=== PATIENT | female | born 1945 | race Caucasian/White ===

== ENCOUNTER 2018-07-14 14:58 | Inpatient (IN) | payer OTHER, BC ==
--- OUTSIDE RECORDS SUMMARY | 2018-07-14 15:00 | XMS REPORT | Clinical Summary ---
:1945 Author Organization [facility] Address [address] [place] [id number] Care Team Providers Name Role Phone Asked, No Pcp Primary Care Provider Unavailable Allergies Not on File Current Medications Not on file Active Problems Not on file Encounters Date Type Specialty Care Team Description 05/05/2018 Hospital Encounter Radiology Elio Hernandez Inflammatory polyarthropathy; MD Charli Myositis, unspecified myositis type, unspecified site; Myalgia; Sicca syndrome 05/05/2018 Transcribe Orders Access Elio Hernandez Inflammatory polyarthropathy (Primary Dx); MD Charli Myositis, unspecified myositis type, unspecified site; Myalgia; Sicca syndrome after 07/13/2017 Social History Tobacco Use Types Packs/Day Years Used Date Never Assessed Sex Assigned at Date Recorded Not on file Last Filed Vital Signs Not on file Plan of Treatment Health Maintenance Due Date Last Done Comments BREAST CANCER SCREENING 1996 COLON CANCER SCREENING 1996 SHINGRIX VACCINE (#1) 1996 ZOSTER VACCINE 2006 PNEUMOCOCCAL POLYSACCHARIDE VACCINE AGE 65 AND OVER 2011 PNEUMOCOCCAL-13 2011 INFLUENZA VACCINE 07/02/2018 Procedures Procedure Name Priority Date/Time Associated Diagnosis Comments XR HANDS 3 VW Routine 05/05/2018 1:23 Inflammatory Results for this BILATERAL PM CDT polyarthropathy procedure are in Myositis, unspecified the results myositis type, section. unspecified site Myalgia Sicca syndrome after 07/13/2017 Results XR Hands 3 Vw Bilateral (05/05/2018 1:23 PM) Narrative Performed At EXAMINATION:XR HANDS 3 VW BILATERAL HM [facility] CLINICAL HISTORY:M06.4 Inflammatory polyarthropathy, M60.9 Myositisunspecified, M06.4 M60.9 M79.1 M35.00 COMPARISON:None available at this time. IMPRESSION: 1. No fracture, malalignment, or osseous destructive lesion bilaterally. 2. Joint spaces are maintained in both hands. The bones are mildly demineralized. Probable old healed fracture of the right fifth metacarpal 3. Soft tissues are unremarkable. [id number] Procedure Note Hm Interface, Radiology Results Incoming - 05/05/2018 3:35 PM CDT EXAMINATION: XR HANDS 3 VW BILATERAL CLINICAL HISTORY: M06.4 Inflammatory polyarthropathy, M60.9 Myositis unspecified, M06.4 M60.9 M79.1 M35.00 COMPARISON: None available at this time. IMPRESSION: 1. No fracture, malalignment, or osseous destructive lesion bilaterally. 2. Joint spaces are maintained in both hands. The bones are mildly demineralized. Probable old healed fracture of the right fifth metacarpal 3. Soft tissues are unremarkable. [facility]-[id number] Performing Organization Address City/State/Zipcode Phone Number [facility] [address] [place] [address] after 07/13/2017 Insurance Payer Benefit Plan / Group Subscriber ID Type Phone Address MEDICARE MEDICARE PART A AND B xxxxxxxxxx Medicare [place], [place] BCBS BCBS CHOICE PPO/FEDERAL EMPL PPO xxxxxxxxxxxx PPO [phone] [id number]
[2018-07-14 16:18] LABS: Absolute Monocytes 0.4 K/uL (0.1-1.3); Absolute Neutrophil 6.2 K/uL (1.8-8.0); Basophils % 0.6 % (0-1.3); Eosinophils % 0.9 % (0-4.4); Hematocrit 25.5 % (36.0-45.0); Lymphocytes % 13.4 % (15.3-44.8); MCH 30.9 pg (27.0-35.0); MCV 90.7 fL (80-100); MPV 9.6 fL (7.6-11.3); Monocytes % 5.3 % (3.3-12.3); RBC Red Blood Cell Count 2.81 M/uL (3.86-4.86)
[2018-07-14 16:39] LABS: Albumin 2.8 g/dL (3.4-5.0); Bilirubin Total 0.4 mg/dL (0.2-1.0); Potassium 3.1 mmol/L (3.5-5.1); Protein, Total 6.9 g/dL (6.4-8.2)
--- NOTE | 2018-07-14 16:41 | RAD REPORT ---
EXAM DESCRIPTION: Doni Single View07/14/2018 4:23 pm CLINICAL HISTORY: Chest pain COMPARISON: 2014 FINDINGS: The lungs appear clear of acute infiltrate. The heart is normal size IMPRESSION: No acute abnormalities displayed
[2018-07-14] MEDS ORDERED: HYDRALAZINE HCL 20 MG/ML VIAL ONE (16:48)
--- NOTE | 2018-07-14 16:54 | ER ---
Nurse's Notes [facility] Name: Elizabeth Wyman Age: 73 yrs Sex: Female : 1945 Arrival Date: 07/14/2018 Time: 15:04 Bed 20 Private MD: Viraj Orozco H Diagnosis: acute renal failure;Uncontrolled hypertension;Uremia;anemia Presentation: 07/14 15:35 Presenting complaint: Patient states: nausous for the past 8 weeks, dx with RA 8 weeks ch ago. took one dose of AReva and stopped because it made the nausea worse. Saw Dr. Orozco and he did labs, told her she is in kidney failure and to come to the ER immediately. Transition of care: patient was not received from another setting of care. Onset of symptoms was May 2018. Risk Assessment: Do you want to hurt yourself or someone else? Patient reports no desire to harm self or others. Initial Sepsis Screen: Does the patient meet any 2 criteria? No. Patient's initial sepsis screen is negative. Does the patient have a suspected source of infection? No. Patient's initial sepsis screen is negative. Care prior to arrival: None. 15:35 Method Of Arrival: Ambulatory 15:35 Acuity: GUNJAN 2 Triage Assessment: 15:44 General: Appears in no apparent distress. comfortable, Behavior is calm, cooperative, ch appropriate for age. Pain: Denies pain. Neuro: No deficits noted. Cardiovascular: Heart tones S1 S2 present. Respiratory: Airway is patent Respiratory effort is even, unlabored. Historical: - Allergies: 15:44 Penicillins; ch - Home Meds: 15:44 Metoprolol Tartrate Oral [Active]; hydrochlorothiazide Oral [Active]; Zofran Oral ch [Active]; Phenergan Oral [Active]; - PMHx: 15:44 Hypertension; Rheumatoid Arthritis; ch - PSHx: 15:44 Hysterectomy; Appendectomy; Carpal Tunnel Repair; Cholecystectomy; - Immunization history:: Adult Immunizations up to date. - Social history:: Smoking status: Patient/guardian denies using tobacco. - Ebola Screening: : Patient negative for fever greater than or equal to 101.5 degrees Fahrenheit, and additional compatible Ebola Virus Disease symptoms Patient denies exposure to infectious person Patient denies travel to an Ebola-affected area in the 21 days before illness onset No symptoms or risks identified at this time. Screenin:45 Abuse screen: Denies threats or abuse. Denies injuries from another. Nutritional ch screening: No deficits noted. Tuberculosis screening: No symptoms or risk factors identified. Fall Risk None identified. Assessment: 15:45 Reassessment: Patient appears in no apparent distress at this time. No changes from ch previously documented assessment. Patient and/or family updated on plan of care and expected duration. Pain level reassessed. 16:50 Reassessment: Patient appears in no apparent distress at this time. pt reports feeling ch very dizzy. pt is tearful in room, states she feels overwhelmed. pt given verbal reassurance, informed that as her bp is lowered, she will be slightly dizzy, that is normal. erp notified pt medicated per orders. 17:59 Reassessment: Patient appears in no apparent distress at this time. Patient and/or ch family updated on plan of care and expected duration. Pain level reassessed. Patient is alert, oriented x 3, equal unlabored respirations, skin warm/dry/pink. Patient states feeling better. Patient states symptoms have improved. 18:02 Reassessment: Patient appears in no apparent distress at this time. Patient and/or ch family updated on plan of care and expected duration. Pain level reassessed. Patient is alert, oriented x 3, equal unlabored respirations, skin warm/dry/pink. Patient states feeling better. Patient states symptoms have improved. 18:35 Reassessment: pt gets up and ambulates to restroom. pt c/o increase in dizzyness. pt ch becomes pail and diaphoretic. pt returned to bed, pt begins to vomit into bag. white spittle. pt medicated per orders. Pain: Denies pain. 18:50 Reassessment: pt medicated per erp orders for dizzyness and bp. ch 19:32 Reassessment: Patient appears in no apparent distress at this time. No changes from jd3 previously documented assessment. Patient and/or family updated on plan of care and expected duration. Pain level reassessed. Patient is alert, oriented x 3, equal unlabored respirations, skin warm/dry/pink. 19:36 Reassessment: Christina MITCHELL on phone with Dr. Newman discussing blood pressure. order jd3 received for 5 mg Lopressor IV push now per Dr. Newman, then admit. 19:45 Reassessment: attempting to call report to the 4th floor now. ch 19:52 Reassessment: report given to Donna. Vital Signs: 15:44 BP 212 / 106; Pulse 99; Resp 18; Temp 99.0; Pulse Ox 95% on R/A; Weight 69.85 kg; ch Height 5 ft. 3 in. (160.02 cm); Pain 0/10; 16:45 BP 187 / 81; Pulse 82; Resp 15; Pulse Ox 99% on R/A; ch 17:15 BP 159 / 56; Pulse 92; Resp 22; Temp 98.3; Pulse Ox 99% on R/A; ch 18:01 BP 160 / 69; Pulse 89; Resp 18; Temp 98.3; Pulse Ox 99% on R/A; Pain 0/10; ch 18:20 BP 122 / 64; Pulse 112; Resp 32; Pulse Ox 99% on R/A; ch 19:02 BP 191 / 73; Pulse 91; Resp 24; Pulse Ox 98% on R/A; Pain 0/10; ch 19:50 BP 177 / 75; Pulse 72; Resp 14 S; Pulse Ox 96% on R/A; jd3 15:44 Body Mass Index 27.28 (69.85 kg, 160.02 cm) ED Course: 15:04 Patient arrived in ED. sb2 15:05 Viraj Orozco MD is Private Physician. sb2 15:33 Bill Chew MD is Attending Physician. ps1 15:35 Christina Dougherty, PAULA is Primary Nurse. ch 15:38 Triage completed. ch 15:44 Arm band placed on left wrist. Patient placed in an exam room, on a stretcher, on pulse oximetry. 15:45 No apparent distress. Resting quietly. ch 15:45 Patient has correct armband on for positive identification. Placed in gown. Bed in low ch position. Call light in reach. Side rails up X 1. Adult w/ patient. Pulse ox on. NIBP on. 15:45 No provider procedures requiring assistance completed. ch 16:23 X-ray completed. Portable x-ray completed in exam room. Patient tolerated procedure ml well. 16:24 CXR XRAY In Process Unspecified. EDMS 16:25 Initial lab(s) drawn, by me, sent to lab. Urine collected: clean catch specimen. ch Inserted saline lock: 20 gauge in right wrist, using aseptic technique. Blood collected. 16:48 Notified ED physician of a critical lab result(s). Cre=10.0. iw 16:53 Pollo Medina MD is Hospitalizing Provider. ps1 17:03 EKG done, by mri special procedures technologist. reviewed by Bill Chew MD. dt2 20:16 Patient admitted, IV remains in place. jd3 Administered Medications: 17:00 Drug: hydrALAZINE 20 mg Route: IV; Rate: bolus; Site: right wrist; ch 18:03 Follow up: IV Status: Completed infusion; IV Intake: 10ml ch 17:25 Drug: Meclizine 25 mg Route: PO; ch 18:04 Follow up: Response: No adverse reaction ch 19:46 Follow up: Response: No adverse reaction ch 18:30 Drug: Zofran 4 mg Route: IVP; Site: right wrist; ch 19:46 Follow up: Response: No adverse reaction; Marked relief of symptoms ch 18:50 Drug: NS 0.9% 500 ml Route: IV; Rate: bolus; Site: right wrist; ch 19:45 Follow up: IV Status: Completed infusion; IV Intake: 500ml ch 19:47 Drug: Lopressor 5 mg Route: IVP; Site: right wrist; jd3 19:49 Follow up: Response: No adverse reaction; Blood pressure is lowered jd3 Intake: 18:03 IV: 10ml; Total: 10ml. ch 19:45 IV: 500ml; Total: 510ml. Outcome: 16:54 Decision to Hospitalize by Provider. ps1 20:15 Admitted to Med/surg accompanied by nurse, via stretcher, room 401, with chart, Report jd3 called to RN called report to Donna MITCHELL 20:15 Condition: stable 20:15 Instructed on the need for admit, Demonstrated understanding of instructions. 20:16 Patient left the ED. jd3 Signatures: Dispatcher [employer] EDMS Christina Dougherty, RN PAULA Koki Black RN PAULA iw Nighat Jara Jahala, RN RN [id number] Solomon Root RN RN jd3 Singer, Phillip, MD MD ps1 Sammi Menjivar bb2 Rebecca Eng sb2 Leticia Bradley dt2 Corrections: (The following items were deleted from the chart) 15:28 15:27 Presenting complaint: jl7 jl7 15:37 15:37 X-ray completed. Portable x-ray completed in exam room. Patient tolerated bb2 procedure well. bb2
--- NOTE | 2018-07-14 16:54 | EDPHYS ---
Physician Documentation [facility] Name: Elizabeth Wyman Age: 73 yrs Sex: Female : 1945 Arrival Date: 07/14/2018 Time: 15:04 Bed 20 Private MD: Viraj Mccollum H ED Physician Bill Chew HPI: 07/14 15:41 This 73 yrs old Female presents to ER via Ambulatory with complaints of SENT ps1 BY DR MCCOLLUM,KIDNEY PROBLEM. 15:41 patient reportedly has renal failure per Dr. Mccollum's office with BUN > 100 and Utility Bag Assembler > ps1 7. She was referred to him for nausea and has been treated for this for 2 weeks prior to seeing him. He ran labs and found the diagnosis. Sent to ED for evaluation. Pt has new diagnosis of RA and has been treated with Ariva. Worsening hypertension. . Historical: - Allergies: 15:44 Penicillins; ch - Home Meds: 15:44 Metoprolol Tartrate Oral [Active]; hydrochlorothiazide Oral [Active]; Zofran Oral ch [Active]; Phenergan Oral [Active]; - PMHx: 15:44 Hypertension; Rheumatoid Arthritis; ch - PSHx: 15:44 Hysterectomy; Appendectomy; Carpal Tunnel Repair; Cholecystectomy; ch - Immunization history:: Adult Immunizations up to date. - Social history:: Smoking status: Patient/guardian denies using tobacco. - Ebola Screening: : Patient negative for fever greater than or equal to 101.5 degrees Fahrenheit, and additional compatible Ebola Virus Disease symptoms Patient denies exposure to infectious person Patient denies travel to an Ebola-affected area in the 21 days before illness onset No symptoms or risks identified at this time. ROS: 15:41 Constitutional: Negative for fever, chills, and weight loss, Eyes: Negative for injury, ps1 pain, redness, and discharge, Cardiovascular: Negative for chest pain, palpitations, and edema, Respiratory: Negative for shortness of breath, cough, wheezing, and pleuritic chest pain. 15:41 MS/Extremity: Negative for injury and deformity, Skin: Negative for injury, rash, and discoloration, Neuro: Negative for headache, weakness, numbness, tingling, and seizure. 15:41 Abdomen/GI: Positive for nausea. Exam: 15:41 Constitutional: This is a well developed, well nourished patient who is awake, alert, ps1 and in no acute distress. Head/Face: Normocephalic, atraumatic. Eyes: Pupils equal round and reactive to light, extra-ocular motions intact. Lids and lashes normal. Conjunctiva and sclera are non-icteric and not injected. Chest/axilla: Normal chest wall appearance and motion. Nontender with no deformity. No lesions are appreciated. Cardiovascular: Regular rate and rhythm. No gallops, murmurs, or rubs. Normal PMI, no JVD. No pulse deficits. Respiratory: Lungs have equal breath sounds bilaterally, clear to auscultation and percussion. No rales, rhonchi or wheezes noted. No increased work of breathing, no retractions or nasal flaring. Abdomen/GI: Soft, non-tender, with normal bowel sounds. No distension or tympany. No guarding or rebound. No evidence of tenderness throughout. Skin: Warm, dry with normal turgor. Normal color with no rashes, no lesions, and no evidence of cellulitis. MS/ Extremity: Pulses equal, no cyanosis. Neurovascular intact. Full, normal range of motion. Neuro: Awake and alert, GCS 15, oriented to person, place, time, and situation. Cranial nerves II-XII grossly intact. Sensory grossly intact. Vital Signs: 15:44 BP 212 / 106; Pulse 99; Resp 18; Temp 99.0; Pulse Ox 95% on R/A; Weight 69.85 kg; ch Height 5 ft. 3 in. (160.02 cm); Pain 0/10; 16:45 BP 187 / 81; Pulse 82; Resp 15; Pulse Ox 99% on R/A; ch 17:15 BP 159 / 56; Pulse 92; Resp 22; Temp 98.3; Pulse Ox 99% on R/A; ch 18:01 BP 160 / 69; Pulse 89; Resp 18; Temp 98.3; Pulse Ox 99% on R/A; Pain 0/10; ch 18:20 BP 122 / 64; Pulse 112; Resp 32; Pulse Ox 99% on R/A; ch 19:02 BP 191 / 73; Pulse 91; Resp 24; Pulse Ox 98% on R/A; Pain 0/10; ch 19:50 BP 177 / 75; Pulse 72; Resp 14 S; Pulse Ox 96% on R/A; jd3 15:44 Body Mass Index 27.28 (69.85 kg, 160.02 cm) ch MDM: 16:02 Patient medically screened. ps1 07/14 15:46 Order name: CBC with Diff; Complete Time: 16:25 ps1 07/14 15:46 Order name: CMP; Complete Time: 16:43 ps1 07/14 15:46 Order name: BNP; Complete Time: 16:43 ps1 07/14 15:46 Order name: Urinalysis; Complete Time: 17:31 ps1 07/14 15:46 Order name: Troponin I; Complete Time: 16:43 ps1 07/14 17:10 Order name: Urine Microscopic Only; Complete Time: 17:31 EDMS 07/14 17:31 Order name: CBC with Automated Diff EDMS 07/14 17:31 Order name: CBC with Automated Diff EDMS 07/14 17:31 Order name: Comprehensive Metabolic Panel EDMS 07/14 17:31 Order name: Comprehensive Metabolic Panel EDMS 07/14 17:31 Order name: Magnesium EDMS 07/14 17:31 Order name: Magnesium EDMS 07/14 17:31 Order name: Phosphorus EDMS 07/14 17:31 Order name: Phosphorus EDMS 07/14 15:46 Order name: CXR XRAY; Complete Time: 16:43 ps1 07/14 15:46 Order name: EKG - Nurse/Tech; Complete Time: 19:53 ps1 07/14 17:31 Order name: CONS Physician Consult EDMS 07/14 17:31 Order name: Renal EDMS 07/14 17:31 Order name: Urine Culture EDMS Administered Medications: 17:00 Drug: hydrALAZINE 20 mg Route: IV; Rate: bolus; Site: right wrist; ch 18:03 Follow up: IV Status: Completed infusion; IV Intake: 10ml ch 17:25 Drug: Meclizine 25 mg Route: PO; ch 18:04 Follow up: Response: No adverse reaction ch 19:46 Follow up: Response: No adverse reaction ch 18:30 Drug: Zofran 4 mg Route: IVP; Site: right wrist; ch 19:46 Follow up: Response: No adverse reaction; Marked relief of symptoms ch 18:50 Drug: NS 0.9% 500 ml Route: IV; Rate: bolus; Site: right wrist; ch 19:45 Follow up: IV Status: Completed infusion; IV Intake: 500ml 19:47 Drug: Lopressor 5 mg Route: IVP; Site: right wrist; jd3 19:49 Follow up: Response: No adverse reaction; Blood pressure is lowered jd3 Disposition: 07/14/18 16:54 Hospitalization ordered by Pollo Medina for Inpatient Admission. Preliminary diagnosis are acute renal failure, Uncontrolled hypertension, Uremia, anemia. - Bed requested for Telemetry/MedSurg (Inpatient). - Status is Inpatient Admission. jd3 - Condition is Fair. - Problem is new. - Symptoms are unchanged. UTI on Admission? No Signatures: Dispatcher [employer] EDMS Delmi Rockwell Christina, RN RN ch Davies, Jonathon, RN RN jd3 Singer, Phillip, MD MD ps1 Corrections: (The following items were deleted from the chart) 18:20 16:54 Hospitalization Ordered by Pollo Medina MD for Inpatient Admission. Preliminary bd diagnosis is acute renal failure; Uncontrolled hypertension; Uremia; anemia. Bed requested for Telemetry/MedSurg (Inpatient). Status is Inpatient Admission. Condition is Fair. Problem is new. Symptoms are unchanged. UTI on Admission? No. ps1 20:16 18:20 07/14/2018 16:54 Hospitalization Ordered by Pollo Medina MD for Inpatient jd3 Admission. Preliminary diagnosis is acute renal failure; Uncontrolled hypertension; Uremia; anemia. Bed requested for Telemetry/MedSurg (Inpatient). Status is Inpatient Admission. Condition is Fair. Problem is new. Symptoms are unchanged. UTI on Admission? No. bd
[2018-07-14 17:06] LABS: Urine Appearance CLOUDY; Urine Bilirubin NEGATIVE (NEG); Urine Blood 3+ (NEG); Urine Color YELLOW; Urine Glucose TRACE (NEG); Urine Microscopic Reflex ORDER UMIC; Urine Protein 3+ (NEG); Urine Specific Gravity 1.015 (1.005-1.030); Urine Urobilinogen 0.2 mg/dL (0.2-1.0)
[2018-07-14] MEDS ORDERED: ONDANSETRON 4 MG/2 ML VIAL IV PRN (17:28)
[2018-07-14 17:29] LABS: Urine Amorphous Sediment 1+ /HPF (NONE SEEN); Urine Bacteria <20 /HPF (<20); Urine Culture Reflex Order REFLEXED; Urine Mucus 1+ /HPF (NONE SEEN); Urine RBC >50 /HPF (NONE SEEN)
[2018-07-14] MEDS ORDERED: MECLIZINE HCL 12.5 MG TAB ONE (17:36)
[2018-07-14] MEDS ORDERED: NA CHLORIDE 0.9% 1,000 ML IV SCH (18:00)
[2018-07-14] MEDS ORDERED: ONDANSETRON 4 MG/2 ML VIAL ONE (18:31)
[2018-07-14] MEDS ORDERED: NA CHLORIDE 0.9% 500 ML ONE (18:48)
[2018-07-14] MEDS ORDERED: METOPROLOL TARTRATE 5 MG/5 ML INJ IV ONE (19:45)
[2018-07-14] MEDS ORDERED: POTASSIUM CL SA 10 MEQ TAB PO ONE (20:48)
[2018-07-14 21:11] VITALS: BMI 26.9
[2018-07-14] MEDS: NACHLORIDE 0.45% 1,000 ML IV SCH (22:12)
[2018-07-14] MEDS: ACETAMINOPHEN 500 MG TAB PO PRN (22:41)
[2018-07-14] MEDS: HYDRALAZINE HCL 20 MG/ML VIAL IV PRN (23:42)
--- NOTE | 2018-07-15 03:07 | HP ---
Date of Admission: 07/14/2018 Additional Consulting Physician: Angelito Thorne D.O. with Nephrology. Primary Care Physician: Babak Daly M.D. Code Status: Full. No medical power of assistant prosecuting attorney or living will. Chief Complaint: Abnormal labs, nausea with generalized weakness. History Of Present Illness: The patient is a 73-year-old female with past medical history of hyperte nsion as well as recently diagnosed rheumatoid arthritis, who was in her usual state of health and wa s in the ER bringing in her to be evaluated when she got a call from her GI doctor's office s tating that she had abnormal labs and that she needed to be admitted to the hospital. The patient do es report some nausea ongoing for the past week or so with decreased appetite and some generalized we akness. She denies any fevers, chills, shortness of breath, or any chest pain. The patient has been recently diagnosed with rheumatoid arthritis, was on high-dose steroids and was started on what soun ds like a disease-modifying antirheumatic drug; however, the patient did not tolerate that well. The patient's workup revealed creatinine of 10 and BUN 114. Her baseline creatinine from earlier in 8 in April was normal and has been normal over the past several years. Potassium was low at 3.1. BNP is elevated. The patient's chest x-ray was clear. She was then referred for admission for acute kid ayanna injury. Her blood pressure was elevated and she was given some hydralazine. Past Medical History: Hypertension, recently diagnosed rheumatoid arthritis. Past Surgical History: Cholecystectomy, hysterectomy, appendectomy, right-sided carpal tunnel releas e. Allergies: TO PENICILLIN AND TO MORPHINE. Social History: The patient denies any alcohol use, tobacco use, or illicit drug use. Has good [employer] empl[employer]us support. Independent in her activities of daily living. Family History: Her cousin has rheumatoid arthritis and cancer also runs in the family. Review of Systems: An 11-point system reviewed, negative except as per HPI. Physical Examination: Vital Signs: Blood pressure 212/106, pulse 99, respirations 18, temperature 99, O2 95% on room air. General: Awake, alert, oriented x3, in some mild distress. Elderly female, ill-appearing. HEENT: Normocephalic, atraumatic. PERRLA, EOMI. Dry mucous membranes. Oropharynx is clear. Fouzia l dentition. Conjunctiva is anicteric. Neck: Supple. No JVD. Trachea midline. CV: S1, S2. Regular rate and rhythm. Peripheral pulses present. No murmurs. Respiratory: Clear to auscultation bilaterally. No wheezing. No stridor. No use of accessory musc les. Gastrointestinal: Abdomen is soft, nontender, nondistended. Positive bowel sounds. No guarding or rigidity. No organomegaly. Extremities: No clubbing, cyanosis, or edema. No calf tenderness. Neuro: Cranial nerves 2 through 12 intact grossly. No focal neurological deficit. Speech is normal . Strength is 5/5 bilateral upper and lower extremities. Sensation intact to light touch. Skin: No rashes. Normal skin turgor. Psych: Mood is okay. Affect is full. Insight and judgment are good. Laboratory Data: WBC 7.8, H and H 8.7 and 25.5, platelets 280, neutrophils 79.8%. Sodium 140, potas sium 3.1, chloride 102, CO2 23, BUN 114, creatinine 10, glucose 152, calcium 8.5, AST 12, ALT 8, trop onin less than 0.02, BNP 2121, albumin 2.8. UA; trace leukocyte esterase, greater than 50 rbc's, 5-1 0 wbc's, 5-10 squamous epithelial cells, less than 20 bacteria, 3+ protein, negative nitrites. Chest x-ray shows no acute abnormality displayed, personally reviewed. Assessment And Plan: A 73-year-old female with: 1.Acute kidney injury, unclear etiology, may be related to medication side effect. We will continue with IV fluid challenge. Nephrology is being consulted. The patient may need dialysis if kidney fu nction does not improve. We will continue to monitor creatinine closely. 2.Hypokalemia. We will monitor closely. 3.Normocytic normochromic anemia, likely anemia of chronic disease. 4.Essential hypertension, hypertensive urgency. Blood pressure in the 200 systolic with kidney fail ure. We will treat with IV medications and monitor closely. 5.Recently diagnosed rheumatoid arthritis. 6.Gastrointestinal and deep venous thrombosis prophylaxis with PPI and SCDs. No chemical anticoagula tion as the patient may need temporary dialysis catheter. Plan: Admit the patient to [facility], place as inpatient. Nephrology has been consulted. /JORGE Voice ID: [id number]
[2018-07-15 05:59] LABS: Absolute Lymphocytes (CBC) 1.3 K/uL (0.7-4.9); Absolute Monocytes 0.7 K/uL (0.1-1.3); Absolute Neutrophil 7.2 K/uL (1.8-8.0); Basophils % 0.6 % (0-1.3); Eosinophils % 1.6 % (0-4.4); Hematocrit 25.5 % (36.0-45.0); MCH 31.5 pg (27.0-35.0); MCV 89.9 fL (80-100); MPV 9.2 fL (7.6-11.3); RBC Red Blood Cell Count 2.84 M/uL (3.86-4.86)
[2018-07-15 06:12] LABS: Albumin 2.7 g/dL (3.4-5.0); Bilirubin Total 0.4 mg/dL (0.2-1.0); Magnesium 2.3 mg/dL (1.8-2.4); Phosphorus 6.8 mg/dL (2.5-4.9); Potassium 3.2 mmol/L (3.5-5.1); Protein, Total 6.8 g/dL (6.4-8.2); Uric Acid 8.4 mg/dL (2.6-6.0)
[2018-07-15] MEDS: NACHLORIDE 0.45% 1,000 ML IV SCH ×3 (06:18→20:39)
[2018-07-15 07:22] LABS: Urine Appearance CLOUDY; Urine Bilirubin NEGATIVE (NEG); Urine Blood 3+ (NEG); Urine Color YELLOW; Urine Glucose NEGATIVE (NEG); Urine Protein 3+ (NEG); Urine Urobilinogen 0.2 mg/dL (0.2-1.0); Urine pH 5.5 (5.0-7.0)
[2018-07-15 07:33] LABS: Urine Protein/Creatinine Ratio 4.2 ratio (<0.15)
--- NOTE | 2018-07-15 07:50 | EKG ---
Test Date: 2018-07-14 Test Time: 16:58:22 Tooth Grinder: JORGE MEASUREMENT RESULTS: Intervals: Rate: 77 IN: 158 QRSD: 88 QT: 402 QTc: 454 Sheldon: P: 71 IN: 158 QRS: 16 T: 45 INTERPRETIVE STATEMENTS: Normal sinus rhythm Possible Anterior infarct, age undetermined Abnormal ECG Compared to ECG 09/09/2014 05:45:20 Atrial abnormality no longer present Myocardial infarct finding still present Electronically Signed On 07-15-18 07:49:50 CDT by Peter Cruz
[2018-07-15] MEDS: METOPROLOL XL 50 MG TAB PO SCH (07:54)
[2018-07-15] MEDS: HYDRALAZINE HCL 20 MG/ML VIAL IV PRN ×2 (07:54→18:04)
[2018-07-15] MEDS: ACETAMINOPHEN 500 MG TAB PO PRN (07:58)
[2018-07-15] MEDS: SEVELAMER CARBONATE 800 MG TABLET PO SCH ×3 (08:00→16:53)
[2018-07-15] MEDS ORDERED: PNEUMOCOCCAL VACCINE 0.5 ML IMVAC ONE (08:00)
[2018-07-15 08:01] LABS: Urine Bacteria 20-50 /HPF (<20); Urine Culture Reflex Order REFLEXED
[2018-07-15] MEDS ORDERED: DOXAZOSIN 2 MG TAB PO ONE (09:00)
[2018-07-15] MEDS: VITAMIN D 5,000 UNIT CAP PO SCH (11:42)
[2018-07-15] MEDS: PANTOPRAZOLE 40MG TABLET PO SCH ×2 (11:43→20:40)
--- NOTE | 2018-07-15 14:14 | P.PN ---
Subjective Date of Service: 07/15/18 doing fair no new complaints. Renal function same Physical Examination - Vital Signs Temperature: 97.8 F Blood Pressure: 148/57 Pulse: 75 Respirations: 18 Pulse Ox (%): 95 - Physical Exam General: Alert, In no apparent distress HEENT: Atraumatic, PERRLA, EOMI Neck: Supple, JVD not distended Respiratory: Clear to auscultation bilaterally, Normal air movement Cardiovascular: Regular rate/rhythm, Normal S1 S2 Gastrointestinal: Normal bowel sounds, No tenderness Musculoskeletal: No tenderness Integumentary: No rashes Neurological: Normal speech, Normal tone, Normal affect Lymphatics: No axilla or inguinal lymphadenopathy - Studies Laboratory Data (last 24 hrs) 07/14/18 16:00: Troponin I < 0.02 07/14/18 16:00: WBC 7.8, Hgb 8.7 L, Hct 25.5 L, Plt Count 280 07/14/18 16:00: Sodium 140, Potassium 3.1 L, BUN 114 H, Creatinine 10.00 H*, Glucose 152 H, Total Bilirubin 0.4, AST 12 L, ALT 8 L, Alkaline Phosphatase 70 Medications List Reviewed: Yes Assessment And Plan - Current Problems (Diagnosis) (1) Acute renal failure Onset Date: 07/15/18 Current Visit: Yes Status: Acute (2) Hypertension Onset Date: 07/15/18 Current Visit: Yes Status: Acute (3) Uremia Onset Date: 07/15/18 Current Visit: Yes Status: Acute - Plan cont IVF F/U renal funxtion Renal biopsy Hydralazine PRN for HTN Renal Consulted
[2018-07-15] MEDS ORDERED: predniSONE 20 MG TAB PO ONE (16:47)
[2018-07-15] MEDS: DOXAZOSIN 2 MG TAB PO SCH (20:40)
--- NOTE | 2018-07-15 21:13 | EKG ---
Test Date: 2018-07-15 Test Time: 07:50:48 Sack Repairer: SIS MEASUREMENT RESULTS: Intervals: Rate: 81 NV: 144 QRSD: 84 QT: 408 QTc: 473 [place]: P: 69 NV: 144 QRS: 58 T: 63 INTERPRETIVE STATEMENTS: Normal sinus rhythm Normal ECG Compared to ECG 07/14/2018 16:58:22 Myocardial infarct finding no longer present Electronically Signed On 07-15-18 21:12:41 CDT by Peter Cruz
[2018-07-15] MEDS: TEMAZEPAM 15 MG CAP PO PRN (21:24)
--- NOTE | 2018-07-15 21:30 | P.CNS ---
Date of Consult: 07/15/18 Reason for Consult: GIANCARLO Requesting Physician: Lalo Osborne Primary Care Provider: Dr. Daly Chief Complaint: GIANCARLO History of Present Illness: 73 yo WF HTN presented to the ER severe, progressive GIANCARLO with associated nausea , anorexia and malaise in the setting of recently diagnosed RA. She has been feeling poorly for several months. She reports two ear infections and a respiratory infection. She has been evaluated by rheumatology, Dr. Masters and Dr. Orozco. Good urine output. Rare Aleve, which she quit last month. No difficulties emptying her bladder. She was called by Dr. Orozco's office and advised to go to the ER. She took one dose of Arava for RA but discontinued it due to N/V. She recently finished a course of Doxycycline. Allergies meperidine [From Demerol] Adverse Reaction (Mild, Verified 07/14/18 22:02) Itching morphine Adverse Reaction (Verified 07/14/18 22:01) severe itching Home medications list reviewed: Yes Home Medications: Metoprolol Succinate 50 mg PO DAILY 07/14/18 Ondansetron HCl [Zofran] 4 mg PO Q6H PRN 07/14/18 Pantoprazole [Protonix Tab*] 40 mg PO BID 07/14/18 Promethazine HCl 25 mg PO Q6H 07/14/18 hydroCHLOROthiazide [Hydrochlorothiazide] 25 mg PO DAILY 07/14/18 - Past Medical/Surgical History Diabetic: No -: HTN -: Rheumatiod Arthritis -: Hysterectomy -: Cholesestecomy -: Carpal Tunel -: Appendectomy - Family History Father Medical History: Heart disease, Cancer, Other (see notes) Notes: Lung Cancer - Social History Alcohol use: Yes CD- Drugs: No Caffeine use: Yes Place of Residence: Home Review of Systems 10-point ROS is otherwise unremarkable General: Weakness, Malaise Cardiovascular: Edema Gastrointestinal: Nausea, Vomiting, Abdominal Pain Neurological: Weakness Physical Examination Temp Pulse Resp BP Pulse Ox 97.9 F 78 18 156/67 H 97 07/15/18 20:00 07/15/18 20:40 07/15/18 20:00 07/15/18 20:40 07/15/18 20:00 General: In no apparent distress, Oriented x3, Cooperative HEENT: Atraumatic, Mucous membr. moist/pink Neck: Supple, No LAD Respiratory: Clear to auscultation bilaterally, Normal air movement Cardiovascular: Regular rate/rhythm, No gallops, No rubs, Edema Gastrointestinal: Soft and benign, Non-distended, No guarding Musculoskeletal: No clubbing, No contractures Integumentary: No rashes Neurological: Normal speech Blood work reviewed in the chart. Serum creatinine 10; Potassium 3.1 Imagings Data: EXAM DESCRIPTION: Doni Single View07/14/2018 4:23 pm CLINICAL HISTORY: Chest pain COMPARISON: 2014 FINDINGS: The lungs appear clear of acute infiltrate. The heart is normal size IMPRESSION: No acute abnormalities displayed Conclusions/Impression: A/ GIANCARLO with hematuria and proteinuria suspicious for nephritis. HTN, uncontrolled. Hypokalemia. HypoPO4. Anemia in chronic illness. Moderate malnutrition. RA with diffuse joint pain. P/ Continue current POC and Medications. Counseled regarding CKD and the possibility of dialysis. Arrange for an urgent renal biopsy. NPO until biopsy. Replete potassium. Give Prednisone. Maintain nutrition. No NSAIDs. AM labs. Daily weight. Thank you kindly for the consultation.
[2018-07-16 04:12] LABS: Absolute Lymphocytes (CBC) 0.7 K/uL (0.7-4.9); Absolute Monocytes 0.1 K/uL (0.1-1.3); Absolute Neutrophil 4.3 K/uL (1.8-8.0); Basophils % 0.2 % (0-1.3); Eosinophils % 0.1 % (0-4.4); Hematocrit 22.5 % (36.0-45.0); MCH 31.5 pg (27.0-35.0); MCV 90.2 fL (80-100); MPV 9.4 fL (7.6-11.3); Monocytes % 1.5 % (3.3-12.3)
[2018-07-16 04:35] LABS: Albumin 2.3 g/dL (3.4-5.0); Bilirubin Total 0.3 mg/dL (0.2-1.0); Potassium 3.7 mmol/L (3.5-5.1); Uric Acid 8.1 mg/dL (2.6-6.0)
[2018-07-16 05:18] LABS: Urine Appearance CLOUDY; Urine Bilirubin NEGATIVE (NEG); Urine Blood 3+ (NEG); Urine Color YELLOW; Urine Glucose TRACE (NEG); Urine Protein 2+ (NEG); Urine Urobilinogen 0.2 mg/dL (0.2-1.0)
[2018-07-16 05:49] LABS: Urine Amorphous Sediment 1+ /HPF (NONE SEEN); Urine Bacteria 20-50 /HPF (<20); Urine Culture Reflex Order NOT NEEDED
[2018-07-16] MEDS: METOPROLOL XL 50 MG TAB PO SCH (06:04)
[2018-07-16] MEDS: SEVELAMER CARBONATE 800 MG TABLET PO SCH ×4 (08:00→17:48)
[2018-07-16] MEDS: VITAMIN D 5,000 UNIT CAP PO SCH (08:19)
[2018-07-16] MEDS: PANTOPRAZOLE 40MG TABLET PO SCH ×2 (08:21→20:29)
[2018-07-16] MEDS ORDERED: FENTANYL CITR 100 MCG/2 ML ONE (11:11)
[2018-07-16] MEDS ORDERED: MIDAZOLAM HCL 2 MG/2 ML INJ ONE (11:11)
[2018-07-16] MEDS ORDERED: FLUMAZENIL 0.1 MG/ML (5 mL VIAL) IV ONE (11:12)
[2018-07-16] MEDS ORDERED: NALOXONE 0.4 MG/ML VIAL ONE (11:12)
[2018-07-16] MEDS ORDERED: NA CHLORIDE 0.9% 1,000 ML ONE (11:17)
--- NOTE | 2018-07-16 12:21 | RAD REPORT ---
EXAM DESCRIPTION: US - Biopsy Renal - 07/16/2018 11:26 am CLINICAL HISTORY: GIANCARLO CONCERNING FOR NEPHRITIS COMPARISON: No comparisons FINDINGS: Preoperative diagnosis: Acute kidney injury.. Post operative diagnosis: Same. Conscious Sedation: 45 minutes of IV conscious sedation was utilized with fentanyl and midazolam. Fluoroscopy time: None Contrast used: None Estimated blood loss: Minimal Specimens:3 x 18 gauge core biopsies. The posterior left flank was prepped and draped in the usual sterile fashion. 1% lidocaine was infilt rated into the subcutaneous tissues for local anesthesia. Real time ultrasound scanning of the left k idney demonstrated a suitable sonographic window to the inferior pole. Under ultrasound guidance, usi ng a 18-gauge, 10 cm long, 2 cm throw core biopsy gun, 3 specimens were obtained of this lesion and s ent to pathology for evaluation. There were no complications. IMPRESSION: Successful ultrasound-guided nonfocal left kidney biopsy. 45 minutes of IV conscious sedation was utilized.
[2018-07-16 13:59] LABS: Hematocrit 21.5 % (36.0-45.0)
[2018-07-16] MEDS: NACHLORIDE 0.45% 1,000 ML IV SCH ×2 (14:17→18:52)
--- NOTE | 2018-07-16 16:16 | P.PN ---
Subjective Date of Service: 07/16/18 Primary Care Provider: Dr. Daly Chief Complaint: GIANCARLO doing fair no new complaints. Renal function same Physical Examination - Vital Signs Temperature: 97.4 F Blood Pressure: 142/68 Pulse: 70 Respirations: 18 Pulse Ox (%): 98 - Physical Exam General: Alert, In no apparent distress HEENT: Atraumatic, PERRLA, EOMI Neck: Supple, JVD not distended Respiratory: Clear to auscultation bilaterally, Normal air movement Cardiovascular: Regular rate/rhythm, Normal S1 S2 Gastrointestinal: Normal bowel sounds, No tenderness Musculoskeletal: No tenderness Integumentary: No rashes Neurological: Normal speech, Normal tone, Normal affect Lymphatics: No axilla or inguinal lymphadenopathy - Studies Medications List Reviewed: Yes Assessment And Plan - Current Problems (Diagnosis) (1) Acute renal failure Onset Date: 07/15/18 Current Visit: Yes Status: Acute Qualifiers: Acute renal failure type: unspecified Qualified Code(s): N17.9 - Acute kidney failure, unspecified (2) Hypertension Onset Date: 07/15/18 Current Visit: Yes Status: Chronic Qualifiers: Hypertension type: essential hypertension Qualified Code(s): I10 - Essential (primary) hypertension (3) Uremia Onset Date: 07/15/18 Current Visit: Yes Status: Acute (4) Anemia Current Visit: Yes Status: Acute Qualifiers: Anemia type: due to chronic kidney disease Chronic kidney disease stage: stage 4 (severe) Qualified Code(s): N18.4 - Chronic kidney disease, stage 4 ( severe); D63.1 - Anemia in chronic kidney disease - Plan cont IVF F/U renal funxtion Renal biopsy today Hydralazine PRN for HTN Renal Consulted
[2018-07-16] MEDS ORDERED: predniSONE 20 MG TAB PO ONE (16:42)
--- NOTE | 2018-07-16 18:48 | P.PN ---
Date of Service: 07/16/18 Vital Signs Temp Pulse Resp BP Pulse Ox 97.4 F 70 18 142/68 H 98 07/16/18 16:16 07/16/18 16:16 07/16/18 16:16 07/16/18 16:16 07/16/18 16:16 Medications Acetaminophen (Tylenol -Extra Strength) 500 mg PO Q4HP PRN PRN Reason: [id number] Stop: 08/13/18 17:29 Last Admin: 07/15/18 07:58 Dose: 500 mg Cholecalciferol (Vitamin D 5,000 Iu Cap) 5,000 unit PO DAILY GI Stop: 08/14/18 09:01 Last Admin: 07/16/18 08:19 Dose: Not Given Doxazosin Mesylate (Cardura) 2 mg PO BEDTIME GI Stop: 08/14/18 21:01 Last Admin: 07/15/18 20:40 Dose: 2 mg Hydralazine HCl (Apresoline) 10 mg IV Q4HP PRN PRN Reason: HIGH BP Stop: 08/13/18 17:32 Last Admin: 07/15/18 18:04 Dose: 10 mg Sodium Chloride (Sodium Chloride 0.45%) 1,000 mls @ 100 mls/hr IV .Q10H GI Stop: 08/13/18 21:01 Last Admin: 07/16/18 14:17 Dose: 1,000 mls Metoprolol Succinate (Toprol Xl) 50 mg PO DAILY GI Stop: 08/14/18 09:01 Last Admin: 07/16/18 06:04 Dose: 50 mg Ondansetron HCl (Zofran) 4 mg IV Q4H PRN PRN Reason: NAUSEA / VOMITING Stop: 08/13/18 17:29 Last Admin: 07/15/18 12:44 Dose: 4 mg Pantoprazole Sodium (Protonix Tab) 40 mg PO BID GI Stop: 08/14/18 09:01 Last Admin: 07/16/18 08:21 Dose: Not Given Sevelamer Carbonate (Renvela) 800 mg PO TIDWM GI Stop: 08/14/18 08:01 Last Admin: 07/16/18 17:48 Dose: 800 mg Sodium Chloride (Normal Saline Flush) 10 ml IV BID GI Stop: 08/13/18 21:01 Last Admin: 07/16/18 08:19 Dose: Not Given Temazepam (Restoril) 15 mg PO BEDTIME PRN PRN PRN Reason: INSOMNIA Stop: 08/14/18 20:51 Last Admin: 07/15/18 21:24 Dose: 15 mg Microbiology Results 07/14/18 16:45 Clean Catch Urine [place] Count - Preliminary <10,000 CFU/ML. 07/14/18 16:45 Clean Catch Urine - Preliminary Assessment/ Plan: Nephrology. Feeling better with improved diet. CPS stable without CP or SOB. No acute events overnight. Vitals, medications, blood work and imaging reviewed in the chart. General: In no apparent distress, Oriented x3, Cooperative HEENT: Atraumatic, Mucous membr. moist/pink Neck: Supple, No LAD Respiratory: Clear to auscultation bilaterally, Normal air movement Cardiovascular: Regular rate/rhythm, No gallops, No rubs, Edema Gastrointestinal: Soft and benign, Non-distended, No guarding Musculoskeletal: No clubbing, No contractures Integumentary: No rashes Neurological: Normal speech Blood work reviewed in the chart. Serum creatinine 10; Potassium 3.1 Imagings Data: EXAM DESCRIPTION: Doni Single View07/14/2018 4:23 pm CLINICAL HISTORY: Chest pain COMPARISON: 2014 FINDINGS: The lungs appear clear of acute infiltrate. The heart is normal size IMPRESSION: No acute abnormalities displayed Conclusions/Impression: A/ GIANCARLO with hematuria and proteinuria suspicious for nephritis. HTN, improved. Hypokalemia. HypoPO4. Anemia in chronic illness. Moderate malnutrition. RA with diffuse joint pain. P/ Continue current POC and Medications. Counseled regarding CKD and the possibility of dialysis. Renal Biopsy today. Give Prednisone. Reduce IVF. Maintain nutrition. No NSAIDs. AM labs. Daily weight.
[2018-07-16] MEDS: DOXAZOSIN 2 MG TAB PO SCH (20:29)
[2018-07-16] MEDS: TEMAZEPAM 15 MG CAP PO PRN (20:37)
[2018-07-17] MEDS: NACHLORIDE 0.45% 1,000 ML IV SCH ×3 (02:02→21:40)
[2018-07-17 05:04] LABS: Absolute Lymphocytes (CBC) 0.6 K/uL (0.7-4.9); Absolute Monocytes 0.1 K/uL (0.1-1.3); Absolute Neutrophil 4.7 K/uL (1.8-8.0); Basophils % 0.1 % (0-1.3); Eosinophils % 0.1 % (0-4.4); Hematocrit 21.2 % (36.0-45.0); Lymphocytes % 10.2 % (15.3-44.8); MCH 30.6 pg (27.0-35.0); MCV 90.3 fL (80-100); MPV 9.4 fL (7.6-11.3); Monocytes % 1.8 % (3.3-12.3); RBC Red Blood Cell Count 2.34 M/uL (3.86-4.86)
[2018-07-17 05:29] LABS: Albumin 2.2 g/dL (3.4-5.0); Bilirubin Total 0.2 mg/dL (0.2-1.0); Potassium 4.1 mmol/L (3.5-5.1); Protein, Total 5.6 g/dL (6.4-8.2)
[2018-07-17 06:14] LABS: Blood Morphology Comment NOT SEEN (NOT SEEN); Platelet Estimate ADEQ
[2018-07-17] MEDS: METOPROLOL XL 50 MG TAB PO SCH (08:51)
[2018-07-17] MEDS: SEVELAMER CARBONATE 800 MG TABLET PO SCH ×3 (08:51→17:37)
[2018-07-17] MEDS: PANTOPRAZOLE 40MG TABLET PO SCH ×2 (08:51→21:04)
[2018-07-17] MEDS: VITAMIN D 5,000 UNIT CAP PO SCH (08:52)
[2018-07-17] MEDS ORDERED: METHYLPREDNISOLONE 125 MG INJ IV ONE ×2 (11:41→16:50)
[2018-07-17] MEDS ORDERED: METHYLPRED NA SUC 500 MG in NA CHLORIDE 0.9% 100 ML IV ONE ×2 (12:00→17:00)
[2018-07-17 12:53] LABS: HBsAG Nonreactive (Nonreactive)
[2018-07-17] MEDS ORDERED: EPOETIN ALFA 20,000 UNIT/ML SQ ONE (16:52)
--- NOTE | 2018-07-17 17:42 | P.PN ---
Subjective Date of Service: 07/17/18 Primary Care Provider: Dr. Daly Chief Complaint: GIANCARLO doing fair no new complaints. Renal function improving slightly Physical Examination - Vital Signs Temperature: 97.9 F Blood Pressure: 170/70 Pulse: 82 Respirations: 18 Pulse Ox (%): 97 - Physical Exam General: Alert, In no apparent distress HEENT: Atraumatic, PERRLA, EOMI Neck: Supple, JVD not distended Respiratory: Clear to auscultation bilaterally, Normal air movement Cardiovascular: Regular rate/rhythm, Normal S1 S2 Gastrointestinal: Normal bowel sounds, No tenderness Musculoskeletal: No tenderness Integumentary: No rashes Neurological: Normal speech, Normal tone, Normal affect Lymphatics: No axilla or inguinal lymphadenopathy - Studies Microbiology Data (last 24 hrs): 07/14/18 16:45 Clean Catch Urine [place] Count - Final 07/14/18 16:45 Clean Catch Urine - Final Medications List Reviewed: Yes Assessment And Plan - Current Problems (Diagnosis) (1) Acute renal failure Onset Date: 07/15/18 Current Visit: Yes Status: Acute Qualifiers: Acute renal failure type: unspecified Qualified Code(s): N17.9 - Acute kidney failure, unspecified (2) Hypertension Onset Date: 07/15/18 Current Visit: Yes Status: Chronic Qualifiers: Hypertension type: essential hypertension Qualified Code(s): I10 - Essential (primary) hypertension (3) Uremia Onset Date: 07/15/18 Current Visit: Yes Status: Acute (4) Anemia Current Visit: Yes Status: Acute Qualifiers: Anemia type: due to chronic kidney disease Chronic kidney disease stage: stage 4 (severe) Qualified Code(s): N18.4 - Chronic kidney disease, stage 4 ( severe); D63.1 - Anemia in chronic kidney disease - Plan ----cont IVF ----F/U renal function ----Renal biopsy result pending ----Hydralazine PRN for HTN ----Renal Consulted
[2018-07-17] MEDS: HYDRALAZINE HCL 20 MG/ML VIAL IV PRN (18:11)
--- NOTE | 2018-07-17 20:47 | P.PN ---
Date of Service: 07/17/18 Vital Signs Temp Pulse Resp BP Pulse Ox 97.9 F 82 18 170/70 H 97 07/17/18 17:42 07/17/18 17:42 07/17/18 17:42 07/17/18 17:42 07/17/18 17:42 Medications Acetaminophen (Tylenol -Extra Strength) 500 mg PO Q4HP PRN PRN Reason: [id number] Stop: 08/13/18 17:29 Last Admin: 07/15/18 07:58 Dose: 500 mg Cholecalciferol (Vitamin D 5,000 Iu Cap) 5,000 unit PO DAILY GI Stop: 08/14/18 09:01 Last Admin: 07/17/18 08:52 Dose: 5,000 unit Doxazosin Mesylate (Cardura) 2 mg PO BEDTIME GI Stop: 08/14/18 21:01 Last Admin: 07/16/18 20:29 Dose: 2 mg Hydralazine HCl (Apresoline) 10 mg IV Q4HP PRN PRN Reason: HIGH BP Stop: 08/13/18 17:32 Last Admin: 07/17/18 18:11 Dose: 10 mg Sodium Chloride (Sodium Chloride 0.45%) 1,000 mls @ 75 mls/hr IV .[id number] [facility] Stop: 08/15/18 19:01 Last Admin: 07/17/18 12:28 Dose: 1,000 mls Methylprednisolone Sodium Succinate (Solu-Medrol) 1,000 mg IV 1X ONE Stop: 07/18/18 09:01 Metoprolol Succinate (Toprol Xl) 50 mg PO DAILY [facility] Stop: 08/14/18 09:01 Last Admin: 07/17/18 08:51 Dose: 50 mg Ondansetron HCl (Zofran) 4 mg IV Q4H PRN PRN Reason: NAUSEA / VOMITING Stop: 08/13/18 17:29 Last Admin: 07/15/18 12:44 Dose: 4 mg Pantoprazole Sodium (Protonix Tab) 40 mg PO BID GI Stop: 08/14/18 09:01 Last Admin: 07/17/18 08:51 Dose: 40 mg Sevelamer Carbonate (Renvela) 800 mg PO TIDWM [facility] Stop: 08/14/18 08:01 Last Admin: 07/17/18 17:37 Dose: 800 mg Sodium Chloride (Normal Saline Flush) 10 ml IV BID GI Stop: 08/13/18 21:01 Last Admin: 07/17/18 08:52 Dose: Not Given Temazepam (Restoril) 30 mg PO BEDTIME PRN PRN PRN Reason: INSOMNIA Stop: 08/14/18 20:51 Microbiology Results 07/14/18 16:45 Clean Catch Urine [place] Count - Final 07/14/18 16:45 Clean Catch Urine - Final Assessment/ Plan: Nephrology. Feeling better with improved diet in the setting of steroids. CPS stable without CP or SOB. Good urine output. No acute events overnight. +Insomnia Cased discussed with the patient and the family. Vitals, medications, blood work and imaging reviewed in the chart. General: In no apparent distress, Oriented x3, Cooperative HEENT: Atraumatic, Mucous membr. moist/pink Neck: Supple, No LAD Respiratory: Clear to auscultation bilaterally, Normal air movement Cardiovascular: Regular rate/rhythm, No gallops, No rubs, Edema Gastrointestinal: Soft and benign, Non-distended, No guarding Musculoskeletal: No clubbing, No contractures Integumentary: No rashes Neurological: Normal speech. Blood work reviewed in the chart. Serum creatinine 10; Potassium 3.1 Imagings Data: EXAM DESCRIPTION: Doni Single View07/14/2018 4:23 pm CLINICAL HISTORY: Chest pain COMPARISON: 2014 FINDINGS: The lungs appear clear of acute infiltrate. 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 HTN, improved. Hypokalemia. HyperPO4. Anemia in chronic illness. Moderate malnutrition. RA with diffuse joint pain. P/ Continue current POC and Medications. Counseled regarding CKD and the possibility of dialysis. 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 Pulse steroids started. Asked pharmacy to give the patient Rituximab 1g IV X1 char. Give Epo today. PRBC transfusion as needed. Increase Restoril. Maintain nutrition. No NSAIDs. AM labs. Daily weight. Biopsy results discussed with pathologist. Case discussed with Dr. Osborne. Greater than 35 min patient care.
[2018-07-17] MEDS ORDERED: METHYLPRED NA SUC 1,000 MG in NA CHLORIDE 0.9% 100 ML IV SCH ×2 (21:00→23:00)
[2018-07-17] MEDS: DOXAZOSIN 2 MG TAB PO SCH (21:03)
[2018-07-17] MEDS: TEMAZEPAM 15 MG CAP PO PRN (21:04)
[2018-07-17] MEDS ORDERED: NA CHLORIDE 0.9% IV ONE (22:00)
[2018-07-17] MEDS ORDERED: METHYLPRED NA SUC 1,000 MG in NA CHLORIDE 0.9% 100 ML IV ONE ×2 (22:00→23:00)
[2018-07-17] MEDS ORDERED: RITUXIMAB IV ONE (22:00)
[2018-07-17] MEDS ORDERED: METHYLPREDNISOLONE 125 MG INJ ONE (23:32)
[2018-07-17] MEDS ORDERED: NA CHLORIDE 0.9% 100 ML ONE (23:37)
[2018-07-18] MEDS: NACHLORIDE 0.45% 1,000 ML IV SCH ×2 (01:50→11:00)
[2018-07-18 05:14] LABS: Absolute Lymphocytes (CBC) 0.5 K/uL (0.7-4.9); Absolute Neutrophil 4.2 K/uL (1.8-8.0); Basophils % 0.1 % (0-1.3); Hematocrit 21.2 % (36.0-45.0); Lymphocytes % 10.6 % (15.3-44.8); MCH 31.6 pg (27.0-35.0); MCV 90.6 fL (80-100); MPV 9.5 fL (7.6-11.3); Monocytes % 0.7 % (3.3-12.3); RBC Red Blood Cell Count 2.34 M/uL (3.86-4.86)
[2018-07-18 05:45] LABS: Albumin 2.4 g/dL (3.4-5.0); Bilirubin Total 0.3 mg/dL (0.2-1.0); C-Reactive Protein 30.5 mg/L (<3.00); Protein, Total 5.8 g/dL (6.4-8.2); Uric Acid 8.2 mg/dL (2.6-6.0)
[2018-07-18 06:13] LABS: Urine Appearance CLOUDY; Urine Bilirubin NEGATIVE (NEG); Urine Blood 3+ (NEG); Urine Color YELLOW; Urine Glucose TRACE (NEG); Urine Protein 2+ (NEG); Urine Urobilinogen 0.2 mg/dL (0.2-1.0)
[2018-07-18 06:26] LABS: Urine Amorphous Sediment 1+ /HPF (NONE SEEN); Urine Bacteria <20 /HPF (<20); Urine Culture Reflex Order NOT NEEDED; Urine RBC 20-50 /HPF (NONE SEEN)
[2018-07-18 07:06] LABS: UR MICROALBUMIN 48.3 mg/dL (< 1.9); Urine Protein/Creatinine Ratio 1.66 ratio (<0.15)
[2018-07-18] MEDS ORDERED: METHYLPREDNISOLONE 125 MG INJ IV ONE (09:00)
[2018-07-18] MEDS: SEVELAMER CARBONATE 800 MG TABLET PO SCH ×3 (10:10→17:00)
[2018-07-18] MEDS: METOPROLOL XL 50 MG TAB PO SCH (10:10)
[2018-07-18] MEDS: PANTOPRAZOLE 40MG TABLET PO SCH ×2 (10:11→19:56)
[2018-07-18] MEDS: VITAMIN D 5,000 UNIT CAP PO SCH (10:11)
[2018-07-18 11:43] LABS: Rheumatoid Factor NEG (NEG)
[2018-07-18] MEDS ORDERED: METHYLPRED NA SUC IV ONE (14:00)
[2018-07-18] MEDS ORDERED: ACETAMINOPHEN 325 MG TABLET PO ONE (14:00)
[2018-07-18] MEDS ORDERED: NA CHLORIDE 0.9% IV ONE ×2 (14:00→14:30)
[2018-07-18] MEDS ORDERED: DIPHENHYDRAMINE 50 MG/ML VIAL IV ONE (14:00)
[2018-07-18] MEDS ORDERED: RITUXIMAB IV ONE (14:30)
--- NOTE | 2018-07-18 15:38 | P.PN ---
Subjective Date of Service: 07/18/18 Primary Care Provider: Dr. Daly Chief Complaint: GIANCARLO She has no new complaints today. Physical Examination - Vital Signs Temperature: 97.1 F Blood Pressure: 152/67 Pulse: 75 Respirations: 17 Pulse Ox (%): 97 - Physical Exam General: Alert, In no apparent distress HEENT: Atraumatic, PERRLA, EOMI Neck: Supple, JVD not distended Respiratory: Clear to auscultation bilaterally, Normal air movement Cardiovascular: Regular rate/rhythm, Normal S1 S2 Gastrointestinal: Normal bowel sounds, No tenderness Musculoskeletal: No tenderness Integumentary: No rashes Neurological: Normal speech, Normal tone, Normal affect Lymphatics: No axilla or inguinal lymphadenopathy - Studies Medications List Reviewed: Yes Assessment And Plan - Current Problems (Diagnosis) (1) Acute renal failure Onset Date: 07/15/18 Current Visit: Yes Status: Acute Qualifiers: Acute renal failure type: unspecified Qualified Code(s): N17.9 - Acute kidney failure, unspecified (2) Hypertension Onset Date: 07/15/18 Current Visit: Yes Status: Chronic Qualifiers: Hypertension type: essential hypertension Qualified Code(s): I10 - Essential (primary) hypertension (3) Uremia Onset Date: 07/15/18 Current Visit: Yes Status: Acute (4) Anemia Current Visit: Yes Status: Acute Qualifiers: Anemia type: due to chronic kidney disease Chronic kidney disease stage: stage 4 (severe) Qualified Code(s): N18.4 - Chronic kidney disease, stage 4 ( severe); D63.1 - Anemia in chronic kidney disease - Plan ----cont IVF ----F/U renal function ----Renal biopsy result ANCA nephropathy ----Will start Rituxan ----Hydralazine PRN for HTN ----Renal Consulted ----Transfer to ICU for Rituxan
[2018-07-18] MEDS: DOXAZOSIN 2 MG TAB PO SCH (19:56)
[2018-07-18] MEDS: HYDRALAZINE HCL 20 MG/ML VIAL IV PRN (20:59)
[2018-07-18] MEDS: TEMAZEPAM 15 MG CAP PO PRN (22:18)
[2018-07-18] MEDS ORDERED: LIDOCAINE 1% MPF 5 ML VIAL ONE (22:46)
--- NOTE | 2018-07-18 22:55 | P.PN ---
Date of Service: 07/18/18 Vital Signs Temp Pulse Resp BP Pulse Ox 97.5 F 78 20 142/78 H 96 07/18/18 16:00 07/18/18 22:00 07/18/18 22:00 07/18/18 22:00 07/18/18 22:00 Medications Acetaminophen (Tylenol -Extra Strength) 500 mg PO Q4HP PRN PRN Reason: [id number] Stop: 08/13/18 17:29 Last Admin: 07/15/18 07:58 Dose: 500 mg Cholecalciferol (Vitamin D 5,000 Iu Cap) 5,000 unit PO DAILY [facility] Stop: 08/14/18 09:01 Last Admin: 07/18/18 10:11 Dose: 5,000 unit Doxazosin Mesylate (Cardura) 2 mg PO BEDTIME GI Stop: 08/14/18 21:01 Last Admin: 07/18/18 19:56 Dose: 2 mg Hydralazine HCl (Apresoline) 10 mg IV Q4HP PRN PRN Reason: HIGH BP Stop: 08/13/18 17:32 Last Admin: 07/18/18 20:59 Dose: 10 mg Sodium Chloride (Sodium Chloride 0.45%) 1,000 mls @ 75 mls/hr IV .[id number] [facility] Stop: 08/15/18 19:01 Last Admin: 07/18/18 11:00 Dose: Not Given Metoprolol Succinate (Toprol Xl) 50 mg PO DAILY GI Stop: 08/14/18 09:01 Last Admin: 07/18/18 10:10 Dose: 50 mg Ondansetron HCl (Zofran) 4 mg IV Q4H PRN PRN Reason: NAUSEA / VOMITING Stop: 08/13/18 17:29 Last Admin: 07/15/18 12:44 Dose: 4 mg Pantoprazole Sodium (Protonix Tab) 40 mg PO BID [facility] Stop: 08/14/18 09:01 Last Admin: 07/18/18 19:56 Dose: 40 mg Sevelamer Carbonate (Renvela) 800 mg PO TIDWM GI Stop: 08/14/18 08:01 Last Admin: 07/18/18 17:00 Dose: Not Given Sodium Bicarbonate (Sodium Bicarb 325 Mg) 650 mg PO TIDWM GI Stop: 08/18/18 08:01 Sodium Chloride (Normal Saline Flush) 10 ml IV BID GI Stop: 08/13/18 21:01 Last Admin: 07/18/18 19:56 Dose: 10 ml Temazepam (Restoril) 30 mg PO BEDTIME PRN PRN PRN Reason: INSOMNIA Stop: 08/14/18 20:51 Last Admin: 07/18/18 22:18 Dose: 30 mg Microbiology Results 07/14/18 16:45 Clean Catch Urine [place] Count - Final 07/14/18 16:45 Clean Catch Urine - Final Assessment/ Plan: Nephrology. CPS stable without CP or SOB. Good urine output. No acute events overnight. Tolerating the initiation of Rituximab. Cased discussed with the patient and the family. Vitals, medications, blood work and imaging reviewed in the chart. General: In no apparent distress, Oriented x3, Cooperative HEENT: Atraumatic, Mucous membr. moist/pink Neck: Supple, No LAD Respiratory: Clear to auscultation bilaterally, Normal air movement Cardiovascular: Regular rate/rhythm, No gallops, No rubs, Edema Gastrointestinal: Soft and benign, Non-distended, No guarding Musculoskeletal: No clubbing, No contractures Integumentary: No rashes Neurological: Normal speech. Blood work reviewed in the chart. Serum creatinine 10; Potassium 3.1 Imagings Data: EXAM DESCRIPTION: Doni Single View07/14/2018 4:23 pm CLINICAL HISTORY: Chest pain COMPARISON: 2014 FINDINGS: The lungs appear clear of acute infiltrate. 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 HTN, improved. Hypokalemia. HyperPO4. Acidosis. Anemia in chronic illness. Moderate malnutrition. RA with diffuse joint pain. P/ Continue current POC and Medications. Counseled regarding CKD and the possibility of dialysis; Will reevaluate Saturday for possible HD. 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 Pulse steroids started and then convert to oral prednisone. Rituximab 1g IV X1 started today; Will need another dose in 14 days. Will consider starting prophylaxis tomorrow. Start bicarb therapy for acidosis. PRBC transfusion as needed. Maintain nutrition. No NSAIDs. AM labs. Daily weight.
[2018-07-19] MEDS: NACHLORIDE 0.45% 1,000 ML IV SCH ×2 (00:20→12:37)
[2018-07-19 05:57] LABS: Absolute Lymphocytes (CBC) 0.3 K/uL (0.7-4.9); Absolute Monocytes 0.2 K/uL (0.1-1.3); Absolute Neutrophil 10.2 K/uL (1.8-8.0); Basophils % 0.1 % (0-1.3); Hematocrit 21.3 % (36.0-45.0); Lymphocytes % 2.5 % (15.3-44.8); MCH 31.5 pg (27.0-35.0); MCV 90.7 fL (80-100); MPV 9.6 fL (7.6-11.3); Monocytes % 2.3 % (3.3-12.3); RBC Red Blood Cell Count 2.35 M/uL (3.86-4.86)
[2018-07-19 06:30] LABS: Albumin 2.4 g/dL (3.4-5.0); Bilirubin Total 0.2 mg/dL (0.2-1.0); Protein, Total 5.7 g/dL (6.4-8.2)
[2018-07-19 06:35] LABS: Blood Morphology Comment NOTED (NOT SEEN); Hypochromasia 1+; Platelet Estimate ADEQ; Urine White Blood Cell Casts OK
[2018-07-19 07:22] LABS: P-ANCA Anti-Myeloperoxidase Ab >800.0 AI (<1.0)
[2018-07-19] MEDS: VITAMIN D 5,000 UNIT CAP PO SCH (09:58)
[2018-07-19] MEDS: METOPROLOL XL 50 MG TAB PO SCH (09:59)
[2018-07-19] MEDS: SEVELAMER CARBONATE 800 MG TABLET PO SCH ×3 (09:59→17:21)
[2018-07-19] MEDS: PANTOPRAZOLE 40MG TABLET PO SCH ×2 (09:59→20:05)
[2018-07-19] MEDS: SODIUM BICARB 325 MG TAB PO SCH ×3 (10:01→17:21)
--- NOTE | 2018-07-19 10:35 | P.PN ---
Subjective Date of Service: 07/19/18 Primary Care Provider: Dr. Daly Chief Complaint: GIANCARLO Subjective: Improving (Patient is doing well no new complaints renal function is not) Review of Systems Unremarkable Physical Examination - Vital Signs Temperature: 98.0 F Blood Pressure: 168/85 Pulse: 67 Respirations: 19 Pulse Ox (%): 96 - Physical Exam General: Alert, Oriented x3 Neck: Supple Respiratory: Clear to auscultation bilaterally Cardiovascular: No edema, Normal S1 S2 - Studies Medications List Reviewed: Yes Assessment & Plan - Problems (Diagnosis) (1) Acute renal failure Onset Date: 07/15/18 Current Visit: Yes Status: Acute Plan: Patient is 73 years of age admitted with acute renal failure secondary to active microscopic poly angiitis patient is ANCA positive status post rituximab doing well while signs stable creatinine is improving medication list reviewed plan as per nephrology Qualifiers: Acute renal failure type: unspecified Qualified Code(s): N17.9 - Acute kidney failure, unspecified
[2018-07-19] MEDS ORDERED: METHYLPREDNISOLONE 125 MG INJ IV ONE (15:59)
[2018-07-19] MEDS ORDERED: EPOETIN ALFA 10,000 UNIT/ML VIAL SQ SCH (16:15)
[2018-07-19] MEDS ORDERED: METHYLPRED NA SUC 1,000 MG in NA CHLORIDE 0.9% 100 ML IV ONE (17:00)
[2018-07-19] MEDS ORDERED: NA CHLORIDE 0.9% 250 ML ONE (20:01)
[2018-07-19] MEDS: DOXAZOSIN 2 MG TAB PO SCH (20:05)
--- NOTE | 2018-07-19 21:13 | PN ---
Date of Progress Note: 07/19/2018 Interval History: Ms. Wyman states that she is feeling weak today. She feels like her legs are he malu and she is unable to walk very well because of the heaviness in her legs. She is also starting t o develop some swelling and edema of her lower extremities and also her joints feel tight. She recei pete 1 dose of Rituxan 2 days ago. She reports good urine output. Denies any shortness of breath, bu t has been having some dry cough. Physical Examination: Vital signs: At this time are showing temperature of 97.3, pulse rate of 66, respiratory rate of 18, blood pressure 125/83. General: She appears in no acute distress. HEENT: Atraumatic head. Lungs: Auscultation of lungs revealed bilateral equal air entry with decreased breath sounds at base s. Heart: Auscultation of the heart revealed regular rate and rhythm. Abdomen: Soft. Extremities: Showing trace amount of edema and developing mild edema. Laboratory Data: At this time is showing creatinine improving to 8.6 from 9.21. It is slowly trendi ng down. The creatinine from 9.7 at the time of admission down to 8.6, sodium of 138, potassium of 4 , chloride of 104, bicarb of 19, BUN of 134. CBC is showing hemoglobin of 7.4, hematocrit of 21.3, a nd platelet count of 235, WBC count was 10.7. Current Medications: She is receiving normal saline at 75 cc an hour, which I will go ahead and disc ontinue. She received 2 doses of Solu-Medrol till now. She has received 1 dose of Rituxan, Renvela 800 mg t.i.d., temazepam 30 mg at bedside, metoprolol 50 mg a day, vitamin D, and Tylenol as needed. 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 The patient has been started on Rituxan 1 g, which was given 2 days a go and plan is to repeat another dose in 14 days. The patient has also received pulse dose of steroi ds, 2 doses of Solu-Medrol. We will go ahead and give her the third dose today. The patient may nee d prophylaxis for PCP and also chronic antibacterial prophylaxis, but for now we will hold off. 2.Anemia related to renal insufficiency. The patient received a dose of Epogen a couple of days ago . We will go ahead and give her another dose of Epogen and arrange for 1 unit of blood transfusion t o improve her overall status. 3.Volume overload. We will go ahead and discontinue IV fluids. Hold off on any Lasix at this time secondary to pretty advanced renal function and volume status is not bad at this time. 4.Hyperglycemia, possibly related to Solu-Medrol use. We will go ahead and start her on sliding sca le insulin. If it seems to be persistent by tomorrow, we will switch her to p.o. steroids. 5.Hypertension, currently stable, does not seem to be uncontrolled. We will not add any further ant ihypertensives at this time. Plan: Overall patient's renal function seems to be slowly improving. No acute need for dialysis at this time. We will discontinue IV fluids. Get her started on third dose of Solu-Medrol and give her 1 unit of blood transfusion to improve her anemia levels and also give her an extra dose of Epogen t o maintain her hemoglobin levels. Prognosis was discussed with the patient and her family at bedside . All questions were answered. Time spent is about 1 hour. Please do not hesitate to call us with any questions or concerns. THELMA/JORGE Voice ID: [id number] Report ID: [id number]
[2018-07-19] MEDS: HYDRALAZINE HCL 20 MG/ML VIAL IV PRN (22:16)
[2018-07-19] MEDS ORDERED: ALPRAZOLAM 0.25 MG TABLET PO ONE (23:59)
[2018-07-20] MEDS ORDERED: FUROSEMIDE 40 MG/4 ML VIAL IV ONE
[2018-07-20 05:41] LABS: Hematocrit 24.9 % (36.0-45.0)
[2018-07-20] MEDS: METOPROLOL XL 50 MG TAB PO SCH (09:08)
[2018-07-20] MEDS: PANTOPRAZOLE 40MG TABLET PO SCH ×2 (09:09→20:34)
[2018-07-20] MEDS: SEVELAMER CARBONATE 800 MG TABLET PO SCH ×3 (09:09→17:14)
[2018-07-20] MEDS: SODIUM BICARB 325 MG TAB PO SCH ×3 (09:09→17:14)
[2018-07-20] MEDS: VITAMIN D 5,000 UNIT CAP PO SCH (09:09)
--- NOTE | 2018-07-20 10:20 | P.PN ---
Subjective Date of Service: 07/20/18 Primary Care Provider: Dr. Daly Chief Complaint: Shortness of breath Patient is started complaining some slight shortness of breath since yesterday afternoon particularly on and eating and drink labs spend Review of Systems Unremarkable Physical Examination - Vital Signs Temperature: 97.5 F Blood Pressure: 164/80 Pulse: 88 Respirations: 18 Pulse Ox (%): 96 - Physical Exam General: Alert, Oriented x3 Respiratory: Clear to auscultation bilaterally Cardiovascular: No edema, Normal S1 S2 - Studies Medications List Reviewed: Yes Assessment & Plan - Problems (Diagnosis) (1) Acute renal failure Onset Date: 07/15/18 Current Visit: Yes Status: Acute Plan: Patient admitted with acute renal failure secondary to ANCA positive glomerular nephritis labs pending complaining of shortness of breath, possible volume overload chest x-ray has also been ordered oxygenation satisfactory patient received 1 unit of packed alert red blood cells hemoglobin 8.4 awaiting nephrology decision Qualifiers: Acute renal failure type: unspecified Qualified Code(s): N17.9 - Acute kidney failure, unspecified
[2018-07-20 11:28] LABS: Albumin 2.6 g/dL (3.4-5.0); Bilirubin Total 0.3 mg/dL (0.2-1.0); Potassium 3.8 mmol/L (3.5-5.1); Protein, Total 5.9 g/dL (6.4-8.2)
--- NOTE | 2018-07-20 13:25 | RAD REPORT ---
EXAM DESCRIPTION: RAD - Chest Pa And Lat (2 Views) - 07/20/2018 1:13 pm CLINICAL HISTORY: Chest pain, shortness of breath COMPARISON: July 14 TECHNIQUE: PA and lateral views of the chest were obtained. FINDINGS: The lungs are normal volume. Interstitial fibrotic lung pattern is present. Lung markings are minimally increased in the anterior left base. No consolidation. No failure or volume overload. Heart size is normal and central vasculature is within normal limits. No pleural effusion or pneumot horax seen. No acute bony finding noted. No aortic abnormality. IMPRESSION: Slight increase in interstitial markings anterior left base. This is superimposed on bas brigido chronic interstitial lung disease. Interval change may reflect an early or developing interstitial pneumonia in the anterior left base.
[2018-07-20] MEDS: TEMAZEPAM 15 MG CAP PO PRN (20:34)
[2018-07-20] MEDS: DOXAZOSIN 2 MG TAB PO SCH (20:34)
[2018-07-21] MEDS: SEVELAMER CARBONATE 800 MG TABLET PO SCH ×3 (08:27→17:11)
[2018-07-21] MEDS: PANTOPRAZOLE 40MG TABLET PO SCH ×2 (08:28→21:05)
[2018-07-21] MEDS: VITAMIN D 5,000 UNIT CAP PO SCH (08:28)
[2018-07-21] MEDS: METOPROLOL XL 50 MG TAB PO SCH (08:28)
[2018-07-21] MEDS: ACETAMINOPHEN 500 MG TAB PO PRN (08:28)
[2018-07-21] MEDS: SODIUM BICARB 325 MG TAB PO SCH ×3 (08:34→17:11)
[2018-07-21 13:40] LABS: Albumin 2.7 g/dL (3.4-5.0); Bilirubin Total 0.3 mg/dL (0.2-1.0); Potassium 3.5 mmol/L (3.5-5.1); Protein, Total 5.9 g/dL (6.4-8.2)
--- NOTE | 2018-07-21 17:20 | P.PN ---
Subjective Date of Service: 07/21/18 Primary Care Provider: Dr. Daly Chief Complaint: Shortness of breath Subjective: Doing well Physical Examination - Vital Signs Temperature: 97.2 F Blood Pressure: 142/70 Pulse: 92 Respirations: 17 Pulse Ox (%): 98 - Physical Exam General: Alert, In no apparent distress, Oriented x3, Cooperative HEENT: Atraumatic Neck: Supple Respiratory: Clear to auscultation bilaterally Cardiovascular: Normal pulses, Regular rate/rhythm Gastrointestinal: Normal bowel sounds, Soft and benign, Non-distended, No masses , No rebound, No guarding Musculoskeletal: No tenderness, No warmth Integumentary: No erythema, No warmth, No cyanosis Neurological: Normal speech, Normal strength at 5/5 x4 extr, Normal tone, Normal affect - Studies Medications List Reviewed: Yes Assessment & Plan - Problems (Diagnosis) (1) Glomerulonephritis Current Visit: Yes Status: Acute Plan: Continue with current treatment. Will discuss with nephrology about plan of care. Patient received 1 unit of blood yesterday. Will monitor hemoglobin. Patient may require skilled placement. (2) Acute renal failure Onset Date: 07/15/18 Current Visit: Yes Status: Acute Plan: Continue with current treatment. Will discuss with nephrology. Qualifiers: Acute renal failure type: unspecified Qualified Code(s): N17.9 - Acute kidney failure, unspecified (3) Anemia Current Visit: Yes Status: Acute Plan: Patient given 1 unit of blood yesterday. Will monitor this closely. Qualifiers: Anemia type: due to chronic kidney disease Chronic kidney disease stage: stage 4 (severe) Qualified Code(s): N18.4 - Chronic kidney disease, stage 4 ( severe); D63.1 - Anemia in chronic kidney disease (4) Uremia Onset Date: 07/15/18 Current Visit: Yes Status: Acute Plan: Continue as above (5) Hypertension Onset Date: 07/15/18 Current Visit: Yes Status: Chronic Plan: Will monitor blood pressure closely. Qualifiers: Hypertension type: essential hypertension Qualified Code(s): I10 - Essential (primary) hypertension Discharge Plan: Home Plan to discharge in: Greater than 2 days Time Spent Managing Pts Care (In Minutes): 55
[2018-07-21] MEDS ORDERED: POTASSIUM CL SA 10 MEQ TAB PO ONE (18:00)
[2018-07-21] MEDS ORDERED: predniSONE 20 MG TAB PO ONE (18:00)
[2018-07-21] MEDS ORDERED: EPOETIN ALFA 10,000 UNIT/ML SQ ONE (18:00)
[2018-07-21] MEDS: CALCITROL 0.25 MCG CAP PO SCH (18:28)
[2018-07-21] MEDS: DOXAZOSIN 2 MG TAB PO SCH (21:04)
[2018-07-21] MEDS: TEMAZEPAM 15 MG CAP PO PRN (21:04)
--- NOTE | 2018-07-21 22:15 | P.PN ---
Date of Service: 07/21/18 Vital Signs Temp Pulse Resp BP Pulse Ox 96.8 F 71 18 192/89 H 92 07/21/18 20:00 07/21/18 21:04 07/21/18 20:00 07/21/18 21:04 07/21/18 20:00 Medications Acetaminophen (Tylenol -Extra Strength) 500 mg PO Q4HP PRN PRN Reason: [id number] Stop: 08/13/18 17:29 Last Admin: 07/21/18 08:28 Dose: 500 mg Calcitriol (Rocaltrol) 0.5 mcg PO DAILY [facility] Stop: 08/20/18 18:01 Last Admin: 07/21/18 18:28 Dose: 0.5 mcg Cholecalciferol (Vitamin D 5,000 Iu Cap) 5,000 unit PO DAILY [facility] Stop: 08/14/18 09:01 Last Admin: 07/21/18 08:28 Dose: 5,000 unit Doxazosin Mesylate (Cardura) 2 mg PO BEDTIME GI Stop: 08/14/18 21:01 Last Admin: 07/21/18 21:04 Dose: 2 mg Hydralazine HCl (Apresoline) 10 mg IV Q4HP PRN PRN Reason: HIGH BP Stop: 08/13/18 17:32 Last Admin: 07/19/18 22:16 Dose: 10 mg Metoprolol Succinate (Toprol Xl) 50 mg PO DAILY [facility] Stop: 08/14/18 09:01 Last Admin: 07/21/18 08:28 Dose: 50 mg Ondansetron HCl (Zofran) 4 mg IV Q4H PRN PRN Reason: NAUSEA / VOMITING Stop: 08/13/18 17:29 Last Admin: 07/15/18 12:44 Dose: 4 mg Pantoprazole Sodium (Protonix Tab) 40 mg PO BID [facility] Stop: 08/14/18 09:01 Last Admin: 07/21/18 21:05 Dose: 40 mg Prednisone (Deltasone) 80 mg PO Q24H [facility] Stop: 08/21/18 06:01 Sevelamer Carbonate (Renvela) 800 mg PO TIDWM GI Stop: 08/14/18 08:01 Last Admin: 07/21/18 17:11 Dose: 800 mg Sodium Bicarbonate (Sodium Bicarb 325 Mg) 650 mg PO TIDWM GI Stop: 08/18/18 08:01 Last Admin: 07/21/18 17:11 Dose: 650 mg Sodium Chloride (Normal Saline Flush) 10 ml IV BID [facility] Stop: 08/13/18 21:01 Last Admin: 07/21/18 21:05 Dose: 10 ml Temazepam (Restoril) 30 mg PO BEDTIME PRN PRN PRN Reason: INSOMNIA Stop: 08/14/18 20:51 Last Admin: 07/21/18 21:04 Dose: 30 mg Microbiology Results 07/14/18 16:45 Clean Catch Urine [place] Count - Final 07/14/18 16:45 Clean Catch Urine - Final Assessment/ Plan: Nephrology. CPS stable without CP or SOB. Good urine output. No acute events overnight. Tolerating the initiation of Rituximab. Cased discussed with the patient and the family. Vitals, medications, blood work and imaging reviewed in the chart. General: In no apparent distress, Oriented x3, Cooperative HEENT: Atraumatic, Mucous membr. moist/pink Neck: Supple, No LAD Respiratory: Clear to auscultation bilaterally, Normal air movement Cardiovascular: Regular rate/rhythm, No gallops, No rubs, Edema Gastrointestinal: Soft and benign, Non-distended, No guarding Musculoskeletal: No clubbing, No contractures Integumentary: No rashes Neurological: Normal speech. Blood work reviewed in the chart. Serum creatinine 10; Potassium 3.1 Imagings Data: EXAM DESCRIPTION: Doni Single View07/14/2018 4:23 pm CLINICAL HISTORY: Chest pain COMPARISON: 2014 FINDINGS: The lungs appear clear of acute infiltrate. 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 HTN. Hypokalemia. HyperPO4. Hypocalcemia. Acidosis. Anemia in chronic illness. Moderate malnutrition. RA with diffuse joint pain? Immunosuppression. P/ Continue current POC and Medications. Counseled regarding CKD and the possibility of dialysis. 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 Start oral prednisone. Rituximab 1g IV X1 started today; Will need another dose in 14 days. Consult social work for outpt Rituximab dose. Consider prophylaxis. Give potassium. Start calcitriol. Give Procrit. PRBC transfusion as needed. Maintain nutrition. No NSAIDs. AM labs. Daily weight. Case discussed with Dr. Avalos.
[2018-07-22 05:44] LABS: Absolute Lymphocytes (CBC) 0.3 K/uL (0.7-4.9); Absolute Monocytes 0.2 K/uL (0.1-1.3); Absolute Neutrophil 6.8 K/uL (1.8-8.0); Basophils % 0.1 % (0-1.3); Eosinophils % 0.2 % (0-4.4); Hematocrit 26.7 % (36.0-45.0); Lymphocytes % 4.3 % (15.3-44.8); MCH 29.9 pg (27.0-35.0); MCV 87.9 fL (80-100); MPV 9.2 fL (7.6-11.3); Monocytes % 2.2 % (3.3-12.3); RBC Red Blood Cell Count 3.03 M/uL (3.86-4.86)
[2018-07-22 05:59] LABS: Magnesium 2.1 mg/dL (1.8-2.4); Phosphorus 6.7 mg/dL (2.5-4.9); Potassium 4.5 mmol/L (3.5-5.1); Uric Acid 8.8 mg/dL (2.6-6.0)
[2018-07-22] MEDS ORDERED: predniSONE 20 MG TAB PO SCH (06:00)
[2018-07-22 06:41] LABS: Urine Appearance CLOUDY; Urine Bilirubin NEGATIVE (NEG); Urine Blood 3+ (NEG); Urine Color YELLOW; Urine Glucose TRACE (NEG); Urine Protein 3+ (NEG); Urine Specific Gravity 1.015 (1.005-1.030); Urine Urobilinogen 0.2 mg/dL (0.2-1.0)
[2018-07-22 07:03] LABS: Urine Bacteria 20-50 /HPF (<20); Urine Culture Reflex Order REFLEXED; Urine RBC 20-50 /HPF (NONE SEEN)
[2018-07-22] MEDS: ACETAMINOPHEN 500 MG TAB PO PRN (07:05)
[2018-07-22 08:04] LABS: Platelet Estimate ADEQ
[2018-07-22 08:05] LABS: Anisocytosis 1+; Blood Morphology Comment NOTED (NOT SEEN); Burr Cells 1+
[2018-07-22 08:58] VITALS: O2SAT 94
[2018-07-22] MEDS: CALCITROL 0.25 MCG CAP PO SCH (09:19)
[2018-07-22] MEDS: METOPROLOL XL 50 MG TAB PO SCH (09:19)
[2018-07-22] MEDS: PANTOPRAZOLE 40MG TABLET PO SCH (09:20)
[2018-07-22] MEDS: VITAMIN D 5,000 UNIT CAP PO SCH (09:20)
[2018-07-22] MEDS: SODIUM BICARB 325 MG TAB PO SCH ×2 (09:20→16:56)
[2018-07-22] MEDS: SEVELAMER CARBONATE 800 MG TABLET PO SCH ×3 (09:20→16:56)
[2018-07-22 10:55] LABS: Albumin 2.6 g/dL (3.4-5.0); Bilirubin Total 0.3 mg/dL (0.2-1.0); Potassium 4.2 mmol/L (3.5-5.1); Protein, Total 5.8 g/dL (6.4-8.2)
--- NOTE | 2018-07-22 11:29 | P.DS ---
Admission Date: 07/14/18 Discharge Date: 07/22/18 Primary Care Provider: Dr. Daly Disposition: DC HOME/HOME HEALTH CARE Discharge Condition: GOOD Reason for Admission: Shortness of breath Consultations: Nephrology-Dr. Thorne Procedures: Renal biopsy: CLINICAL HISTORY: GIANCARLO CONCERNING FOR NEPHRITIS COMPARISON: No comparisons FINDINGS: Preoperative diagnosis: Acute kidney injury.. Post operative diagnosis: Same. Conscious Sedation: 45 minutes of IV conscious sedation was utilized with fentanyl and midazolam. Fluoroscopy time: None Contrast used: None Estimated blood loss: Minimal Specimens:3 x 18 gauge core biopsies. The posterior left flank was prepped and draped in the usual sterile fashion. 1 % lidocaine was infiltrated into the subcutaneous tissues for local anesthesia. Real time ultrasound scanning of the left kidney demonstrated a suitable sonographic window to the inferior pole. Under ultrasound guidance, using a 18- gauge, 10 cm long, 2 cm throw core biopsy gun, 3 specimens were obtained of this lesion and sent to pathology for evaluation. There were no complications. IMPRESSION: Successful ultrasound-guided nonfocal left kidney biopsy. 45 minutes of IV conscious sedation was utilized. 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 Interstitial Fibrosis, [id number]. - Problems (1) Glomerulonephritis Current Visit: Yes Status: Acute (2) Acute renal failure Onset Date: 07/15/18 Current Visit: Yes Status: Acute Qualifiers: Acute renal failure type: unspecified Qualified Code(s): N17.9 - Acute kidney failure, unspecified (3) Anemia Current Visit: Yes Status: Acute Qualifiers: Anemia type: due to chronic kidney disease Chronic kidney disease stage: stage 4 (severe) Qualified Code(s): N18.4 - Chronic kidney disease, stage 4 ( severe); D63.1 - Anemia in chronic kidney disease (4) Uremia Onset Date: 07/15/18 Current Visit: Yes Status: Acute (5) Hypertension Onset Date: 07/15/18 Current Visit: Yes Status: Chronic Qualifiers: Hypertension type: essential hypertension Qualified Code(s): I10 - Essential (primary) hypertension (6) Rheumatoid arthritis Current Visit: Yes Status: Chronic Qualifiers: Rheumatoid arthritis location: unspecified site (7) GERD (gastroesophageal reflux disease) Current Visit: Yes Status: Chronic (8) Metabolic acidosis Current Visit: Yes Status: Acute (9) Vasculitis Current Visit: Yes Status: Acute Brief History of Present Illness: 73-year-old female presented to emergency room with abnormal lab. Patient was recently diagnosed with rheumatoid arthritis. Patient had been seen by GI recently. GI found out that she had abnormal lab indicating acute renal failure. The patient was sent to the ER for evaluation. Patient had reported some nausea over the past week. She also has reported some generalized weakness and poor oral intake. The patient had been diagnose with rheumatoid arthritis and was placed on high-dose steroids. She was also on a disease modifying rheumatological medication. Patient apparently did not tolerate that well. Initial evaluation shows acute renal failure. Baseline creatinine in April of 2018 was normal. Patient also found to have elevated blood pressure. Patient admitted for further evaluation Hospital Course: Patient presented with acute renal failure. Nephrology was consulted. Nephrology recommended renal biopsy. Biopsy report shows focal crescentic glomerulonephritis with 40% cellular cresents, pauci-immune. Global glomerulosclerosis and interstial fibrosis(Moderate to severe) identitied. Patient had started Arava recently with Rheumatology. She did not tolerate this medication. Patient also treated for infection given doxycycline. After confirmation of pathology from renal biopsy, nephrology recommended treatment. Patient did not require dialysis. Her acute renal failure was likely caused by vasculitis of unknown etiology. Patient received rituximab 1 g IV. Patient also received high-dose steroids. Her renal function slightly improved. Patient understands that this process may be slow. Patient has ambulated and is feeling better overall. Patient will be discharged home. Patient will need a follow up with nephrology closely to monitor renal function. If her renal function declines the patient still may require dialysis. Nephrology has given rituximab 1 g IV in the hospital. Patient will require another dose of rituximab 1 g IV as an outpatient. Arrangements will be made so that she can get this as an outpatient. Patient will continue with prednisone 80 mg daily. This can be weaned off slowly plan nephrology. Recommendation is to recheck lab -BMP in 1 week to monitor her progress. Patient to monitor for worsening symptoms of fatigue, nausea and poor urinary output. At discharge she will also continue with Renvela 800 mg 1 pill 3 times a day, sodium bicarb 650 mg 1 pill twice daily, vitamin-D 5000 units once daily. Since the patient is on immunosuppressive therapy, patient will also continue with Bactrim SS 1 pill 3 times a week. At discharge home health will be arranged at home. Recommendation on no further use of nonsteroidal anti-inflammatories. Future medications will need to be renally dosed. Patient has hypertension. This was treated during the course of her stay. Medications were adjusted during the course of her stay. Hydrochlorothiazide has been discontinued. At discharge she will continue with Doxazosin 2 mg 1 pill daily and Metoprolol XL 50 mg 1 pill twice daily. Recommendation is to maintain blood pressures less 150/80. Further adjustment can be done by her PCP. If her blood pressure remains elevated she may contact nephrology to further assess and consider adding another medication. Patient has anemia of chronic disease. Hemoglobin was low. Patient required Epogen and 1 unit dose of packed red blood cells. Recommendation is to recheck CBC in 1 week to monitor progress. This can be further monitored and addressed by nephrology as an outpatient. Patient has GERD. She will continue with Protonix 40 mg 1 pill 1 pill twice daily. Vital Signs/Physical Exam: Temp Pulse Resp BP Pulse Ox 97.5 F 86 16 178/102 H 96 07/22/18 08:00 07/22/18 08:00 07/22/18 08:00 07/22/18 08:00 07/22/18 08:00 General: Alert, In no apparent distress, Oriented x3, Cooperative HEENT: Atraumatic Neck: Supple Respiratory: Clear to auscultation bilaterally, Normal air movement Cardiovascular: Normal pulses, Regular rate/rhythm Gastrointestinal: Normal bowel sounds, Soft and benign, Non-distended, No tenderness, No masses, No rebound, No guarding Musculoskeletal: No erythema, No tenderness, No warmth Integumentary: No tenderness/swelling, No erythema, No warmth, No cyanosis Neurological: Normal speech, Normal strength at 5/5 x4 extr, Normal tone, Normal affect Laboratory Data at Discharge: WBC 7.2 K/uL (4.3-10.9) D 07/22/18 05:04 Hgb 9.1 g/dL (12.0-15.0) L 07/22/18 05:04 Hct 26.7 % (36.0-45.0) L 07/22/18 05:04 Plt Count 224 K/uL (152-406) 07/22/18 05:04 PT 11.8 SECONDS (9.5-12.5) 07/15/18 09:32 INR 1.00 07/15/18 09:32 APTT 27.4 SECONDS (24.3-36.9) 07/15/18 09:32 Sodium 141 mmol/L (136-145) 07/22/18 10:10 Potassium 4.2 mmol/L (3.5-5.1) 07/22/18 10:10 BUN 126 mg/dL (7-18) H 07/22/18 10:10 Creatinine 6.50 mg/dL (0.55-1.3) H* 07/22/18 10:10 Glucose 158 mg/dL (74-106) H 07/22/18 10:10 Uric Acid 8.8 mg/dL (2.6-6.0) H 07/22/18 05:04 Phosphorus 6.7 mg/dL (2.5-4.9) H 07/22/18 05:04 Magnesium 2.1 mg/dL (1.8-2.4) 07/22/18 05:04 Total Bilirubin 0.3 mg/dL (0.2-1.0) 07/22/18 10:10 AST 13 U/L (15-37) L 07/22/18 10:10 ALT 13 U/L (12-78) 07/22/18 10:10 Alkaline Phosphatase 50 U/L (45-117) 07/22/18 10:10 Troponin I < 0.02 ng/mL (0.0-0.045) 07/14/18 16:00 Home Medications: Ondansetron HCl [Zofran] 4 mg PO Q6H PRN 07/14/18 Cholecalciferol (Vitamin D3) [Vitamin D 5,000 IU Cap*] 5,000 unit PO DAILY #30 cap 07/22/18 Doxazosin [Cardura*] 2 mg PO BEDTIME #30 tab 07/22/18 Metoprolol Succinate [Toprol Xl*] 50 mg PO BID #60 tab 07/22/18 Na Bicarb Tab [Sodium Bicarb 325 MG Tab*] 650 mg PO BID #120 tab 07/22/18 Pantoprazole [Protonix Tab*] 40 mg PO BID #60 tab 07/22/18 Sevelamer Carbonate [Renvela*] 800 mg PO TIDWM #90 tablet 07/22/18 Sulfamethoxazole/Trimethoprim [Bactrim 400-80 mg Tablet] 1 each PO SEECOM #30 tablet 07/22/18 predniSONE [Prednisone*] 80 mg PO Q24H #120 tab 07/22/18 New Medications: Cholecalciferol (Vitamin D3) [Vitamin D 5,000 IU Cap*] 5,000 unit PO DAILY #30 cap Doxazosin [Cardura*] 2 mg PO BEDTIME #30 tab Metoprolol Succinate [Toprol Xl*] 50 mg PO BID #60 tab Na Bicarb Tab [Sodium Bicarb 325 MG Tab*] 650 mg PO BID #120 tab Pantoprazole [Protonix Tab*] 40 mg PO BID #60 tab predniSONE [Prednisone*] 80 mg PO Q24H #120 tab Sevelamer Carbonate [Renvela*] 800 mg PO TIDWM #90 tablet Sulfamethoxazole/Trimethoprim [Bactrim 400-80 mg Tablet] 1 each PO SEECOM #30 tablet Patient Discharge Instructions: 1. Patient will need a follow up with a PCP in 1 week to follow up this hospitalization. 2. Patient presented with acute renal failure likely from vasculitis. Nephrology was consulted. Nephrology recommended renal biopsy. Biopsy report shows focal crescentic glomerulonephritis with 40% cellular cresents, pauci-immune. Global glomerulosclerosis and interstial fibrosis(Moderate to severe). After confirmation of pathology from renal biopsy, nephrology recommended treatment. Patient did not require dialysis. Patient received rituximab 1 g IV x1. Patient also received high-dose steroids. Her renal function slightly improved. Renal function may recover over time slowly. Patient has ambulated and is feeling better overall. Patient will be discharged home with home health. Patient will need a follow up with nephrology closely to monitor renal function. If her renal function declines the patient still may require dialysis. Nephrology has given rituximab 1 g IV in the hospital. Patient will require another dose of rituximab 1 g IV as an outpatient. Arrangements will be made so that she can get this as an outpatient on August 01. Patient will continue with prednisone 80 mg daily. This can be weaned off slowly plan nephrology. Recommendation is to recheck lab-BMP in 1 week to monitor her progress. Patient to monitor for worsening symptoms of fatigue, nausea and poor urinary output. At discharge she will also continue with Renvela 800 mg 1 pill 3 times a day, sodium bicarb 650 mg 1 pill twice daily, vitamin-D 5000 units once daily. Since the patient is on immunosuppressive therapy, patient will also continue with Bactrim SS 1 pill 3 times a week. Recommendation on no further use of nonsteroidal anti-inflammatories. Future medications will need to be renally dosed. 3. Patient has hypertension. This was treated during the course of her stay. Medications were adjusted during the course of her stay. Hydrochlorothiazide has been discontinued. At discharge she will continue with Doxazosin 2 mg 1 pill daily and Metoprolol XL 50 mg 1 pill twice daily. Recommendation is to maintain blood pressures less 150/80. Further adjustment can be done by her PCP. If her blood pressure remains elevated she may contact nephrology to further assess and consider adding another medication. 4. Patient has anemia of chronic disease. Hemoglobin was low. Patient required Epogen and 1 unit dose of packed red blood cells. Recommendation is to recheck CBC in 1 week to monitor progress. This can be further monitored and addressed by nephrology as an outpatient. 5. Patient has GERD. She will continue with Protonix 40 mg 1 pill 1 pill twice daily. 6. Patient has rheumatoid arthritis. Patient will need a follow up with Rheumatology to further monitor and address. Diet: Renal Activity: Fall precautions Time spent managing pt's care (in minutes): 55
[2018-07-22] MEDS: HYDRALAZINE HCL 20 MG/ML VIAL IV PRN (12:17)
[2018-07-22 12:31] VITALS: TEMP 97.8
[2018-07-22 17:19] VITALS: BP 162/96
[2018-07-22] MEDS ORDERED: METOPROLOL XL 50 MG TAB PO SCH (21:00)
--- NOTE | 2018-07-22 22:11 | P.PN ---
Date of Service: 07/22/18 Vital Signs Temp Pulse Resp BP Pulse Ox 97.8 F 81 16 162/96 H 96 07/22/18 16:00 07/22/18 16:00 07/22/18 16:00 07/22/18 16:00 07/22/18 16:00 Microbiology Results 07/14/18 16:45 Clean Catch Urine Kinney Count - Final 07/14/18 16:45 Clean Catch Urine - Final Assessment/ Plan: Nephrology. CPS stable without CP or SOB. Good urine output. No acute events overnight. Edema improved. Cased discussed with the patient. Vitals, medications, blood work and imaging reviewed in the chart. General: In no apparent distress, Oriented x3, Cooperative HEENT: Atraumatic, Mucous membr. moist/pink Neck: Supple, No LAD Respiratory: Clear to auscultation bilaterally, Normal air movement Cardiovascular: Regular rate/rhythm, No gallops, No rubs, Edema Gastrointestinal: Soft and benign, Non-distended, No guarding Musculoskeletal: No clubbing, No contractures Integumentary: No rashes Neurological: Normal speech. Blood work reviewed in the chart. Serum creatinine 10; Potassium 3.1 Imagings Data: EXAM DESCRIPTION: Doni Single View07/14/2018 4:23 pm CLINICAL HISTORY: Chest pain COMPARISON: 2014 FINDINGS: The lungs appear clear of acute infiltrate. 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 HTN. Hypokalemia. HyperPO4. Hypocalcemia. Acidosis. Anemia in chronic illness. Moderate malnutrition. RA with diffuse joint pain? Immunosuppression. P/ Continue current POC and Medications. Counseled regarding CKD and the possibility of dialysis. 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 Oral prednisone as ordered. Rituximab 1g IV X1 started today; Will need another dose in 14 days. Consult social work for outpt Rituximab dose. Bactrim prophylaxis. PRBC transfusion as needed. Maintain nutrition. No NSAIDs. AM labs. Daily weight. Case discussed with Dr. Avalos.
[2018-07-23] MEDS ORDERED: SMZ./TMP. 800/160 MG TABLET PO SCH (09:00)
== END 2018-07-22 16:58 | disposition home health service (06) | DRG 699 ==
LOC: ER 14:58 → ERHOLD 16:56 → 4TH 19:41 → 3RD-ICU 07-18 15:40 → 2ND 07-19 08:10
PROVIDERS: ADMIT Family Medicine; ATTEND Family Medicine
PROC: 0TB13ZX Excision of Left Kidney, Percutaneous Approach, Diagnostic (ICD-10-PCS; principal; 2018-07-16)
PROC: 30233N1 Transfusion of Nonautologous Red Blood Cells into Peripheral Vein, Percutaneous Approach (ICD-10-PCS; 2018-07-19)
DX: N00.9 Acute nephritic syndrome with unspecified morphologic changes (principal); E87.2 Acidosis; E44.0 Moderate protein-calorie malnutrition; N17.9 Acute kidney failure, unspecified; E87.6 Hypokalemia; D63.1 Anemia in chronic kidney disease; I10 Essential (primary) hypertension; I16.0 Hypertensive urgency; M06.9 Rheumatoid arthritis, unspecified; K21.9 Gastro-esophageal reflux disease without esophagitis; I77.89 Other specified disorders of arteries and arterioles; Z88.5 Allergy status to narcotic agent; E83.39 Other disorders of phosphorus metabolism; R73.9 Hyperglycemia, unspecified
CPT/HCPCS: 36415; 50200; 71045; 71046; 80048; 80053; 81001; 81003; 81015; 82043; 82570; 83036; 83520; 83735; 83880; 84100; 84156; 84300; 84484; 84550; 85014; 85018; 85025; 85610; 85652; 85730; 86021; 86038; 86060; 86140; 86160; 86200; 86430; 86704; 86706; 86803; 86850; 86900; 86901; 87077; 87086; 87088; 87186; 87340; 88300; 93005; 94760; 96361; 96365; 96375; 97163; 99285; J0360; J0885; J2250; J2310; J2405; J2930; J3010; J7030; J7512; J9310; P9016; Q4081

== ENCOUNTER 2018-07-25 09:04 | Observation (INO) | payer OTHER, BC ==
--- OUTSIDE RECORDS SUMMARY | 2018-07-25 09:06 | XMS REPORT | Clinical Summary ---
:1945 Author Organization [facility] Address [address] [place] [id number] Care Team Providers Name Role Phone Asked, [...] type, unspecified site; Myalgia; Sicca syndrome after 07/24/2017 Social History Tobacco Use Types Packs/Day Years [...] section. unspecified site Myalgia Sicca syndrome after 07/24/2017 Results XR Hands 3 Vw Bilateral (05/05/2018 [...] fifth metacarpal 3. Soft tissues are unremarkable. [id number] Procedure Note Hm Interface, Radiology Results Incoming [...] fifth metacarpal 3. Soft tissues are unremarkable. [id number] Performing Organization Address City/State/Zipcode Phone Number [facility] [address] [place] [address] after 07/24/2017 Insurance Payer Benefit Plan / Group Subscriber ID Type Phone Address MEDICARE MEDICARE PART A AND B xxxxxxxxxx Medicare [place], [place] BCBS BCBS CHOICE PPO/FEDERAL EMPL PPO xxxxxxxxxxxx PPO [phone] [id number]
[2018-07-25 09:50] LABS: Absolute Lymphocytes (CBC) 0.8 K/uL (0.7-4.9); Absolute Monocytes 0.8 K/uL (0.1-1.3); Absolute Neutrophil 7.9 K/uL (1.8-8.0); Basophils % 0.1 % (0-1.3); Eosinophils % 0.6 % (0-4.4); Hematocrit 27.7 % (36.0-45.0); Lymphocytes % 8.4 % (15.3-44.8); MCH 30.3 pg (27.0-35.0); MCV 89.5 fL (80-100); MPV 8.8 fL (7.6-11.3); Monocytes % 8.4 % (3.3-12.3)
--- NOTE | 2018-07-25 10:03 | RAD REPORT ---
EXAM DESCRIPTION: RAD - Chest Single View - 07/25/2018 9:53 am CLINICAL HISTORY: weakness Chest pain. COMPARISON: Chest Pa And Lat (2 Views) dated 07/20/2018; Chest Single View dated 07/14/2018; CHEST PA AND LAT 2 VIEW dated 04/15/2015; CHEST PA AND LAT 2 VIEW dated 03/07/2015 FINDINGS: Portable technique limits examination quality. The lungs are grossly clear. The heart is normal in size. No displaced fractures. IMPRESSION: No acute intrathoracic process suspected.
[2018-07-25 10:04] LABS: Protime INR 0.92
[2018-07-25] MEDS ORDERED: NA CHLORIDE 0.9% 500 ML ONE (10:05)
[2018-07-25] MEDS ORDERED: ACETAMINOPHEN 500 MG TAB ONE (10:05)
[2018-07-25 10:17] LABS: Albumin 2.7 g/dL (3.4-5.0); Bilirubin Direct 0.1 mg/dL (0-0.2); Bilirubin Total 0.4 mg/dL (0.2-1.0); Magnesium 1.8 mg/dL (1.8-2.4); Potassium 3.3 mmol/L (3.5-5.1); Protein, Total 5.5 g/dL (6.4-8.2)
[2018-07-25] MEDS ORDERED: ACETAMINOPHEN 500 MG TAB PO PRN (12:05)
[2018-07-25] MEDS ORDERED: ONDANSETRON 4 MG/2 ML VIAL IV PRN (12:05)
[2018-07-25] MEDS ORDERED: SODIUM CHLORIDE 0.9% 10ML INJ IV PRN (12:05)
--- NOTE | 2018-07-25 12:12 | ER ---
Nurse's Notes [facility] Name: Elizabeth Wyman Age: 73 yrs Sex: Female : 1945 Arrival Date: 07/25/2018 Time: 09:06 Bed 17 Private MD: Babak Daly Diagnosis: Generalized Weakness;Dehydration;renal Failure Presentation: 07/25 09:19 Presenting complaint: Patient states: discharged from hospital on Saturday. Has felt dm5 weak since then but it is worse today. Pt states that she is also nauseated and hasn't taken medication because she didn't think she would keep them down. Transition of care: patient was not received from another setting of care. Onset of symptoms was July 22, 2018. Risk Assessment: Do you want to hurt yourself or someone else? Patient reports no desire to harm self or others. Initial Sepsis Screen: Does the patient meet any 2 criteria? No. Patient's initial sepsis screen is negative. Does the patient have a suspected source of infection? No. Patient's initial sepsis screen is negative. Care prior to arrival: None. 09:19 Method Of Arrival: Ambulatory dm5 09:19 Acuity: GUNJAN 2 dm5 09:19 No acute neurological deficit is noted. Pre-hospital glucose is not applicable to this patient. 09:25 Note Pt received a treatment of Rituximeb IV x 1 on 07/18/18 and a blood transfusion on sv 07/19/18. Triage Assessment: 09:25 General: Appears in no apparent distress. comfortable, well developed, Behavior is sv calm, cooperative, appropriate for age. Pain: Denies pain. EENT: No signs and/or symptoms were reported regarding the EENT system. Neuro: Level of Consciousness is awake, alert, obeys commands, Oriented to person, place, time, situation, Moves all extremities. Speech is normal, Facial symmetry appears normal, Reports near syncope. Cardiovascular: Patient's skin is warm and dry. Respiratory: Respiratory effort is even, unlabored, Respiratory pattern is regular, symmetrical. Derm: Skin is pale. Musculoskeletal: No signs and/or symptoms reported regarding the musculoskeletal system. Historical: - Allergies: 09:29 PENICILLINS; sv 09:29 Morphine; sv 09:29 Demerol; sv - Home Meds: : Zofran Oral [Active]; Vitamin D3 oral oral daily [Active]; Cardura 2 mg Oral tab 1 tab sv nightly [Active]; metoprolol succinate 50 mg oral Tb24 twice a day [Active]; sodium bicarbonate 650 mg Oral tab twice a day [Active]; Protonix 40 mg Oral TbEC 1 tab 2 times per day [Active]; Prednisone 80 mg daily Oral [Active]; Renvela 800 mg oral tab 1 tab 3 times per day [Active]; Bactrim DS Oral [Active]; - PMHx: 09:29 Hypertension; Rheumatoid Arthritis; sv 09:31 Granulomatosis w/ polymicroangitis; sv - PSHx: 09:29 Hysterectomy; Appendectomy; Carpal Tunnel Repair; Cholecystectomy; sv - Immunization history:: Adult Immunizations up to date. - Social history:: Smoking status: Patient/guardian denies using tobacco. - Ebola Screening: : No symptoms or risks identified at this time. - Family history:: not pertinent. - Hospitalizations: : No recent hospitalization is reported. Screenin:34 Abuse screen: Denies threats or abuse. Denies injuries from another. Nutritional sv screening: No deficits noted. Tuberculosis screening: No symptoms or risk factors identified. Fall Risk None identified. Assessment: 10:06 General: Appears in no apparent distress. Behavior is calm, cooperative. Pain: la1 Complains of pain in forehead. Neuro: Level of Consciousness is awake, alert, obeys commands, Oriented to person, place, time, situation, Counseling Department Chair are equal bilaterally Moves all extremities. Speech is normal, Facial symmetry appears normal, Pupils are PERRLA. Cardiovascular: Patient's skin is warm and dry. Respiratory: Airway is patent Respiratory effort is even, unlabored, Respiratory pattern is regular, symmetrical. GI: Reports nausea, Patient currently denies diarrhea, vomiting. : No signs and/or symptoms were reported regarding the genitourinary system. 10:48 Reassessment: Patient appears in no apparent distress at this time. No changes from la1 previously documented assessment. Patient and/or family updated on plan of care and expected duration. Pain level reassessed. Patient is alert, oriented x 3, equal unlabored respirations, skin warm/dry/pink. 11:37 Reassessment: Patient appears in no apparent distress at this time. No changes from la1 previously documented assessment. Patient and/or family updated on plan of care and expected duration. Pain level reassessed. Patient is alert, oriented x 3, equal unlabored respirations, skin warm/dry/pink. 12:43 Reassessment: Patient appears in no apparent distress at this time. No changes from la1 previously documented assessment. Patient and/or family updated on plan of care and expected duration. Pain level reassessed. Patient is alert, oriented x 3, equal unlabored respirations, skin warm/dry/pink. Vital Signs: 09:25 BP 200 / 91; Pulse 71; Resp 19; Temp 98; Pulse Ox 96% ; Pain 0/10; sv 10:05 BP 189 / 95; Pulse 63; Resp 16; Pulse Ox 96% on R/A; la1 10:51 BP 183 / 78; la1 11:37 BP 186 / 83; Pulse 56; Resp 16; Pulse Ox 96% on R/A; la1 12:42 BP 156 / 85; Pulse 70; Resp 16; Pulse Ox 100% on R/A; la1 ED Course: 09:06 Patient arrived in ED. sb2 09:07 Babak Daly MD is Private Physician. sb2 09:15 Viraj Kaplan MD is Attending Physician. wa 09:20 Romi Shah, PAULA is Primary Nurse. sv 09:21 Triage completed. dm5 09:25 EKG done, by lead quality control technician. reviewed by Viraj Kaplan MD. at1 09:25 Patient has correct armband on for positive identification. Placed in gown. Bed in low sv position. Call light in reach. Adult w/ patient. patient monitor on. Pulse ox on. NIBP on. Door closed. Warm blanket given. Head of bed elevated. 09:30 Arm band placed on right wrist. sv 09:47 Initial lab(s) drawn, by co, sent to lab. Inserted saline lock: 20 gauge in right mh5 antecubital area, using aseptic technique. Blood collected. 09:48 Basic Metabolic Panel Sent. 5 09:48 CBC with Diff Sent. 5 09:48 Ckmb Sent. 5 09:48 CPK Sent. 5 09:48 LFT's Sent. 5 09:48 Magnesium Sent. 5 09:48 NT PRO-BNP Sent. 5 09:48 PT-INR Sent. 5 09:48 Ptt, Activated Sent. 5 09:48 Troponin (emerg Dept Use Only) Sent. 5 09:52 X-ray completed. Portable x-ray completed in exam room. Patient tolerated procedure az well. 09:53 XRAY Chest (1 view) In Process Unspecified. EDMS 10:30 Notified ED physician of a critical lab result(s). Cr-5.6. la1 11:45 Safety checks: Items removed: yes. Door open/sign placed on door: yes. Family/friend [facility] present: no. Sitter present: Yes. 12:11 Fahad Avalos DO is Hospitalizing Provider. al 13:01 Report given to JERRY MITCHELL. la1 13:02 No provider procedures requiring assistance completed. Patient admitted, IV remains in la1 place. Administered Medications: 10:05 Drug: Tylenol 1000 mg Route: PO; ky1 10:51 Follow up: Response: No adverse reaction; Pain is decreased la1 10:05 Drug: NS 0.9% 500 ml Route: IV; Rate: bolus; Site: right antecubital; ky1 10:50 Follow up: IV Status: Completed infusion [facility] Outcome: 12:12 Decision to Hospitalize by Provider. wa 13:02 Admitted to la 13:02 Condition: stable 13:02 Instructed on the need for admit. 13:27 Patient left the ED. [facility] Signatures: Dispatcher [employer] EDMS Rosey Rodrigues RN RN 5 Romi Shah RN RN sv Gonzales, Amanda, gathering worker EKG Tat1 Heraclio Rowe RN RN la1 Donna Keyes Viraj Antony MD MD wa Billeau, Sheri sb2 Zavala, Araceli az
--- NOTE | 2018-07-25 12:12 | EDPHYS ---
Physician Documentation [facility] Name: Elizabeth Wyman Age: 73 yrs Sex: Female : 1945 Arrival Date: 07/25/2018 Time: 09:06 Bed 17 Private MD: Babak Daly ED Physician Viraj Kaplan HPI: 07/25 10:45 This 73 yrs old Female presents to ER via Ambulatory with complaints of wa Weakness, Near Syncope, Blood Pressure Problem. 10:45 The patient presents to the emergency department with weakness of the entire body, wa generalized weakness, that is moderate, c/o weakness that is worse today. denies chest pain. admits to SOB with minimal exertion. recently d/c'd home for renal failure. on fluid restriction. Denies abd pain, vomiting, or diarrhea. . Onset: The symptoms/episode began/occurred 3 day(s) ago, worse this AM. Context: occurred at home, occurred while the patient was at rest. Associated signs and symptoms: Pertinent positives: nausea, lightheadedness, Pertinent negatives: chills, headache. Severity of symptoms: At their worst the symptoms were moderate in the emergency department the symptoms are worse. Patient's baseline: Neuro: alert and fully oriented, Motor: no deficits, Ambulation: walks without assistance, Speech: normal, The patient has a previous history of kidney failure. Current symptoms: generalized weakness. The patient has experienced similar episodes in the past, a few times. recent d/c from [facility] for renal failure.. admits to 04/10 . Historical: - Allergies: 09:29 PENICILLINS; sv 09:29 Morphine; sv 09:29 Demerol; sv - Home Meds: 09:29 Zofran Oral [Active]; Vitamin D3 oral oral daily [Active]; Cardura 2 mg Oral tab 1 tab sv nightly [Active]; metoprolol succinate 50 mg oral Tb24 twice a day [Active]; sodium bicarbonate 650 mg Oral tab twice a day [Active]; Protonix 40 mg Oral TbEC 1 tab 2 times per day [Active]; Prednisone 80 mg daily Oral [Active]; Renvela 800 mg oral tab 1 tab 3 times per day [Active]; Bactrim DS Oral [Active]; - PMHx: 09:29 Hypertension; Rheumatoid Arthritis; sv 09:31 Granulomatosis w/ polymicroangitis; sv - PSHx: 09:29 Hysterectomy; Appendectomy; Carpal Tunnel Repair; Cholecystectomy; sv - Immunization history:: Adult Immunizations up to date. - Social history:: Smoking status: Patient/guardian denies using tobacco. - Ebola Screening: : No symptoms or risks identified at this time. - Family history:: not pertinent. - Hospitalizations: : No recent hospitalization is reported. ROS: 10:52 Eyes: Negative for injury, pain, redness, and discharge, ENT: Negative for injury, wa pain, and discharge, Neck: Negative for injury, pain, and swelling, Cardiovascular: Negative for chest pain, palpitations, and edema, Abdomen/GI: Negative for abdominal pain, nausea, vomiting, diarrhea, and constipation, Back: Negative for injury and pain, : Negative for injury, bleeding, discharge, and swelling, MS/Extremity: Negative for injury and deformity, Skin: Negative for injury, rash, and discoloration, Psych: Negative for depression, anxiety, suicide ideation, homicidal ideation, and hallucinations. 10:52 Constitutional: Positive for fatigue, Negative for chills, fever, weight loss. 10:52 Cardiovascular: Negative for chest pain, edema, orthopnea, palpitations, paroxysmal nocturnal dyspnea. 10:52 Respiratory: Positive for shortness of breath, Negative for cough, hemoptysis, orthopnea, pleurisy, wheezing. 10:52 All other systems are negative. Exam: 10:56 Constitutional: This is a well developed, well nourished patient who is awake, alert, wa and in no acute distress. Head/Face: Normocephalic, atraumatic. Eyes: Pupils equal round and reactive to light, extra-ocular motions intact. Lids and lashes normal. Conjunctiva and sclera are non-icteric and not injected. Cornea within normal limits. Periorbital areas with no swelling, redness, or edema. Neck: Trachea midline, no thyromegaly or masses palpated, and no cervical lymphadenopathy. Supple, full range of motion without nuchal rigidity, or vertebral point tenderness. No Meningismus. Chest/axilla: Normal chest wall appearance and motion. Nontender with no deformity. No lesions are appreciated. Cardiovascular: Regular rate and rhythm with a normal S1 and S2. No gallops, murmurs, or rubs. Normal PMI, no JVD. No pulse deficits. Respiratory: Lungs have equal breath sounds bilaterally, clear to auscultation and percussion. No rales, rhonchi or wheezes noted. No increased work of breathing, no retractions or nasal flaring. Abdomen/GI: Soft, non-tender, with normal bowel sounds. No distension or tympany. No guarding or rebound. No evidence of tenderness throughout. Back: No spinal tenderness. No costovertebral tenderness. Full range of motion. Skin: Warm, dry with normal turgor. Normal color with no rashes, no lesions, and no evidence of cellulitis. MS/ Extremity: Pulses equal, no cyanosis. Neurovascular intact. Full, normal range of motion. Neuro: Awake and alert, GCS 15, oriented to person, place, time, and situation. Cranial nerves II-XII grossly intact. Motor strength 5/5 in all extremities. Sensory grossly intact. Cerebellar exam normal. Normal gait. 10:56 ENT: Mouth: Oral mucosa: dry. Vital Signs: 09:25 BP 200 / 91; Pulse 71; Resp 19; Temp 98; Pulse Ox 96% ; Pain 0/10; sv 10:05 BP 189 / 95; Pulse 63; Resp 16; Pulse Ox 96% on R/A; la1 10:51 BP 183 / 78; la1 11:37 BP 186 / 83; Pulse 56; Resp 16; Pulse Ox 96% on R/A; la1 12:42 BP 156 / 85; Pulse 70; Resp 16; Pulse Ox 100% on R/A; la1 MDM: 09:16 Patient medically screened. wa 10:56 Special discussion: BP elevated. fluid restriction. dry mucosa. may be dehydration. wa will check to r/o acute CHF. if neg, will attempt mild rehydration. 12:07 Data reviewed: vital signs, nurses notes, lab test result(s), EKG, radiologic studies. wa Test interpretation: by ED physician or midlevel provider: EKG: HR 62. nml sinus. no acute ischemic change. 12:09 Test interpretation: by ED physician or midlevel provider: labs noted for anemia. low K wa at 3.3 BUN 104, Cr 5.0. nml CXR. Admission orders: after a detailed discussion of the patient's condition and case, the admit orders are written by me. ED course: . 07/25 09:19 Order name: Basic Metabolic Panel; Complete Time: 12:00 5 07/25 09:19 Order name: CBC with Diff; Complete Time: 09:57 5 07/25 09:19 Order name: Ckmb; Complete Time: 12:01 5 07/25 09:19 Order name: CPK; Complete Time: 12:01 5 07/25 09:19 Order name: LFT's; Complete Time: 12:01 [facility] 07/25 09:19 Order name: Magnesium; Complete Time: 12:01 5 07/25 09:19 Order name: NT PRO-BNP; Complete Time: 12:01 5 07/25 09:19 Order name: PT-INR; Complete Time: 10:15 [facility] 07/25 09:19 Order name: Ptt, Activated; Complete Time: 10:15 07/25 09:19 Order name: Troponin (emerg Dept Use Only); Complete Time: 12:01 [facility] 07/25 09:35 Order name: Urine Microscopic Only wa 07/25 12:14 Order name: Basic Metabolic Panel [facility] 07/25 12:14 Order name: Basic Metabolic Panel [facility] 07/25 12:14 Order name: Basic Metabolic Panel [facility] 07/25 09:19 Order name: XRAY Chest (1 view); Complete Time: 10:15 5 07/25 09:19 Order name: EKG; Complete Time: 09:19 [facility] 07/25 09:19 Order name: Cardiac monitoring; Complete Time: 09:20 5 07/25 12:14 Order name: CONS Physician Consult [facility] 07/25 12:14 Order name: Full Liquid [facility] 07/25 12:14 Order name: Basic Metabolic Panel [facility] 07/25 12:14 Order name: CBC with Automated Diff [facility] 07/25 12:14 Order name: Magnesium [facility] 07/25 12:14 Order name: Magnesium [facility] 07/25 12:14 Order name: Magnesium [facility] 07/25 12:14 Order name: Magnesium [facility] 07/25 12:16 Order name: Social Service Consult [facility] 07/25 12:22 Order name: Urine Dipstick--Ancillary (enter results) mb4 07/25 12:25 Order name: Social Service Consult [facility] 07/25 09:19 Order name: EKG - Nurse/Tech; Complete Time: 09:20 dm5 07/25 09:19 Order name: IV Saline Lock; Complete Time: 09:48 dm5 07/25 09:19 Order name: Labs collected and sent; Complete Time: 09:48 dm5 07/25 09:19 Order name: O2 Per Protocol; Complete Time: 09:20 dm5 07/25 09:19 Order name: O2 Sat Monitoring; Complete Time: 09:20 dm5 07/25 09:19 Order name: Urine Dipstick-Ancillary (obtain specimen); Complete Time: 12:20 dm5 Administered Medications: 10:05 Drug: Tylenol 1000 mg Route: PO; la1 10:51 Follow up: Response: No adverse reaction; Pain is decreased la1 10:05 Drug: NS 0.9% 500 ml Route: IV; Rate: bolus; Site: right antecubital; la1 10:50 Follow up: IV Status: Completed infusion la1 Disposition: 07/25/18 12:12 Hospitalization ordered by Fahad Avalos for Observation. Preliminary diagnosis are Generalized Weakness, Dehydration, renal Failure. - Bed requested for Telemetry/MedSurg (observation). - Status is Observation. la1 - Condition is Stable. - Problem is an ongoing problem. - Symptoms have improved. UTI on Admission? No Signatures: Dispatcher [employer] [facility] Rosey Rodrigues RN RN dm5 Romi Shah RN RN sv Attema, Lee, RN RN la1 Viraj Kaplan MD MD wa Botello, Elizabeth eb Corrections: (The following items were deleted from the chart) 12:56 12:12 Hospitalization Ordered by Fahad Avalos DO for Observation. Preliminary eb diagnosis is Generalized Weakness; Dehydration; renal Failure. Bed requested for Telemetry/MedSurg (observation). Status is Observation. Condition is Stable. Problem is an ongoing problem. Symptoms have improved. UTI on Admission? No. [place] 13:27 12:56 07/25/2018 12:12 Hospitalization Ordered by Fahad Avalos DO for Observation. la1 Preliminary diagnosis is Generalized Weakness; Dehydration; renal Failure. Bed requested for Telemetry/MedSurg (observation). Status is Observation. Condition is Stable. Problem is an ongoing problem. Symptoms have improved. UTI on Admission? No. eb
--- NOTE | 2018-07-25 12:22 | P.HP ---
Certification for Inpatient Patient admitted to: Observation With expected LOS: <2 Midnights Patient will require the following post-hospital care: Home Health Services Practitioner: I am a practitioner with admitting privileges, knowledge of patient current condition, hospital course, and medical plan of care. Services: Services provided to patient in accordance with Admission requirements found in Title 42 Section 412.3 of the Code of Federal Regulations Patient History Date of Service: 07/25/18 Primary Care Provider: Dr. Daly; Nephrology-Dr. Thorne Reason for admission: Nausea, fatigue History of Present Illness: 73-year-old female presented emergency room with nausea, fatigue and dizziness. Patient was recently hospitalized from 07/14/2018 through 07/22/2018. 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 Patient was treated eventually sent home. Apparently when she went home she was placed on a fluid restriction due to pulmonary edema noted on her admission. The patient was also sent home on high-dose steroids and immunosuppressive therapy. Since that time patient reports some nausea. She feels she is not getting adequate hydration. She also reports that home health was not arranged. She came to the ER for further evaluation. In the ER she was evaluated. Blood pressure stable. White count 9.6, hemoglobin 9.4. Sodium 142, potassium 3.3, BUN of 104, creatinine 5.6 with a GFR 7. BNP 62824. Chest x-ray unremarkable. Blood sugar 94. Patient was given IV fluid bolus in the emergency room. Due to the nature of her symptoms and chronic condition the patient was admitted for observation. When I saw the patient the ER, she appeared dry. She did not appear in any respiratory distress. 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 Patient also has a history of anemia likely of chronic disease, hypertension, rheumatoid arthritis, GERD. Allergies meperidine [From Demerol] Adverse Reaction (Mild, Verified 07/14/18 22:02) Itching morphine Adverse Reaction (Verified 07/14/18 22:01) severe itching Home medications list reviewed: Yes Home Medications: Ondansetron HCl [Zofran] 4 mg PO Q6H PRN 07/14/18 Cholecalciferol (Vitamin D3) [Vitamin D 5,000 IU Cap*] 5,000 unit PO DAILY #30 cap 07/22/18 Doxazosin [Cardura*] 2 mg PO BEDTIME #30 tab 07/22/18 Metoprolol Succinate [Toprol Xl*] 50 mg PO BID #60 tab 07/22/18 Na Bicarb Tab [Sodium Bicarb 325 MG Tab*] 650 mg PO BID #120 tab 07/22/18 Pantoprazole [Protonix Tab*] 40 mg PO BID #60 tab 07/22/18 Sevelamer Carbonate [Renvela*] 800 mg PO TIDWM #90 tablet 07/22/18 Sulfamethoxazole/Trimethoprim [Bactrim 400-80 mg Tablet] 1 each PO SEECOM #30 tablet 07/22/18 predniSONE [Prednisone*] 80 mg PO Q24H #120 tab 07/22/18 - Past Medical/Surgical History Diabetic: No -: Hypertension -: Acute renal failure secondary to glomerulonephritis -: Rheumatiod Arthritis -: GERD -: Vasculitis -: Anemia of chronic disease -: Hysterectomy -: Cholesestecomy -: Carpal Tunel -: Appendectomy Psychosocial/ Personal History: The patient is - Family History Father -: Heart disease, Cancer, Other (see notes) Notes: Lung Cancer - Social History Smoking Status: Never smoker Alcohol use: Yes CD- Drugs: No Caffeine use: Yes Place of Residence: Home Review of Systems General: Weakness, As per HPI Eyes: Unremarkable ENT: Unremarkable Respiratory: Unremarkable Cardiovascular: Light Headedness, As per HPI Gastrointestinal: Nausea, As per HPI Genitourinary: Unremarkable Integumentary: Unremarkable Neurological: As per HPI Lymphatics: Unremarkable Physical Examination - Physical Exam General: Alert, In no apparent distress, Oriented x3, Cooperative HEENT: Atraumatic, Normocephalic, PERRLA, Other (Dry mucous membranes) Neck: Supple, No Thyromegaly Respiratory: Clear to auscultation bilaterally, Normal air movement Cardiovascular: Normal pulses, Regular rate/rhythm Gastrointestinal: Normal bowel sounds, Soft and benign, Non-distended, No tenderness, No masses, No rebound, No guarding Musculoskeletal: No contractures, No erythema, No tenderness, No warmth Integumentary: No tenderness/swelling, No erythema, No warmth, No cyanosis Neurological: Normal speech, Normal strength at 5/5 x4 extr, Normal tone, Normal affect - Studies Laboratory Data (last 24 hrs) 07/25/18 09:30: PT 10.8, INR 0.92, APTT 19.4 L 07/25/18 09:30: WBC 9.6 D, Hgb 9.4 L, Hct 27.7 L, Plt Count 212 07/25/18 09:30: Sodium 142, Potassium 3.3 L, BUN 104 H D, Creatinine 5.60 H*, Glucose 94, Magnesium 1.8, Total Bilirubin 0.4, AST 21, ALT 12, Alkaline Phosphatase 41 L Assessment and Plan - Problems (Diagnosis) (1) Nausea Current Visit: Yes Status: Acute Plan: Nausea likely from dehydration. Another component could be related to fungal esophagitis as the patient is on high-dose steroids and antibacterial medication for immunosuppression therapy. Will start Diflucan. Will provide Protonix IV b.i.d.. Will provide IV fluids. Anticipate rehydration by tomorrow. Anticipate possible discharge tomorrow. Will consult Nephrology to further assess. Will also have clinical social work therapist arrange for home health prior to discharge. (2) Esophagitis Current Visit: Yes Status: Suspected Plan: Suspect fungal esophagitis likely from immunosuppression zhkhykz-kpew-dihr steroids and antibiotic therapy. Will start Diflucan. Will continue IV Protonix b.i.d.. Will reassess tomorrow. Continue IV fluids. Will advance diet as tolerated. (3) Dehydration Current Visit: Yes Status: Acute Plan: Continue as above. Will adjust fluid restriction to 2000 cc per day. Will monitor for pulmonary edema. (4) Acute renal failure Onset Date: 07/15/18 Current Visit: No Status: Acute Plan: Acute renal failure secondary to vasculitis/glomerulonephritis. Continue with previous recommendations of high-dose steroids. Nephrology consulted. Qualifiers: (5) Anemia Current Visit: No Status: Chronic Plan: Anemia of chronic disease noted. Will monitor closely. Qualifiers: Anemia type: due to chronic kidney disease Chronic kidney disease stage: stage 5, not on chronic dialysis Qualified Code(s): N18.5 - Chronic kidney disease, stage 5; D63.1 - Anemia in chronic kidney disease (6) Glomerulonephritis Current Visit: No Status: Acute Plan: Continue with above plan of care. Consult in nephrology. Continue with previous recommendations. Continue high-dose steroids. Continue with antibiotic prophylaxis coverage due to immunosuppression. Patient to get rituximab as an outpatient. (7) Vasculitis Current Visit: No Status: Chronic Plan: Continue with above plan of care. Patient being treated with high-dose steroids. To get rituximab as an outpatient. (8) GERD (gastroesophageal reflux disease) Current Visit: No Status: Chronic Plan: Will start IV Protonix b.i.d.. Qualifiers: Esophagitis presence: with esophagitis Qualified Code(s): K21.0 - Gastro- esophageal reflux disease with esophagitis (9) Hypertension Onset Date: 07/15/18 Current Visit: No Status: Chronic Plan: Continue with medication Qualifiers: Hypertension type: essential hypertension (10) Rheumatoid arthritis Current Visit: No Status: Chronic Plan: Continue as above. Patient to follow up with Rheumatology as an outpatient. Discharge Plan: Home Plan to discharge in: 24 Hours - Advance Directives Does patient have a Living Will: No Does patient have a Durable POA for Healthcare: Yes - Code Status/Comfort Care Code Status Assessed: Yes (Patient full code) Time Spent Managing Pts Care (In Minutes): 55
[2018-07-25 12:32] LABS: Urine Blood 3+ (NEG); Urine Glucose NEGATIVE (NEG); Urine Protein 3+ (NEG); Urine Specific Gravity 1.025 (1.005-1.030); Urine pH 5.5 (5.0-7.0)
[2018-07-25] MEDS ORDERED: FLUCONAZOLE 100mg IVPB 100 MG/50 ML BAG IV SCH (13:00)
[2018-07-25 13:19] LABS: Urine Bacteria 20-50 /HPF (<20); Urine Culture Reflex Order REFLEXED
[2018-07-25 14:27] VITALS: BMI 26.5
[2018-07-25] MEDS: NACHLORIDE 0.45% 1,000 ML IV SCH (14:44)
[2018-07-25] MEDS ORDERED: HYDRALAZINE HCL 20 MG/ML VIAL IV SCH (15:00)
[2018-07-25] MEDS: METOPROLOL XL 50 MG TAB PO SCH ×3 (15:12→18:00)
[2018-07-25] MEDS ORDERED: HYDRALAZINE HCL 20 MG/ML VIAL IV PRN ×2 (15:19→19:37)
[2018-07-25] MEDS ORDERED: ENOXAPARIN 30 MG/0.3 ML SQ SCH (17:00)
[2018-07-25] MEDS ORDERED: SEVELAMER CARBONATE 800 MG TABLET PO SCH (17:00)
[2018-07-25] MEDS ORDERED: SMZ./TMP. 800/160 MG TABLET PO SCH (17:00)
[2018-07-25] MEDS ORDERED: SMZ PO SCH (17:00)
[2018-07-25] MEDS ORDERED: TMP PO SCH (17:00)
[2018-07-25] MEDS: SEVELAMER 800 MG PO SCH (17:15)
[2018-07-25] MEDS ORDERED: METOPROLOL XL 50 MG TAB PO SCH (18:00)
[2018-07-25] MEDS ORDERED: DOXAZOSIN 2 MG TAB PO SCH (21:00)
[2018-07-25] MEDS ORDERED: MAGNESIUM SULFATE 1 gm IVPB 1 GM/100 ML BAG IV ONE (21:00)
[2018-07-25] MEDS ORDERED: DOXAZOSIN 2 MG PO SCH (21:00)
[2018-07-25] MEDS ORDERED: predniSONE 20 MG TAB PO SCH (21:00)
[2018-07-25] MEDS ORDERED: SODIUM BICARB 325 MG TAB PO SCH (21:00)
[2018-07-25] MEDS: SODIUM BICARB 325 MG TAB PO SCH (21:39)
[2018-07-25] MEDS: PANTOPRAZOLE 40 MG INJ IVP SCH (21:39)
[2018-07-26 04:11] VITALS: BP 148/72
[2018-07-26] MEDS: METOPROLOL XL 50 MG TAB PO SCH (05:22)
[2018-07-26 06:00] LABS: Absolute Lymphocytes (CBC) 0.8 K/uL (0.7-4.9); Absolute Monocytes 0.5 K/uL (0.1-1.3); Absolute Neutrophil 6.2 K/uL (1.8-8.0); Basophils % 0.1 % (0-1.3); Eosinophils % 1.7 % (0-4.4); Hematocrit 27.2 % (36.0-45.0); Lymphocytes % 10.2 % (15.3-44.8); MCH 30.8 pg (27.0-35.0); MCV 90.5 fL (80-100); Monocytes % 6.9 % (3.3-12.3); RBC Red Blood Cell Count 3.01 M/uL (3.86-4.86)
[2018-07-26 06:17] LABS: Magnesium 2.1 mg/dL (1.8-2.4); Potassium 3.2 mmol/L (3.5-5.1)
[2018-07-26] MEDS ORDERED: PREDNISONE 20 MG PO SCH (08:00)
--- NOTE | 2018-07-26 08:35 | EKG ---
Test Date: 2018-07-25 Test Time: 09:16:56 [employer] Specialist: SIS MEASUREMENT RESULTS: Intervals: Rate: 62 MS: 158 QRSD: 90 QT: 400 QTc: 406 Cyrus: P: 73 MS: 158 QRS: 56 T: 77 INTERPRETIVE STATEMENTS: Normal sinus rhythm Normal ECG Compared to ECG 07/15/2018 07:50:48 No significant changes Electronically Signed On 07-26-18 08:35:11 CDT by Peter Cruz
[2018-07-26] MEDS: SODIUM BICARB 325 MG TAB PO SCH (08:54)
[2018-07-26] MEDS: SEVELAMER 800 MG PO SCH ×2 (08:54→12:21)
[2018-07-26] MEDS: PANTOPRAZOLE 40 MG INJ IVP SCH (08:54)
[2018-07-26] MEDS: NACHLORIDE 0.45% 1,000 ML IV SCH (09:00)
[2018-07-26] MEDS ORDERED: VITAMIN D 5,000 UNIT CAP PO SCH (09:00)
--- NOTE | 2018-07-26 09:18 | P.DS ---
Admission Date: 07/25/18 Discharge Date: 07/26/18 Primary Care Provider: Dr. Daly; Nephrology-Dr. Thorne Disposition: ROUTINE DISCHARGE Discharge Condition: GOOD Reason for Admission: Nausea, fatigue Consultations: Nephrology-Dr. Thorne - Problems (1) Nausea Current Visit: Yes Status: Acute (2) Esophagitis Current Visit: Yes Status: Suspected (3) Dehydration Current Visit: Yes Status: Acute (4) Acute renal failure Onset Date: 07/15/18 Current Visit: No Status: Acute Qualifiers: (5) Anemia Current Visit: No Status: Chronic Qualifiers: Anemia type: due to chronic kidney disease Chronic kidney disease stage: stage 5, not on chronic dialysis Qualified Code(s): N18.5 - Chronic kidney disease, stage 5; D63.1 - Anemia in chronic kidney disease (6) Glomerulonephritis Current Visit: No Status: Acute (7) Vasculitis Current Visit: No Status: Chronic (8) GERD (gastroesophageal reflux disease) Current Visit: No Status: Chronic Qualifiers: Esophagitis presence: with esophagitis Qualified Code(s): K21.0 - Gastro- esophageal reflux disease with esophagitis (9) Hypertension Onset Date: 07/15/18 Current Visit: No Status: Chronic Qualifiers: Hypertension type: essential hypertension (10) Rheumatoid arthritis Current Visit: No Status: Chronic Brief History of Present Illness: 73-year-old female presented emergency room with nausea, fatigue and dizziness. Patient was recently hospitalized from 07/14/2018 through 07/22/2018. 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 Patient was treated eventually sent home. Apparently when she went home she was placed on a fluid restriction due to pulmonary edema noted on her admission. The patient was also sent home on high-dose steroids and immunosuppressive therapy. Since that time patient reports some nausea. She feels she is not getting adequate hydration. She also reports that home health was not arranged. She came to the ER for further evaluation. In the ER she was evaluated. Blood pressure stable. White count 9.6, hemoglobin 9.4. Sodium 142, potassium 3.3, BUN of 104, creatinine 5.6 with a GFR 7. BNP 30351. Chest x-ray unremarkable. Blood sugar 94. Patient was given IV fluid bolus in the emergency room. Due to the nature of her symptoms and chronic condition the patient was admitted for observation. When I saw the patient the ER, she appeared dry. She did not appear in any respiratory distress. 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 Patient also has a history of anemia likely of chronic disease, hypertension, rheumatoid arthritis, GERD. Hospital Course: Patient presented with nausea and dehydration. Patient received medication and IV fluids. Patient responded well. Patient may have underlying Beverly esophagitis as the patient is on immunosuppressive therapy and high-dose steroids. At discharge she will continue with Diflucan 100 mg daily for 7 days. The patient will also continue with Protonix 40 mg 1 pill twice daily. Patient recently admitted for vasculitis, glomerulonephritis, and acute renal failure. Patient has received rituximab. Patient is expected to get rituximab as an outpatient. This is to be arranged by nephrology. Patient will continue with prednisone 80 mg daily. Further adjustment will be done by nephrology. Prednisone will eventually be tapered off over time. Patient will increase her fluid intake. Fluid restriction set at 2000 cc per day. This may be adjusted as an outpatient. Patient will continue with her other medications for her acute renal failure including Renvela 800 mg 1 pill 3 times a day, sodium bicarbonate 650 mg 1 pill twice daily, vitamin-D 5000 units once daily. Patient also taking antibacterial prophylaxis medication due to her immunosuppression therapy. This includes Bactrim single-strength 1 pill 3 times a week. Recommendations for the patient follow up with nephrology within 1 week to follow up this hospitalization and continue her care. Prior to discharge home health will be arranged. Patient has hypertension. Medications have been adjusted. Patient will continue with Doxazosin 2 mg 1 pill daily and metoprolol XL 50 mg 1 pill twice daily. Recommendation is to maintain blood pressures less 150/80. Further adjustment can be done by her PCP. Patient has anemia of chronic disease. Recommendation is to recheck CBC in 1 week to monitor progress. This can be further addressed by nephrology as an outpatient. Patient has GERD. Patient will continue with Protonix 40 mg 1 pill twice daily. If this persists patient may require GI evaluation as an outpatient. Vital Signs/Physical Exam: Temp Pulse Resp BP Pulse Ox 97.5 F 58 17 148/72 H 96 07/26/18 08:00 07/26/18 08:00 07/26/18 08:00 07/26/18 04:00 07/26/18 08:00 General: Alert, In no apparent distress, Oriented x3, Cooperative HEENT: Atraumatic Neck: Supple Respiratory: Clear to auscultation bilaterally, Normal air movement Cardiovascular: Normal pulses, Regular rate/rhythm Gastrointestinal: Normal bowel sounds, Soft and benign, Non-distended, No tenderness, No masses, No rebound, No guarding Musculoskeletal: No erythema, No tenderness, No warmth Integumentary: No tenderness/swelling, No erythema, No warmth, No cyanosis Neurological: Normal speech, Normal strength at 5/5 x4 extr, Normal tone, Normal affect Lymphatics: No axilla or inguinal lymphadenopathy Laboratory Data at Discharge: WBC 7.6 K/uL (4.3-10.9) D 07/26/18 05:27 Hgb 9.3 g/dL (12.0-15.0) L 07/26/18 05:27 Hct 27.2 % (36.0-45.0) L 07/26/18 05:27 Plt Count 197 K/uL (152-406) 07/26/18 05:27 PT 10.8 SECONDS (9.5-12.5) 07/25/18 09:30 INR 0.92 07/25/18 09:30 APTT 19.4 SECONDS (24.3-36.9) L 07/25/18 09:30 Sodium 141 mmol/L (136-145) 07/26/18 05:27 Potassium 3.2 mmol/L (3.5-5.1) L 07/26/18 05:27 BUN 89 mg/dL (7-18) H 07/26/18 05:27 Creatinine 5.10 mg/dL (0.55-1.3) H* 07/26/18 05:27 Glucose 84 mg/dL (74-106) 07/26/18 05:27 Magnesium 2.1 mg/dL (1.8-2.4) 07/26/18 05:27 Total Bilirubin 0.4 mg/dL (0.2-1.0) 07/25/18 09:30 AST 21 U/L (15-37) 07/25/18 09:30 ALT 12 U/L (12-78) 07/25/18 09:30 Alkaline Phosphatase 41 U/L (45-117) L 07/25/18 09:30 Home Medications: Ondansetron HCl [Zofran] 4 mg PO Q6H PRN 07/14/18 Cholecalciferol (Vitamin D3) [Vitamin D 5,000 IU Cap*] 5,000 unit PO DAILY #30 cap 07/22/18 Doxazosin [Cardura*] 2 mg PO BEDTIME #30 tab 07/22/18 Metoprolol Succinate [Toprol Xl*] 50 mg PO BID #60 tab 07/22/18 Na Bicarb Tab [Sodium Bicarb 325 MG Tab*] 650 mg PO BID #120 tab 07/22/18 Pantoprazole [Protonix Tab*] 40 mg PO BID #60 tab 07/22/18 Sevelamer Carbonate [Renvela*] 800 mg PO TIDWM #90 tablet 07/22/18 Sulfamethoxazole/Trimethoprim [Bactrim 400-80 mg Tablet] 1 each PO SEECOM #30 tablet 07/22/18 predniSONE [Prednisone*] 80 mg PO Q24H #120 tab 07/22/18 Fluconazole [Diflucan] 100 mg PO DAILY #7 tablet 07/26/18 New Medications: Fluconazole [Diflucan] 100 mg PO DAILY #7 tablet Patient Discharge Instructions: 1. Patient will need to follow up with a PCP in 1 week to follow up this hospitalization. 2. Patient presented with nausea and dehydration. Patient received medication and IV fluids. Patient responded well. Patient may have underlying Beverly esophagitis as the patient is on immunosuppressive therapy and high-dose steroids. At discharge she will continue with Diflucan 100 mg daily for 7 days. The patient will also continue with Protonix 40 mg 1 pill twice daily. Patient recently admitted for vasculitis, glomerulonephritis, and acute renal failure. Patient has received rituximab. Patient is expected to get rituximab as an outpatient. This is to be arranged by nephrology. Patient will continue with prednisone 80 mg daily. Further adjustment will be done by nephrology. Prednisone will eventually be tapered off over time. Patient will increase her fluid intake. Fluid restriction set at 2000 cc per day. This may be adjusted as an outpatient. Patient will continue with her other medications for her acute renal failure including Renvela 800 mg 1 pill 3 times a day, sodium bicarbonate 650 mg 1 pill twice daily, vitamin-D 5000 units once daily. Patient also taking antibacterial prophylaxis medication due to her immunosuppression therapy. This includes Bactrim single-strength 1 pill 3 times a week. Recommendations for the patient follow up with nephrology within 1 week to follow up this hospitalization and continue her care. Prior to discharge home health will be arranged. 3. Patient has hypertension. Medications have been adjusted. Patient will continue with Doxazosin 2 mg 1 pill daily and metoprolol XL 50 mg 1 pill twice daily. Recommendation is to maintain blood pressures less 150/80. Further adjustment can be done by her PCP. 4. Patient has anemia of chronic disease. Recommendation is to recheck CBC in 1 week to monitor progress. This can be further addressed by nephrology as an outpatient. 5. Patient has GERD. Patient will continue with Protonix 40 mg 1 pill twice daily. If this persists patient may require GI evaluation as an outpatient. Diet: Renal Activity: Fall precautions Time spent managing pt's care (in minutes): 55
[2018-07-26 11:39] VITALS: O2SAT 96
[2018-07-26 13:01] VITALS: TEMP 97.2
== END 2018-07-26 12:52 | disposition home health service (06) ==
LOC: ER 09:04 → ERHOLD 12:05 → 4TH 13:03
PROVIDERS: ADMIT Family Medicine; ATTEND Family Medicine
DX: R11.0 Nausea (principal); E86.0 Dehydration; N17.9 Acute kidney failure, unspecified; M06.9 Rheumatoid arthritis, unspecified; N00.9 Acute nephritic syndrome with unspecified morphologic changes; I77.6 Arteritis, unspecified; K21.9 Gastro-esophageal reflux disease without esophagitis; D64.9 Anemia, unspecified
CPT/HCPCS: 36415; 71045; 80048 ×2; 80076; 82550; 82553; 82962; 83735 ×2; 83880; 84484; 85025 ×2; 85610; 85730; 87086; 87088; 93005; 96360; 99285; C9113 ×2; G0378 ×2; J0360 ×2; J1650; J3475; 81003; 81015; J1450

== ENCOUNTER 2018-08-09 12:50 | Inpatient (IN) | payer OTHER, BC ==
--- OUTSIDE RECORDS SUMMARY | 2018-08-09 12:52 | XMS REPORT | Clinical Summary ---
:1945 Author Organization [facility] Address [address] [place] [id number] Care Team Providers Name Role Phone Asked, [...] type, unspecified site; Myalgia; Sicca syndrome after 08/08/2017 Social History Tobacco Use Types Packs/Day Years [...] section. unspecified site Myalgia Sicca syndrome after 08/08/2017 Results XR Hands 3 Vw Bilateral (05/05/2018 [...] fifth metacarpal 3. Soft tissues are unremarkable. [facility]-[id number] Procedure Note Hm Interface, Radiology Results Incoming [...] fifth metacarpal 3. Soft tissues are unremarkable. [facility]-[id number] Performing Organization Address City/State/Zipcode Phone Number [facility] [address] [place] [address] after 08/08/2017 Insurance Payer Benefit Plan / Group Subscriber ID Type Phone Address MEDICARE MEDICARE PART A AND B xxxxxxxxxx Medicare [place], [place] BCBS BCBS CHOICE PPO/[employer]ER[employer] EMPL PPO xxxxxxxxxxxx PPO [phone] [id number]
[2018-08-09] MEDS ORDERED: HYDRALAZINE HCL 20 MG/ML VIAL ONE (14:25)
[2018-08-09 14:55] LABS: Absolute Lymphocytes (CBC) 0.1 K/uL (0.7-4.9); Absolute Monocytes 0.2 K/uL (0.1-1.3); Absolute Neutrophil 5.5 K/uL (1.8-8.0); Basophils % 0.3 % (0-1.3); Eosinophils % 0.1 % (0-4.4); Hematocrit 28.9 % (36.0-45.0); Lymphocytes % 2.6 % (15.3-44.8); MCH 30.2 pg (27.0-35.0); MCV 90.8 fL (80-100); RBC Red Blood Cell Count 3.18 M/uL (3.86-4.86)
[2018-08-09 14:56] LABS: Protime INR 0.86
[2018-08-09 15:13] LABS: BUN Blood Urea Nitrogen 73 mg/dL (7-18); Bicarbonate 35 mmol/L (21-32); CKMB Creatine Kinase MB < 1.0 ng/mL (0.3-3.6); Creatine Phosphokinase 25 U/L (26-192); Glucose Level 117 mg/dL (74-106); NT PRO-BNP 28000 pg/mL (<125); Potassium 3.2 mmol/L (3.5-5.1); Sodium Level 139 mmol/L (136-145); Troponin (Emerg Dept Use Only) 0.06 ng/mL (0.0-0.045)
[2018-08-09 15:16] LABS: Urine Blood 3+ (NEG); Urine Glucose NEGATIVE (NEG); Urine Protein 3+ (NEG); Urine pH 6.5 (5.0-7.0)
[2018-08-09 15:29] LABS: Blood Morphology Comment NOT SEEN (NOT SEEN); Platelet Estimate ADEQ; Urine White Blood Cell Casts OK
--- NOTE | 2018-08-09 15:37 | RAD REPORT ---
EXAM DESCRIPTION: RAD - Chest Single View - 08/09/2018 3:31 pm CLINICAL HISTORY: PAIN Chest pain. COMPARISON: Chest Single View dated 07/25/2018; Chest Pa And Lat (2 Views) dated 07/20/2018; Chest Sin gle View dated 07/14/2018; CHEST PA AND LAT 2 VIEW dated 04/15/2015 FINDINGS: Portable technique limits examination quality. The lungs are grossly clear. The heart is normal in size. No displaced fractures. IMPRESSION: No acute intrathoracic process suspected.
--- NOTE | 2018-08-09 15:45 | ER ---
Nurse's Notes [facility] Name: Elizabeth Wyman Age: 73 yrs Sex: Female : 1945 Arrival Date: 08/09/2018 Time: 12:51 Bed 25 Private MD: Babak Daly Diagnosis: Essential (primary) hypertension;Edema, unspecified;Unspecified kidney failure;Hypokalemia;Elevated troponin and BNP Presentation: 08/09 13:48 Presenting complaint: Patient states: She's been hospitalized twice this month for aj1 kidney failure, and was diagnosed with a autoimmune disease. Her blood pressure has been high for the past week, when they woke up it was 205/105. She took her BP medication and 4 hours stefan it was 214/110. Transition of care: patient was not received from another setting of care. Onset of symptoms was August 09, 2018. Risk Assessment: Do you want to hurt yourself or someone else? Patient reports no desire to harm self or others. Initial Sepsis Screen: Does the patient meet any 2 criteria? No. Patient's initial sepsis screen is negative. Does the patient have a suspected source of infection? No. Patient's initial sepsis screen is negative. Care prior to arrival: None. 13:48 Method Of Arrival: Wheelchair aj1 13:48 Acuity: GUNJAN 3 aj1 Triage Assessment: 13:51 General: Appears in no apparent distress. comfortable, Behavior is calm, cooperative, aj1 appropriate for age. Pain: Denies pain. Neuro: Level of Consciousness is awake, alert, obeys commands. Cardiovascular: Patient's skin is warm and dry. Respiratory: Airway is patent Respiratory effort is even, unlabored, Respiratory pattern is regular, symmetrical. Historical: - Allergies: 13:51 Demerol; aj1 13:51 Morphine; aj1 - Home Meds: 14:06 prednisone 80mg oral tab once daily [Active]; doxazosin 4 mg oral tab 1 tab BID la1 [Active]; temazepam 15 mg Oral cap 2 caps once daily for Insomnia [Active]; Renvela 800 mg oral tab 1 tab 3 times per day [Active]; pantoprazole 40 mg oral TbEC 1 tab 2 times per day [Active]; calcitriol 0.5 mcg oral cap 1 cap once daily [Active]; metoprolol tartrate 50 mg Oral tab 1 tab 2 times per day [Active]; sodium bicarbonate 325 mg Oral tab 650 mg twice a day [Active]; 15:43 Lasix 40 mg Oral tab 1 tab 2 times per day for Edema, PRN [Active]; la1 - PMHx: 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 - Social history:: Smoking status: Patient/guardian denies using tobacco. - Ebola Screening: : Patient denies travel to an Ebola-affected area in the 21 days before illness onset. Screenin:46 Abuse screen: Denies threats or abuse. Nutritional screening: No deficits noted. la1 Tuberculosis screening: No symptoms or risk factors identified. Fall Risk None identified. Assessment: 14:46 General: Appears in no apparent distress. Behavior is calm, cooperative. Pain: Denies la1 pain. Neuro: Level of Consciousness is awake, alert, obeys commands, Oriented to person, place, time, situation. Cardiovascular: Capillary refill < 3 seconds Patient's skin is warm and dry. Edema is 1+ to left ankle, left foot, right ankle and right foot. Respiratory: Airway is patent Respiratory effort is even, unlabored, Respiratory pattern is regular, symmetrical, Breath sounds are clear bilaterally. GI: No signs and/or symptoms were reported involving the gastrointestinal system. : No signs and/or symptoms were reported regarding the genitourinary system. 15:43 Reassessment: Patient appears in no apparent distress at this time. No changes from la1 previously documented assessment. Patient and/or family updated on plan of care and expected duration. Pain level reassessed. Vital Signs: 13:51 BP 213 / 90; Pulse 61; Resp 18; Temp 98.7; Pulse Ox 96% on R/A; Weight 72.57 kg (R); aj1 Height 5 ft. 3 in. (160.02 cm) (R); Pain 0/10; 14:46 BP 205 / 98; Pulse 56; Resp 16; Pulse Ox 96% on R/A; la1 15:18 BP 192 / 84; Pulse 61; Resp 16; Pulse Ox 100% on R/A; la1 15:21 BP 178 / 78; Pulse 66; Resp 16; Pulse Ox 100% on R/A; la1 16:30 BP 206 / 92; Pulse 76; Resp 16; Pulse Ox 95% on R/A; la1 16:39 BP 185 / 86; Pulse 76; Resp 16; Pulse Ox 96% on R/A; la1 13:51 Body Mass Index 28.34 (72.57 kg, 160.02 cm) aj1 ED Course: 12:51 Patient arrived in ED. as 12:52 Babak Daly MD is Private Physician. as 13:28 Triage completed. aj1 13:51 Arm band placed on Patient placed in an exam room. aj1 13:52 Heraclio Rowe RN is Primary Nurse. la1 14:01 Sarai Reyes FNP-C is PHCP. kb 14:01 Zurdo Fields MD is Attending Physician. kb 14:45 Urine collected: clean catch specimen, clear, rolando colored, Amount Voided: 60mL EKG jp3 done, by ED staff, reviewed by Sarai ARREAGA. 14:46 Bed in low position. Call light in reach. Side rails up X 1. insurance professional on. Pulse la1 ox on. NIBP on. 14:47 Inserted saline lock: 22 gauge in left wrist, using aseptic technique. la1 15:29 X-ray completed. Portable x-ray completed in exam room. Patient tolerated procedure la2 well. 15:30 Chest Single View XRAY In Process Unspecified. EDMS 15:43 Lalo Osborne MD is Hospitalizing Provider. kb 15:44 No provider procedures requiring assistance completed. Patient admitted, IV remains in la1 place. 16:08 Placed in gown. Side rails up X2. Assisted to bathroom. jp3 Administered Medications: 14:54 Drug: hydrALAZINE 10 mg Route: IV; Rate: calculated rate; Site: right antecubital; la1 15:44 Follow up: IV Status: Completed infusion la1 15:50 Drug: Potassium Chloride 40 mEq Route: PO; la1 16:30 Follow up: Response: No adverse reaction la1 16:29 Drug: hydrALAZINE 10 mg Route: IV; Rate: bolus; Site: right wrist; la1 16:30 Follow up: IV Status: Completed infusion la1 Outcome: 15:44 Decision to Hospitalize by Provider. kb 16:59 Admitted to Med/surg accompanied by nurse, via wheelchair, room 208, with chart. la1 16:59 Condition: stable 16:59 Instructed on the need for admit. 17:21 Patient left the ED. la1 Signatures: Dispatcher [employer] EDSarai Patterson, GIBSON MUSIC ARTIST-CkCharlee Azevedo, RN RN aj1 Katharina Keyes Lee, RN RN la1 Nelly Norton la2 Timothy Viramontes jp3 Corrections: (The following items were deleted from the chart) 13:20 Presenting complaint: Patient states: Pressure in his head and dizziness for the aj1 past week. Patient was seen in the ER in [place] on Saturday and was diagnosed with a stomach virus, and discharged with a Rx for Zofran and Famotidine. Reports his N/V is better but his headache and dizziness have remained the same. Sitting BP 1436/104 HR 70. Standing BP 128/101 HR 93 [facility] 13:20 Transition of care: patient was not received from another setting of care. [place] [id number] 13:20 Onset of symptoms was August 04, 2018 [place] [address] 13:20 Risk Assessment: Do you want to hurt yourself or someone else? Patient reports no [facility] desire to harm self or others. [facility] 13:20 Initial Sepsis Screen: Does the patient meet any 2 criteria? No. Patient's [facility] initial sepsis screen is negative. Does the patient have a suspected source of infection? No. Patient's initial sepsis screen is negative. [facility] 13:20 Care prior to arrival: None. [place] [address] 13:20 Method Of Arrival: Ambulatory [place] [address] 13:20 Acuity: GUNJAN 3 [place] [address] 15:43 14:46 Cardiovascular: Capillary refill < 3 seconds Patient's skin is warm and dry. la1 la1
--- NOTE | 2018-08-09 15:45 | EDPHYS ---
Physician Documentation [facility] Name: Elizabeth Wyman Age: 73 yrs Sex: Female : 1945 Arrival Date: 08/09/2018 Time: 12:51 Bed 25 Private MD: Babak aDly ED Physician Zurdo Fields HPI: 08/09 14:41 This 73 yrs old Female presents to ER via Wheelchair with complaints of High kb Blood Pressure. 14:41 The patient has elevated blood pressure and discovered this at home, with a home kb device. Onset: The symptoms/episode began/occurred yesterday. Associated signs and symptoms: Pertinent positives: headache, Pertinent negatives: chest pain, dizziness, dyspnea, lightheadedness, nausea, visual changes, vomiting, weakness. Severity of symptoms: At its worst the blood pressure was moderate, 206 mm Hg, in the emergency department the blood pressure is unchanged. The patient has experienced similar episodes in the past. The patient has been recently been admitted at [facility], was discharged a couple of weeks ago. Pt states she has been admitted twice in the last month for hypertension and kidney failure. BP has continued to be high at home, BP log shows 180s/100s before medications and 150s/90s after medications. Home health advised her to come to ER yesterday because her BP was 190/110, but pt did not want to come. Today her daughters made her come in. . Historical: - Allergies: 13:51 Demerol; aj1 13:51 Morphine; aj1 - Home Meds: 14:06 prednisone 80mg oral tab once daily [Active]; doxazosin 4 mg oral tab 1 tab BID la1 [Active]; temazepam 15 mg Oral cap 2 caps once daily for Insomnia [Active]; Renvela 800 mg oral tab 1 tab 3 times per day [Active]; pantoprazole 40 mg oral TbEC 1 tab 2 times per day [Active]; calcitriol 0.5 mcg oral cap 1 cap once daily [Active]; metoprolol tartrate 50 mg Oral tab 1 tab 2 times per day [Active]; sodium bicarbonate 325 mg Oral tab 650 mg twice a day [Active]; 15:43 Lasix 40 mg Oral tab 1 tab 2 times per day for Edema, PRN [Active]; la1 - PMHx: 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 - Social history:: Smoking status: Patient/guardian denies using tobacco. - Ebola Screening: : Patient denies travel to an Ebola-affected area in the 21 days before illness onset. ROS: 14:57 Constitutional: Negative for fever, chills, and weight loss, Cardiovascular: Negative kb for chest pain, palpitations, and edema, Respiratory: Negative for shortness of breath, cough, wheezing, and pleuritic chest pain, Abdomen/GI: Negative for abdominal pain, nausea, vomiting, diarrhea, and constipation, Back: Negative for injury and pain, : Negative for injury, bleeding, discharge, and swelling, MS/Extremity: Negative for injury and deformity, Skin: Negative for injury, rash, and discoloration. 14:57 Neuro: Positive for headache, Negative for altered mental status, dizziness, gait disturbance, hearing loss, loss of consciousness, numbness, seizure activity, speech changes, syncope, near syncope, tingling, tinnitus, tremor, visual changes, weakness. Exam: 14:57 Constitutional: This is a well developed, well nourished patient who is awake, alert, kb and in no acute distress. Head/Face: Normocephalic, atraumatic. Eyes: Pupils equal round and reactive to light, extra-ocular motions intact. Lids and lashes normal. Conjunctiva and sclera are non-icteric and not injected. Cornea within normal limits. Periorbital areas with no swelling, redness, or edema. ENT: Nares patent. No nasal discharge, no septal abnormalities noted. Tympanic membranes are normal and external auditory canals are clear. Oropharynx with no redness, swelling, or masses, exudates, or evidence of obstruction, uvula midline. Mucous membranes moist. Neck: Trachea midline, no thyromegaly or masses palpated, and no cervical lymphadenopathy. Supple, full range of motion without nuchal rigidity, or vertebral point tenderness. No Meningismus. Chest/axilla: Normal chest wall appearance and motion. Nontender with no deformity. No lesions are appreciated. Cardiovascular: Regular rate and rhythm with a normal S1 and S2. No gallops, murmurs, or rubs. Normal PMI, no JVD. No pulse deficits. Respiratory: Lungs have equal breath sounds bilaterally, clear to auscultation and percussion. No rales, rhonchi or wheezes noted. No increased work of breathing, no retractions or nasal flaring. Abdomen/GI: Soft, non-tender, with normal bowel sounds. No distension or tympany. No guarding or rebound. No evidence of tenderness throughout. Skin: Warm, dry with normal turgor. Normal color with no rashes, no lesions, and no evidence of cellulitis. MS/ Extremity: Pulses equal, no cyanosis. Neurovascular intact. Full, normal range of motion. Neuro: Awake and alert, GCS 15, oriented to person, place, time, and situation. Cranial nerves II-XII grossly intact. Motor strength 5/5 in all extremities. Sensory grossly intact. Cerebellar exam normal. Normal gait. Vital Signs: 13:51 BP 213 / 90; Pulse 61; Resp 18; Temp 98.7; Pulse Ox 96% on R/A; Weight 72.57 kg (R); aj1 Height 5 ft. 3 in. (160.02 cm) (R); Pain 0/10; 14:46 BP 205 / 98; Pulse 56; Resp 16; Pulse Ox 96% on R/A; la1 15:18 BP 192 / 84; Pulse 61; Resp 16; Pulse Ox 100% on R/A; la1 15:21 BP 178 / 78; Pulse 66; Resp 16; Pulse Ox 100% on R/A; la1 16:30 BP 206 / 92; Pulse 76; Resp 16; Pulse Ox 95% on R/A; la1 16:39 BP 185 / 86; Pulse 76; Resp 16; Pulse Ox 96% on R/A; la1 13:51 Body Mass Index 28.34 (72.57 kg, 160.02 cm) aj1 MDM: 14:01 Patient medically screened. kb 14:57 Data reviewed: vital signs, nurses notes. Data interpreted: Pulse oximetry: on room air kb is 96 %. Interpretation: normal. 15:33 Counseling: I had a detailed discussion with the patient and/or guardian regarding: the kb historical points, exam findings, and any diagnostic results supporting the discharge/admit diagnosis, lab results, radiology results, the need for further work-up and treatment in the hospital. Physician consultation: Lalo Osborne MD was contacted at 15:33, regarding admission, to the telemetry unit. patient's condition, and will see patient in ED, shortly. 08/09 14:14 Order name: Basic Metabolic Panel; Complete Time: 15:15 kb 08/09 14:14 Order name: CBC with Diff; Complete Time: 15:33 kb 08/09 14:14 Order name: Ckmb; Complete Time: 15:15 kb 08/09 14:14 Order name: CPK; Complete Time: 15:15 kb 08/09 14:14 Order name: Magnesium; Complete Time: 15:15 kb 08/09 14:14 Order name: NT PRO-BNP; Complete Time: 15:15 kb 08/09 14:14 Order name: PT-INR; Complete Time: 15:04 kb 08/09 14:14 Order name: Ptt, Activated; Complete Time: 15:04 kb 08/09 14:14 Order name: Troponin (emerg Dept Use Only); Complete Time: 15:15 kb 08/09 15:03 Order name: CBC Smear Scan; Complete Time: 15:33 EDMS 08/09 15:12 Order name: Urine Dipstick--Ancillary (enter results); Complete Time: 15:17 eb 08/09 15:12 Order name: Urine --Ancillary (enter results); Complete Time: 15:17 eb 08/09 15:17 Order name: Chest Single View XRAY; Complete Time: 15:39 kb 08/09 14:14 Order name: EKG; Complete Time: 14:15 kb 08/09 14:14 Order name: Cardiac monitoring; Complete Time: 14:45 kb 08/09 14:14 Order name: EKG - Nurse/Tech; Complete Time: 14:45 kb 08/09 14:14 Order name: IV Saline Lock; Complete Time: 14:45 kb 08/09 14:14 Order name: Labs collected and sent; Complete Time: 14:45 kb 08/09 14:14 Order name: O2 Per Protocol; Complete Time: 14:45 kb 08/09 14:14 Order name: O2 Sat Monitoring; Complete Time: 14:45 kb 08/09 14:14 Order name: Urine Dipstick-Ancillary (obtain specimen); Complete Time: 14:54 kb Administered Medications: 14:54 Drug: hydrALAZINE 10 mg Route: IV; Rate: calculated rate; Site: right antecubital; la1 15:44 Follow up: IV Status: Completed infusion la1 15:50 Drug: Potassium Chloride 40 mEq Route: PO; la1 16:30 Follow up: Response: No adverse reaction la1 16:29 Drug: hydrALAZINE 10 mg Route: IV; Rate: bolus; Site: right wrist; la1 16:30 Follow up: IV Status: Completed infusion la1 Disposition: 18:25 Co-signature as Attending Physician, Zurdo Fields MD. rn Disposition: 08/09/18 15:44 Hospitalization ordered by Lalo Osborne for Inpatient Admission. Preliminary diagnosis are Essential (primary) hypertension, Edema, unspecified, Unspecified kidney failure, Hypokalemia, Elevated troponin and BNP. - Bed requested for Telemetry/MedSurg (Inpatient). - Status is Inpatient Admission. la1 - Condition is Stable. - Problem is an ongoing problem. - Symptoms are unchanged. UTI on Admission? No Signatures: Dispatcher [employer] EDKS Sarai Reyes, BERNADINE-C ELECTRIC ORGAN INSPECTOR AND REPAIRER-CkCharlee Azevedo RN RN aj1 Zurdo Fields MD MD rn Attema, Lee, RN RN la1 Jovanna Garland RN RN df Corrections: (The following items were deleted from the chart) 15:44 15:44 Hospitalization Ordered by Lalo Osborne MD for Inpatient Admission. Preliminary chastity diagnosis is Essential (primary) hypertension; Edema, unspecified; Unspecified kidney failure; Hypokalemia. Bed requested for Telemetry/MedSurg (Inpatient). Status is Inpatient Admission. Condition is Stable. Problem is an ongoing problem. Symptoms are unchanged. UTI on Admission? No. kb 16:24 15:44 08/09/2018 15:44 Hospitalization Ordered by Lalo Osborne MD for Inpatient df Admission. Preliminary diagnosis is Essential (primary) hypertension; Edema, unspecified; Unspecified kidney failure; Hypokalemia; Elevated troponin and BNP. Bed requested for Telemetry/MedSurg (Inpatient). Status is Inpatient Admission. Condition is Stable. Problem is an ongoing problem. Symptoms are unchanged. UTI on Admission? No. kb 17:21 16:24 08/09/2018 15:44 Hospitalization Ordered by Lalo Osborne MD for Inpatient la1 Admission. Preliminary diagnosis is Essential (primary) hypertension; Edema, unspecified; Unspecified kidney failure; Hypokalemia; Elevated troponin and BNP. Bed requested for Telemetry/MedSurg (Inpatient). Status is Inpatient Admission. Condition is Stable. Problem is an ongoing problem. Symptoms are unchanged. UTI on Admission? No. df
[2018-08-09] MEDS ORDERED: POTASSIUM CL SA 10 MEQ TAB PO ONE (15:52)
--- NOTE | 2018-08-09 17:22 | P.HP ---
Certification for Inpatient Patient admitted to: Inpatient With expected LOS: >2 Midnights Patient will require the following post-hospital care: None Practitioner: I am a practitioner with admitting privileges, knowledge of patient current condition, hospital course, and medical plan of care. 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 She was released from hospital 2 weeks ago. She has a homeheath visit and she was found to have blood pressure >200 today. She has been feeling headaches for 2 days. In ER, her BNP was >[id number]. [facility] She had an ECHO last month. Allergies Penicillins Allergy (Verified 07/25/18 14:43) Unknown meperidine [From Demerol] Adverse Reaction (Mild, Verified 07/14/18 22:02) Itching morphine Adverse Reaction (Verified 07/14/18 22:01) severe itching Home Medications: Ondansetron HCl [Zofran] 4 mg PO Q6H PRN 07/14/18 Cholecalciferol (Vitamin D3) [Vitamin D 5,000 IU Cap*] 5,000 unit PO DAILY #30 cap 07/22/18 Doxazosin [Cardura*] 2 mg PO BEDTIME #30 tab 07/22/18 Metoprolol Succinate [Toprol Xl*] 50 mg PO BID #60 tab 07/22/18 Na Bicarb Tab [Sodium Bicarb 325 MG Tab*] 650 mg PO BID #120 tab 07/22/18 Pantoprazole [Protonix Tab*] 40 mg PO BID #60 tab 07/22/18 Sevelamer Carbonate [Renvela*] 800 mg PO TIDWM #90 tablet 07/22/18 Sulfamethoxazole/Trimethoprim [Bactrim 400-80 mg Tablet] 1 each PO SEECOM #30 tablet 07/22/18 predniSONE [Prednisone*] 80 mg PO Q24H #120 tab 07/22/18 Fluconazole [Diflucan] 100 mg PO DAILY #7 tablet 07/26/18 - Past Medical/Surgical History Diabetic: No -: Hypertension -: Acute renal failure secondary to glomerulonephritis -: Rheumatiod Arthritis -: GERD -: Vasculitis -: Anemia of chronic disease -: Hysterectomy -: Cholesestecomy -: Carpal Tunel -: Appendectomy Psychosocial/ Personal History: The patient is - Family History Father -: Heart disease, Cancer, Other (see notes) Notes: Lung Cancer - Social History Alcohol use: Yes CD- Drugs: No Caffeine use: Yes Review of Systems 10-point ROS is otherwise unremarkable Physical Examination - Physical Exam General: Alert, In no apparent distress HEENT: Atraumatic, PERRLA, Mucous membr. moist/pink, EOMI, Sclerae nonicteric Neck: Supple, 2+ carotid pulse no bruit, No LAD, Without JVD or thyroid abnormality Respiratory: Clear to auscultation bilaterally, Normal air movement Cardiovascular: Regular rate/rhythm, Normal S1 S2, Edema Gastrointestinal: Normal bowel sounds, No tenderness Musculoskeletal: No tenderness Integumentary: No rashes Neurological: Normal gait, Normal speech, Normal strength at 5/5 x4 extr, Normal tone, Normal affect Lymphatics: No axilla or inguinal lymphadenopathy - Studies Laboratory Data (last 24 hrs) 08/09/18 14:30: PT 10.1, INR 0.86, APTT 22.7 L 08/09/18 14:30: WBC 5.8, Hgb 9.6 L, Hct 28.9 L, Plt Count 168 08/09/18 14:30: Sodium 139, Potassium 3.2 L, BUN 73 H, Creatinine 4.30 H, Glucose 117 H, Magnesium 2.0 Assessment and Plan - Problems (Diagnosis) (1) Glomerulonephritis Onset Date: 07/28/18 Current Visit: No Status: Acute (2) Hypertension Onset Date: 07/15/18 Current Visit: No Status: Chronic Qualifiers: Hypertension type: essential hypertension (3) Vasculitis Onset Date: 07/28/18 Current Visit: No Status: Chronic - Plan --Start Lasix IV --Hydralazine IV for SBP>180 --Resume hoem meds --Repeat ECHO --Cons Cardiology and Nephrology - Advance Directives Does patient have a Living Will: No Does patient have a Durable POA for Healthcare: Yes
[2018-08-09 18:54] LABS: Urine Appearance CLEAR; Urine Bilirubin NEGATIVE (NEG); Urine Blood 3+ (NEG); Urine Color YELLOW; Urine Glucose TRACE (NEG); Urine Protein 3+ (NEG); Urine Specific Gravity 1.015 (1.005-1.030); Urine Urobilinogen 0.2 mg/dL (0.2-1.0)
[2018-08-09] MEDS: FUROSEMIDE 40 MG/4 ML VIAL IV SCH (19:14)
[2018-08-09 20:06] LABS: Urine Microscopic Reflex ORDER UMIC
[2018-08-09 20:10] LABS: Urine Bacteria <20 /HPF (<20); Urine RBC >50 /HPF (NONE SEEN)
[2018-08-09 20:11] LABS: Urine Culture Reflex Order NOT NEEDED
[2018-08-09] MEDS ORDERED: TEMAZEPAM 15 MG CAP PO PRN (20:17)
[2018-08-09] MEDS: ACETAMINOPHEN 500 MG TAB PO PRN (21:34)
[2018-08-09] MEDS: METOPROLOL XL 50 MG TAB PO SCH (21:34)
[2018-08-10] MEDS: HYDRALAZINE HCL 20 MG/ML VIAL IV PRN ×2 (03:43→10:45)
[2018-08-10] MEDS: ACETAMINOPHEN 500 MG TAB PO PRN ×3 (03:50→21:46)
[2018-08-10] MEDS: FUROSEMIDE 40 MG/4 ML VIAL IV SCH ×2 (04:59→18:00)
[2018-08-10 06:03] LABS: Albumin 2.5 g/dL (3.4-5.0); Bilirubin Total 0.5 mg/dL (0.2-1.0); Potassium 3.8 mmol/L (3.5-5.1); Protein, Total 4.9 g/dL (6.4-8.2)
[2018-08-10] MEDS: METOPROLOL XL 50 MG TAB PO SCH ×2 (08:46→21:42)
[2018-08-10] MEDS: ENOXAPARIN 30 MG/0.3 ML SQ SCH (08:46)
--- NOTE | 2018-08-10 08:53 | EKG ---
Test Date: 2018-08-09 Test Time: 14:43:58 Photography Editor: CINDY MEASUREMENT RESULTS: Intervals: Rate: 56 MI: 152 QRSD: 86 QT: 418 QTc: 403 [place]: P: 69 MI: 152 QRS: 32 T: 92 INTERPRETIVE STATEMENTS: Sinus bradycardia ST & T wave abnormality, consider lateral ischemia Abnormal ECG Compared to ECG 07/25/2018 09:16:56 ST (T wave) deviation now present Possible ischemia now present Sinus rhythm no longer present Electronically Signed On 08-10-18 08:52:39 CDT by Boy Masters
[2018-08-10] MEDS: DOXAZOSIN 2 MG TAB PO SCH (11:00)
[2018-08-10] MEDS ORDERED: SODIUM BICARB 325 MG TAB PO SCH (11:00)
[2018-08-10] MEDS: AMLODIPINE 10 MG TAB PO SCH (11:48)
[2018-08-10] MEDS ORDERED: SEVELAMER CARBONATE 800 MG TABLET PO SCH (12:00)
[2018-08-10 12:37] VITALS: O2SAT 93
[2018-08-10] MEDS ORDERED: TEMAZEPAM 15 MG CAP PO PRN (12:56)
[2018-08-10] MEDS: SEVELAMER 800 MG PO SCH (16:46)
[2018-08-10] MEDS ORDERED: EPOETIN ALFA 10,000 UNIT/ML SQ ONE (18:12)
--- NOTE | 2018-08-10 18:23 | P.CNS ---
Date of Consult: 08/10/18 Reason for Consult: Uncontrolled HTN Requesting Physician: Lalo Osborne Primary Care Provider: Dr. 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 No alleviating fx. Associated edema but not always taking her Lasix BID. Recently received two doses of IV Rituximab. 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 She was released from hospital 2 weeks ago. She had a home health visit and was found to have blood pressure >200 today. She has been feeling headaches for 2 days. 14:41 This 73 yrs old Female presents to ER via Wheelchair with complaints of High kb Blood Pressure. 14:41 The patient has elevated blood pressure and discovered this at home, with a home kb device. Onset: The symptoms/episode began/occurred yesterday. Associated signs and symptoms: Pertinent positives: headache, Pertinent negatives: chest pain, dizziness, dyspnea, lightheadedness, nausea, visual changes, vomiting, weakness. Severity of symptoms: At its worst the blood pressure was moderate, 206 mm Hg, in the emergency department the blood pressure is unchanged. The patient has experienced similar episodes in the past. The patient has been recently been admitted at [facility], was discharged a couple of weeks ago. Pt states she has been admitted twice in the last month for hypertension and kidney failure. BP has continued to be high at home, BP log shows 180s/100s before medications and 150s/ 90s after medications. Home health advised her to come to ER yesterday because her BP was 190/110, but pt did not want to come. Today her daughters made her come in. Allergies meperidine [From Demerol] Adverse Reaction (Mild, Verified 08/09/18 19:52) Itching morphine Adverse Reaction (Verified 08/09/18 19:52) severe itching Home medications list reviewed: Yes Home Medications: Cholecalciferol (Vitamin D3) [Vitamin D 5,000 IU Cap*] 5,000 unit PO DAILY #30 cap 07/22/18 Metoprolol Succinate [Toprol Xl*] 50 mg PO BID #60 tab 07/22/18 Na Bicarb Tab [Sodium Bicarb 325 MG Tab*] 650 mg PO BID #120 tab 07/22/18 Pantoprazole [Protonix Tab*] 40 mg PO BID #60 tab 07/22/18 Sevelamer Carbonate [Renvela*] 800 mg PO TIDWM #90 tablet 07/22/18 Sulfamethoxazole/Trimethoprim [Bactrim 400-80 mg Tablet] 1 each PO SEECOM #30 tablet 07/22/18 Calcitriol [Rocaltrol] 2 cap PO DAILY 08/09/18 Doxazosin [Cardura*] 4 mg PO BID 08/09/18 Furosemide [Lasix] 40 mg PO DAILY 08/09/18 Ranitidine HCl [Zantac 75] 75 mg PO BEDTIME 08/09/18 Temazepam 15 mg PO BEDTIME PRN 08/09/18 predniSONE [Prednisone*] 80 mg PO DAILY 08/09/18 - Past Medical/Surgical History Diabetic: No -: Hypertension -: Acute renal failure secondary to glomerulonephritis -: Rheumatoid Arthritis -: GERD -: Vasculitis -: Anemia of chronic disease -: Granulomatosis with polymicroangiitis -: Hysterectomy -: Cholecystecomy -: Carpal Tunel sx -: Appendectomy -: Basal cell carcinoma removal [id number] -: kidney biopsy Psychosocial/ Personal History: The patient is - Family History Father Medical History: Heart disease, Cancer, Other (see notes) Notes: Lung Cancer Mother Medical History: Heart disease - Social History Alcohol use: No CD- Drugs: No Caffeine use: No Place of Residence: Home Review of Systems 10-point ROS is otherwise unremarkable General: Weakness, Malaise Respiratory: SOB with Excertion Cardiovascular: Edema Genitourinary: Frequency Physical Examination Temp Pulse Resp BP Pulse Ox 97.4 F 70 20 149/70 H 93 08/10/18 12:00 08/10/18 12:00 08/10/18 12:00 08/10/18 12:00 08/10/18 12:00 General: In no apparent distress, Oriented x3, Cooperative HEENT: Atraumatic, Mucous membr. moist/pink Neck: Supple Respiratory: Clear to auscultation bilaterally, Normal air movement Cardiovascular: Regular rate/rhythm, No rubs, Edema Gastrointestinal: Soft and benign, Non-distended, No guarding Musculoskeletal: No clubbing, No contractures, No warmth Integumentary: No rashes, No cyanosis Neurological: Normal speech Imagings Data: EXAM DESCRIPTION: RAD - Chest Single View - 08/09/2018 3:31 pm CLINICAL HISTORY: PAIN Chest pain. COMPARISON: Chest Single View dated 07/25/2018; Chest Pa And Lat (2 Views) dated 07/20/2018; Chest Single View dated 07/14/2018; CHEST PA AND LAT 2 VIEW dated 04/15/2015 FINDINGS: Portable technique limits examination quality. The lungs are grossly clear. The heart is normal in size. No displaced fractures. IMPRESSION: No acute intrathoracic process suspected. Conclusions/Impression: A/ GIANCARLO/ GPA on immunosuppression. HTN with CKD, uncontrolled. Acute Diastolic CHF. Hypokalemia. Anemia in CKD. IFG. P/ Continue current POC and Medications. Agree with amlodipine. Titrate Doxazosin as tolerated. Start spironolactone in the setting of hypokalemia. Give Epo. Continue high dose prednisone; will taper as tolerated. Follow up with cardiology. Repeat echo tomorrow. No NSAIDs. AM labs. Daily weight. Consider PT evaluation as needed. Case discussed with Dr. Osborne. Thank you kindly for the consult.
[2018-08-10] MEDS ORDERED: SPIRONOLACTONE 25 MG TABLET PO SCH (18:30)
--- NOTE | 2018-08-10 18:49 | P.PN ---
Subjective Date of Service: 08/10/18 Primary Care Provider: Dr. Daly Chief Complaint: high blood pressure feels better no new complaints Physical Examination - Vital Signs Temperature: 97.4 F Blood Pressure: 149/70 Pulse: 70 Respirations: 20 Pulse Ox (%): 93 - Physical Exam General: Alert, In no apparent distress HEENT: Atraumatic, PERRLA, EOMI Neck: Supple, JVD not distended Respiratory: Clear to auscultation bilaterally, Normal air movement Cardiovascular: Regular rate/rhythm, Normal S1 S2 Gastrointestinal: Normal bowel sounds, No tenderness Musculoskeletal: No tenderness Integumentary: No rashes Neurological: Normal speech, Normal tone, Normal affect Lymphatics: No axilla or inguinal lymphadenopathy - Studies Medications List Reviewed: Yes Assessment And Plan - Current Problems (Diagnosis) (1) Glomerulonephritis Onset Date: 07/28/18 Current Visit: No Status: Acute (2) Hypertension Onset Date: 07/15/18 Current Visit: No Status: Chronic Qualifiers: Hypertension type: essential hypertension (3) Vasculitis Onset Date: 07/28/18 Current Visit: No Status: Chronic - Plan -- Lasix IV --Hydralazine IV for SBP>180 --Repeat ECHO --Cons Cardiology and Nephrology
[2018-08-10] MEDS: predniSONE 20 MG TAB PO SCH (20:00)
[2018-08-10] MEDS: SPIRONOLACTONE 25 MG TABLET PO SCH (20:34)
[2018-08-10] MEDS ORDERED: EPOETIN ALFA 10,000 UNIT/ML VIAL ONE (20:34)
[2018-08-10] MEDS ORDERED: DOXAZOSIN 4 MG TAB PO SCH (21:00)
[2018-08-10] MEDS: DOXAZOSIN 4 MG TAB PO SCH (21:41)
[2018-08-10] MEDS: SODIUM BICARB 325 MG TAB PO SCH (21:42)
[2018-08-11 05:34] LABS: Absolute Lymphocytes (CBC) 0.4 K/uL (0.7-4.9); Absolute Monocytes 0.3 K/uL (0.1-1.3); Absolute Neutrophil 3.7 K/uL (1.8-8.0); Basophils % 0.2 % (0-1.3); Eosinophils % 1.7 % (0-4.4); Hematocrit 25.6 % (36.0-45.0); Lymphocytes % 9.5 % (15.3-44.8); MCH 30.8 pg (27.0-35.0); MCV 90.6 fL (80-100); MPV 8.7 fL (7.6-11.3); Monocytes % 7.2 % (3.3-12.3); RBC Red Blood Cell Count 2.82 M/uL (3.86-4.86)
[2018-08-11 05:55] VITALS: BMI 27.8
[2018-08-11 05:59] LABS: Albumin 2.4 g/dL (3.4-5.0); Bilirubin Total 0.5 mg/dL (0.2-1.0); C-Reactive Protein 21.7 mg/L (<3.00); Magnesium 1.5 mg/dL (1.8-2.4); Phosphorus 2.5 mg/dL (2.5-4.9); Potassium 3.1 mmol/L (3.5-5.1); Protein, Total 4.6 g/dL (6.4-8.2); Uric Acid 6.7 mg/dL (2.6-6.0)
[2018-08-11] MEDS: ACETAMINOPHEN 500 MG TAB PO PRN ×2 (06:03→12:34)
[2018-08-11 06:41] LABS: Urine Appearance CLEAR; Urine Bilirubin NEGATIVE (NEG); Urine Blood 3+ (NEG); Urine Color YELLOW; Urine Glucose NEGATIVE (NEG); Urine Protein 3+ (NEG); Urine Specific Gravity 1.015 (1.005-1.030); Urine Urobilinogen 0.2 mg/dL (0.2-1.0); Urine pH 7.5 (5.0-7.0)
[2018-08-11 07:01] LABS: Urine Bacteria <20 /HPF (<20); Urine Culture Reflex Order REFLEXED; Urine Mucus 1+ /HPF (NONE SEEN); Urine RBC >50 /HPF (NONE SEEN)
--- NOTE | 2018-08-11 07:19 | CON ---
Date of Consultation: 08/10/2018 Reason For Consultation: Severe hypertension. History Of Present Illness: Ms. Wyman is a 73-year-old woman has a history of hypertension, nephri tis, and gastroesophageal reflux disease. She was just in the hospital for similar reasons and was d ischarged on July 26, 2018. She is a patient of Dr. Daly. She has a history of nephritis by richard al biopsy that is recent, and because of that, she has been placed on 80 mg of prednisone daily. She is also taking Cardura, Lasix, Toprol, Protonix, came in with hypertensive crisis. No chest pain re ported. An echocardiogram in June of 2018 was negative. Past Medical History: As stated above. Allergies: TO MORPHINE AND DEMEROL. Review of Systems: Negative. Social History: Negative. Family History: Positive for hypertension. Medications: Listed earlier. Physical Examination: Vital Signs: Blood pressure is 174/74 now. HEENT: Negative. Neck: Supple without any bruit, lymphadenopathy, JVD, or thyromegaly. Chest: Clear to auscultation and percussion. Cardiac: Revealed a regular rhythm and rate without any murmurs, gallops, or rubs. Abdomen: Benign. Extremities: Revealed no clubbing, cyanosis, or edema. Diagnostic Data: Her creatinine was 4.2, potassium of 3.8. EKG was unremarkable. Chest x-ray was n egative. Troponin was 0.06. Hemoglobin was 9.6. BNP was [address]32. Impression And Plan: 1.Hypertension, secondary to nephritis and renal failure. 2.Acute renal failure on chronic renal failure. 3.Gastroesophageal reflux disease. 4.Mild hypokalemia. 5.Elevated troponin and BNP secondary to hypertension. I will discuss the case further with Dr. Carmita segura, but I believe her 80 mg of prednisone is certainly contributing to her hypertension and so as h er kidney failure. I think hemodialysis has been discussed with Mrs. Wyman and that may be in the works in the near future. There may be her only hope of controlling her pressure and preventing her from having diastolic congestive heart failure. I would not repeat any cardiac workup at this point. I will leave further management to Dr. Thorne and Dr. Osborne. I will follow her as well. YONATHAN/JORGE Voice ID: [id number] Report ID: [id number]
[2018-08-11] MEDS: SEVELAMER 800 MG PO SCH ×3 (07:44→16:52)
[2018-08-11] MEDS: SPIRONOLACTONE 25 MG TABLET PO SCH (08:47)
[2018-08-11] MEDS: FUROSEMIDE 40 MG/4 ML VIAL IV SCH ×2 (08:47→16:52)
[2018-08-11] MEDS: predniSONE 20 MG TAB PO SCH (08:48)
[2018-08-11] MEDS: DOXAZOSIN 4 MG TAB PO SCH (08:48)
[2018-08-11] MEDS: SODIUM BICARB 325 MG TAB PO SCH (08:49)
[2018-08-11] MEDS: METOPROLOL XL 50 MG TAB PO SCH (08:49)
[2018-08-11] MEDS: ENOXAPARIN 30 MG/0.3 ML SQ SCH (08:50)
[2018-08-11] MEDS: AMLODIPINE 10 MG TAB PO SCH (08:51)
[2018-08-11] MEDS ORDERED: POTASSIUM 25 MEQ EFFERV TAB PO SCH (09:00)
[2018-08-11] MEDS ORDERED: predniSONE 20 MG TAB PO SCH (09:00)
[2018-08-11] MEDS ORDERED: MAGNESIUM OXIDE 400 MG TAB PO SCH (09:00)
--- NOTE | 2018-08-11 16:38 | P.DS ---
Admission Date: 08/09/18 Discharge Date: 08/11/18 Primary Care Provider: Dr. Daly Disposition: ROUTINE DISCHARGE Discharge Condition: FAIR Reason for Admission: high blood pressure - Problems (1) Hypertension Onset Date: 07/15/18 Current Visit: No Status: Chronic Qualifiers: Hypertension type: essential hypertension (2) Glomerulonephritis Onset Date: 07/28/18 Current Visit: No Status: Acute (3) Vasculitis Onset Date: 07/28/18 Current Visit: No Status: Chronic Brief History of Present Illness: 73 y/o female with GN, HTN who was sent to ER by [facility] today becuse of uncontrolled hypertension. She was released from hospital 2 weeks ago. She has a homehea visit and she was found to have blood pressure >200 today. She has been feeling headaches for 2 days. In ER, her BNP was >392734. She was admitted foir [facility] w/u. She had an ECHO last month. Hospital Course: She was admitted for uncontrolled HTN. Amlopdipine was added. She was diuresied. Predisone at 80mg was continued. She saw Dr Thorne. Her renal functions improve every day. Her Blood pressure is under control. Vital Signs/Physical Exam: Temp Pulse Resp BP Pulse Ox 98 F 77 18 148/69 H 92 08/11/18 12:00 08/11/18 12:00 08/11/18 12:00 08/11/18 12:00 08/11/18 12:00 General: Alert, In no apparent distress HEENT: Atraumatic, PERRLA, EOMI Neck: Supple, JVD not distended Respiratory: Clear to auscultation bilaterally, Normal air movement Cardiovascular: Regular rate/rhythm, Normal S1 S2 Gastrointestinal: Normal bowel sounds, No tenderness Musculoskeletal: No tenderness Integumentary: No rashes Neurological: Normal speech, Normal tone, Normal affect Lymphatics: No axilla or inguinal lymphadenopathy Laboratory Data at Discharge: WBC 4.6 K/uL (4.3-10.9) D 08/11/18 04:47 Hgb 8.7 g/dL (12.0-15.0) L 08/11/18 04:47 Hct 25.6 % (36.0-45.0) L 08/11/18 04:47 Plt Count 167 K/uL (152-406) 08/11/18 04:47 PT 10.1 SECONDS (9.5-12.5) 08/09/18 14:30 INR 0.86 08/09/18 14:30 APTT 22.7 SECONDS (24.3-36.9) L 08/09/18 14:30 Sodium 140 mmol/L (136-145) 08/11/18 04:47 Potassium 3.1 mmol/L (3.5-5.1) L 08/11/18 04:47 BUN 65 mg/dL (7-18) H 08/11/18 04:47 Creatinine 3.80 mg/dL (0.55-1.3) H 08/11/18 04:47 Glucose 78 mg/dL (74-106) 08/11/18 04:47 Uric Acid 6.7 mg/dL (2.6-6.0) H 08/11/18 04:47 Phosphorus 2.5 mg/dL (2.5-4.9) 08/11/18 04:47 Magnesium 1.5 mg/dL (1.8-2.4) L D 08/11/18 04:47 Total Bilirubin 0.5 mg/dL (0.2-1.0) 08/11/18 04:47 AST 13 U/L (15-37) L 08/11/18 04:47 ALT 15 U/L (12-78) 08/11/18 04:47 Alkaline Phosphatase 33 U/L (45-117) L 08/11/18 04:47 Home Medications: Cholecalciferol (Vitamin D3) [Vitamin D 5,000 IU Cap*] 5,000 unit PO DAILY #30 cap 07/22/18 Metoprolol Succinate [Toprol Xl*] 50 mg PO BID #60 tab 07/22/18 Na Bicarb Tab [Sodium Bicarb 325 MG Tab*] 650 mg PO BID #120 tab 07/22/18 Pantoprazole [Protonix Tab*] 40 mg PO BID #60 tab 07/22/18 Sevelamer Carbonate [Renvela*] 800 mg PO TIDWM #90 tablet 07/22/18 Sulfamethoxazole/Trimethoprim [Bactrim 400-80 mg Tablet] 1 each PO SEECOM #30 tablet 07/22/18 Calcitriol [Rocaltrol] 2 cap PO DAILY 08/09/18 Ranitidine HCl [Zantac 75] 75 mg PO BEDTIME 08/09/18 Temazepam 15 mg PO BEDTIME PRN 08/09/18 predniSONE [Prednisone*] 80 mg PO DAILY 08/09/18 Amlodipine [Norvasc*] 10 mg PO DAILY #90 tab 08/11/18 Doxazosin [Cardura*] 8 mg PO BID #180 tab 08/11/18 Furosemide [Lasix*] 40 mg PO BID #180 tab 08/11/18 Spironolactone [Aldactone*] 50 mg PO DAILY #90 tab 08/11/18 New Medications: Amlodipine [Norvasc*] 10 mg PO DAILY #90 tab Doxazosin [Cardura*] 8 mg PO BID #180 tab Furosemide [Lasix*] 40 mg PO BID #180 tab Spironolactone [Aldactone*] 50 mg PO DAILY #90 tab Diet: Renal Activity: Ad armand Time spent managing pt's care (in minutes): 35
[2018-08-11] MEDS ORDERED: EPOETIN ALFA 10,000 UNIT/ML SQ ONE (17:00)
[2018-08-11] MEDS ORDERED: CHLORTHALIDONE 25 MG TAB PO ONE (17:00)
[2018-08-11] MEDS ORDERED: POTASSIUM CL SA 10 MEQ TAB PO ONE ×2 (17:00)
[2018-08-11] MEDS ORDERED: SPIRONOLACTONE 25 MG TABLET PO ONE (17:00)
[2018-08-11 17:47] VITALS: BP 148/67; TEMP 98.3
--- NOTE | 2018-08-11 19:26 | P.PN ---
Date of Service: 08/11/18 Vital Signs Temp Pulse Resp BP Pulse Ox 98.3 F 82 18 148/67 H 93 08/11/18 16:00 08/11/18 16:00 08/11/18 16:00 08/11/18 16:00 08/11/18 16:00 Assessment/ Plan: Nephrology. CPS improved without CP or SOB. +LOPES +Edema No acute events overnight. Good urine output. Appetite fair. Vitals, medications, blood work and imaging reviewed in the chart. General: In no apparent distress, Oriented x3, Cooperative HEENT: Atraumatic, Mucous membr. moist/pink Neck: Supple Respiratory: Clear to auscultation bilaterally, Normal air movement Cardiovascular: Regular rate/rhythm, No rubs, Edema Gastrointestinal: Soft and benign, Non-distended, No guarding Musculoskeletal: No clubbing, No contractures, No warmth Integumentary: No rashes, No cyanosis Neurological: Normal speech Imagings Data: EXAM DESCRIPTION: RAD - Chest Single View - 08/09/2018 3:31 pm CLINICAL HISTORY: PAIN Chest pain. COMPARISON: Chest Single View dated 07/25/2018; Chest Pa And Lat (2 Views) dated 07/20/2018; Chest Single View dated 07/14/2018; CHEST PA AND LAT 2 VIEW dated 04/15/2015 FINDINGS: Portable technique limits examination quality. The lungs are grossly clear. The heart is normal in size. No displaced fractures. IMPRESSION: No acute intrathoracic process suspected. Conclusions/Impression: A/ GIANCARLO/ GPA on immunosuppression. HTN with CKD, uncontrolled. Acute Diastolic CHF. Hypokalemia. Anemia in CKD. IFG. P/ Continue current POC and Medications. Amldodipine 10mg daily. Doxazosin 8mg twice daily. Increase spironolactone 50mg daily. Give potassium. Give Epo. Continue high dose prednisone; will taper as tolerated. Follow up with cardiology. No NSAIDs. AM labs. Daily weight. Consider PT evaluation as needed. Case discussed with Dr. Osborne.
[2018-08-12] MEDS ORDERED: SPIRONOLACTONE 25 MG TABLET PO SCH (09:00)
--- NOTE | 2018-08-12 09:25 | ECHO ---
HEIGHT: 5 ft 3 in WEIGHT: 157 lb 8 oz DATE OF STUDY: 08/11/[address]: Lalo Osborne MD 2-DIMENSIONAL: YES M.MODE: YES DOPPLER: YES COLOR FLOW: YES TDS: NO PORTABLE: NO DEFINITY: NO BUBBLE STUDY: NO DIAGNOSIS: SHORTNESS OF BREATH CARDIAC HISTORY: CATHERIZATION: NO SURGERY: NO PROSTHETIC VALVE: NO PACEMAKER: NO MEASUREMENTS (cm) DIASTOLIC (NORMALS) SYSTOLIC (NORMALS) IVSd 1.1 (0.6-1.2) LA Diam 3.3 (1.9-4.0) LVEF 68% LVIDd 4.9 (3.5-5.7) LVIDs 3.1 (2.0-3.5) %FS 38% LVPWd 1.0 (0.6-1.2) Ao Diam 2.7 (2.0-3.7) 2 DIMENSIONAL ASSESSMENT: RIGHT ATRIUM: NORMAL LEFT ATRIUM: NORMAL RIGHT VENTRICLE: NORMAL LEFT VENTRICLE: NORMAL TRICUSPID VALVE: NORMAL MITRAL VALVE: NORMAL PULMONIC VALVE: NORMAL AORTIC VALVE: NORMAL PERICARDIAL EFFUSION: NONE AORTIC ROOT: NORMAL LEFT VENTRICULAR WALL MOTION: NORMAL DOPPLER/COLOR FLOW: NORMAL COMMENTS: NORMAL 2D ECHOCARDIOGRAM WITH DOPPLER. NO WALL MOTION ABNORMALITY. NO EFFUSION. TECHNOLOGIST: Alex LAY
== END 2018-08-11 18:44 | disposition home or self-care (01) | DRG 698 ==
LOC: ER 12:50 → ERHOLD 15:46 → 2ND 16:54
PROVIDERS: ADMIT Internal Medicine Hematology & Oncology; ATTEND Internal Medicine Hematology & Oncology
DX: N00.9 Acute nephritic syndrome with unspecified morphologic changes (principal); I50.31 Acute diastolic (congestive) heart failure; I13.0 Hypertensive heart and chronic kidney disease with heart failure and stage 1 through stage 4 chronic kidney disease, or unspecified chronic kidney disease; I16.9 Hypertensive crisis, unspecified; N17.9 Acute kidney failure, unspecified; N18.9 Chronic kidney disease, unspecified; D63.1 Anemia in chronic kidney disease; E87.6 Hypokalemia; R73.01 Impaired fasting glucose; K21.9 Gastro-esophageal reflux disease without esophagitis; Z88.5 Allergy status to narcotic agent; Z88.0 Allergy status to penicillin; M06.9 Rheumatoid arthritis, unspecified; I77.6 Arteritis, unspecified; L92.8 Other granulomatous disorders of the skin and subcutaneous tissue
CPT/HCPCS: 36415; 71045; 80048; 80053; 81001; 81003; 81015; 81025; 82043; 82550; 82553; 82570; 83036; 83735; 83880; 84100; 84132; 84484; 84550; 85025; 85610; 85652; 85730; 86021; 86140; 87086; 87088; 93005; 93306; 96365; 99285; J0360; J0885; J1650; J7512; Q4081

== ENCOUNTER 2019-06-15 06:25 | Day surgery (SDC) | payer OTHER, BC ==
--- OUTSIDE RECORDS SUMMARY | 2019-06-15 06:55 | XMS REPORT | Clinical Summary ---
:1945 [facility] Address [address] [place] [address] Care Team Providers Name Role Phone Asked, No Pcp Primary Care Provider Unavailable Allergies Not on File Medications Not on file Active Problems Not on file Social History Tobacco Use Types Packs/Day Years Used Date Never Assessed Sex Assigned at Date Recorded Not on file Job Start Date Occupation Industry Not on file Not on file Not on file Travel History Travel Start Travel End No recent travel history available. Last Filed Vital Signs Not on file Plan of Treatment Health Maintenance Due Date Last Done Comments BREAST CANCER SCREENING 1996 COLONOSCOPY SCREENING 1996 SHINGLES VACCINES (#1) 1996 65+ PNEUMOCOCCAL VACCINE (1 of 2 - PCV13) 2011 INFLUENZA VACCINE 07/02/2019 Results Not on fileafter 06/14/2018 Insurance Payer Benefit Plan / Subscriber ID Effective Dates Phone Address Type Group MEDICARE MEDICARE PART A xxxxxxxxxx 2011-Present [place], [place] Medicare AND B BCBS BCBS CHOICE xxxxxxxxxxxx 2014-Present PPO PPO/FEDERAL EMPL PPO Advance Directives Patient has advance care planning documents on file. For more information, please contact:[id number] [place] [address]
[2019-06-15] MEDS: PHENYLEPHRINE 10% OPTH 5ML ONE ×3 (07:19→07:39)
[2019-06-15] MEDS: CYCLOPENTOLATE 1% OPTH 2 ML ONE ×3 (07:19→07:39)
[2019-06-15] MEDS ORDERED: TETRACAINE HCL 0.5% 4ML OPTH ONE (07:25)
[2019-06-15] MEDS ORDERED: BUPIVACAINE 0.25% PF 10 ML VIAL ONE (07:25)
[2019-06-15] MEDS ORDERED: NA CHLORIDE 0.9% 500 ML ONE (07:25)
[2019-06-15] MEDS ORDERED: LIDOCAINE 2% MPF 5 ML VIAL ONE (07:25)
[2019-06-15] MEDS: LIDOCAINE HCL/PF 3.5% OPTH GEL ONE ×2 (08:13→08:23)
[2019-06-15] MEDS ORDERED: FENTANYL CITR 100 MCG/2 ML ONE (08:17)
[2019-06-15] MEDS ORDERED: MIDAZOLAM HCL 2 MG/2 ML INJ ONE (08:17)
[2019-06-15] MEDS ORDERED: EPINEPHRINE/PF 1 MG/ML AMP ONE (08:21)
[2019-06-15] MEDS ORDERED: NS 0.9% VIAL 10 ML ONE (08:21)
[2019-06-15] MEDS ORDERED: BALANCED SALT IRRIG PLAIN 500 ML BTL IRR ONE (08:22)
[2019-06-15] MEDS ORDERED: DUOVISC 1 KIT OPTH ONE (08:22)
[2019-06-15] MEDS ORDERED: LIDOCAINE 1% MPF 2 ML AMPULE ONE (08:24)
[2019-06-15] MEDS: MOXIFLOXACIN HCL 10 DROPS/ML **OR USE OPTH ONE ×2 (08:42→08:52)
--- NOTE | 2019-06-15 08:58 | P.BOP ---
Preoperative diagnosis: Nuclear sclerotic, cortical and posterior subcapsular cataract OD Postoperative diagnosis: Same Primary procedure: Phacoemulsification with IOL OD Estimated blood loss: None Anesthesia: Local (Subtenon's infusion with anesthesia for cataract surgery) Complications: None Implants: [id number] +16.5 Transferred to: Other (Day surgery) Condition: Good
[2019-06-15] MEDS ORDERED: BSS OPTHALMIC SOL 15 ML BOT OPTH ONE (09:05)
[2019-06-15 09:09] VITALS: BP 166/64; TEMP 96.5; O2SAT 99
--- NOTE | 2019-06-15 19:53 | OP ---
Date of Procedure: 06/15/2019 Surgeon: Sun Riggs MD Anesthesiologist: Dashawn Valdes CRNA and Lukas Izaguirre MD Preoperative Diagnosis: Nuclear sclerotic cortical and posterior subcapsular cataract, right eye. Operation Performed: Phacoemulsification with intraocular lens implant, right eye. Anesthesia: Per cataract surgery. Complications: None. Description Of Procedure: In the operating room the patient was prepped and draped in the usual ster ile fashion for ophthalmic surgery. A lid speculum was placed in the right eye. Two paracentesis si shobha were made superiorly and inferiorly in the limbal cornea. Viscoat was placed in the anterior belinda mber and a crescent blade was used to make a corneal groove and tunnel, and a keratome was used to en ter the anterior chamber. Provisc was placed in the anterior chamber and a 360 degree capsulotomy wa s performed with a cystitome. The lens was hydrodissected with BSS and rotated freely. The lens was removed with a stop and chop technique. 6.40 phaco CDE was used to remove the lens. Residual shyla x was removed with the irrigation and aspiration. Provisc was placed in the capsular bag. A ZCB00 + 16.5 lens was placed in the capsular bag without complications. Irrigation and aspiration was used t o remove residual viscoelastic. The paracentesis sites were hydrated with BSS. The wound and parace ntesis sites were inspected and found to be watertight. Vigamox 0.07 cc was placed intracamerally at the end of the procedure. The eye was irrigated with balanced salt solution. The eye was patched w ith a soft cotton patch and Fisher metal shield. The patient was returned to day surgery in good condition. Comments: Akten was placed in the eye in Day Surgery and irrigated out of the eye with BSS in the OR . Preservative free 1% lidocaine was placed in the anterior chamber prior to Viscoat. Discharge Instructions: Ms. Wyman is discharged to home in good condition and is to follow up with Dr. Riggs in the morning. HAMILTON/JORGE Voice ID: [id number] Report ID: [id number]
== END 2019-06-15 09:28 | disposition home or self-care (01) ==
LOC: OR 06:25
PROVIDERS: ATTEND Ophthalmology Retina Specialist
PROC: 08RJ3JZ Replacement of Right Lens with Synthetic Substitute, Percutaneous Approach (ICD-10-PCS; principal; 2019-06-15 08:30)
DX: H25.11 Age-related nuclear cataract, right eye (principal); H25.011 Cortical age-related cataract, right eye; H25.041 Posterior subcapsular polar age-related cataract, right eye; I10 Essential (primary) hypertension; K21.9 Gastro-esophageal reflux disease without esophagitis; M06.9 Rheumatoid arthritis, unspecified; Z88.6 Allergy status to analgesic agent; Z87.891 Personal history of nicotine dependence; Z83.511 Family history of glaucoma
CPT/HCPCS: 36415; 84132; 66984; J0171; J2250; J2001; J3010

== ENCOUNTER 2019-08-10 06:40 | Day surgery (SDC) | payer OTHER, BC ==
--- OUTSIDE RECORDS SUMMARY | 2019-08-10 06:43 | XMS REPORT | Clinical Summary ---
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
[2019-08-10] MEDS ORDERED: LIDOCAINE 2% MPF 5 ML VIAL ONE (07:01)
[2019-08-10] MEDS ORDERED: BUPIVACAINE 0.25% PF 10 ML VIAL ONE (07:01)
[2019-08-10] MEDS ORDERED: LIDOCAINE HCL/PF 3.5% OPTH GEL ONE (07:02)
[2019-08-10] MEDS ORDERED: TETRACAINE HCL 0.5% 4ML OPTH ONE (07:02)
[2019-08-10] MEDS ORDERED: NA CHLORIDE 0.9% 500 ML ONE (07:02)
[2019-08-10] MEDS: PHENYLEPHRINE 10% OPTH 5ML ONE ×3 (07:18→07:38)
[2019-08-10] MEDS: CYCLOPENTOLATE 1% OPTH 2 ML ONE ×3 (07:18→07:38)
[2019-08-10] MEDS ORDERED: NS 0.9% VIAL 10 ML ONE (07:48)
[2019-08-10] MEDS ORDERED: EPINEPHRINE/PF 1 MG/ML AMP ONE (07:48)
[2019-08-10] MEDS ORDERED: BALANCED SALT IRRIG PLAIN 500 ML BTL IRR ONE (07:49)
[2019-08-10] MEDS ORDERED: DUOVISC 1 KIT OPTH ONE (07:50)
[2019-08-10] MEDS ORDERED: MOXIFLOXACIN HCL 10 DROPS/ML **OR USE OPTH ONE (07:52)
[2019-08-10] MEDS ORDERED: LIDOCAINE 1% MPF 2 ML AMPULE ONE (07:52)
[2019-08-10] MEDS ORDERED: MIDAZOLAM HCL 2 MG/2 ML INJ ONE (07:58)
[2019-08-10] MEDS ORDERED: FENTANYL CITR 100 MCG/2 ML ONE (07:58)
--- NOTE | 2019-08-10 09:00 | P.BOP ---
Preoperative diagnosis: Combined form of cataract OS Postoperative diagnosis: Same Primary procedure: Phacoemulsification with IOL OS Estimated blood loss: None Anesthesia: Local (Topical with anesthesia for cataract surgery) Complications: None Implants: [id number] +20.0 Transferred to: Other (Day surgery) Condition: Good
[2019-08-10 09:26] VITALS: BP 152/68; TEMP 96.8; O2SAT 98
--- NOTE | 2019-08-10 20:30 | OP ---
Date of Procedure: 08/10/2019 Surgeon: Sun Riggs MD Anesthesiologist: Eulalio Tompkins CRNA and Johnathan Sparrow MD. Preoperative Diagnosis: Combined form of cataract, left eye. Operation Performed: Phacoemulsification with intraocular lens implant, left eye. Anesthesia: Per cataract surgery. Complications: None. Description Of Procedure: In the operating room the patient was prepped and draped in the usual sterile fashion for ophthalmic surgery. A lid speculum was placed in the left eye. Two paracentesis sites were made superiorly and inferiorly in the limbal cornea. Viscoat was placed in the anterior chamber and a crescent blade was used to make a corneal groove and tunnel, and a keratome was used to enter the anterior chamber. Provisc was placed in the anterior chamber and a 360 degree capsulotomy was performed with a cystitome. The lens was hydrodissected with BSS and rotated freely. The lens was removed with a stop and chop technique. 7.03 Phaco CDE was used to remove the lens. Residual cortex was removed with the irrigation and aspiration. Provisc was placed in the capsular bag. A ZCB00 +20.0 Lens was placed in the capsular bag without complications. Irrigation and aspiration was used to remove residual viscoelastic. The paracentesis sites were hydrated with BSS. The wound and paracentesis sites were inspected and found to be watertight. Vigamox 0.07 cc was placed intracamerally at the end of the procedure. The eye was irrigated with balanced salt solution. The eye was patched with a soft cotton patch and Fisher metal shield. The patient was returned to day surgery in good condition. Comments: Akten was placed in the eye in Day surgery and irrigated out of the eye with BSS in the OR. Preservative free 1% lidocaine was placed in the anterior chamber prior to Viscoat. Discharge Instructions: Ms. Wyman is discharged to home in good condition and is to follow up with Dr. Riggs in the morning. HAMILTON/JORGE Voice ID: [id number] Report ID: [id number] MATTHIEU
== END 2019-08-10 09:30 | disposition home or self-care (01) ==
LOC: OR 06:40
PROVIDERS: ATTEND Ophthalmology Retina Specialist
PROC: 08RK3JZ Replacement of Left Lens with Synthetic Substitute, Percutaneous Approach (ICD-10-PCS; principal; 2019-08-10 08:30)
DX: H25.812 Combined forms of age-related cataract, left eye (principal); M06.9 Rheumatoid arthritis, unspecified; Z87.891 Personal history of nicotine dependence; Z90.49 Acquired absence of other specified parts of digestive tract; Z90.710 Acquired absence of both cervix and uterus; Z88.6 Allergy status to analgesic agent; Z83.511 Family history of glaucoma
CPT/HCPCS: 66984; 36415; 84132; J0171; J2250; J3010; J2001

== ENCOUNTER 2019-11-10 07:49 | Emergency (ER) | payer OTHER, BC ==
[2019-11-10] MEDS ORDERED: LEVALBUTEROL 1.25 MG/3 ML NEB ONE (08:05)
[2019-11-10] MEDS ORDERED: IPRATROPIUM BROM 0.5MG/2.5ML ONE (08:05)
--- NOTE | 2019-11-10 08:32 | RAD REPORT ---
EXAM DESCRIPTION: RAD - Chest Pa And Lat (2 Views) - 11/10/2019 8:25 am CLINICAL HISTORY: Cough;Congestionshortness of breath COMPARISON: December 2018 TECHNIQUE: PA and lateral views of the chest were obtained. FINDINGS: The lungs are fibrotic as a baseline. There is stranding in the lingula anterior left lung base more pronounced than seen previously. No dense consolidation. No failure or volume overload. Heart size is normal and central vasculature is within normal limits. No pleural effusion or pneu mothorax seen. No acute bony finding noted. No aortic abnormality. IMPRESSION: New stranding in the lingula left upper lobe. Findings are suspicious for an early or mi ld pneumonia.
[2019-11-10] MEDS ORDERED: CEFTRIAXONE/SWI 1gm 1 GM/10 ML SYR ONE (08:55)
[2019-11-10] MEDS ORDERED: AZITHROMYCIN IV 500 MG in NA CHLORIDE 0.9% 250 ML IVPB ONE (09:30)
[2019-11-10 09:33] LABS: Absolute Lymphocytes (CBC) 1.3 K/uL (0.7-4.9); Basophils % 0.3 % (0-1.3); Lymphocytes % 13.3 % (15.3-44.8); MPV 7.8 fL (7.6-11.3); RBC Red Blood Cell Count 3.75 M/uL (3.86-4.86)
[2019-11-10 09:38] LABS: Potassium 3.6 mmol/L (3.5-5.1)
--- NOTE | 2019-11-10 10:03 | EDPHYS ---
Physician Documentation [facility] Name: Elizabeth Wyman Age: 74 yrs Sex: Female : 1945 Arrival Date: 11/10/2019 Time: 07:51 Bed 20 Private MD: Babak Daly ED Physician Zurdo Fields HPI: 11/10 08:12 This 74 yrs old Female presents to ER via Ambulatory with complaints of kb Cough, Abdominal Pain. 08:12 The patient or guardian reports cough, that is intermittent, described as moderate, kb with no sputum, difficulty breathing. Onset: The symptoms/episode began/occurred 1 week(s) ago. Severity of symptoms: At their worst the symptoms were mild, moderate, in the emergency department the symptoms are unchanged. Modifying factors: The symptoms are alleviated by nothing, the symptoms are aggravated by nothing. Associated signs and symptoms: The patient has no apparent associated signs or symptoms. The patient has experienced similar episodes in the past. The patient has not recently seen a physician. Pt reports she has had a cold for a week. Reports she has been coughing so much that her muscles in her chest and abd are sore. Reports she started having shortness of breath this morning so that made her come in. Has appt with Dr Penny at 9:30 this morning. Historical: - Allergies: 08:02 Demerol; tw2 08:02 Morphine; tw2 08:02 meperidine; tw2 - Home Meds: 08:02 calcitriol 0.5 mcg Oral cap 1 cap once daily [Active]; doxazosin 4 mg Oral tab 1 tab tw2 BID [Active]; Lasix 40 mg Oral tab 1 tab 2 times per day for EDEMA, prn [Active]; metoprolol tartrate 50 mg Oral tab 1 tab 2 times per day [Active]; pantoprazole 40 mg Oral TbEC 1 tab 2 times per day [Active]; prednisone 80mg Oral tab once daily [Active]; Renvela 800 mg Oral tab 1 tab 3 times per day [Active]; sodium bicarbonate 325 mg Oral tab 650 mg twice a day [Active]; temazepam 15 mg Oral cap 2 caps once daily for insomnia [Active]; - PMHx: 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 - Social history:: Smoking status: Patient/guardian denies using tobacco, the patient reports quitting approximately 13 years ago. - Ebola Screening: : Patient denies travel to an Ebola-affected area in the 21 days before illness onset. ROS: 08:12 Constitutional: Negative for fever, chills, and weight loss, ENT: Negative for injury, kb pain, and discharge, Neck: Negative for injury, pain, and swelling, Cardiovascular: Negative for chest pain, palpitations, and edema, Abdomen/GI: Negative for abdominal pain, nausea, vomiting, diarrhea, and constipation, Back: Negative for injury and pain, MS/Extremity: Negative for injury and deformity, Skin: Negative for injury, rash, and discoloration, Neuro: Negative for headache, weakness, numbness, tingling, and seizure. 08:12 Respiratory: Positive for cough, dyspnea on exertion, shortness of breath. Exam: 08:11 Constitutional: This is a well developed, well nourished patient who is awake, alert, kb and in no acute distress. Head/Face: Normocephalic, atraumatic. ENT: Nares patent. No nasal discharge, no septal abnormalities noted. Tympanic membranes are normal and external auditory canals are clear. Oropharynx with no redness, swelling, or masses, exudates, or evidence of obstruction, uvula midline. Mucous membranes moist. Neck: Trachea midline, no thyromegaly or masses palpated, and no cervical lymphadenopathy. Supple, full range of motion without nuchal rigidity, or vertebral point tenderness. No Meningismus. Chest/axilla: Normal chest wall appearance and motion. Nontender with no deformity. No lesions are appreciated. Cardiovascular: Regular rate and rhythm with a normal S1 and S2. No gallops, murmurs, or rubs. Normal PMI, no JVD. No pulse deficits. Abdomen/GI: Soft, non-tender, with normal bowel sounds. No distension or tympany. No guarding or rebound. No evidence of tenderness throughout. Back: No spinal tenderness. No costovertebral tenderness. Full range of motion. Skin: Warm, dry with normal turgor. Normal color with no rashes, no lesions, and no evidence of cellulitis. MS/ Extremity: Pulses equal, no cyanosis. Neurovascular intact. Full, normal range of motion. Neuro: Awake and alert, GCS 15, oriented to person, place, time, and situation. Cranial nerves II-XII grossly intact. Motor strength 5/5 in all extremities. Sensory grossly intact. Cerebellar exam normal. Normal gait. 08:11 Respiratory: mild respiratory distress is noted, Respirations: labored breathing, that is mild, Breath sounds: rhonchi, that are moderate, are heard in the right lower lobe and right posterior lower lobe. Vital Signs: 08:00 BP 171 / 91; Pulse 87; Resp 19; Temp 98.2(O); Pulse Ox 95% on R/A; Weight 70.31 kg (R); tw2 Height 5 ft. 4 in. (162.56 cm); Pain 10/10; 09:00 BP 123 / 72; Pulse 79; Resp 17; Pulse Ox 95% on R/A; tw2 10:05 BP 150 / 66; Pulse 82; Resp 17; Pulse Ox 95% on R/A; tw2 10:43 BP 161 / 71; Pulse 84; Resp 17; Pulse Ox 95% on R/A; tw2 08:00 Body Mass Index 26.61 (70.31 kg, 162.56 cm) tw2 MDM: 07:53 Patient medically screened. kb 08:11 Data reviewed: vital signs, nurses notes. Data interpreted: Pulse oximetry: on room air kb is 95 %. Interpretation: normal. 10:00 Counseling: I had a detailed discussion with the patient and/or guardian regarding: the kb historical points, exam findings, and any diagnostic results supporting the discharge/admit diagnosis, lab results, radiology results, the need for outpatient follow up, a family practitioner, to return to the emergency department if symptoms worsen or persist or if there are any questions or concerns that arise at home. ED course: Discussed pt condition and diagnostics with ERP. BUN and creatinine chronically elevated, todays values are better than previous. Agrees with outpatient treatment at this time, recommends levaquin for home. Pt agrees with plan of care and will return for worsening symptoms. 11/10 07:59 Order name: Flu; Complete Time: 09:20 kb 11/10 08:39 Order name: CBC with Diff; Complete Time: 09:41 kb 11/10 07:59 Order name: Chest Pa And Lat (2 Views) XRAY; Complete Time: 08:47 kb 11/10 08:39 Order name: Basic Metabolic Panel; Complete Time: 09:41 kb 11/10 08:39 Order name: Blood Culture Adult (2) kb 11/10 08:39 Order name: IV Start; Complete Time: 09:17 kb Administered Medications: 08:07 Drug: AtroVENT Aerosol 0.5 mg Route: Inhalation; tw2 08:08 Drug: Xopenex (3) 1.25 mg Route: Inhalation; tw2 09:15 Drug: Rocephin 1 grams Route: IV; Rate: calculated rate; Site: right antecubital; tw2 09:22 Follow up: Response: No adverse reaction; IV Status: Completed infusion tw2 09:34 Drug: Zithromax 500 mg Route: IVPB; Infused Over: 1 hrs; Site: right antecubital; tw2 10:42 Follow up: Response: No adverse reaction; IV Status: Completed infusion tw2 10:13 Drug: predniSONE 40 mg Route: PO; tw2 10:42 Follow up: Response: No adverse reaction tw2 Disposition: 10:53 Co-signature as Attending Physician, Zurdo Fields MD. rn Disposition: 11/10/19 10:02 Discharged to Home. Impression: Pneumonia, unspecified organism. - Condition is Stable. - Discharge Instructions: Community-Acquired Pneumonia, Adult, [id number]. - Prescriptions for Levaquin 500 mg Oral Tablet - take 1 tablet by ORAL route once daily for 7 days; 7 tablet. Prednisone 20 mg Oral Tablet - take 1 tablet by ORAL route once daily for 5 days; 5 tablet. Albuterol Sulfate 90 mcg/actuation - inhale 1-2 puff by INHALATION route every 4-6 hours; 1 Inhaler. Tessalon Perles 100 mg Oral Capsule - take 1 capsule by ORAL route every 8 hours As needed; 15 capsule. - Medication Reconciliation Form, Thank You Letter, Antibiotic Education, Prescription Opioid Use form. - Follow up: Emergency Department; When: As needed; Reason: Worsening of condition. Follow up: Babak Daly MD; When: 2 - 3 days; Reason: Recheck today's complaints, Continuance of care, Re-evaluation by your physician. Signatures: Dispatcher [employer] EDSarai Patterson, BERNADINE-C BERNADINE-Ckb Fields, Zurdo, MD MD rn Wang, Ladan, RN RN tw2 Corrections: (The following items were deleted from the chart) 10:48 10:02 11/10/2019 10:02 Discharged to Home. Impression: Pneumonia, unspecified organism. tw2 Condition is Stable. Forms are Medication Reconciliation Form, Thank You Letter, Antibiotic Education, Prescription Opioid Use. Follow up: Emergency Department; When: As needed; Reason: Worsening of condition. Follow up: Babak Daly; When: 2 - 3 days; Reason: Recheck today's complaints, Continuance of care, Re-evaluation by your physician. kb
--- NOTE | 2019-11-10 10:03 | ER ---
Nurse's Notes [facility] Name: Elizabeth Wyman Age: 74 yrs Sex: Female : 1945 Arrival Date: 11/10/2019 Time: 07:51 Bed 20 Private MD: aBbak Daly Diagnosis: Pneumonia, unspecified organism Presentation: 11/10 07:59 Presenting complaint: Patient states: i have had cough since Saturday, and short of tw2 breath, now my stomach hurts so bad from coughing, i have an appointment with Dr. Penny at 930 but i just couldn't wait. Transition of care: patient was not received from another setting of care. Onset of symptoms was November 10, 2019. Risk Assessment: Do you want to hurt yourself or someone else? Patient reports no desire to harm self or others. Initial Sepsis Screen: Does the patient meet any 2 criteria? No. Patient's initial sepsis screen is negative. Does the patient have a suspected source of infection? No. Patient's initial sepsis screen is negative. Care prior to arrival: None. 07:59 Method Of Arrival: Ambulatory tw2 07:59 Acuity: GUNJAN 3 tw2 Triage Assessment: 08:00 General: Appears in no apparent distress. well groomed, Behavior is calm, cooperative, tw2 appropriate for age. Pain: Complains of pain in abdomen. GI: Reports pain from coughing so much. Historical: - Allergies: 08:02 Demerol; tw2 08:02 Morphine; tw2 08:02 meperidine; tw2 - Home Meds: 08:02 calcitriol 0.5 mcg Oral cap 1 cap once daily [Active]; doxazosin 4 mg Oral tab 1 tab tw2 BID [Active]; Lasix 40 mg Oral tab 1 tab 2 times per day for EDEMA, prn [Active]; metoprolol tartrate 50 mg Oral tab 1 tab 2 times per day [Active]; pantoprazole 40 mg Oral TbEC 1 tab 2 times per day [Active]; prednisone 80mg Oral tab once daily [Active]; Renvela 800 mg Oral tab 1 tab 3 times per day [Active]; sodium bicarbonate 325 mg Oral tab 650 mg twice a day [Active]; temazepam 15 mg Oral cap 2 caps once daily for insomnia [Active]; - PMHx: 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 - Social history:: Smoking status: Patient/guardian denies using tobacco, the patient reports quitting approximately 13 years ago. - Ebola Screening: : Patient denies travel to an Ebola-affected area in the 21 days before illness onset. Screenin:08 Abuse screen: Denies threats or abuse. Nutritional screening: No deficits noted. tw2 Tuberculosis screening: No symptoms or risk factors identified. Fall Risk None identified. Assessment: 08:08 General: Appears in no apparent distress. well groomed, Behavior is calm, cooperative, tw2 appropriate for age. Neuro: Level of Consciousness is awake, alert, obeys commands, Oriented to person, place, time, situation. Cardiovascular: Heart tones S1 S2 Patient's skin is warm and dry. Respiratory: Reports shortness of breath at rest on exertion cough that is productive, Airway is patent Respiratory effort is even, unlabored, Respiratory pattern is regular, symmetrical, Breath sounds are clear bilaterally. GI: Bowel sounds present X 4 quads. Abd is soft X 4 quads Reports pain from coughing so much. : No signs and/or symptoms were reported regarding the genitourinary system. EENT: No signs and/or symptoms were reported regarding the EENT system. Derm: No signs and/or symptoms reported regarding the dermatologic system. Musculoskeletal: Range of motion: intact in all extremities. 09:00 Reassessment: Patient appears in no apparent distress at this time. No changes from tw2 previously documented assessment. Patient and/or family updated on plan of care and expected duration. Pain level reassessed. Patient is alert, oriented x 3, equal unlabored respirations, skin warm/dry/pink. 10:05 Reassessment: Patient appears in no apparent distress at this time. No changes from tw2 previously documented assessment. Patient and/or family updated on plan of care and expected duration. Pain level reassessed. Patient is alert, oriented x 3, equal unlabored respirations, skin warm/dry/pink. 10:43 Reassessment: Patient appears in no apparent distress at this time. No changes from tw2 previously documented assessment. Patient and/or family updated on plan of care and expected duration. Pain level reassessed. Patient is alert, oriented x 3, equal unlabored respirations, skin warm/dry/pink. Vital Signs: 08:00 BP 171 / 91; Pulse 87; Resp 19; Temp 98.2(O); Pulse Ox 95% on R/A; Weight 70.31 kg (R); tw2 Height 5 ft. 4 in. (162.56 cm); Pain 10/10; 09:00 BP 123 / 72; Pulse 79; Resp 17; Pulse Ox 95% on R/A; tw2 10:05 BP 150 / 66; Pulse 82; Resp 17; Pulse Ox 95% on R/A; tw2 10:43 BP 161 / 71; Pulse 84; Resp 17; Pulse Ox 95% on R/A; tw2 08:00 Body Mass Index 26.61 (70.31 kg, 162.56 cm) tw2 ED Course: 07:51 Patient arrived in ED. ag5 07:52 Babak Daly MD is Private Physician. ag5 07:53 Sarai Reyes FNP-C is [facility]. kb 07:53 Zurdo Fields MD is Attending Physician. kb 07:59 Ladan Wang, PAULA is Primary Nurse. tw2 08:00 Triage completed. tw2 08:01 Arm band placed on. tw2 08:05 Flu Sent. mh5 08:06 Patient has correct armband on for positive identification. Placed in gown. Bed in low mh5 position. Call light in reach. Side rails up X 1. Adult w/ patient. Warm blanket given. Pulse ox on. NIBP on. 08:06 Flu and/or RSV swab sent to lab. mh5 08:26 Chest Pa And Lat (2 Views) XRAY In Process Unspecified. EDMS 10:01 Babak Daly MD is Referral Physician. kb 10:03 Awaiting: completion of IV abx PRIOR to discharge. tw2 10:44 No provider procedures requiring assistance completed. IV discontinued, intact, tw2 bleeding controlled, No redness/swelling at site. Pressure dressing applied. Administered Medications: 08:07 Drug: AtroVENT Aerosol 0.5 mg Route: Inhalation; tw2 08:08 Drug: Xopenex (3) 1.25 mg Route: Inhalation; tw2 09:15 Drug: Rocephin 1 grams Route: IV; Rate: calculated rate; Site: right antecubital; tw2 09:22 Follow up: Response: No adverse reaction; IV Status: Completed infusion tw2 09:34 Drug: Zithromax 500 mg Route: IVPB; Infused Over: 1 hrs; Site: right antecubital; tw2 10:42 Follow up: Response: No adverse reaction; IV Status: Completed infusion tw2 10:13 Drug: predniSONE 40 mg Route: PO; tw2 10:42 Follow up: Response: No adverse reaction tw2 Outcome: 10:02 Discharge ordered by MD. haywood 10:44 Discharged to home via wheelchair, with family. tw2 10:44 Condition: stable 10:44 Discharge instructions given to patient, family, Instructed on discharge instructions, follow up and referral plans. medication usage, Demonstrated understanding of instructions, follow-up care, medications, Prescriptions given X 4. 10:48 Patient left the ED. tw2 Signatures: Dispatcher [employer] EDSarai Patterson, Ladan Morrison RN RN tw2 Donna Keyes [facility]
[2019-11-10] MEDS ORDERED: predniSONE 20 MG TAB ONE (10:09)
[2019-11-10 11:12] VITALS: TEMP 98.2; O2SAT 95
[2019-11-10 11:17] VITALS: BP 161/71
== END 2019-11-10 10:48 | disposition home or self-care (01) ==
LOC: ER 07:49
DX: J18.9 Pneumonia, unspecified organism (principal); I10 Essential (primary) hypertension; Z88.5 Allergy status to narcotic agent; Z88.8 Allergy status to other drugs, medicaments and biological substances
CPT/HCPCS: 96365; 87040 ×2; 85025; 80048; 36415; 87804 ×2; 71046; 96375; 99284; J0456; J0696; J7030; J7512

== ENCOUNTER 2022-07-18 10:44 | Day surgery (SDC) | payer OTHER, BC ==
--- NOTE | 2022-07-17 09:04 | RAD REPORT ---
EXAM DESCRIPTION: RAD - Chest Pa And Lat (2 Views) - 07/17/2022 8:55 am CLINICAL HISTORY: Pre op pending finger cyst removal COMPARISON: Two view chest 11/10/2019 TECHNIQUE: Frontal and lateral views of the chest were obtained. FINDINGS: The lungs are fibrotic in a pattern matching the prior study. No acute infiltrate, mass or failure finding. Heart size is normal and central vasculature is within normal limits. No pleural effusion or pneu mothorax seen. No acute bony finding noted. No aortic abnormality. IMPRESSION: Chronic interstitial lung disease matching the 2019 study. No acute finding.
[2022-07-17 09:33] LABS: Absolute Lymphocytes (CBC) 1.4 K/uL (0.7-4.9); Hematocrit 38.9 % (36.0-45.0); Lymphocytes % 29.8 % (15.3-44.8); MCV 99.7 fL (80-100); MPV 8.4 fL (7.6-11.3)
[2022-07-17 09:41] LABS: SARS-CoV-2 Antigen Rapid Res Negative (Negative)
[2022-07-17 10:17] LABS: Urine Clarity Clear (Clear); Urine Color Yellow (Yellow)
[2022-07-17 10:18] LABS: Urine Bilirubin Negative (Negative); Urine Blood Trace (Negative); Urine Glucose Negative (Negative); Urine Protein Negative (Negative); Urine Urobilinogen 0.2 mg/dL (0.2-1.0)
[2022-07-17 10:22] LABS: Urine Bacteria None Seen /HPF (<20); Urine RBC <5 /HPF (None Seen)
[2022-07-18] MEDS ORDERED: Ringers Lactate 1,000 ML IV ONE (11:04)
--- NOTE | 2022-07-18 11:33 | EKG ---
Test Date: 2022-07-17 Test Time: 08:34:42 Derrick Boat Leverman: CHAN MEASUREMENT RESULTS: Intervals: Rate: 55 VT: 150 QRSD: 78 QT: 420 QTc: 401 [place]: P: 85 VT: 150 QRS: 77 T: 89 INTERPRETIVE STATEMENTS: Sinus bradycardia Possible Left atrial enlargement Borderline ECG Compared to ECG 08/09/2018 14:43:58 ST (T wave) deviation no longer present Possible ischemia no longer present Electronically Signed On 07-18-22 11:31:23 CDT by Boy Masters
[2022-07-18] MEDS ORDERED: ACETAMINOPHEN 500 MG TAB ONE (11:47)
[2022-07-18] MEDS ORDERED: propofoL 200 MG/20 ML VIAL IV ONE (12:10)
[2022-07-18] MEDS ORDERED: FENTANYL CITR 100 MCG/2 ML ONE (12:10)
[2022-07-18] MEDS ORDERED: MIDAZOLAM HCL 2 MG/2 ML INJ ONE (12:11)
[2022-07-18] MEDS ORDERED: LIDOCAINE 1% MPF 5 ML VIAL ONE (12:11)
[2022-07-18] MEDS: CEFAZOLIN SODIUM 1 GM/VIAL ONE ×2 (12:37→13:30)
[2022-07-18] MEDS ORDERED: NS 0.9% VIAL 10 ML ONE ×2 (13:22→13:52)
[2022-07-18] MEDS ORDERED: dexAMETHasone 10 MG/ML VIAL ONE (13:30)
[2022-07-18] MEDS ORDERED: ONDANSETRON 4 MG/2 ML VIAL ONE (13:30)
[2022-07-18] MEDS ORDERED: GLYCOPYRROLATE 0.2 MG/ML SYR ONE ×2 (13:35→13:36)
[2022-07-18] MEDS ORDERED: KETOROLAC 30 MG/ML INJ ONE (13:35)
[2022-07-18] MEDS ORDERED: EPHEDRINE SULF 50 MG/ML VIAL ONE (13:52)
[2022-07-18] MEDS: HYDROMORPHONE HCL 1 MG/ML INJ ONE ×2 (14:12→14:18)
[2022-07-18 14:21] VITALS: TEMP 97.7
[2022-07-18] MEDS ORDERED: HYDROCODONE/APAP 7.5/325 MG TAB PO ONE (14:35)
[2022-07-18 15:04] VITALS: O2SAT 97
[2022-07-18 15:17] VITALS: BP 132/86
--- NOTE | 2022-07-19 11:14 | HP ---
Date of Admission: 07/18/2022 History Of Present Illness: 77-year-old white female who is right-hand dominant, who has right inferior mucous cyst for 6 months. She has previous surgery of gallbladder and hysterectomy. She has a mucous cyst on the radial aspect of the little finger. Assessment: Mucous cyst little finger ====== Plan: Excision of mucous cyst. RONAN Voice ID: [id number] MTDD
--- NOTE | 2022-07-19 11:17 | OP ---
Surgeon: Saurabh Navarro MD Preoperative Diagnosis: Mucous cyst of the right index finger. Postoperative Diagnosis: Mucous cyst of the right index finger. Procedure Performed: Excision of mucous cyst and bony exostosis. Anesthesia: General. Description Of Procedure: After satisfactory induction of general anesthesia, right arm was prepped with Betadine scrub, Betadine paint, and dry sterile drapes applied. The arm was elevated and exsang uinated with Esmarch. Tourniquet was inflated to 250 mmHg. Hand was placed on roll lock table. Inc ision was made from the nail plate then transversely across the DIPs and on the ulnar side. Flaps we re elevated. The mucous cyst was then excised and the bony exostosis was exposed. The fine tip balwinder eur was used to remove the bony exostosis and the wound was lavaged and then irrigated with saline. Tourniquet was released. Electrocautery was used for hemostasis. Wound was closed with 4-0 Prolene horizontal mattresses. Dressed with Xeroform and 2 inch Bi. The patient tolerated the procedure well and returned to recovery. AMAN/JORGE Voice ID: [id number] Report ID: [id number]
== END 2022-07-18 15:15 | disposition home or self-care (01) ==
LOC: OR 10:44
PROVIDERS: ATTEND Specialist
PROC: 0PBT0ZZ Excision of Right Finger Phalanx, Open Approach (ICD-10-PCS; 2022-07-18)
PROC: 0JBJ0ZZ Excision of Right Hand Subcutaneous Tissue and Fascia, Open Approach (ICD-10-PCS; principal; 2022-07-18 12:00)
DX: M71.341 Other bursal cyst, right hand (principal); D16.11 Benign neoplasm of short bones of right upper limb; Z20.822 Contact with and (suspected) exposure to COVID-19
CPT/HCPCS: 93005; 85025; 81001; 36415; 88305; 88311; 71046; 87811; 11420; 26210; J2704; J2250; J3010; J1100; J1170; J7120; J2405; J0690

== ENCOUNTER 2022-09-30 13:15 | Emergency (ER) | payer OTHER, BC ==
--- OUTSIDE RECORDS SUMMARY | 2022-09-30 13:19 | XMS REPORT | Clinical Summary ---
:1945 Author Organization [facility] Address [address] [place] [address] Care Team Providers Name Role Phone Mohan Alcala MD Unavailable Allergies Not on File Medications Not on file Active Problems Not on file Social History Tobacco Use Types Packs/Day Years Used Date Smoking Tobacco: Never Assessed Sex Assigned at Date Recorded Not on file Last Filed Vital Signs Not on file Plan of Treatment Date Type Specialty Care Team Description 11/30/2022 Office Visit Hematology OoAnuel MD [address] [place], [place] [address] (Wo rk) Results Not on fileafter 09/30/2021 Insurance Payer Benefit Plan / Subscriber ID Effective Phone Address T ype Group Dates MEDICARE MEDICARE PART [id number] 2011-Pres [phone] [facility] Medicare A AND B ent [id number] [address] [place] [address] BCBS NON BCBS NON [id number] 2014-Pres [address] CONTRACTED CONTRACTED ent [id number] [place] [address] Care Teams Groundskeeper Relationship Specialty Start Date End Date Mohan Alcala MD PCP - External Referring [facility]phrology [facility]22 [facility] [place] [address]
--- OUTSIDE RECORDS SUMMARY | 2022-09-30 13:19 | XMS REPORT | Continuity of Care Document ---
:1945 Author Organization [facility] t Address [address] [place] [address] [address] [place] [address] Care Team Providers Name Role Phone Asked, No Pcp Primary Care Physician Unavailable SYSTEM, PROVIDER NOT IN Attending Clinician Unavailable Problems This patient has no known problems. Allergies, Adverse Reactions, Alerts This patient has no known allergies or adverse reactions. Social History Social Habit Start Date Stop Date Quantity Comments Source Sex Assigned At [birth year] [facility] 00:00:00 00:00:00 MD [facility] Smoking Status Start Date Stop Date Source Tobacco smoking consumption unknown [facility] Medications This patient has no known medications. Procedures This patient has no known procedures. Plan of Care Planned Activity Planned Date Details Comments Source Future Scheduled 2022-09-30 COLONOSCOPY SCREENING [facility] Test 00:33:20 [code = COLONOSCOPY SCREENING] Future Scheduled 2022-09-30 SHINGLES VACCINES (1 Met [facility] Test 00:33:20 of 2) [code = SHINGLES VACCINES (1 of 2)] Future Scheduled 2022-09-30 65+ [facility] Test 00:33:20 VACCINE (1 - PCV) [code = 65+ PNEUMOCOCCAL VACCINE (1 - PCV)] Future Scheduled 2022-09-30 INFLUENZA VACCINE [facility] Test 00:33:20 [code = INFLUENZA VACCINE] Future Scheduled 2022-09-30 HEPATITIS B VACCINES Met [facility] Test 00:33:20 (1 of 3 - 3-dose series) [code = HEPATITIS B VACCINES (1 of 3 - 3-dose series)] Future Scheduled 2022-09-30 COVID-19 VACCINE (#1) [facility] Test 00:33:20 [code = COVID-19 VACCINE (#1)] Future Scheduled 2022-09-30 Hepatitis C screening [facility] Test 00:33:20 (procedure) [code = 482388411] Encounters Start End Encounter Admission Attending Care Care Encounter Source Date/Time Date/Time Type Type Clinicians Facility Department ID 2022-09-28 Outpatient SYSTEM, [facility] [id number] 13:46:31 PROVIDER Jered o n Results This patient has no known results.
[2022-09-30 13:59] LABS: Absolute Lymphocytes (CBC) 0.2 K/uL (0.7-4.9); Hematocrit 21.1 % (36.0-45.0); Lymphocytes % 72.2 % (15.3-44.8); MPV 8.4 fL (7.6-11.3); RBC Red Blood Cell Count 2.22 M/uL (3.86-4.86)
[2022-09-30 14:20] LABS: Albumin 3.4 g/dL (3.4-5.0); Bilirubin Direct 0.4 mg/dL (0-0.2); Bilirubin Total 1.2 mg/dL (0.2-1.0); Magnesium 1.9 mg/dL (1.8-2.4); Potassium 4.3 mmol/L (3.5-5.1); Protein, Total 6.7 g/dL (6.4-8.2); Troponin High Sensitivity 12.4 pg/mL (<58.9)
--- NOTE | 2022-09-30 14:24 | RAD REPORT ---
EXAM DESCRIPTION: CT - Head Brain Wo Cont - 09/30/2022 2:11 pm CLINICAL HISTORY: Alteration of awareness/confusion COMPARISON: 2012 TECHNIQUE: Computed axial tomography of the head was obtained. IV contrast was not requested. All CT scans are performed using dose optimization technique as appropriate and may include automated exposure control or mA/KV adjustment according to patient size. FINDINGS: An intracranial bleed is not seen . The ventricles are normal in caliber. No extra-axial fluid collection is noted. Mild low-density areas within periventricular, deep and subcortical white matter likely represent is chemic changes secondary to small vessel disease. Fluid within the sinuses/ mastoids is not seen. IMPRESSION: No acute intracranial abnormality is seen. If patient's symptoms persist MRI of the bra in would be recommended.
--- NOTE | 2022-09-30 14:27 | RAD REPORT ---
EXAM DESCRIPTION: Doni Single View09/30/2022 2:19 pm CLINICAL HISTORY: Chest pain COMPARISON: July 2022 FINDINGS: Mild chronic appearing interstitial lung opacities. Lungs are mildly hyperaerated. The The lungs appear clear of acute infiltrate. The heart is normal size IMPRESSION: No acute abnormalities displayed
[2022-09-30] MEDS ORDERED: ACETAMINOPHEN 500 MG TAB ONE (14:33)
[2022-09-30 14:44] LABS: Protime INR 0.94
[2022-09-30] MEDS ORDERED: NA CHLORIDE 0.9% 250 ML ONE (14:51)
[2022-09-30] MEDS ORDERED: VANCOMYCIN 1 GM/VIAL ONE (14:51)
[2022-09-30] MEDS ORDERED: CEFEPIME 2 GM VIAL ONE (14:51)
[2022-09-30] MEDS ORDERED: NA CHLORIDE 0.9% 500 ML ONE ×2 (14:51→18:03)
[2022-09-30] MEDS ORDERED: NA CHLORIDE 0.9% 100 ML IV ONE (14:51)
--- NOTE | 2022-09-30 15:55 | RAD REPORT ---
EXAM DESCRIPTION: CT - Chest Abd Pelvis Wo Con - 09/30/2022 3:37 pm CLINICAL HISTORY: Chest and abdominal pain. Fever COMPARISON: 2019 TECHNIQUE: Computed axial tomography of the chest, abdomen and pelvis was obtained. Oral contrast wa s given. IV contrast was not requested. All CT scans are performed using dose optimization technique as appropriate and may include automated exposure control or mA/KV adjustment according to patient size. FINDINGS: The evaluation of mediastinum, axel, vessels and solid organs is limited secondary to the lack of IV contrast administration Mild to moderate right upper lobe alveolar opacities likely pneumonia. Mild to moderate COPD. No mediastinal or hilar lymphadenopathy is seen. A pleural effusion is not present. A pericardial effusion is not seen. The liver, spleen, pancreas, adrenals and kidneys appear grossly normal Diverticula stem from the colon. Minimal stranding adjacent to the sigmoid colon Aorta is mildly dilated measuring 2.6 centimeters. No aneurysm IMPRESSION: Mild to moderate right pneumonia Minimal sigmoid diverticulitis
--- NOTE | 2022-09-30 16:12 | ER ---
Nurse's Notes [facility] Name: Elizabeth Wyman Age: 77 yrs Sex: Female : 1945 Arrival Date: 09/30/2022 Time: 13:26 Bed 16 Private MD: Diagnosis: Fever presenting with conditions classified elsewhere;Other pneumonia, unspecified organism;Other pancytopenia;Diverticulitis of large intestine without perforation or abscess without bleeding;Severe sepsis without septic shock Presentation: 09/30 13:16 Chief complaint: EMS states: Toned out to PT home for a fall. States pt has had tp1 generalized weakness for several days and legs gave out on the way to the bathroom. PT states she slid to floor, denies injury or LOC. FBS 1118, BP 100/58, HR 86, O2 94% RA, 12 lead EKG normal sinus. EMS inserted 18 G LAC, administered 100 mL NS on route. 13:16 Coronavirus screen: Vaccine status: Patient reports receiving the 2nd dose of the covid tp1 vaccine. Ebola Screen: Patient denies exposure to infectious person. Patient denies travel to an Ebola-affected area in the 21 days before illness onset. Initial Sepsis Screen: Does the patient meet any 2 criteria? No. Patient's initial sepsis screen is negative. Does the patient have a suspected source of infection? No. Patient's initial sepsis screen is negative. Risk Assessment: Do you want to hurt yourself or someone else? Patient reports no desire to harm self or others. Onset of symptoms was September 30, 2022. 13:16 Method Of Arrival: EMS: [facility] tp1 13:16 Acuity: GUNJAN 3 tp1 Triage Assessment: 13:31 General: Appears in no apparent distress. comfortable, Behavior is calm, cooperative. tp1 Pain: Complains of pain in lower back Pain does not radiate. Pain currently is 5 out of 10 on a pain scale. Is chronic. Pain:. EENT: No signs and/or symptoms were reported regarding the EENT system. Neuro: Level of Consciousness is awake, alert, obeys commands, Oriented to person, place, time, situation. Cardiovascular: Patient's skin is warm and dry. Cardiovascular: Denies chest pain. Cardiovascular: Capillary refill < 3 seconds in bilateral fingers toes. Respiratory: Airway is patent Respiratory effort is even, unlabored. GI: Abdomen is flat, non-distended. : No signs and/or symptoms were reported regarding the genitourinary system. Derm: Skin is pink, warm \T\ dry. Musculoskeletal: Circulation, motion, and sensation intact. Swelling absent. 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 - Social history:: Smoking status: Patient/guardian denies using tobacco, the patient reports quitting approximately 18 years ago. Screenin:27 Abuse screen: Denies threats or abuse. Denies injuries from another. Nutritional eh3 screening: No deficits noted. Tuberculosis screening: No symptoms or risk factors identified. Fall Risk IV access (20 points). Ambulatory Aid- Furniture (30 pts.). Gait- Weak (10 pts.). Total Quinonez Fall Scale indicates High Risk Score (45 or more points). Fall prevention measures have been instituted. Side Rails Up X 2 Placed Close to Nursing Station Frequent Obs/Assessments Occuring Family Present and informed to notify staff if the need to leave the bedside As available patient and family educated on Fall Prevention Program and Strategies. Assessment: 14:27 General: Appears in no apparent distress. uncomfortable, Behavior is calm, cooperative, eh3 appropriate for age. Pain: Complains of pain in top of head and forehead Pain does not radiate. Pain currently is 6 out of 10 on a pain scale. Quality of pain is described as aching. Neuro: Level of Consciousness is awake, alert, obeys commands, Oriented to person, place, time, situation. Cardiovascular: Capillary refill < 3 seconds Patient's skin is warm and dry. Respiratory: Airway is patent Respiratory effort is even, unlabored, Respiratory pattern is regular, symmetrical. GI: Abdomen is round non-distended. : No signs and/or symptoms were reported regarding the genitourinary system. EENT: No signs and/or symptoms were reported regarding the EENT system. Derm: No signs and/or symptoms reported regarding the dermatologic system. Musculoskeletal: Circulation, motion, and sensation intact. Range of motion: intact in all extremities. 15:23 Reassessment: Patient appears in no apparent distress at this time. No changes from tp1 previously documented assessment. Patient and/or family updated on plan of care and expected duration. Pain level reassessed. Patient is alert, oriented x 3, equal unlabored respirations, skin warm/dry/pink. 15:24 Reassessment: escorted to [place] via stretcher by [facility]. tp1 16:21 Reassessment: Initiated transfer to [facility] at this time. Spoke with klaudia Cabrera special education coordinator. DX: Pancytopenia, requesting Hematology specialty per JULIUS Yeh. 16:30 Reassessment: Patient appears in no apparent distress at this time. Patient is alert, tp1 oriented x 3, equal unlabored respirations, skin warm/dry/pink. Patient denies pain at this time. 17:45 Reassessment: Patient appears in no apparent distress at this time. No changes from tp1 previously documented assessment. Patient is alert, oriented x 3, equal unlabored respirations, skin warm/dry/pink. visiting with daughters Patient denies pain at this time. 18:20 Reassessment: purewick in place. tp1 18:27 Reassessment: report given to Marilynn Alston. tp1 Vital Signs: 13:16 BP 143 / 65; Pulse 88; Resp 16; Temp 99.2; Pulse Ox 97% on R/A; Weight 52.16 kg; Height tp1 5 ft. 3 in. (160.02 cm); 14:27 BP 149 / 70; Pulse 85; Resp 18; Temp 102.4(O); Pulse Ox 99% on R/A; Pain 6/10; eh3 15:00 BP 151 / 64; Pulse 80; Resp 16; Pulse Ox 100% on R/A; tp1 16:30 BP 144 / 63; Pulse 84; Resp 18; Pulse Ox 98% on R/A; tp1 17:45 BP 155 / 69; Pulse 81; Resp 17; Pulse Ox 99% ; tp1 18:30 BP 150 / 72; Pulse 91; Resp 17; Pulse Ox 99% on R/A; tp1 13:16 Body Mass Index 20.37 (52.16 kg, 160.02 cm) tp1 ED Course: 13:26 Patient arrived in ED. tp1 13:28 Rodolfo Collazo PA is PHCP. cp 13:28 Aj Claros MD is Attending Physician. cp 13:31 Triage completed. tp1 13:34 Arm band placed on. tp1 13:40 Aicha Mayorga RN is Primary Nurse. tp1 13:40 Maintain EMS IV. Dressing intact. Good blood return noted. Site clean \T\ dry. Gauge \T\ tp 1 site: 18 G LAC. 14:12 Head Brain Wo Cont In Process Unspecified. EDMS 14:20 XRAY Chest (1 view) In Process Unspecified. EDMS 14:27 Patient has correct armband on for positive identification. Placed in gown. Bed in low eh3 position. Call light in reach. Side rails up X2. Client placed on continuous cardiac and pulse oximetry monitoring. NIBP monitoring applied. Door closed. Noise minimized. Lights dimmed. 15:39 CT Chest Abdomen Pelvis W/O Contrast In Process Unspecified. EDMS 19:39 No provider procedures requiring assistance completed. Patient transferred, IV remains tp1 in place. Administered Medications: 14:32 Drug: Tylenol 1000 mg Route: PO; ss 19:38 Follow up: Response: No adverse reaction tp1 16:19 Drug: NS 0.9% 500 ml Route: IV; Rate: 500 ml/hr; Site: left antecubital; tp1 17:20 Follow up: Response: No adverse reaction; IV Status: Completed infusion; IV Intake: tp1 500ml 16:19 Drug: Cefepime 2 grams Route: IVPB; Rate: 200 ml/hr; Infused Over: 30 mins; Site: left tp1 antecubital; 17:20 Follow up: Response: No adverse reaction; IV Status: Completed infusion; IV Intake: tp1 100ml 17:19 Drug: vancoMYCIN 1 grams Route: IVPB; Infused Over: 2 hrs; Site: left antecubital; tp1 19:38 Follow up: IV Status: Infusion continued upon transfer tp1 18:08 Drug: NS 0.9% 500 ml Route: IV; Rate: 100 ml/hr; Site: left antecubital; tp1 19:37 Follow up: IV Status: Infusion continued upon transfer tp1 Medication: 19:39 VIS not applicable for this client. tp1 Intake: 17:20 IV: 500ml; Total: 500ml. tp1 17:20 IV: 100ml; Total: 600ml. tp1 Outcome: 16:11 ER care complete, transfer ordered by . cp 19:15 Transferred by ground EMS to [facility], Transfer form completed. tp1 19:15 Condition: good 19:15 Discharge instructions given to patient, family. 19:15 Instructed on the need for transfer, Demonstrated understanding of instructions. 19:40 Patient left the ED. tp1 Signatures: Dispatcher [employer] EDLigia Vizcarra, RN RN ss Rodolfo Collazo PA PA cp Parker, Tiffany RN RN tp1 Larisa Parmar RN RN eh3
--- NOTE | 2022-09-30 16:12 | EDPHYS ---
Physician Documentation [facility] Name: Elizabeth Wyman Age: 77 yrs Sex: Female : 1945 Arrival Date: 09/30/2022 Time: 13:26 Bed 16 Private MD: ED Physician Aj Claros HPI: 09/30 13:45 This 77 yrs old Female presents to ER via EMS with complaints of General Weakness. cp 13:45 Details of fall: The patient fell from an upright position, while walking. cp 13:45 Onset: The symptoms/episode began/occurred today. cp 13:45 Associated injuries: The patient sustained no obvious injury. Patient reports cp increasing general weakness over past several days. Reports legs became weak as she walked to bathroom today, causing her to fall. Patient was unable to get up, called daughter who contacted EMS. Patient c/o fever at home. History of low WBC. 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 - Social history:: Smoking status: Patient/guardian denies using tobacco, the patient reports quitting approximately 18 years ago. ROS: 13:50 Constitutional: Negative for fever, poor PO intake. cp 13:50 Eyes: Negative for injury, pain, redness, and discharge. cp 13:50 ENT: Negative for drainage from ear(s), ear pain, sore throat, difficulty swallowing, difficulty handling secretions. 13:50 Cardiovascular: Negative for chest pain. 13:50 Respiratory: Positive for cough, with no reported sputum, Negative for shortness of breath, wheezing. 13:50 Abdomen/GI: Negative for abdominal pain, vomiting, diarrhea, constipation, black/tarry stool, rectal bleeding. 13:50 Back: Negative for pain at rest, pain with movement. 13:50 Skin: Negative for cellulitis, rash. 13:50 Neuro: Positive for weakness, Negative for altered mental status, headache, loss of consciousness, syncope. 13:50 All other systems are negative. Exam: 13:55 Constitutional: The patient appears in no acute distress, alert, awake, cp non-diaphoretic, non-toxic, well developed, well nourished. 13:55 Head/Face: Normocephalic, atraumatic. cp 13:55 Eyes: Periorbital structures: appear normal, Pupils: equal, round, and reactive to light and accomodation, Extraocular movements: intact throughout, Conjunctiva: normal, no exudate, no injection, Sclera: no appreciated abnormality, Lids and lashes: appear normal, bilaterally. 13:55 ENT: External ear(s): are unremarkable, Nose: is normal, Mouth: Lips: moist, Oral mucosa: moist, Posterior pharynx: Airway: no evidence of obstruction, patent, swelling, is not appreciated, erythema, is not appreciated, exudate, is not appreciated. 13:55 Neck: ROM/movement: is normal, is supple, without pain, no range of motions limitations, no meningismus, no nuchal rigidity. 13:55 Chest/axilla: Inspection: normal. 13:55 Cardiovascular: Rate: normal, Rhythm: regular, Edema: is not appreciated, JVD: is not appreciated. 13:55 Respiratory: the patient does not display signs of respiratory distress, Respirations: normal, no use of accessory muscles, no retractions, labored breathing, is not present, Breath sounds: are clear throughout, no decreased breath sounds, no stridor, no wheezing. 13:55 Abdomen/GI: Inspection: abdomen appears normal, Bowel sounds: active, all quadrants, Palpation: abdomen is soft and non-tender, in all quadrants, involuntary guarding, is not appreciated. 13:55 Back: pain, is absent, ROM is normal. 13:55 Skin: cellulitis, is not appreciated, no rash present. 13:55 Neuro: Orientation: to person, place \\T\\ time. Mentation: is normal, Motor: moves all fours, strength is normal, Sensation: is normal. 14:45 ECG was reviewed by the Attending Physician. cp Vital Signs: 13:16 BP 143 / 65; Pulse 88; Resp 16; Temp 99.2; Pulse Ox 97% on R/A; Weight 52.16 kg; Height tp1 5 ft. 3 in. (160.02 cm); 14:27 BP 149 / 70; Pulse 85; Resp 18; Temp 102.4(O); Pulse Ox 99% on R/A; Pain 6/10; eh3 15:00 BP 151 / 64; Pulse 80; Resp 16; Pulse Ox 100% on R/A; tp1 16:30 BP 144 / 63; Pulse 84; Resp 18; Pulse Ox 98% on R/A; tp1 17:45 BP 155 / 69; Pulse 81; Resp 17; Pulse Ox 99% ; tp1 18:30 BP 150 / 72; Pulse 91; Resp 17; Pulse Ox 99% on R/A; tp1 13:16 Body Mass Index 20.37 (52.16 kg, 160.02 cm) tp1 MDM: 13:31 Patient medically screened. cp 14:00 Differential diagnosis: sepsis, uti, pneumonia, CVA, electrolyte abnormality. cp 16:05 Data reviewed: vital signs, nurses notes, lab test result(s), EKG, radiologic studies, cp CT scan, plain films. 16:05 Test interpretation: by ED physician or midlevel provider: ECG, plain radiologic cp studies. Counseling: I had a detailed discussion with the patient and/or guardian regarding: the historical points, exam findings, and any diagnostic results supporting the discharge/admit diagnosis, lab results, radiology results, the need to transfer to another facility, [facility] does not immediately have the required specialist. 17:18 Physician consultation: was contacted at 17:18, regarding regarding transfer, to [facility]. patient's condition, accepting physician will be DR Fermin. 09/30 13:37 Order name: Basic Metabolic Panel; Complete Time: 14:25 cp 09/30 14:25 Interpretation: Normal except: NA 134; GLUC 133; BUN 42; CRE 1.89; GFR 27. cp 09/30 13:37 Order name: CBC with Diff 09/30 14:26 Interpretation: Normal except: WBC 0.30; RBC 2.22; HGB 7.4; HCT 21.1; PLT 17; DANY% cp 19.7; LYM% 72.2; MN% 2.4; EOSINOPHIL % 5.5; NEUT A 0.1; LYMA 0.2; MNA 0.0. 09/30 13:37 Order name: LFT's; Complete Time: 14:25 cp 09/30 14:26 Interpretation: Normal except: BILIT 1.2; BILID 0.4; A/G 1.0. cp 10/ 13:37 Order name: Magnesium; Complete Time: 14:25 cp 30 13:37 Order name: NT PRO-BNP; Complete Time: 14:25 cp 30 13:37 Order name: PT-INR; Complete Time: 14:45 cp /30 14:45 Interpretation: Reviewed. cp 09/30 13:37 Order name: Troponin HS; Complete Time: 14:25 cp 30 14:39 Order name: COVID-19 SARS RT PCR (Document "Date of Onset" if Symptomatic); Complete cp Time: 17:13 30 14:39 Order name: Influenza Screen (a \\T\\ B); Complete Time: 17:13 cp 09/30 14:39 Order name: Blood Culture Adult (2) cp 09/30 14:39 Order name: Lactate; Complete Time: 17:13 cp 09/30 14:39 Order name: Procalcitonin cp 09/30 14:42 Order name: Type And Screen; Complete Time: 17:13 cp 09/30 13:37 Order name: XRAY Chest (1 view); Complete Time: 14:30 cp 09/30 13:37 Order name: EKG; Complete Time: 13:38 cp 09/30 13:37 Order name: Cardiac monitoring; Complete Time: 14:39 cp 09/30 13:37 Order name: EKG - Nurse/Tech; Complete Time: 14:45 cp 09/30 13:37 Order name: IV Saline Lock; Complete Time: 13:40 cp 09/30 13:57 Order name: CT Head Brain wo Cont cp 09/30 14:01 Order name: Head Brain Wo Cont; Complete Time: 14:25 EDMS 09/30 14:42 Order name: Ptt, Activated; Complete Time: 17:13 cp 30 14:55 Order name: CT Chest Abdomen Pelvis W/O Contrast; Complete Time: 15:56 cp 30 15:58 Interpretation: Report reviewed. cp 09/30 17:54 Order name: CBC Smear Scan EDMS 09/30 13:37 Order name: Labs collected and sent; Complete Time: 14:39 cp 09/30 13:37 Order name: O2 Per Protocol; Complete Time: 13:40 cp 09/30 13:37 Order name: O2 Sat Monitoring; Complete Time: 13:40 cp EC:45 Rate is 81 beats/min. Rhythm is regular. [place] interval is normal. QRS interval is normal. cp QT interval is normal. Interpreted by me. Reviewed by me. Administered Medications: 14:32 Drug: Tylenol 1000 mg Route: PO; ss 19:38 Follow up: Response: No adverse reaction tp1 16:19 Drug: NS 0.9% 500 ml Route: IV; Rate: 500 ml/hr; Site: left antecubital; tp1 17:20 Follow up: Response: No adverse reaction; IV Status: Completed infusion; IV Intake: tp1 500ml 16:19 Drug: Cefepime 2 grams Route: IVPB; Rate: 200 ml/hr; Infused Over: 30 mins; Site: left tp1 antecubital; 17:20 Follow up: Response: No adverse reaction; IV Status: Completed infusion; IV Intake: tp1 100ml 17:19 Drug: vancoMYCIN 1 grams Route: IVPB; Infused Over: 2 hrs; Site: left antecubital; tp1 19:38 Follow up: IV Status: Infusion continued upon transfer tp1 18:08 Drug: NS 0.9% 500 ml Route: IV; Rate: 100 ml/hr; Site: left antecubital; tp1 19:37 Follow up: IV Status: Infusion continued upon transfer tp1 Disposition: 10/01 14:15 Co-signature as Attending Physician, Aj Claros MD I agree with the assessment and kdr plan of care. Disposition Summary: 09/30/22 16:11 Transfer Ordered Transfer Location: [facility] cp Reason: Higher level of care cp Condition: Stable cp Problem: new cp Symptoms: have improved cp Accepting Physician: DR Fermin(09/30/22 19:40) tp1 Diagnosis - Fever presenting with conditions classified elsewhere cp - Other pneumonia, unspecified organism cp - Other pancytopenia cp - Diverticulitis of large intestine without perforation or abscess without bleeding cp - Severe sepsis without septic shock cp Forms: - Medication Reconciliation Form cp - SBAR form cp Signatures: Dispatcher [employer] Aj Muñoz MD MD kdr Smirch, Shelby, RN RN ss Rodolfo Collazo PA PA Aicha Borrero RN RN tp1 Corrections: (The following items were deleted from the chart) 09/30 13:41 13:38 UA MICROSCOPIC+U.LAB.BRZ ordered. EDMS EDMS : 16:11 Doctor cp cp : 17: DR Zander feliciano cp : 17: DR Zander feliciano cp : 17: DR Zander feliciano tp1
[2022-09-30 17:53] LABS: Platelet Estimate DECR; White Blood Cell Scan OK (OK)
[2022-09-30 17:54] LABS: Blood Morphology Comment NOT SEEN (NOT SEEN)
[2022-09-30 20:08] VITALS: TEMP 102.4
[2022-09-30 20:12] VITALS: O2SAT 99
[2022-09-30 20:13] VITALS: BP 150/72
--- NOTE | 2022-10-01 15:58 | EKG ---
Test Date: 2022-09-30 Test Time: 14:39:13 Application Developer: CESAR MEASUREMENT RESULTS: Intervals: Rate: 81 MS: 134 QRSD: 80 QT: 360 QTc: 418 [place]: P: 73 MS: 134 QRS: 63 T: 60 INTERPRETIVE STATEMENTS: Normal sinus rhythm Normal ECG Compared to ECG 07/17/2022 08:34:42 Sinus bradycardia no longer present Electronically Signed On 10-01-22 15:56:35 CDT by Erik Charles
== END 2022-09-30 19:40 | disposition short-term general hospital (02) ==
LOC: ER 13:15
DX: J18.8 Other pneumonia, unspecified organism (principal); R65.20 Severe sepsis without septic shock; D61.818 Other pancytopenia; K57.32 Diverticulitis of large intestine without perforation or abscess without bleeding; I10 Essential (primary) hypertension; Z20.822 Contact with and (suspected) exposure to COVID-19; Z88.5 Allergy status to narcotic agent; Z88.8 Allergy status to other drugs, medicaments and biological substances
CPT/HCPCS: 96365; 93005; 87040 ×2; 85025; 80048; 36415; 86900; 83735; 86850; 85610; 86901; 80076; 83605; 85730; 84484; 84145; 83880; 87804 ×2; 70450; 71250; 74176; 71045; 99285; 96366; U0003; J3370; J0692; J7050; J7040 ×2

== ENCOUNTER 2023-01-26 16:22 | Emergency (ER) | payer OTHER, BC ==
--- OUTSIDE RECORDS SUMMARY | 2023-01-26 16:29 | XMS REPORT | Continuity of Care Document ---
:1945 Author Organization [facility] t Address [address] [place] [address] [address] [place] [address] Care Team Providers Name Role Phone Asked, No Pcp Primary Care Physician Unavailable SYSTEM, PROVIDER NOT IN Attending Clinician Unavailable JACK SAUNDERS Attending Clinician Unavailable JACK SAUNDERS Attending Clinician Unavailable Nicky MURGUIA, Jack Attending Clinician Virtual, Surgeon Attending Clinician Unavailable Matthew CURRY, Lucero Attending Clinician LUCERO LOZA Attending Clinician Unavailable Yanira Fermin MD Attending Clinician Kimmie Galo MD Attending Clinician Cailin Singer MD Attending Clinician [phone] Deepak Loo MD Attending Clinician CAILIN SINGER Attending Clinician Unavailable JACK SAUNDERS Admitting Clinician Unavailable DEEPAK LOO Admitting Clinician Unavailable Payers Payer Name Policy Type Policy Number Effective Date Expiration Date S ource MEDICARE PART A \\T\\ [id number] B - MEDICARE MEDICARE SUPPLEMENT [id number] - [facility] MEDICARE A B [id number] 2011 00:00:00 [place] [id number] 2014 OS 00:00:00 Problems Condition Condition Condition Status Onset Resolution Last Treating Co mments Source Name Details Category Date Date Treatment Clinician Date Pancytopen Pancytopen Disease Active 2021-[address] [facility] Dyspnea Dyspnea Disease Active 2021-[address] [facility] Fever Fever Disease Active 2021-[address] [facility] 00 Center 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 Formattin g of this note might be different from the original. 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 [facility] due to due to 00:00: Medical granulomat granulomat 00 Ce nter osis with osis with polyangiit polyangiit is is Chronic Chronic Disease Active [facility] kidney kidney 8-12 [facility] disease-mi disease-mi 00:00: Me dical neral and neral and 00 Cent er bone bone disorder disorder Hypercalce Hypercalce Disease Active [facility] darnell darnell 8-12 [facility] Hypertensi Hypertensi Disease Active [facility] ve heart ve heart 8-12 [facility] and renal and renal 00:00: Medi jada disease disease 00 Center with with (congestiv (congestiv e) heart e) heart failure failure 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 Formattin g of this note might be different from the original. Cont prednison e as rx Hypertensi Hypertensi Disease Active [facility] on on 07-15 [facility] 00 Center Allergies, Adverse Reactions, Alerts Allergy Allergy Status Severity Reaction(s) Onset Inactive Treating Comm ents Source Name Type Date Date Clinician ALLOPURI Allergy Active High 2021-[address] [facility] NOL 1- [facility] 00 Center COLCHICI Allergy Active High 2021-[address] [facility] NE 1- [facility] 00[facility] 00 Center Allopuri Propensi Active Severe 2021-[address] nol ty to 1 rakel [facility] adverse 00:00: Medical reaction 00 Center s Colchici Propensi Active Severe 2021-[address] ne ty to 1 rakel [facility] adverse 00:00: Medical reaction 00 Center s MEPERIDI Allergy Active Low Itching [facility] 7 [facility] 00 Center Meperidi Drug Active Itching, "burning [facility] ne Allergy Other (See 7-11 on the [facility] Comments) 00:00: insides" Medic al 00 Center Opioid Propensi Active Rash [facility] Analgesi ty to 2-16 College cs adverse 00:00: of reaction 00 Medicin s to e drug Opioid Propensi Active Rash [facility] Analgesi ty to 2-16 College cs adverse 00:00: of reaction 00 Medicin s to e drug MORPHINE Allergy Active Itching [facility] 05[facility]02 [facility] 00 Center Morphine Drug Active Itching, Other [facility] Allergy Other (See 6 reaction( Sho kes Comments) 00:00: s): Medical 00 severe Center itching Social History Social Habit Start Date Stop Date Quantity Comments Source Exposure to 2023-01-01 2023-01-11 Not sure Karsten carrington SARS-CoV-2 (event) 00:00:00 14:29:00 of Med icine Alcohol intake 2022-12-14 2022-12-14 Ex-drinker HEMALATHA Alanis es 00:00:00 00:00:00 (finding) Medical Center Cigarettes smoked 2022-10-26 2022-10-26 [facility] current (pack per 00:00:00 00:00:00 of Inspirotec day) - Reported Cigarette 2022-10-26 2022-10-26 [facility] pack-years 00:00:00 00:00:00 of Medicine History SDOH 2022-10-20 2022-10-20 0 [facility] Physical Activity 00:00:00 00:00:00 of Medi [employer] DPW History SDOH 2022-10-20 2022-10-20 1 [facility] ge Physical Activity 00:00:00 00:00:00 of Inspirotec MPS Tobacco use and 2022-09-30 2022-09-30 Former user HEMALATHA Lui Eduardo das exposure 00:00:00 00:00:00 [facility] History of tobacco 2002-03-20 Cigarette Smoker [facility] use 00:00:00 of Medicine Sex [birth year] HEMALATHA Hurley 00:00:00 00:00:00 [facility] Smoking Status Start Date Stop Date Source Tobacco smoking [facility] consumption unknown Former smoker 2022-09-30 00:00:00 2022-09-30 [facility] 00:00:00 Center Medications Ordered Filled Start Stop Current Ordering Indication Dosage Frequency Signature Comments Components Source Medication Medication Date Date Medication? Clinician (SIG) Name Name Cholecalcif Yes 50ug Take [address] neymar fito 50 MCG 2-10 mcg by Jonnathan carrington (1998 [place]) 14:47: mouth. of CAPS 30 Medicin e sevelamer Yes 800mg Take [address] neymar (RENAGEL) 2-10 mg by [place] 800 MG 14:47: mouth 3 of tablet 30 times Medicin daily. e Multiple Yes Take by [facility] Vitamins-Mi 2-10 mouth. Jonnathan carrington nerals 14:47: of (VITAMIN D3 30 Medicin COMPLETE e OR) FOLIC ACID Yes Take by [place] 2-10 mouth. [place] 14:47: of 30 Medicin e cyanocobala Yes 1000ug Take 1,000 [facility] min 1000 2-10 mcg by [place] MCG tablet 14:47: mouth. of 30 Medicin e predniSONE Yes 5mg QD Take [address] (DELTASONE) 1-13 by mouth Luke s 5 MG tablet 10:25: daily. [address] predniSONE Yes 5mg QD Take [address] (DELTASONE) 1-13 by mouth Luke s 5 MG tablet 10:25: daily. [address] cyanocobala Yes 1000ug Take 1,000 [facility] min 1000 1-05 mcg by [place] MCG tablet 15:19: mouth. of 35 Medicin e sevelamer Yes 800mg Take [address] nyemar (RENAGEL) 1-05 mg by [place] 800 MG 15:18: mouth 3 of tablet 11 times Medicin daily. e Multiple Yes Take by [facility] Vitamins-Mi 1-05 mouth. Jonnathan carrington nerwale 15:18: of (VITAMIN D3 11 Medicin COMPLETE e OR) FOLIC ACID Yes Take by [facility] or OR 1-05 mouth. [place] 15:18: of 11 Medicin e Cholecalcif 2021-12 Yes 50ug Take [address] neymar fito 50 MCG 1-25 mcg by Jonnathan carrington (1999) 10:40: mouth. of CAPS Medicin e Cholecalcif 2021-12 Yes 50ug Take [address] neymar fito 50 MCG 1-25 mcg by Jonnathan carrington (1999) 10:40: mouth. of CAPS 04 Medicin e predniSONE 2021-12 Yes 5mg QD Take [address] (DELTASONE) 1-14 by mouth Luke s 5 MG tablet 13:29: daily. [address] predniSONE 2021-12 Yes 5mg QD Take [address] (DELTASONE) 1-14 by mouth Luke s 5 MG tablet 13:29: daily. [address] furosemide 2021-2021- No 40mg QD Take [address] [facility] (LASIX) 20 12-05 11-04 by mouth Luke s MG tablet 13:06: 00:00 daily . [facility] jada 14 :00 [place] furosemide 2021-12- No 40mg QD Take [address] [facility] (LASIX) 20 12-05 by mouth Luke s MG tablet 13:06: 00:00 daily . [facility] jada 14 :00 [place] furosemide 2021-12- No 40mg QD Take [address] (LASIX) 12-05 by mouth Luke s MG tablet 13:06: 00:00 daily . [facility] jada 14 :00 [place] furosemide 2021-12- No 40mg QD Take [address] [facility] (LASIX) 12-05 by mouth Luke s MG tablet 13:06: 00:00 daily . [facility] jada 14 :00 [place] levofloxaci 2021-12 Yes as needed. [facility] 12-05 [place] (LEVAQUIN) 00:00: of 500 MG 00 Medicin tablet e acyclovir 2021-12 Yes TAKE 1 [facility] (ZOVIRAX) 12-05 TABLET BY Ariel delaney 400 MG 00:00: MOUTH of tablet 00 TWICE Medicin DAILY FOR e 14 DAYS levofloxaci 2021-12- No as needed. [facility] 12-05 [place] (LEVAQUIN) 00:00: 00:00 of 500 MG 00 :00 Medicin tablet e acyclovir 2021-12- No TAKE 1 [facility] r (ZOVIRAX) 12-05 TABLET BY David ege 400 MG 00:00: 00:00 MOUTH of tablet 00 :00 TWICE Medicin DAILY FOR e 14 DAYS acyclovir 2021-12- No 400mg Q.5D Take [address] [facility] (ZOVIRAX) 12-05 tablet [facility] 400 MG 00:00: 23:59 (400 mg Medical tablet 00 :00 total) by Center mouth 2 (two) times daily for 14 days. fluconazole 2021-12- No 200mg QD Take [address] (DIFLUCAN) 12-05 tablet [facility] 200 MG 00:00: 23:59 (200 mg Medical tablet 00 :00 total) by Center mouth daily for 14 days. levoFLOXaci 2021-12- No 500mg QD Take [address] n 12-05 tablet [facility] (LEVAQUIN) 00:00: 23:59 (500 mg Med ical 500 MG 00 :00 total) by Center tablet mouth daily for 14 days. acyclovir 2021-12- No 400mg Q.5D Take [address] [facility] (ZOVIRAX) 12-05 tablet [facility] 400 MG 00:00: 23:59 (400 mg Medical tablet 00 :00 total) by Center mouth 2 (two) times daily for 14 days. fluconazole 2021-12- No 200mg QD Take [address] (DIFLUCAN) 12-05 tablet [facility] 200 MG 00:00: 23:59 (200 mg Medical tablet 00 :00 total) by Center mouth daily for 14 days. levoFLOXaci 2021-12- No 500mg QD Take [address] n 12-05 tablet [facility] (LEVAQUIN) 00:00: 23:59 (500 mg Med ical 500 MG 00 :00 total) by Center tablet mouth daily for 14 days. acyclovir 2021-12- No 400mg Q.5D Take [address] [facility] (ZOVIRAX) 12-05 tablet [facility] 400 MG 00:00: 23:59 (400 mg Medical tablet 00 :00 total) by Center mouth 2 (two) times daily for 14 days. fluconazole 2021-12 No 200mg QD Take [address] (DIFLUCAN) 12-05 tablet [facility] 200 MG 00:00: 23:59 (200 mg Medical tablet 00 :00 total) by Center mouth daily for 14 days. levoFLOXaci 2021-12 No 500mg QD Take [address] n 12-05 tablet [facility] (LEVAQUIN) 00:00: 23:59 (500 mg Med ical 500 MG 00 :00 total) by Center tablet mouth daily for 14 days. acyclovir 2021-12- No 400mg Q.5D Take [address] [facility] (ZOVIRAX) 12-05 tablet [facility] 400 MG 00:00: 23:59 (400 mg Medical tablet 00 :00 total) by Center mouth 2 (two) times daily for 14 days. fluconazole 2021-12- No 200mg QD Take [address] (DIFLUCAN) 1-04 11-18 tablet [facility] 200 MG 00:00: 23:59 (200 mg Medical tablet 00 :00 total) by Center mouth daily for 14 days. levoFLOXaci 2021-12 No 500mg QD Take [address] n 12-0518 tablet [facility] (LEVAQUIN) 00:00: 23:59 (500 mg Med ical 500 MG 00 :00 total) by Center tablet mouth daily for 14 days. allopurinoL 2021-12 No 100mg QD Take [address] [facility] (ZYLOPRIM) 0-14 11-03 mg by [facility] 100 MG 00:00: 00:00 mouth Medical tablet 00 :00 daily. [place] allopurinoL 2021-12 No 100mg QD Take [address] (ZYLOPRIM) 0-14 11-03 mg by [facility] 100 MG 00:00: 00:00 mouth Medical tablet 00 :00 daily. [place] allopurinoL 2021-12 No 100mg QD Take [address] (ZYLOPRIM) 0-14 11-03 mg by [facility] 100 MG 00:00: 00:00 mouth Medical tablet 00 :00 daily. [place] allopurinoL 2021-12 No 100mg QD Take [address] (ZYLOPRIM) 0-14 11-03 mg by [facility] 100 MG 00:00: 00:00 mouth Medical tablet 00 :00 daily. [place] metoprolol 2021-12 Yes 50mg QD Take [address] succinate 0-11 by mouth [facility] (TOPROL-XL) 00:00: daily. Medi jada 50 MG 24 hr 00 Center tablet metoprolol 2021-12 Yes 50mg QD Take [address] succinate 0-11 by mouth [facility] (TOPROL-XL) 00:00: daily. Medi jada 50 MG 24 hr 00 Center tablet metoprolol 2021-12 Yes 50mg QD Take [address] succinate 0-11 by mouth [facility] (TOPROL-XL) 00:00: daily. Medi jada 50 MG 24 hr 00 Center tablet metoprolol 2021-12 Yes 50mg QD Take [address] succinate 0-11 by mouth [facility] (TOPROL-XL) 00:00: daily. Medi jada 50 MG 24 hr 00 Center tablet doxazosin 2021-12 No 2mg QD Take [address] [facility] (CARDURA) 2 0-11 11-04 by mouth Champ es MG tablet 00:00: 00:00 daily . [facility] jada 00 :00 [place] doxazosin 2021- 2022- No 2mg QD Take [address] (CARDURA) 2 0-11 11-04 by mouth Champ es MG tablet 00:00: 00:00 daily . [facility] jada 00 :00 [place] doxazosin 2021-2- No 2mg QD Take [address] (CARDURA) 2 0-11 11-04 by mouth [facility] MG tablet 00:00: 00:00 daily . [facility] jada 00 :00 [place] doxazosin 2021-2- No 2mg QD Take [address] (CARDURA) 2 0-11 11-04 by mouth Champ es MG tablet 00:00: 00:00 daily . [facility] jada 00 :00 [place] colchicine 2-0 2022- No .6mg QD Take 0.[address] (COLCRYS) 9-23 11-03 mg by [facility] 0.6 mg 00:00: 00:00 mouth Medical tablet 00 :00 daily. [place] colchicine 2-0 2022- No .6mg QD Take 0.[address] (COLCRYS) 9-23 11-03 mg by [facility] 0.6 mg 00:00: 00:00 mouth Medical tablet 00 :00 daily. [place] colchicine 2-0 2022- No .6mg QD Take 0.[address] (COLCRYS) 9-23 11-03 mg by [facility] 0.6 mg 00:00: 00:00 mouth Medical tablet 00 :00 daily. [place] colchicine 2-0 2022- No .6mg QD Take 0.[address] (COLCRYS) 9-23 11-03 mg by [facility] 0.6 mg 00:00: 00:00 mouth Medical tablet 00 :00 daily. [place] methocarbam 2022-0 Yes 1000mg Take 1,[address] oL 7-28 mg by [facility] (ROBAXIN) 00:00: mouth Medical 500 MG 00 every Center tablet night as needed. methocarbam 2022-0 Yes 1000mg Take 1,[address] oL 7-28 mg by [facility] (ROBAXIN) 00:00: mouth Medical 500 MG 00 every Center tablet night as needed. methocarbam 2022-0 Yes 1000mg Take 1,000 [facility] ol 7-28 mg by [facility] (ROBAXIN) 00:00: mouth. of 500 MG 00 Medicin tablet e methocarbam 2022-0 Yes 1000mg Take 1,000 [facility] ol 7-28 mg by [facility] (ROBAXIN) 00:00: mouth. of 500 MG 00 Medicin tablet e methocarbam 2022-0 Yes 1000mg Take 1,000 [facility] ol 7-28 mg by [facility] (ROBAXIN) 00:00: mouth. of 500 MG 00 Medicin tablet e methocarbam 2022-0 2023- No 1000mg Take 1,[address] oL 7-28 01-13 mg by [facility] (ROBAXIN) 00:00: 00:00 mouth Medica l 500 MG 00 :00 every Center tablet night as needed. methocarbam 2022-0 2023- No 1000mg Take 1,[address] oL 7-28 01-13 mg by [facility] (ROBAXIN) 00:00: 00:00 mouth Medica l 500 MG 00 :00 every Center tablet night as needed. pantoprazol 2022-0 2023- No 20mg Take 20 mg [facility] e 5-12 05-13 by mouth. [place] (PROTONIX) 00:00: 04:59 of 20 MG 00 :00 Medicin tablet e pantoprazol 2022-0 2023- No 20mg Take 20 mg [facility] e 5-12 05-13 by mouth. [place] (PROTONIX) 00:00: 04:59 of 20 MG 00 :00 Medicin tablet e pantoprazol 2022-0 2023- No 20mg Take 20 mg [place] e 5-12 05-13 by mouth. [place] (PROTONIX) 00:00: 04:59 of 20 MG 00 :00 Medicin tablet e pantoprazol 2022-0 2023- No 20mg QD Take [address] [facility] e 5-12 05-12 by mouth [facility] (PROTONIX) 00:00: 23:59 daily . Med ical 20 MG 00 :00 Center tablet pantoprazol 2022-0 2023- No 20mg QD Take [address] [facility] e 5-12 05-12 by mouth [facility] (PROTONIX) 00:00: 23:59 daily . Med ical 20 MG 00 :00 Center tablet pantoprazol 2022-0 2023- No 20mg QD Take [address] [facility] e 5-12 05-12 by mouth [facility] (PROTONIX) 00:00: 23:59 daily . Med ical 20 MG 00 :00 Center tablet pantoprazol 2021-0 2022- No 20mg QD Take [address] e 5-12 05-12 by mouth [facility] (PROTONIX) 00:00: 23:59 daily . Med ical 20 MG 00 :00 Center tablet predniSONE 2021-0 Yes 5mg Take 5 mg [facility] (DELTASONE) 2-03 by mouth. Col [facility]ge 5 MG tablet 00:00: of 00 Medicin e predniSONE 2021-0 Yes 5mg Take 5 mg [facility] (DELTASONE) 2-03 by mouth. [facility] 5 MG tablet 00:00: of 00 Medicin e predniSONE 2021-0 Yes 5mg Take 5 mg [facility] (DELTASONE) 2-03 by mouth. Col [facility]ge 5 MG tablet 00:00: of 00 Medicin e sevelamer 2021-0 2022- No 800mg Q.5D Take [address] (RENVELA) 2-03 02-03 mg by [facility] 800 mg 00:00: 23:59 mouth 2 Medical tablet 00 :00 (two) Center times daily. sevelamer 2021-0 2022- No 800mg Q.5D Take [address] (RENVELA) 2-03 02-03 mg by [facility] 800 mg 00:00: 23:59 mouth 2 Medical tablet 00 :00 (two) Center times daily. sevelamer 2021-0 202- No 800mg Q.5D Take [address] (RENVELA) 2-03 02-03 mg by [facility] 800 mg 00:00: 23:59 mouth 2 Medical tablet 00 :00 (two) Center times daily. sevelamer 2021-0 2023- No 800mg Q.5D Take [address] (RENVELA) 2-03 02-03 mg by [facility] 800 mg 00:00: 23:59 mouth 2 Medical tablet 00 :00 (two) Center times daily. predniSONE 2021-0 2022- No 2.5mg Q.5D Take 2.[address] (DELTASONE) 2-03 11-14 mg by [facility] 5 MG tablet 00:00: 00:00 mouth 2 Me dical 00 :00 (two) Center times daily . predniSONE 0 2021- No 2.5mg Q.5D Take 2.[address] (DELTASONE) 2-03 11-14 mg by [facility] 5 MG tablet 00:00: 00:00 mouth 2 Me dical 00 :00 (two) Center times daily . predniSONE 0 2021- No 2.5mg Q.5D Take 2.[address] (DELTASONE) 2-03 11-14 mg by [facility] 5 MG tablet 00:00: 00:00 mouth 2 Me dical 00 :00 (two) Center times daily . predniSONE 2021- No 2.5mg Q.5D Take 2.[address] (DELTASONE) 2-03 11-14 mg by [facility] 5 MG tablet 00:00: 00:00 mouth 2 Me dical 00 :00 (two) Center times daily . Metoprolol Yes [facility] Succinate - [place] 50 MG CS24 00:00: of 00 Medicin e Metoprolol 0 Yes [facility] Succinate 8- [place] 50 MG CS24 00:00: of 00 Medicin e Metoprolol 0 Yes [facility] Succinate 8- [place] 50 MG CS24 00:00: of 00 Medicin e Vital Signs Vital Name Observation Time Observation Value Comments Source Systolic blood 2023-01-11 20:40:00 212 mm[Hg] [facility] pressure Medicine Diastolic blood 2023-01-11 20:40:00 82 mm[Hg] [facility] pressure Medicine Heart rate 2023-01-11 20:40:00 56 /min [facility] Body temperature 2023-01-11 20:40:00 36.5 Zaida [facility] Respiratory rate 2023-01-11 20:40:00 18 /min [facility] Body height 2023-01-11 20:40:00 160 cm [facility] Body weight 2023-01-11 20:40:00 58.242 kg [facility] BMI 2023-01-11 20:40:00 22.75 kg/m2 [facility] HEIGHT 2022-12-14 07:14:18 160 cm WEIGHT 2022-12-14 07:14:18 57.2 kg HEIGHT 2022-12-14 07:14:18 160 cm WEIGHT 2022-12-14 07:14:18 57.2 kg HEIGHT 2022-12-14 07:14:18 160 cm WEIGHT 2022-12-14 07:14:18 57.2 kg Systolic blood 2022-12-06 21:06:00 118 mm[Hg] [facility] pressure Medicine Diastolic blood 2022-12-06 21:06:00 75 mm[Hg] [facility] pressure Medicine Heart rate 2022-12-06 21:06:00 65 /min [facility] Body temperature 2022-12-06 21:06:00 36.78 Zaida [facility] Respiratory rate 2022-12-06 21:06:00 18 /min [facility] Body height 2022-12-06 21:06:00 160 cm [facility] Body weight 2022-12-06 21:06:00 56.246 [facility] BMI 2022-12-06 21:06:00 21.97 kg/m2 [facility] Systolic blood 2022-10-26 16:43:00 157 mm[Hg] [facility] pressure Medicine Diastolic blood 2022-10-26 16:43:00 80 mm[Hg] [facility] Medicine BMI 2022-10-26 16:40:00 23.91 kg/m2 [facility] Heart rate 2022-10-26 16:40:00 58 /min [facility] Body temperature 2022-10-26 16:40:00 36.78 Zaida [facility] Respiratory rate 2022-10-26 16:40:00 18 /min [facility] Body height 2022-10-26 16:40:00 160 cm [facility] Body weight 2022-10-26 16:40:00 61.236 kg [facility] HEIGHT 2022-10-15 13:56:00 160 cm WEIGHT 2022-10-15 13:56:00 59.875 kg HEIGHT 2022-10-15 13:56:00 160 cm WEIGHT 2022-10-15 13:56:00 59.875 kg HEIGHT 2022-10-15 13:56:00 160 cm WEIGHT 2022-10-15 13:56:00 59.875 kg WEIGHT 2022-10-04 04:14:00 62.052 kg WEIGHT 2022-10-02 04:03:00 61.326 kg WEIGHT 2022-10-01 06:00:00 61.462 kg HEIGHT 2022-09-30 22:06:00 160 cm WEIGHT 2022-10-04 04:14:00 62.052 kg WEIGHT 2022-10-02 04:03:00 61.326 kg WEIGHT 2022-10-01 06:00:00 61.462 kg HEIGHT 2022-09-30 22:06:00 160 cm WEIGHT 2022-10-04 04:14:00 62.052 kg WEIGHT 2022-10-02 04:03:00 61.326 kg WEIGHT 2022-10-01 06:00:00 61.462 kg HEIGHT 2022-09-30 22:06:00 160 cm Systolic blood 2022-12-14 10:19:00 179 mm[Hg] [facility] Diastolic blood 2022-12-14 10:19:00 80 mm[Hg] [facility] Heart rate 2022-12-14 10:19:00 70 /min [facility] Body temperature 2022-12-14 10:19:00 36.11 Zaida [facility] Respiratory rate 2022-12-14 10:19:00 16 /min [facility] Oxygen saturation in 2022-12-14 10:19:00 96 /min [facility] Arterial blood by Medical Ce nter Pulse oximetry Body height 2022-12-14 07:14:18 160 cm [facility] Body weight 2022-12-14 07:14:18 57.2 kg [facility] BMI 2022-12-14 07:14:18 22.34 kg/m2 [facility] Systolic blood 2022-10-15 13:56:00 142 mm[Hg] [facility] Diastolic blood 2022-10-15 13:56:00 78 mm[Hg] [facility] Heart rate 2022-10-15 13:56:00 75 /min [facility] Body height 2022-10-15 13:56:00 160 cm [facility] Body weight 2022-10-15 13:56:00 59.875 kg [facility] BMI 2022-10-15 13:56:00 23.38 kg/m2 [facility] Body temperature 2022-10-05 11:35:00 37.17 Zaida [facility] Respiratory rate 2022-10-05 11:35:00 18 /min [facility] Oxygen saturation in 2022-10-05 11:35:00 97 /min [facility] Arterial blood by Medical Ce ntjesus Pulse oximetry Procedures Procedure Date / Time Performing Clinician Source Performed MISCELLANEOUS LAB ORDER 2022-12-14 10:33:00 Bharti Correa [facility] CHROMOSOMES CANCER STUDY 2022-12-14 09:34:00 Jack Saunders [facility] [place] 2022-12-14 09:25:00 [facility]/INJECTI [facility] ON FLOW CYTOMETRY 2022-12-14 09:00:[address] [facility] B[facility] MARROW PROCESS. 2022-12-14 09:00:00 Nicky [facility] FLOW CYTOMETRY 2022-12-14 09:00:00 Nicky [facility] BONE MARROW EXAM 2022-12-14 09:00:00 Ernestina Saundershil [facility] POCT-GLUCOSE METER 2022-12-14 07:23:00 Nicky [facility] CBC W/PLT COUNT & AUTO 2022-12-14 07:13:[address] [facility] PROTHROMBIN TIME/INR 2022-12-14 07:13:00 [facility] CBC W/PLT COUNT & AUTO 2022-12-14 07:13:00 Cristian [facility] AMB REF TO INTERVENTIONAL 2022-12-06 15:41:11 [facility] EXTERNAL Medicine CBC W/PLT COUNT & AUTO 2022-10-05 04:33:00 Gonzales [facility] BASIC METABOLIC PANEL 2022-10-05 04:33:00 Alonso Rolon [facility] CBC W/PLT COUNT & AUTO 2022-10-05 04:33:00 Alonso Rolon [facility] (CELLAVISION MANUAL DIFF) 2022-10-05 04:33:00 Alonso Rolon [facility] CBC W/PLT COUNT & AUTO 2022-10-04 03:54:00 Alonso Rolon [facility] BASIC METABOLIC PANEL 2022-10-04 03:54:00 Gonzales [facility] CBC W/PLT COUNT & AUTO 2022-10-04 03:54:00 Alonso Rolon [facility] (MANUAL DIFFERENTIAL) 2022-10-04 03:54:00 Cailin Singer [facility] PREPARE LEUKO-REDUCED 2022-10-03 23:54:00 Kimmie Galo [facility] DIRECT AHG ([place])/DIRECT 2022-10-03 13:31:00 Alonso Rolon [facility] ABORH, MANUAL 2022-10-03 13:31:00 Alonso Rolon [facility] PERIPHERAL BLOOD SMEAR - 2022-10-03 05:32:00 Alonso Rolon [facility] CBC W/PLT COUNT & AUTO 2022-10-03 05:32:00 Alonso Rolon [facility] BASIC METABOLIC PANEL 2022-10-03 05:32:00 Alonso Rolon [facility] HEPATIC FUNCTION PANEL 2022-10-03 05:32:00 Alonso Rolon [facility] LACTATE DEHYDROGENASE 2022-10-03 05:32:00 Alonso Rolon [facility] HAPTOGLOBIN 2022-10-03 05:32:00 Alonso Rolon [facility] RETICULOCYTE COUNT 2022-10-03 05:32:00 Alonso Rolon [facility] PROTHROMBIN TIME/INR 2022-10-03 05:32:00 Alonso Rolon [facility] CBC W/PLT COUNT & AUTO 2022-10-03 05:32:00 Alonso Rolon [facility] DIFFERENTIAL [facility] (CELLAVISION MANUAL DIFF) 2022-10-03 05:32:00 Alonso Rolon [facility] PREPARE RBC 2022-10-02 23:54:00 Deepak Loo [facility] VANCOMYCIN LEVEL, TROUGH 2022-10-02 16:50:00 Garryholger Fiorella [facility] TRANSFUSE LEUKO-REDUCED 2022-10-02 14:45:00 Kimmie Galo CH, I [facility] 2D ECHO W/ DOPPLER 2022-10-02 12:14:[address] [facility] Fatoumata Badillo (CW/PW/COLOR) [facility] COMPREHENSIVE METABOLIC 2022-10-02 03:52:00 Oma Rodriguez [facility] PANEL [facility] MAGNESIUM 2022-10-02 03:52:00 Oma Rodriguez [facility] CBC W/PLT COUNT & AUTO 2022-10-02 03:52:[address] [facility] DIFFERENTIAL [facility] ANTI-NEUTROPHIL 2022-10-02 03:52:00 Kimmie Galo [facility] es CYTOPLASMIC AB (ANCA) Medical Ce nter CBC W/PLT COUNT & AUTO 2022-10-02 03:52:[address] [facility] DIFFERENTIAL [facility] (MANUAL DIFFERENTIAL) 2022-10-02 03:52:00 Kimmie Galo [facility] XR CHEST 2 VIEWS 2022-10-01 17:51:00 Oma Rodriguez [facility] URINALYSIS W/ MICROSCOPIC 2022-10-01 17:42:00 Kimmie Galo [facility] TRANSFUSE LEUKO-REDUCED 2022-10-01 12:08:00 Kimmie Galo CH I [facility] RED BLOOD CELLS Medical Center ECG 12-LEAD 2022-10-01 07:57:52 Deepak Loo [facility] PROTEIN, RANDOM URINE 2022-10-01 04:39:00 Deepak Loo [facility] CREATININE, RANDOM URINE 2022-10-01 04:39:00 Deepak Loo ph [facility] HIGH SENSITIVITY TROPONIN 2022-10-01 04:35:00 Deepak Loo [facility] COMPREHENSIVE METABOLIC 2022-10-01 04:31:00 Oma Rodriguez [facility] PANEL [facility] MAGNESIUM 2022-10-01 04:31:00 Oma Rodriguez [facility] CBC W/PLT COUNT & AUTO 2022-10-01 04:31:[address] [facility] DIFFERENTIAL [facility] PERIPHERAL BLOOD SMEAR - 2022-10-01 04:31:[address] [facility] PATHOLOGIST REVIEW Medical Cente r CBC W/PLT COUNT & AUTO 2022-10-01 04:31:00 Oma Rodriguez [facility] (CELLAVISION MANUAL DIFF) 2022-10-01 04:31:00 Oma Rodriguez [facility] ABORH, MANUAL 2022-10-01 01:52:00 Sharlene Sanabria [facility] HIGH SENSITIVITY TROPONIN 2022-10-01 01:35:00 Oma Rodriguez [facility] TYPE AND SCREEN, 2022-10-01 01:35:00 Oma Rodriguez [facility] AUTOMATED [facility] URINALYSIS W/ REFLEX 2022-09-30 23:11:00 Oma Rodriguez [facility] URINE CULTURE [facility] PROCALCITONIN 2022-09-30 23:00:00 Oma Rodriguez [facility] BLOOD CULTURE 2022-09-30 23:00:00 MichaelOma [facility] HIGH SENSITIVITY TROPONIN 2022-09-30 22:51:00 MichaelOma [facility] B-TYPE NATRIURETIC FACTOR 2022-09-30 22:51:00 MichaelOma [facility] (BNP) [facility] CBC W/PLT COUNT & AUTO 2022-09-30 22:51:[address] [facility] DIFFERENTIAL [facility] CBC W/PLT COUNT & AUTO 2022-09-30 22:51:[address] [facility] DIFFERENTIAL [facility] (CELLAVISION MANUAL DIFF) 2022-09-30 22:51:00 Michael Oma tucker [facility] MAGNESIUM 2022-09-30 22:50:00 Michael Oma Caceres [facility] TSH 2022-09-30 22:50:00 Michael Oma Caceres [facility] T4, FREE 2022-09-30 22:50:00 Michael Oma Caceres [facility] C-REACTIVE PROTEIN 2022-09-30 22:50:00 Michael Oma Caceres [facility] PROTHROMBIN TIME/INR 2022-09-30 22:50:00 Michael Oma Caceres [facility] BLOOD CULTURE 2022-09-30 22:50:00 Michael Oma Caceres [facility] COMPREHENSIVE METABOLIC 2022-09-30 22:50:00 Michael Oma Caceres [facility] ECG 12-LEAD 2022-09-30 22:28:29 Michael [facility] ECG 12-LEAD 2022-09-30 22:28:29 Unknown, 7 [facility] ECG 12-LEAD 2022-09-30 22:28:29 Unknown, 7 [facility] ECG 12-LEAD 2022-09-30 22:26:58 Unknown, [id number] [facility] EKG-SCANNED 2022-09-30 00:00:00 ProviderSkip [facility] es Scanning [facility] Plan of Care Planned Activity Planned Date Details Comments Source Future Scheduled 2023-12-[address] [facility] Test 00:00:00 [facility] r Screening (12+) [code = Tobacco Cessation Counseling and Screening (12+)] Future Scheduled 2023-12-[address] [facility] Test 00:00:00 [facility]ing [facility] Medical Cente r Screening (12+) [code = Tobacco Cessation Counseling and Screening (12+)] Future Scheduled 2023-10-[address] [facility] Test 00:00:00 [facility]ing [facility] Medical Cente r Screening (12+) [code = Tobacco Cessation Counseling and Screening (12+)] Future Scheduled 2023-10-[address] [facility] Test 00:00:00 [facility]ing [facility] Medical Cente r Screening (12+) [code = Tobacco Cessation Counseling and Screening (12+)] Future Scheduled 2023-01-11 COVID-19 Vaccine (2 - Ba [facility] of Test 15:16:48 Moderna series) [code Medici ne = COVID-19 Vaccine (2 - Moderna series)] Future Scheduled 2023-01-11 FLU VACCINE > 6 MONTHS B [facility] of Test 15:16:48 [code = FLU VACCINE > Medici ne 6 MONTHS] Future Scheduled 2023-01-11 TETANUS SHOT (ADULT) [facility] of Test 15:16:48 [code = TETANUS SHOT Medicin e (ADULT)] Future Scheduled 2023-01-11 Hepatitis C screening [facility] of Test 15:16:48 (procedure) [code = Medicine [id number]] Future Scheduled 2023-01-11 ZOSTER VACCINE (1 of [facility] of Test 15:16:48 2) [code = ZOSTER Medicine VACCINE (1 of 2)] Future Scheduled 2023-01-11 Medicare Awv (Initial) B [facility] of Test 15:16:48 [code = Medicare Awv Medicin e (Initial)] Future Scheduled 2023-01-11 Fall Screen [code = [facility] of Test 15:16:48 Fall Screen] Medicine Future Scheduled 2023-01-11 Screening for [facility] of Test 15:16:48 osteoporosis Medicine (procedure) [code = [id number]] Future Scheduled 2023-01-11 Pneumococcal 65+ (1 - Ba [facility] of Test 15:16:48 PCV) [code = Medicine Pneumococcal 65+ (1 - PCV)] Future Scheduled 2022-12-06 TETANUS SHOT (ADULT) [facility] of Test 16:05:53 [code = TETANUS SHOT Medicin e (ADULT)] Future Scheduled 2022-12-06 Hepatitis C screening [facility] of Test 16:05:53 (procedure) [code = Medicine [id number]] Future Scheduled 2022-12-06 ZOSTER VACCINE (1 of [facility] of Test 16:05:53 2) [code = ZOSTER Medicine VACCINE (1 of 2)] Future Scheduled 2022-12-06 MEDICARE AWV (Initial) B [facility] of Test 16:05:53 [code = MEDICARE AWV Medicin e (Initial)] Future Scheduled 2022-12-06 FALL SCREEN [code = [facility] of Test 16:05:53 FALL SCREEN] Medicine Future Scheduled 2022-12-06 Screening for [facility] of Test 16:05:53 osteoporosis Medicine (procedure) [code = [id number]] Future Scheduled 2022-12-06 Pneumococcal 65+ (1 - Ba [facility] of Test 16:05:53 PCV) [code = Medicine Pneumococcal 65+ (1 - PCV)] Future Scheduled 2022-12-06 COVID-19 Vaccine (2 - [facility] of Test 16:05:53 Moderna series) [code Medici ne = COVID-19 Vaccine (2 - Moderna series)] Future Scheduled 2022-12-06 FLU VACCINE > 6 MONTHS B [facility] of Test 16:05:53 [code = FLU VACCINE > Medici ne 6 MONTHS] Future Scheduled 2022-12-05 COVID-19 VACCINE (#1) [facility] Test 13:17:11 [code = COVID-19 VACCINE (#1)] Future Scheduled 2022-12-05 COLONOSCOPY SCREENING [facility] Test 13:17:11 [code = COLONOSCOPY SCREENING] Future Scheduled 2022-12-05 65+ PNEUMOCOCCAL Methodi [facility] Test 13:17:11 VACCINE (1 - PCV) [code = 65+ PNEUMOCOCCAL VACCINE (1 - PCV)] Future Scheduled 2022-12-05 SHINGLES [facility]ACCINES ([facility] 13:17:11 of 3) [code = SHINGLES VACCINES (2 of 3)] Future Scheduled 2022-12-05 INFLUENZA VACCINE Method [facility] Test 13:17:11 [code = INFLUENZA VACCINE] Future Scheduled 2022-12-[address] [facility] Test 00:00:00 (12+) [code = Medical Center DEPRESSION SCREENING (12+)] Future Scheduled 2022-12-02 FALLS RISK SCREENING [facility] Test 00:00:00 [code = FALLS RISK Medical C enter SCREENING] Future Scheduled 2022-12-[address] [facility] Test 00:00:00 (12+) [code = Medical Center DEPRESSION SCREENING (12+)] Future Scheduled 2022-12-02 FALLS RISK SCREENING [facility] Test 00:00:00 [code = FALLS RISK Medical C enter SCREENING] Future Scheduled 2022-12-[address] [facility] Test 00:00:00 (12+) [code = Medical Center DEPRESSION SCREENING (12+)] Future Scheduled 2022-12-02 FALLS RISK SCREENING [facility] Test 00:00:00 [code = FALLS RISK Medical C enter SCREENING] Future Scheduled 2022-10-26 TETANUS SHOT (ADULT) [facility] of Test 10:40:17 [code = TETANUS SHOT Medicin e (ADULT)] Future Scheduled 2022-10-26 Hepatitis C screening [facility] of Test 10:40:17 (procedure) [code = Medicine [id number]] Future Scheduled 2022-10-26 ZOSTER VACCINE (1 of [facility] of Test 10:40:17 2) [code = ZOSTER Medicine VACCINE (1 of 2)] Future Scheduled 2022-10-26 MEDICARE AWV (Initial) B [facility] of Test 10:40:17 [code = MEDICARE AWV Medicin e (Initial)] Future Scheduled 2022-10-26 FALL SCREEN [code = [facility] of Test 10:40:17 FALL SCREEN] Medicine Future Scheduled 2022-10-26 Screening for [facility] of Test 10:40:17 osteoporosis Medicine (procedure) [code = [id number]] Future Scheduled 2022-10-26 Pneumococcal 65+ (1 - Ba [facility] of Test 10:40:17 PCV) [code = Medicine Pneumococcal 65+ (1 - PCV)] Future Scheduled 2022-10-26 COVID-19 Vaccine (2 - [facility] [employer] of Test 10:40:17 Moderna series) [code Medici ne = COVID-19 Vaccine (2 - Moderna series)] Future Scheduled 2022-10-26 FLU VACCINE > 6 MONTHS [facility] Test 10:40:17 [code = FLU VACCINE > Medici ne 6 MONTHS] Future Scheduled 2022-09-30 INFLUENZA VACCINE [facility] Test 00:33:20 [code = INFLUENZA VACCINE] Future Scheduled 2022-09-30 HEPATITIS B VACCINES Met [facility] Test 00:33:20 (1 of 3 - 3-dose series) [code = HEPATITIS B VACCINES (1 of 3 - 3-dose series)] Future Scheduled 2022-09-30 COVID-19 VACCINE (#1) [facility] Test 00:33:20 [code = COVID-19 VACCINE (#1)] Future Scheduled 2022-09-30 Hepatitis C screening [facility] Test 00:33:20 (procedure) [code = [id number]] Future Scheduled 2022-09-30 COLONOSCOPY SCREENING [facility] Test 00:33:20 [code = COLONOSCOPY SCREENING] Future Scheduled 2022-09-30 SHINGLES VACCINES (1 Met [facility] Test 00:33:20 of 2) [code = SHINGLES VACCINES (1 of 2)] Future Scheduled 2022-09-30 65+ PNEUMOCOCCAL [facility] Hospital Test 00:33:20 VACCINE (1 - PCV) [code = 65+ PNEUMOCOCCAL VACCINE (1 - PCV)] Future Scheduled 2022-08-02 INFLUENZA VACCINE (#1[facility]00 [code = INFLUENZA Medical Ce nter VACCINE (#1)] Future Scheduled 2022-08-02 INFLUENZA VACCINE (#1) [facility] 00:00:00 [code = INFLUENZA Medical Ce nter VACCINE (#1)] Future Scheduled 2022-08-02 INFLUENZA VACCINE (#1) [facility] 00:00:00 [code = INFLUENZA Medical Ce nter VACCINE (#1)] Future Scheduled 2022-08-02 INFLUENZA VACCINE (#1) [facility] 00:00:00 [code = INFLUENZA Medical Ce nter VACCINE (#1)] Future Scheduled 2021-12-[address] [facility] Test 00:00:00 (12+) [code = Medical Center DEPRESSION SCREENING (12+)] Future Scheduled 2021-12-02 FALLS RISK SCREENING [facility] Test 00:00:00 [code = FALLS RISK Medical C enter SCREENING] Future Scheduled 2021-09-26 COVID-19 VACCINE (2 - [facility] 00:00:00 Moderna series) [code Medica l Center = COVID-19 VACCINE (2 - Moderna series)] Future Scheduled 2021-09-26 COVID-19 VACCINE (2 - [facility] 00:00:00 Moderna series) [code Medica l Center = COVID-19 VACCINE (2 - Moderna series)] Future Scheduled 2021-09-26 COVID-19 VACCINE (2 - [facility] 00:00:00 Moderna series) [code Medica l Center = COVID-19 VACCINE (2 - Moderna series)] Future Scheduled 2021-09-26 COVID-19 VACCINE (2 - [facility] 00:00:00 Moderna series) [code Medica l Center = COVID-19 VACCINE (2 - Moderna series)] Future Scheduled 2019-01-05 SHINGLES VACCINES ([address] [facility] Test 00:00:00 of 3) [code = SHINGLES Medic al Center VACCINES (2 of 3)] Future Scheduled 2019-01-05 SHINGLES VACCINES ([address] [facility] Test 00:00:00 of 3) [code = SHINGLES Medic al Center VACCINES (2 of 3)] Future Scheduled 2019-01-05 SHINGLES VACCINES ([address] [facility] Test 00:00:00 of 3) [code = SHINGLES Medic al Center VACCINES (2 of 3)] Future Scheduled 2019-01-05 SHINGLES VACCINES ([address] [facility] Test 00:00:00 of 3) [code = SHINGLES Medic al Center VACCINES (2 of 3)] Future Scheduled 2012-07-[address] [facility] 00:00:00 WELLNESS (YEAR 2 or Medical Center FIRST YEAR if no IPPE) [code = MEDICARE ANNUAL WELLNESS (YEAR 2 or FIRST YEAR if no IPPE)] Future Scheduled 2012-07-[address] [facility] [facility] 00:00:00 WELLNESS (YEAR 2 or Medical Center FIRST YEAR if no IPPE) [code = MEDICARE ANNUAL WELLNESS (YEAR 2 or FIRST YEAR if no IPPE)] Future Scheduled 2012-07-[address] [facility] [facility] 00:00:00 WELLNESS (YEAR 2 or Medical Center FIRST YEAR if no IPPE) [code = MEDICARE ANNUAL WELLNESS (YEAR 2 or FIRST YEAR if no IPPE)] Future Scheduled 2012-07-[address] [facility] 00:00:00 WELLNESS (YEAR 2 or Medical Center FIRST YEAR if no IPPE) [code = MEDICARE ANNUAL WELLNESS (YEAR 2 or FIRST YEAR if no IPPE)] Future Scheduled 2011 PNEUMOCOCCAL 65+ YRS [facility] Test 00:00:00 (1 - PCV) [code = Medical Ce nter PNEUMOCOCCAL 65+ YRS (1 - PCV)] Future Scheduled 2011 PNEUMOCOCCAL 65+ YRS [facility] Test 00:00:00 (1 - PCV) [code = Medical Ce nter PNEUMOCOCCAL 65+ YRS (1 - PCV)] Future Scheduled 2011 PNEUMOCOCCAL 65+ YRS [facility] Test 00:00:00 (1 - PCV) [code = Medical Ce nter PNEUMOCOCCAL 65+ YRS (1 - PCV)] Future Scheduled 2011 PNEUMOCOCCAL 65+ YRS [facility] Test 00:00:00 (1 - PCV) [code = Medical Ce nter PNEUMOCOCCAL 65+ YRS (1 - PCV)] Future Scheduled 1965 DTAP/TDAP/TD VACCINES [facility] 00:00:00 (1 - Tdap) [code = Medical C enter DTAP/TDAP/TD VACCINES (1 - Tdap)] Future Scheduled 1965 DTAP/TDAP/TD VACCINES [facility] 00:00:00 (1 - Tdap) [code = Medical C enter DTAP/TDAP/TD VACCINES (1 - Tdap)] Future Scheduled 1965 DTAP/TDAP/TD VACCINES [facility] 00:00:00 (1 - Tdap) [code = Medical C enter DTAP/TDAP/TD VACCINES (1 - Tdap)] Future Scheduled 1965 DTAP/TDAP/TD VACCINES [facility] 00:00:00 (1 - Tdap) [code = Medical C enter DTAP/TDAP/TD VACCINES (1 - Tdap)] Future Scheduled 1964 HEPATITIS C [facility]CRE[facility]ING [facility] 00:00:00 [code = HEPATITIS C Medical Center SCREENING] Future Scheduled 1964 HEPATITIS C [facility]CRE[facility]ING [facility] 00:00:00 [code = HEPATITIS C Medical Center SCREENING] Future Scheduled 1964 HEPATITIS C [facility]CRE[facility] 00:00:00 [code = HEPATITIS C Medical Center SCREENING] Future Scheduled 1964 HE[facility]ITIS C [facility] 00:00:00 [code = HEPATITIS C Medical Center SCREENING] Future Scheduled 1946 DXA SCAN [code = DXA [facility] Test 00:00:00 SCAN] [facility] Future Scheduled 1946 DXA SCAN [code = DXA [facility] Test 00:00:00 SCAN] [facility] Future Scheduled 1946 DXA SCAN [code = DXA [facility] Test 00:00:00 SCAN] Medical Center Future Scheduled 1946 DXA SCAN [code = DXA [facility] Test 00:00:00 SCAN] [facility] Encounters Start End Encounter Admission Attending Care Care Encounter Source Date/Time Date/Time Type Type Clinicians Facility Department ID 2022-09-28 Outpatient SYSTEM[facility] [id number] 13:46:31 PROVIDER Jered tucker 2023-01-11 2023-01-11 Office LINDSEY SAUNDERS [id number] [facility] 14:29:06 15:19:43 Visit JACKEduardo Vasquez [id number] Co mirellaege [id number] of [id number] [facility] marilee 506 e 2022-12-14 2022-12-[address] [facility] SLE [id number] SLE 08:43:22 23:59:00 [facility] 2022-12-14 2022-12-14 [facility] [id number] 08:00:00 23:59:00 Encounter [facility] 2022-12-14 2022-12-14 [facility] [id number] 08:00:00 23:59:00 Encounter [facility] 2022-12-14 2022-12-14 [facility] [id number] [facility] 05:56:00 10:21:00 JACK 2022-12-14 2022-12-14 [facility] [id number] 05:56:00 10:21:00 Encounter [facility] 2022-12-14 2022-12-14 [facility] [id number] 05:56:00 10:21:00 Encounter [facility] 2022-12-14 2022-12-14 Surgery [facility], [facility] [id number] 08:00:00 08:15:00 [facility] 2022-12-14 2022-12-14 Surgery [facility], [facility] [id number] 08:00:00 08:15:00 [facility] 2022-12-14 2022-12-[address] [facility] [id number] [facility] 00:[facility] 00:00:00 [facility] 2022-12-14 2022-12-[address] [facility] [id number] [facility] 00:[facility] 00:00:00 [facility] 2022-12-06 2022-12-06 Office NICKY [facility] [id number] [facility] 14:56:12 16:13:08 Visit [facility] Pedro [id number] Co llege [id number] [facility] marilee 506 e 2022-12-06 2022-12-06 Outside Nicky [facility] [id number] 00:00:00 00:00:00 Orders [facility] 2022-12-06 2022-12-06 Orders Nicky [facility] [id number] 00:00:00 00:00:00 Only [facility] 2022-12-06 2022-12-06 Outside Nicky, [facility] [id number] 00:00:00 00:00:00 Orders [facility] 2022-12-06 2022-12-06 Orders Nicky [facility] [id number] 00:00:00 00:00:00 Only [facility] 2022-10-26 2022-10-26 Office NICKY [facility] [id number] [facility] 10:00:05 14:18:56 Visit JACK Pedro [id number] Co llvaishalie [id number] [facility] 506 e 2022-10-15 2022-10-15 Video - Matthew [facility] [id number] 15:00:00 15:15:[address] [facility] 2022-10-15 2022-10-[address] [facility] - Matthew [facility] [id number] 15:00:00 15:15:[address] [facility] 2022-10-15 2022-10-[address] [facility] [id number] SLE 13:24:46 13:24:46 [facility] 2022-09-30 2022-10-05 [facility] FerminYanira almendarez [facility] [id number] 20:28:00 14:30:00 [facility]22-10-05 Inpatient AMY ARMSTRONG Hematology [id number] SLE 20:28:00 14:30:00 [facility] 2022-09-30 2022-10-05 [facility] [id number] 20:28:00 14:30:00 Encounter [facility] 2022-09-30 2022-09-30 Outpatient [facility] [id number] [facility] 00:00:00 23:59:00 Aubrie Medicin e 2022-09-30 2022-09-30 Orders [facility] [id number] 00:00:00 00:00:00 Only [facility] 2022-09-30 2022-09-30 Orders [facility] [id number] 00:00:00 00:00:00 Only [facility] Results Test Description Test Time Test Comments Results Result Comments Source Bone Marrow Exam 2022-12-28 13:36:52 Test Item Value Reference Range Interpretation Comme nts Case Report (test code = 104) Bone Marrow Pathology Report Case: [id number] Authorizing Provider: Jack Saunders MD Collected: 12/14/2022 09:00 AM Ordering Location: [facility] Received: 12/14/2022 09:36 AM SERVICES Pathologist: Bharti Correa MD Specimens: A) - Bone Marrow B) - Bone Marrow C) - Bone Marrow ADDENDUM (test code = 3381) i0eviYBaTOAjbCO7YvGiKMWos8kkh1JgkPYqpAL y AAucfLKtoqIgdj55cRU5qT39IT7hQFTvCfJ4ZWFm ypE0Qie4TWGuHVVplVSiT631p6upb6voswDlyXN7 uLucGXAwjhywAtB7EDkmJKCjlhuhPVw6GSnsJNGy lBP3FBZwoLDuT1WpWFYxBF7mfuw3LRL6AIltWRGs RiJ9UOEztIFfSPPttPrlHQxye515FFX3MdWzAHOp hpYhgVinuI9fOaAlVVLNeJPpX2GiTNFbGiQvvXVs bPKmHIKcpsRvFFHecbBzUABftHUGFH0DCG8cgWqh utfsq9abuqFqIC6ovh8fbUMeBIC2x1Z8gVOkJNZg UFEldLDwV3pkOCKdUARxzrKsFtGqUaB2gZLvET9o kxF7yC9iOABviDIodvIiyhwoDK1EBrnfEDtgfeYt KTIdkjPqKEPguUOJHB2jRE0mhGuzhgzhOG1coeAc w1OtsJAhhcDyZomzXZ94IELcuKysE3YtoVSskPP8 OJDmx37fRGasJMOeYVV7PUGcEBGajkXep5G6DN2s RUViQHKxZDMrb0LwbDMwGP6cev22PYOnwOAlbsS1 uGBqqELhtljmjQFilTHaQC6aXKBcOQEjpLXcvq8e aXMuIFxwYXJ9 DIAGNOSIS (test code = 3220) q9dtrPZzKBGfi8qzOMSwgTRuKtNjVfEbEkBdPj pc dWMxIHtccnRmMVxlcGljOTYwMlxhbnNpXHNwbHRw O7YbhgaoDJebHS2mCA3reOkcaMGepFOtJAWjYqSe w9ymq323hXMwp5lhGCTBwvsixIc6wLsmK04wn0B2 XwxxG09grDZqACU7ZLYoFYWkeUZoQFNyCKS9ZNCo qLKaQ3ngYGYsVK2kitvvTUsgVKugPHMnqFG0EQGf lPZqR9JoQNCuTPmoLEZvrbv5IcBeVg8ppKNzbVex SMjpKSJdIJXtVRryMGLcUsWyPf8RZJONBVSPB4zm ELXVZEBAERRlBHZXO7HhHWPAUTJMFLOEBSNJJljA OUMOLT4UJ6r7DJQswpGjJa9QUS2GXLpTTSgQOwNE AAEWB2hkE8qOTIYSXfxMYU8HSJkSWHfJYIUDS5NY SPYTEYHqAB1OEKMDPOYNPw6GDVNGYDXEBoJEUJWF BSYpjKDjZK5MDMNMYtKTBFRpEKPYRtWICbHPBQ6U ALUFQoQQVO7MXOSUOYBQP7LOTMBRZwNTRBYZWMkO XYKTIZZurgNdPKQWTChRRwZMNWOCM1YSVANAToXU VFVESUVTXHBhclxwYXJccGFyIFBFUklQSEVSQUwg WttQN6A8IMGjgwJlBXNVKb2UWREETdDENsNMDBIk L6qRTVQHLdDLEPNHUTRpLR9OVJDMOi2SMKVPAEfk KZLAX11XNM8OUXkqHPzAKRZCRUPRPUNOK7jIT9XI AotKKIXqhqgbSHP3d0oaqVIgCWPywYBvSDWeEMha cgZgETDaYvbwinbmNHBvPVS7emUdCLUiQIetOGBb HMctIm8diOQfrNxxKbDnIHSyo7hsoyXRzohydXi2 w7yxWZLrCmV4qILmFJswD9ycqcQtoSBkRNFiLYi1 pP63TEEjcO1zbLWsDZsqhiZmIfD0KMsyUOAtNgV2 MNQkpPPtMMToP1fcRJExEYteELKmTWdebTHxYKP5 lMdnr8U2cNFmcVGylCheMzLuAiOfZmLJo0PwMOo9 hPdlL1OoWHIcHwX6dBEoSESvCDkqETQhCFNkvjH4 pD43RNjfmfJ4cGCbv7Vyf02un092tA7uxVJyKTU1 QFWzYNCgnJVuMWGoWRT0FBQajIHwQ8qjASTwCV3u eypxQCklMCboDTHgxPH2ITVzlUVlC6YfCNFxKFfg ALAuthf9VfGqZj8swKDxtNacIPvys4qqq5nlfKAf Cnw9MYXmHxDrRpojOJqsv6Lac7nnSFEdsk9yCOU7 nPDgtOydi4D2sSLkPHMzvQEgGTVsOM3nkXVlVPCi pU2uxakbVEPfEzMerwqcOZRvcMuzcnJtEq9dwOih OCJ2LAyhT3ynaS9mIaL2OYghR7qoaO8sYZh0HKvi TDRgsYW5nrF3UWLheUBaK6IuhR9mLHIrIJ4kdwy9 q4dpCDR6SPtiBRQwHcM0xlM6DNViiECiQLKznIpz YSkub626IRV7FnYsAVUij1JlT7JptZxwD83pjYku U41tMQZkhEwacU5hfSvlxN5sMcSnUaRbLDfaoEjo GC2dUOHnH8pxcSDlTVHvQHSlJ0vfGfBomR6mtByy KZsmruFdODZzViy3OOKytXSyFPWnYza7FZZlMJJn I94dxhinFJL4cC4nw7lgx8FcLHxjGVN5AUFls38p HRrfwgG2VYtkMp71OWlfSFM5YAwbROQ4aZ== COMMENT (test code = 3359) [file] ESG9y8KkPISmHU3qFy0eDFLpYrNpwFEnyA== CPT Code(s) (test code = 3357) i3nuaQLsIGHdtZJ5SuFoNFJop3hth0BweQKr cGFy RVoibGDqizIyks51zSQ2zZ43RD1zMPBeNeI3CBRo ziG6Zmh0HEHlULUscAQvZ105s3qec8eqjkIkwCF1 vDjzGBOpefgqFzE3JWklSEMjvkhkECr8TBalDWBc hDW4QEFewPUgR9WnPYZfEF1aaim5DDH2LZfyVVLb BjC1KDChzTVlUEKgnVjyXBfip060WEV2NuFmGNIi huEwpOdtcQ1qJnSiThT9SAG8MJyvGINeIIc8QEb4 BtB5MWwbQmkfWLxaBYI5UTs9QlSbHwF9KOV0Mhjm ODgzNDEgeCAyXHBhcn0= CLINICAL HISTORY (test code = 3356) m6rukVBoOQOoeJS7UgUjTUBjo6iqq6I sdHBncGFy JRmbcPMqrlBvcb78cTO6iC39LZ7nLSMlAfZ7AVYy pfS7Kpb9XORrYYIofZVqG024c0kmf7dggzDxyDG8 hKpkNPPhctpgGbE0BPrhRTYrtqkqFPk7UVskSPLs aWA5UFTkgPObE1ZvQZVgDT9owfc6OSY2NVsqRJSf TqI9BFHvoHVlBMVcdZfbRXgtn088SYG3NuQrXZKu ybUrzExzuE3sYpRvGBQZLYHczAX2JO15UBHhqlN7 iA4dKO7oBEoyBXQ8 SPECIMEN SOURCE (test code = 3377) m0bbiJUjMEGpfVI9KfGiVNXuc1dpu1Dy dHBncGFy JTfkiVGzrdZhuj66nSC7cI64CS8lFOApCdJ4JFWd ymN3Jna2JTUeRWKvrTCkI058p0dhd8sfnuVwxHH4 tAztMQKsvpinOqD7EGzuFNHieipcSLx9QOutUBOf rYO0QUEazMKwH4VmHKLjZA2wgvt6GLJ9FFxkTYVa LvX5RWPgmYYzMXAbzCulMAmre150EQV2QiCjOUDi whFogIwnjQ2kUuReCTDBq21oLP5vctTiteHdeZLu fQ== GROSS DESCRIPTION (test code = e5dxeJLpLORwsTSXGAYsZ4oalpAeSXErbERd [facility] [id number]) [file] P6WnP0HkubQ6CPh6 MICROSCOPIC DESCRIPTION (test code = k9vdnTDdLSMznHV7EmDhHZLpf8sco6 BsdHBncGFy 3371) [file] ICAgICAgICAgICAgICAgICAgICAgICAgICBccGFy EV5vI5BtAYB9b4K6cLUiPwVuKRXwo3IrkXWbkvFa ITNuEDFkTJ0ruq1suMphHEUmrNExXVR6LFczNZGg ADVzqB6iGWagCTckn77jyMKbhYYvb5MxpJXgQMBg q5IfRO1lXBAbIJlud95bv0GhpZ7vfTNvQx9ngNOy WQ3aBRJsVXIyt7YutyT3PLQrsNRfgu5pFFPjIBFj PQYwJEHcft2dASClzzxhk2mhEFLcUkmkl2XnQLgk KK29dYEzOFMbPJfwBAVxaQDyAWIrEVQaEWQrOHIf ICAgICAgICAgICAgICAgICAgICAgICAgICAgICAg ICAgICAgICAgICAgICAgICAgICAgICAgICAgICAg AVGbUKNoXRJwLINpffIPW37BYO6CSxNOYcBRDA6C A1k9DRZsfbMUnJ9fq0tiZHK3Cm9niKtoESiooVCr HXYpg3KkACKaYKU7HDOvWSQxbkqlZMSeQd0zaJ5c ZWxsdWxhciAoIDIwLTMwICUpLiBDZWxsdWxhciBj z92yi6CxtPwnlpNhlQ7tfENhPCNuEEXnzWdaTVOm CTUcGJWurtScclIouJ93H7fraL8vcosbeFRpYRXb WYZ9kUuce4JneTUlmERaWP5lAE44AOzpvA6dIXZy gmOysxEbP04dqTvwcMQuXLLAMUrwn7RmoQ4itRPd qhUcbkXyOOIoQOF0YCLcPIJvYXIcqyHfm1h4sK67 tLVevJadkLGhB3JznRHmt6EnjR7wr4bxHnAjAo8y fy1iwTg1aVMqBpGkxDDfWNFcCKGcYIHlXHRzMGCm NSAwHYAzkWRsDV60nLVgNfUyRC2faE5qdTztrE4g aXTpaEQksPQjnOFlnsOttQPwTw4ghFWzUK8tZMQg HWOtBAEwt0jeRcgdwQR6JZTaojYphMT4WZB1EULf btYaeULvupF1kUHmFCSpSGSYRLR1ZjBhzQTayOCq ZGGjpoDzG2W9kLNjTUKjN0LmZlLXDLNjpUleRUTf yfNoohCpmOMrJBfuV1DePHudBrSuGLekiw8djOKc ICAgICAgICAgICAgICAgICAgICAgICAgICAgICAg VHXkLXKuewAKl522VCAoVXSbP2GsRRQ3JKFvV84r wJM6zOQqEFC0tLGrOGBoySHdW4KomJHehPVnb8Q6 jZWdwDBlGU0tjQejB7xvWUEsbRHkBOA2FIzePISk GGLajs6uRJrfCTHoFRTjqnKzHGQbi8GeGC4xBXOo KUvon39yl0DhkE4ebZNjVg0soKGkZW4fOWBdNGXr eC44LLPqN2Utl69oXFKlwWHdDPNxqtlsYTNuNRII JBFQKNNNQWRBHQ5QQMypsKKpOLVzuyimSDFoJhGA yzyyaLAhUHGyBbBQtsGxDKYmAOYepJ5mnMVnxr4u ORKaMZdkmZLbou1yhYFxOzgtbX6vodQgb2BxYVAc aXVfV2i7o4Nor9noMRHoOZEbNYMkWMMwSCYlSVEw GRCsBLBgJHNjQVDzOOEnSVHvzWMnZNgBL2D9HNQt Xwz8SBGrMI92AKG0MZ9xtcCni2ebJ3njWNS8l3Qp JKBuEJIoa6CwgZHymeFwPpkbREDmrgXnMLJ0ff3b aGlsIHNlcmllcyAgICAgICAgICAgICAgICAgICAg XHBhciAgICAgICAgICAgICAgICAgICAgICAgICAg ICAgICAgIFxwYXIgUGxhdGVsZXRzOiBcdGFiICBN aRbrlEyyOMMowfEwz1PoQyIkU3Qun0xcvbMhJSFe iFVcX0KtIXTufe5mDVgzJCJmsYDtWKUpxrapXHGf cGFyfQ== SPECIAL STUDIES (test code = 3376) k9bzbAWiSYTqwDZ7KlBzUBBsh6ieu4Ee dHBncGFy [file] XHBhcn0= Gross assessment was performed at (test [facility] enter, code = 2777) Department of Pathology, [address] [place] [address], Technical component was performed at [facility] er, (test code = 2778) Department of Pathology, [address] [place] [address], Professional component was performed at [facility] enter, (test code = 2779) Department of Pathology, [address] [place] [address], [id number] 13:36:52 Test Item Value Reference Range Interpretation Comments Case Report (test code [facility] [place] Pathology = 104) Report Case: [id number] Authorizing Provider: Jack Saunders MD Collected: 12/14/2022 09:00 AM Ordering Location: [facility] PERI[facility] Received: 12/14/2022 09:36 AM SERVICES Pathologist: Bharti Correa MD Specimens: A) - [place] B) - [place] C) - [place] ADDENDUM (test code = q7oxfLNjSSThbIV6KeXdNSO 3381) za8bta9CrdJHcwCHwXPqodC AkrxHfvt97uIX5oX20SO0rG ZYmReF5GRUfefN9Ijp4QCMm JYUfrPClP675u9uzc1enbhT ejCF7xSnjYRSlsbduSmU7FE ulQBBpbkvyOKq5NZsvENAlc BL8NPXwcACqK1CzNRZfVZ5t dpu8GCE2SVxjDHAdGuN6CJA tlRKoTIForPiyONurh265PV W0GwObIWJhprTtfQphmX9mD kQaTLLBfTNkM0GgQJIlFcEm dHVkaWVzLCBhcyByZXBvcnR mUMJhpZNIYW4XEY6ohLdqjb oam9bfqwWaYZ0oob0txCHmU PM2f6N7bZSkQGPuIIRdyKGt V2mqUOReMNQkixTpHmVwXzG 6fGYkLO2tniI7vA6dCAHrkX VklmLidywtXI7EJheoJTqho lYuKHDqieGyEJAbbCDAEJ2s EY7lrLvpecwwVA8xanHxf6Y efZEwvoVcHxxcEQ05AZNutM dnP9BbqDCpgBV5THRbs66oQ JxnVEKaBGU1PGGzJEEpqaNk z4Y9FC1cUGCwNICqCMJuu7L zjHKoDA1iwg08OIHrkLXifr F1sHYibOFgjokakZUitCCcV Y4lIHRnSKSvxSTcet3fjJPx IFxwYXJ9 DIAGNOSIS (test code = h6uymKCpSQCoy0hzMJHvjQM 3220) uZzEwMzNcZnRuYmpcdWMxIH tccnRmMVxlcGljOTYwMlxhb bDvXPMhpCUrJ5PcedrlBXjn OI8gMX6ykIzhpPCrrTJgNCD fFoCef3ggf813wSUks5trXR LRebihtQf5mFkvJ48ks4K2R bxgV55grAJcQMX8JVBpJAJq rXMbQQNzTKP5ZRVxmVQtJ1f ySQEpLO9dstzpQCmpJNixGD DapOQ1ZKYglODeW9IiIBZrR DmeROGnjmk3JvTcKw1oaZPv eTcyMFxwYXJkXHBsYWluXGZ vMgXyXc9WLDKVDVSJC1ebDF JHFBVJEVBeSZFQL8KzALEZD ERDTZXYEKAVEujGIZBDHE8D Z2n9GHCkkfEkKx8DTJ5NZWn HMEwKHrBXBRAFF9fqY7eDOO GDMhoVZK7GJHtGLPqPRTBUL 2SQDVRCCQZuKJ2DZTESSCLA Mh2IDXWXAWSOVfMPSHSRMWM mkPThVF1AIDTGSnOLKPEmCD ZLIfBXPmEQQJ1FFWBODcVGW Q8SZTWRICNKS1KRKEHFBlAL REVOVElGSUVEXHBhciAtUEV XMYfGJeYRWSMYN5JMOFIBGx BTVFVESUVTXHBhclxwYXJcc GFyIFBFUklQSEVSQUwgQkxP K2R5XTUsawClPIGPEf6SOFA PKtERZfKDHFRcI6aCAMEEFm QUVQGCCTNlML6IXSOYMl7TM METOGseZAKLH49ICB4TUWcw MXpJVSPRWIBLVNQUL1oMP5I OZehPBDSmylhiRFQ8x9cphB YxXHNzdGUxODAwMFxhbnNpX ZFdAzlykdmtNHDgKWI8hnSi QYWaNNdlMAPnNFrnWv6peAB hoIupRwCrTHBfx3xxlyRMcs pkuXa1c9bhYRHhPkL3oUKlI PybG4lrjfIdfESvPTFxEMf9 aA76SNSloQ3otZNwLXarzpR cOiQ6PEesZISfQvG3SJQjhN TjZCJtL6uiWZMuRIwbIGXgV BvafXZtCIR5oNwey3H9zMXh xTPkqDyrVmSkYvSjNzAEx4R cMMv7rVyyZ5PlGGBoCzB1kM AwTSTnIQhsCYDiVNLbdlE2h J77IFzjccT5bIEvt9Zvw31r z995wX3naOMbTUF0BKBsEOR mbVCuKWPsUMB7NTIaoVBtE9 iaTQSpRM2vlgkoVOpqWCxvI LGvlYY2EPPzoBSiF4AqTEFn AWmyILMuvnv3TlCxFn2weLF svLgsKNrkc2hgo4sbzCGbYd n5REFzFmOjXwwnYKtpq4Hio 8xxRYXlwh2vXPM8gLAmsSfj a8U7pHZhAMXzrPEfDOKxMS3 paAWmPSEfqT3cifquQHPuOz PjkjfcTGPkrThvfrVlTm7up IgiGIL1JTbzC7olqE6iQdV4 DVvjY9flwT3hDNr0GOtlBWP ekOI9gbZ0EIArnUXrJ0VigE 4lCIVlRY3nmdq1s5fdBBZ4B HlwQPOrDoM0xdR1TGHtkFNh NNRwdQhnWInzo250KBR9QwO gYCPjk6JlW8AqtNmoT87dpK cxY95yLFRlkZjszL2yaHtkx U1aJmJrExPxLTkhqNsvSL1b ZBDzT2fctQGnHYHlXDAxR6f xNmWmmH9igSjdULlcgaQlYS BcGmf6GISnoZYpXJCtTmd2I HMuCYUfK34bnduvSLC0nE2h k0utk8JdLMniLXC7TJPtx81 fGTqvioT4FTofAj90YJsrMG Y1JYstCHO7gR== COMMENT (test code = o6scoDObUXUswBR9UjXpCFR 335) dk4ntk6EpvQKujIZkJInwmD YaqxTwec87vHX4mV10CD2oQ IBsWmS9APBjccQ3Ltz9PQOf RWZglFZoF557g2hfn2cbevP ebDZ6ySxcMPJsueqlElC7KS khPCQurccvDJo5LTtiDUKlb WN1AAJjfEVzC6UaWILuOE2w boc2VTP4EKeeZMMjEhJ9XXY vhOEoHCXanUtpDUssi963TD B2FkRpRZVxrkPanGmodX3eH nMyMCBUaGVyZSBpcyBubyBp bmNyZWFzZSBpbiBibGFzdHM cs86sUFQtuESwvKSud86sHV RkGAEaxzGye00lnRZcGPOxW fisZnxqucGowLBrfHQ1wgtg BKUfGp62ZRwrOD2qAKdajKE cp8S8YJdaqR8xOkSbF4Dmry GrnJ2onAnfjL5btNOkDQgnc Ssbp9soPAttPL3zlZMrUFCd gJkmcUWmLpNxDVP9iR1fHM1 azTjzTJQ9bDIqPFYwWHPbXJ GjhbGxghmkZALcQPCglNV5z YBdleMbiPNluNPsObXEuw2a J3BgiY4inelnvwJ5jTUkRG5 tpvR2hP8lUTDdcQOdplRkuv gmTI9PGbczw5pviJTgbRXpV ZSeMRVbqYIxc7QeWIBei0It AtMnrVwdbtBhiaBotGV0TWA lm8BlIXWwuB4iSRnlURGcp2 hiH1ncWKSUmVIhPBUlQOD9l PMqFAlynAiyYdToopYih6T4 NEWuu9MeEQGgxIHpaRlbKB3 kIGFuIGFkZGVuZHVtIHdpbG knJn2lzB85KfJfMFJlDXAaf QAaKCGnhnDoCWzvIXaaQ14j b8njGDlvwUsbTKiuJ9t7PQX wJJB8Wk5aUPFjY2A5uT8iQD CbRhLrbTilEYL3x2ifsEHfJ CEcx61gpSXfa18wIYIdPKTd zQvluTYlEZ5rY5U8va4byYQ hXX3sN4whYknavXXfLHhuEZ Rai3WeiFQagyKuqtIoB2Qks 9XlGZXetJVtpaesP98ienHl VGCbt30di3o9dGH9fCMkI0w msjhjBGjvUB2vJI43zKKtQA LcUMX2niIoBZfhRCAfM07ta WVuZGVkLiAgIFByZWxpbWlu SGY4TEGne3BhRirnWKpyA4L zy6TuUTAzu76leB2bX9Q8TF CgrQ6tQDBkNNK9o7WnUDRiF C5dYi8eNEAlVfVifSBaiM== CPT Code(s) (test code v6qviAQcHVLdeRZ8DdNrKNY = 3357) zf1gxh1EnlZUppEOxWWrkoI PdyqDqlt01yFI9jV42UJ9lP NJfFtO0VPXgkhB1Zkc3RHZl WOBunQEgV764r3oqq3txqfM tmON2jPmzCLYdmytqLyW5EU wvRJAtsoxtNUm5ZEsdCUKbi BJ4ERNljIFtZ1SeVCKvAX9t vtg0KSW7PLsvUOQzCnR1DVE dlCNfPQLooYhiZLikr581EA Z4HmSiDDIdtpBgjOknzR5tH hOaKcO0UZR8RRjoEHOsHLb4 FUb8VlD0TBpoFzgmCHfiODU 8YFo4SuFjCkZ8VXA2VfheLU gzNDEgeCAyXHBhcn0= CLINICAL HISTORY (test z1vkbIFwURIqwIC9WiEeNLX code = 3356) wr0tpo1UfjKWpuALfPIzdvR JjpmXmnk00qUH8hW12TP3lT DViYdM9CRTbyvW1Rcl1TCTg JARsdRKdF124h7shd4fhbvN ayAA4bXwkFRLwjfmkArP4IM bzKQDjwxsyFIx4LLmbRWZhq WS8LDHukGWrF4JnOKQgWC7x ixx5PQV7HDkrCWLpYiT2LTO ynVIxYIRqeIgfOAhhe379FQ M8KrCtADQvggVihImfjB2oS cHuQQONTXJifYM0DV47NFFm lbX0uF0dGS3vJWfwMTF7 SPECIMEN SOURCE (test k9xhbYZyGEQetWP3HhZhSAK code = 3377) tl5oyi5UmlUKwhTDuXZuuwB HlapDucm11qUN5lW66ZU0kZ HZaVnK3PDVtwfB9Ede2FQXb RAHdsEYoD353n6hti2urkiU aaTV8nBeqNXFryawuCsQ3RR ecFLPftwmjDFu4RJoiCQVla KI2LSBbiOWvC7KkFIVqTN6e rdr6LKP9ZMswRHKjPzP4CEL etOKsJRYytLpuTIjkh841RZ D5VpWoSANnbyKgsQbzmH6cB dFgROVKv18zLV5vskGkciHl cGFyfQ== GROSS DESCRIPTION e6dfhHOpGCVdyAXKOYXiU8d (test code = ihzPyBBTevAKsG3SlkzapZS [id number]) rbXK5yBX4vnPjnvQFmfNFxJ P9ODOKtUnYxKKOcuRAujoGy RnSvWVFkqZYdaIU1XDIdYG4 ddomeDZssXQewMALcodI2EP EakDOnW1BlEDKcRQ9kquaaL PW2HPtheX2qaxSPVegrQf6r dHRibHtcZjFcZmNoYXJzZXQ oOSXjqVpbPPKnFHf0xN6PQg plJ80df7H9Wsm4OIRuMXWoH 3MvUE9rYLRfqVKqD87GOcuj PUJ6JYQSDwdpACDqES8Oo5o mEUByfWLcXQT6OIgfxVBsPC ShZYTtUKr8GIUbBGtepJXuF U7vbLurIkuiwTral9UtcDXy XGlkIDUxMDAyIFxcZGIgIE9 ZAkBiSJE3CKG1YwLbBBj3OR m6WP2YFzWqDYNlFdIxLcwcW fPlBHl1NJgmAX9ZLWD6LTE1 VODwOOE1OGF4FGJtEVXeFjP cXGYgQXJpYWwgXFxmbCBcXG 8jnWbtqLBxxnCLWnNDe87mD S6lbkNngt2beLDyWT0YLNMa zVPGVEU5YY2aWACKHvzcwRX aZMOzxDevURdsiC4lNA4OHF t7ctXkILAiUoBbJeNsMQu7S OAnoDTxIOppQPL7eNMpEVOl YAVyHWDvKX21C3CdphJuVAx kXHKhZXDykQ9cDM54oPUbfn WvbjMzWxXsniKnoTAlub53A fNhwiEvgQGbhXaibANxsE6w dGFpbmVkIHNtZWFycywgdG8 vpB2joWSuKZDcOKKwqlTdsg 9yEGU1XSyvSg2LHVMfMWvgC RJouRAXOVV7WM5aPDccuDTe klzuUXWmD3TmR7NwjxXolAD hYHWcgzKoq5ijMQZ0GKCfcE QkxSFkOkDxSqevDQH2QQq7T MorLWXxA9LxD6TrUUhbWIO3 MTAwMiBcXGRiICBPVlIgIiA 5TAC7EXOcOjE5JPo6TDKVXz HxPiVgQeLpGKn1PQRcGGm7S Uz5NVmZLcG6NvG0BUT1Yfkr RDIgJDTfSJr1DJAuGKkeFVD aaFLqULbaOaodRNljZ81qSf YcBtfxsZZepxNFHsQNm43jE D2bipLjbr0lkONlXJ0KZTBo lUHPAAT8XN0wYLRUJxlfkXB zHKCbdOguZOyixI3pSU6RFY y9gtHdVFViHYddnkUgUUKoL 7EsnbStLGrrIQCovy8ciHyc IGxhYmVsZWQgdGhlIHBhdGl tnuPequBvDZ6gWWAlG8Maa9 Awb70pppOtDiTnLWObLAVnT l0xJFTaTDSck5jyM4ajlIRh aXMgYSAxLjUgeCAwLjcgeCA pVcaaT10bNspkg3HiX1xnrR 4gVGhlIHNwZWNpbWVuIGlzI GMfW6Lka18iZUMajvFkGK80 kZOaxKdiu8TsvKr9mFZdFKt uIEIxLlxwYXIgDQpccGFyIA 6WUIJjAFbuwoCyAA1UUWEdB TyyHZPskJLBMPV4PW5lZAha eRAadhxlMNZmW0JpP0SndnJ axRRcIWHlpzYli4gnRPK0XA YqmOMakQZaKrIkTeqwEYT2O Sm6ESgsBQUgS8RlE3SfKWch ANM5YKJmQfCyAELdLQSQSeX tUyY8GZF2LQKdDzH9OOg1VV PPDoJtGvArPbJtLTw9WXRhO Lq0VPc3VHjNEzA4UdK4KZO2 AZPaEHYeMLHiXIg8EABrFAs mIEFyaWFsIFxcZmwgXFxuY3 1cZnMxNlxwbGFpbiBDLiBCb 83rSR0yzlTcih3aeFBgRR8N LLLfiVAHPTR7NJ1xJLEYBji fgNVbIJMohUqrZZtrgE7pRZ 0ZFWn2giUvNOJfMYgabcFxU GJdH5EwcrZdCFieENVviw4s aItjLOgnEgRvBSChw0i6rMX 8qZPzkWM3yCZahCccCR1rhX YrWGBlZ0Tqd4sipxNyoK2dZ EEpEB6aQGXqa68fQO4dlvNm bpVbw7WbCkMcakOyJNZrmq8 aOLYzDy6eUUOai6QzND1fNS D1qybxWaPbIbDgN37zpS3tv XAsV0SgCKZ7An5rhGTdRLVy ruQozhYnpPMueaTQNZDqp0Y kWPFlYDmylGHqT4H4cL6fNq isKHIfOTkrrHRpLY9CGRGnM PvymtKpHAKikHEwIBLwG1Bg vSoqnurrEKLoYWnXYVaHM7I XMO8NCMHtSWqaDSDezHJWKU G6DB3gTSzgnFUseaynSKSsW 5ZyO2HpobTshAGpNZOgikUq u7xtJXO7MWDgzTAkaKTdOoA kWpjmNJD3BIyqj4cdBHX7EP NsbXVsdDAgDQpcZnMxNntcZ TLtA8AoI4EgxyJ9SWl8 MICROSCOPIC f8snyPGaQBWrfPP3CoOnEMA DESCRIPTION (test code [id number] = 3371) FudnKoes84dYF1gC17JT2eR ARwBkA7LPDezhI3Nfy5SEIt JBUwsOOqR753u2wbw5bpldS okKM3bFwhEPWkpgjjLxZ2KU vbPOVfhottBPs6ADsgKGMkt LY8QGFhiNViH7ZvBJYyYT9v bng1SGT2PEsfPRUsZlB5IFE nyLXiVKBrtZlmJDagb056SY B0OeGwELZwxsHftRataP6bN rIeVaRJT42BBQ9RPjBFTvFQ B1XUGlDWSZqerAAhJWAPPCe MLKb1OYAsbdTZt4CxmxO7WW 8jVTOjWRF6BGKbSHWasiPMt 4PgrNPhlZRwgA63ZDZRIUOm cNI9UUvlYHDiaGTjOH5GXpU PVyBESUZGRVJFTlRJQUwgQ0 1RTsE7TQ07oMOzndTfKeHdY QmykkGlq3LbtQNtHyDjSRSp Q3KlaOQtoVNaMm5rtFRkYO9 uIGFzcGlyYXRlLlxwYXIgMC 59SMnkxePjPMFtQNPcy5BbT 4OrZDVrQJJ0z3hbHOJbHK59 BDatgxAoXUUdGEPwt2GpQ3Q hWXUol291ASndW1j4WHTebL HzVGO5UvJaMIVxYFiosO3mk ACmvm8PZIEwjPdmmC2lgNHp x8pmVANeOFNnQCSqZOUvEdN nRPTmP1MveVBobYXaSFyaGH 50gL4wuDEkt2ojNCXrCMSxX EZut3UuR6SlRZ1hkZLiXTfm ayWdFXRsJQPAe5Dozv2zqVv tkbLeziGsiYKvY2Qkc13as5 yhKLYrHY15IWOdYQ1prKPzB WrgbyZjLAMrTVHhd73wrRge qaHfykKioDSzK2Tjy41zz4o wYXIgNTMlIFxlbnNwYWNlIC YuEWZlfNZerv4qNATrxxFby GJnp8TfVRFwtuS4AOfejjAl FXXoJJUta4KsC9KpBHYzBKm 3tNGal6L0nACqBSTjqjR4HO CqZL5cnMTzWTeykeSkUYLyK IWnSR9eut0kvWUlo9wnTWRd XNKmXQQpr9HxV9BvMRKiGDV GjHLiqFGnM5SpxINnsNSgOT KyqkHFhEGzi9xsRrOSdoi2o CJzdQUcJbH3kJ04UUUuHsPi OyBEZWNyZWFzZWRccGFyXHB knlERbYBrrND9YQ8eyMZRcp NyZWFzZWRccGFyXHBhciBFc wm9mBBptX4eGUOlfbbhS6hs Z5p1bDvylDNwtQCdqCwtgDD gKVFpf23veTM5OBObXQD4pe X1fX2cNHNounQhNKXcQMAxU CAgICAgICAgICAgICAgICAg ICAgICAgIFxwYXIgTXllbG9 sm9sau6yhRpQQc7ZeSMgeRN 4aOQFmuKUrLDZdYS7ffOLgE BCwz67dfVCuWWOvUVQdFWDm ICAgICAgICAgICAgICAgICA gICAgICAgICAgICAgICAgIC WjGIVuFJFdzSZoIW4aT9IvW BB5d9O2yEJhKyRyXBCwa4Fy yDIhiaLmIUPwQHOgGP9syx8 biOgyNFUflVAgGYT2VOzmMH JgDZEizE7sZKbuKPbuv64ft VAvwQRol8SboAWwUJTsq2Rz AE1cOKNdSLjwo11qw7YlwG6 erJVuYj2krPDmOV3pOMRmII Lct2KzklX0TABlzQHpbv3yX QMiBSXqFZEdYLZmot5yOBBt slqaa0xwIGKfOfdpj4BvLGc tSP27nCXjNIFeCBykKXHlbR FyICAgICAgICAgICAgICAgI CAgICAgICAgICAgICAgICAg ICAgICAgICAgICAgICAgICA gICAgICAgICAgICAgICAgIC AgICAgICAgICAgICAgXHBhc qJPA88BSO4ZAzBCJnSVGE7Z Z5i6IRNjoyYSjE3ib4niSYX 9Lb9ekDplHLiqtPDbKPGwm5 ByZTPfSGA8OHGlMUJhrmzmX XEuOt1vaL1dSRexeVjbnmCk IDIwLTMwICUpLiBDZWxsdWx dzuRxo50od3JesWxpkxOvcE 1pbGFyIHRvIGFzcGlyYXRlI LIzZWOdwaVwfcQqxA33U9ye xV2eapjaeINkQQQzGJZ6sFt dr5UkxUTlcWQpBH3tLP66FJ rtdH5hNXJyriEilwAtB01es TtntCCxTZMOTFflr5FhyC0u iUAvqyRetxUcYXYkNIJ5AOL jYQOcFDIvpeQbd3k0eK62aT NyvIabuHMfZ5PtuDAxr1Upd M2zd2mxUiMqAf3naw6laHp0 aWVzLiBccGFyICAgICAgICA gICAgICAgICAgICBccGFyIE 39fBSvHiNkER3ynF6vsQqtx I7lcTKljDUjtOYztUVjdoUg fOAbTt4ytUNqHI3oRTKeOKI aVRRmg0nrSzqjtFC5WHWbba AogPM3THH1TOAiaiVcmGBlb zO5lNTcAHGyJEFUBBR6LwDv aZMybLMcBLOlxkScH0Z0rTJ aMWCtY1FrQvLSZWAfcNauNL AvrqKwzzPgrDQkAGbdN0IpK XdvYzVwJHpase2plRNqHHAp ICAgICAgICAgICAgICAgICA gICAgICAgICAgICAgXHBhci LKg119KVYxFCMrN1UyFZR0C JBfK94yzYA5bOBzKMF9uAWv TNEwzLEbX9RuaLQdkBQca9V 4nQApoZOsMR0msUtmE7xmWI VpuAEfZMS5NYylOLMzSUAxv p3vWNqlFSJiJGEkmeOeWNKl m4FfZE9oWWDbFFrgx75rc2X jjP1vlCExLi4shQNxOL1zQP SjDLJddF44DKIhI7Dkr78hV CBccGFyXHBhclxwYXIgUEVS OOGNUHAZKZHWRD5NUVnqjOX yXHBhclxwYXIgUkJDczpcdG FiXHRhYiBJbmNyZWFzZWQgc V3reSRhjc8iDQVzZGrkcXVg bi5oaLHcQtotxK9rlmNon7P xFFImmSZbE2c4p6Csu9mpZG IgICAgICAgICAgICAgICAgI CAgICAgICAgICAgICAgICBc tARnUSlPM1P3MLPbOzv2ILC cUP76QOU9SM0qhfIya1qxU3 ynQWP0y5JfPJAuFYBrv1Xge WRlbnRpZmllZCBpbiBuZXV0 xj0tnUukUCAaqenaivOkFSG gICAgICAgICAgICAgICAgXH BhciAgICAgICAgICAgICAgI CAgICAgICAgICAgICAgICAg IFxwYXIgUGxhdGVsZXRzOiB cdGFiICBNaWxkbHkgZGVjcm Fqh1SaYiBfL1Bec4niqvHeO EFsoGNzF0EeOERjoc6sPEog YXJccGFyXHBhclxwYXJccGF yfQ== SPECIAL STUDIES (test a3qvpGCiHFGqpCS9LbAxJMT code = 3376) iq1euh4TleBFgsZPeCBkiiU SfbnWkhi60vUN2cH29RV0cT APuJgC9KFQvoyE4Dnw7SJFd AIQgtRLuX469PXVpZOJhoFt umxn5tB18ELTjbY4kaDEyJJ swatRyLWpymuYvycDaEvd2X OE6yLfzGDVrftwbDcS4BPyf HUNeogwzNMk1LQxvPIYckPE 7QBIjtXJiP9OpWAYaEH2sws g6PDU2CRcsPRPqQbK0PHNma ZJrEAIttEijWVvgp842TFC1 DsFiZFFyncEsoKvrnZ7cCzW cZnMyMlxjZjEgVGhlIGludG QgePDaqXD9fF0lSL3qNQBxs HFnH1ZtBUGiafTwcBHeJJK6 uZKwaHHeHP4uUJrpxNTyb1j sv1KaI4jsdGguaUC4HH6uRH DeWLDuBTnek7HjnY8fFtnoT VPxhABzTYFtWtAdxe4pFVMl alDTGObhU6WwRYjlF7KwZAy hE3KoCQTwrvsaZRTjB23hiC JvbCBTbGlkZXMgRXhhbWluZ ZA1ARBJca3vd6DgUULiyl39 pjOng8LhxCv3CFXgn421mb2 witD4ALUsKBU3JUj4EMMcMR AwfD5kUgT7kBDoMIWhHAE1O QR1WQXan2Q8MZ7qAREdMOZm XQNgxqSir5iqa0vzDQVnEPV 5rrHhwO7bX1PpFDZce7AwiD hlIHBhdGllbnRzIHNhbXBsZ OIjuA94JBGbdNOmcLEbEQEq HFZ9YKeiwH3eXwZIhvDaac4 iwVDou8KqwCh2BDBnsdIchb WlRGBlhzFrX80zyKOuuELar 2hlbiBhdmFpbGFibGUgYXJl FVC4LHn2WSJvMGjpFCMgZJm gACVsON8suX5oyWuxkO5cvC XyoYT5hbpuwVIjrE6iN6LhE JQiq6Vatppcs9ElGJBwmzUn xr6oMJIohXNYAQroe0ZyI6F oRFd7q8JcuMidDXhuSFl1Qt RwGYWmdNBmlEELGG07RFRwI DYblXcqiQ6kvPZCYEAxbwS0 g9Y8VBdnYULkGLf9IBudzfK yVQYmaF3vYCTmWM1qBIi8aw WfDLWtj4MrIH2gUJFmqOUfH HI7CRGyq2FsF0Vem6OpOJNy ISKkdq2gpeViZyFCeNRpHHA wjj92SNEnBG9tH9eaAMDbLB ZggtKkbVQfv2PeAFJzpND4l MScCV1WKcUAs79jENBhXWWK ygVyATDowFnwqOH7swW7fM6 uLiBUaGUgRkRBIGhhcyBkZX Ipcr5qvrBvWQSlSGZfg3Kno CLfmHLtgnErC2Ylt0XfNEXw bv66PVsqtODeuk41MY7lE0Y nt3QnaQ8tSQigQTBea4JugK CzhRKtEOXjc9TfZ1torrghA BwonEUheN6aMIOqVWe7AJMi z9BrPOLge0XfThPtopRiJGY hIRZrCGJafT25RBZ7qOjxeY mbzhHfSF4aJEToriCfZYZnS NTdqF8pCDfxpnDtKYDjjjA4 s5G0KSaaKMKidgBzTquaAEV 7dsNpgsB8cKEjU4gvqguhPL xzSTRnn6ClmV0lrMFNgVKsh 0KvbIWxfJXGpTJuEO7swqJy RF1bCBU4KBhoDAGFCQNsWRi rGXDlZXJ5BKrnZkjpEFL6fe VhNORmv0MnZQhjY5ecG90pt YpwmKh4vDJmaRhnoNUwuWVd AOXjyyB8c0U2TQQok4Zkvov uXHBhcn0= Gross assessment was [facility] performed at ([facility], code = 2777) Department of Pathology, [address] [place] [address], Technical component [facility] was performed at ([facility], code = 2778) Department of Pathology, [address] [place] [address], Professional component [facility] was performed at ([facility], code = 2779) Department of Pathology, [address] [place] [address], [facility] [id number] 13:36:52Bone Marrow Pathology Report Case: [id number] Authorizing Provider: Jack Saunders MD Collected: 12/14/2022 09:00 AM Ordering Location: [facility] Received: 12/14/2022 09:36 AM SERVICES Pathologist: Bharti Correa MD Specimens: A) - Bone Marrow B) - Bone Marrow C) - Bone Marrow Cytogenetic studies, as reported by [employer], show a normal karyotype (see attached report). Next generation sequencing (NGS) also reported by [employer], does not identify any pathogenic mutations (see attached report). These results do not alter the previously rendered diagnosis. Addendum electronically signed by Bharti Correa MD on 12/28/2022 at 1:36 PMPreliminary result electronically signed by Bharti Correa MD on 12/21/2022 at 12:56 PMBONE MARROW ASPIRATE, CLOT, AND DECALCIFIED BIOPSY:-NORMOCELLULAR MARROW WITH TRILINEAGE HEMATOPOIESIS AND ERYTHROID HYPERPLASIA -STAINABLE IRON PRESENT, NO RING SIDEROBLASTS IDENTIFIED- PENDING CYTOGENETIC STUDIESPERIPHERAL BLOOD:-MACROCYTIC ANEMIAWITH INCREASED POLYCHROMASIA, LEUKOPENIA, MILD THROMBOCYTOPENIA Signing Pathologist Direct Phone Line: [phone] signed by Bharti Correa MD on 12/18/2022 at 2:56 PMThere is no increase in blasts on aspirate smears, as confirmed by flow cytometry ([id number]) and immunostaining. Overt morphologic dysplasia is not identified. Cytogenetic studies are pending, and at the request of Dr. Saunders, next generation sequencing (NGS) will also be requested for further evaluate for a clonaletiology. These results will be reported separately, and an addendum will follow. The differential diagnosis would include drug/medication effect, autoimmune conditions, paroxysmal nocturnal hemoglobinuria, as well as infectious causes; correlation with the clinical and other features is recommended. Preliminary case findings were communicated to Dr. Saunders 12/18/2022. [id number]; 68345; 18661 x 2; 12880;85143; 48844; 70757 x 2Persistent pancytopeniaBone marrow A. Bone Marrow.Received labeled with the julius de la torre's name, accession number and "bone marrow" are multiple unstained smears, to include 1 for iron stain.B. Bone Marrow.Received in formalin labeled the patient's name, accession number and "bone marrow clot" is a 1.5 x 0.7 x 0.7 cm blood clot. The specimen is sectioned and entirely submitted in B1.C. Bone Marrow.Received in formalin labeled with the patient's name, accession number and "bone marrow core" is a stevens-red bone core measuring 2.3 cm in length submitted entirely in C1 for decalcification.JULIUS Barth, HT ([facility])BONE MARROW ASPIRATE:QUALITY:Aspirate- AdequateTouch imprint- AdequateMARROW DIFFERENTIAL COUNT: Number of cells counted: 300 cells performed on aspirate.0.5% Blasts1.5%Lncadgmgbtgse24.5% Myelocytes/Tsdlfeaxcyepal11% Bands/Segmented granulocytes0% Eosinophils and precursors0.5% Basophils and mesnvcfibd39% Erythroid precursors5% Lymphocytes6% Monocytes1% Plasma cellsMye loid: Erythroid Ratio: 1.3 ; DecreasedBlasts: Not IncreasedErythropoiesis: Slightly left shifted, complete maturation Myelopoiesis: Normal and complete maturation Megakaryocytes: Present and appear normalStainable storage iron is present based on an iron stain performed on the aspirate smear. There are no ring sideroblasts identified. BONE MARROW BIOPSY:Biopsy- SuboptimalClot- AdequateNormocellular ( 20-30 %). Cellular composition similar to aspirate smears and touch imprints. Erythropoiesis and myelopoiesis are complete. Megakaryocytes are adequate and are without significant morphologic abnormali ties. Other: Immunohistochemical stains performed on the marrow biopsy reveal very few (less than 5%) CD34+ blasts, few scattered CD3+ T cells, and very few CD20+ B cells. Bony trabeculae: compatiblewith a largely subcortical samplingStainable iron is present based on an iron stain performed on theclot section. PERIPHERAL BLOOD:RBCs: Increased polychromasia, macrocytic, increased anisocytosis WBCs: Overt morphologic dysplasia not identified in neutrophil series Platelets: Mildly decreased; occasional enlarged forms The interpretation of this case included the use of immunohistochemistry or special stains.B1: ironC1: CD34, CD20, SP1Pvwypti Slides Examined: In-house known positive controls wereevaluated along with the test tissue. These control slides run alongside of the patients sample showappropriate staining. Internal positive and negative controls when available are evaluated Immunohistochemistry technical testing was performed at [facility], Pathology Laboratorywhere it was developed and its performance characteristics were determined. It has not been cleared or approved by the U.S. Food and Drug Administration. The FDA has determined that such clearance or approval is not necessary. The test is used for clinical purposes. It should not be regarded as investigational or for research. This laboratory is certified under the Clinical Laboratory Improvement Amendments of 1988 (CLIA-88) as qualified to perform high complexity clinical laboratory testing.[facility], Department of Pathology, [address] [place] [address], Tel [facility], [facility] of [facility]ology, [address] [place] [id number], [facility], Department of Pathology, [address] [place] [address], OQPXECUOZKUVQ LAB [id number] 10:02:41 Test Item Value Reference Range Interpretation Comments SCAN RESULT (test code = See scanned report [id number]) See scanned reportromosomes Cancer Chazh1314-39-78 08:49:05 Test Item Value Reference Range Interpretation Comments Scan Result (test code = See scanned report [id number]) ALEC (test code = ALEC) See [facility] Xqoef5686-40-44 08:49:05 Test Item Value Reference Range Interpretation Comments Scan Result (test code = See scanned report [id number]) ALEC (test code = ALEC) See scanned report [facility] Cehliblwknk4353-47-19 10:31:04 Test Item Value Reference Range Interpretation Comments Flow Cytometry (test code See Separate Report = 2758) Case # (test code = 2759) [id number] [facility] Mrlvzxzrpqz7015-91-95 10:31:04 Test Item Value Reference Range Interpretation Comments Flow Cytometry (test code See Separate Report = 2758) Case # (test code = 2759) [id number] [facility] [id number] 10:31:04 Test Item Value Reference Range Interpretation Comments FLOW CYTOMETRY RESULT See Separate Report POINTER (BEAKER) (test code = 2758) FLOW CYTOMETRY AP CASE # [id number] (BEAKER) (test code = 2759) Flow Vsihuzctw2270-64-11 13:47:57 Test Item Value Reference Range Interpretation Comments Case Report (test code = Flow Cytometry Report 104) Case: [id number] Authorizing Provider: Jack Saunders MD Collected: 12/14/2022 09:00 AM Ordering Location: [facility] Received: 12/14/2022 09:33 AM SERVICES Pathologist: Malena Casas MD Specimen: Other Flow Interpretation i5nndQMsYKKudWY3FiCtX (test code = 3364) YYif9zbo0PajXOhwYFfFE yoiDPyixXlal85kOS7aJ5 2MV5iXHCvDzT6NQGbbsM0 Rdx5HALaGUUhnWSxG894l 9exx5kxuhDskMO3mXkmXC SnfdwpOnS9UTiiHFIugyg xQLb5VJlyFNArlXP8FLOd jLDuL4TdBBKgCO5dfds7D PU5KFwzTUFjXkR8YKWmlX PxEGLhjYnkMZbwu925AHP 0UuKxNZLwicWysFuuxJ8v WcNuOMHJT03OWH3ULeTAD fQJR1BFVdWSYThhNdfERa IXIGVTUFIKXhm8MMMmxqU iOU1JEN2SNp7JPSWKIhTP TTABMJezDS7KSPtWXIcMO iBJREVOVElGSUVEXHBhci SrNE7AKRYORSXKZG8XZFM fU8UWPKXST1SEZBHTZU9T UFhCMO7QLWMAZFVrrTTqG H7kOq2jWQ0EQlVRO4WqUV 1qOW7ITP0PLLqEJn0IDJT ARwMSDOQSX8FYOKQGN9px YXJ9 Flow Interpretation v2izpEYlEQPgtTA8TuOsC Comment (test code = PHjp5bkz7SncUJkcZMaLJ 3365) kidEDcafYxsj13qTY7wY0 2KK5sJTAaGbN2DPQrzgP4 Hgy7ZBUyRNBuhJBbS345l 7qnn2qiukFxgNS0kQslZO HbjtjiIjJ5PEwbUXIukse oOHq3YAlmXXFruGD4MDXi zUOeP7YiRUKeGC6eptq6N DI4UFbfIZRuYfC9QSGboS MvYWGilPklJZjwz872NZQ 8JmTpETMrskXctHpbqL8n VtVmGIETqCDuw3Cfw2YwR BKaEVFdt2TmUDLuc08yxC 1uALHwkoGssDEhrc02DYL rt0FqtUBoBFXszsCnMC6q Mx65UGEdz4AiV78pjqCdI YKrb41jo1p6dTEcj1ZdpJ 6em8jjOmSqhgKuj3JuIBU fMsqnPGbzI2OqSLFjhk6= CPT Code(s) (test code = y9vngBQvUTXfkTQ5NvOgJ 3357) SRyo5xpm0IvmLPzyFQkDS sevZVptjKzux30jAM4gQ6 9TP3hXKMqTjA6DHJixgL7 Srx7THMfXNUnqHJbI177e 2vtb6tivcZokZI8cHwuZP XanjemJnK0KSycAKBisct rFVj3TKqpPIAvbJQ9PRDf eBVoM7GsXGZtSN9tqdd6N TT4DJgdPFPfUfK0LNDdkO IsDALcmIurMRomn666MYZ 9BbNgFVJta0T2omOyIeIa FGGztFK5jhV2EWAbRA2yq qfgy7agJRstUDccNIWnkl E4baC8SCQnvDCsH1EpkE7 rHRRqQX7ooyxol9btCUT6 MFxwYXJkXHBsYWluXGZzM jIgODgxODlccGFyfQ== CLINICAL HISTORY (test g9iukYFyWKUtiVA5LiCaD code = 3356) SVjl5gbu8CrrCUrkLRaWT gfsYLfvjLpbt22rGG6pY6 3JI1pBUZrWuB8YRDiorA2 Gjy8JCFeDJNjcTVgV944h 1hhz8tcyhWfnPI0lVfoYN VaphdoKbQ1VOvkNUXjvha gFJq7CVzdPDNfoVP3NGFo sXYiC4GdKLZbDF4mket7E DY4PLxdPCKhWyB3HPFvhR EuOZKxnJpxSAzzr940FXP 8HuVgWDCdhxCaxJmyqV7u WzCnMJRTCQFyvHC0GM09L A5lX6FrJ9y6o5YadiDicm DaeVDfA5e5m8DwskwoFQZ qndCjei5zbluyFa2uLV4H Aa1UBPooNGLbqh9= SPECIMEN SOURCE (test s1zpoEAhAHRocCW3DfRwU code = 3377) DMiy6rxe7CfaVFigYLgAJ isiLOigrKknn55lOU3dN9 3SC4oRIIdZoS8VOCdeeJ1 Yhd1ZGTaNBQguOUzB608g 5hrp6mlbaRimEM1vYquXN EesyskSqA3UHboGLDercs eLTj8QBfbXENxvBB2YBCi aOPzV1OtNEKwUD9plrd9V DJ9EYarDNHvFtG1HUFgcM ByYTPxzIakVIkqp415FWT 5VzCcOLGwrtOmmXrzfU8y TjWqBEZFf91uOB8oriYoz cOkk2PpvwD9JSifZEU5 CELLULAR BIOMARKER q7kqfBCjPOYgjZW1BjVkU ANALYSIS (test code = ZGmh3yyd1UvdAVwjVYbQK 3380) jfaFGrgyZyyn71rVR3mP3 1OY8uDRQsUtB1MRUcunK8 Lpe4RPZsADMqpCYiG419l 4gyk0gtxoWicFE8WVKuCO BcQ0VqWW0iADBdbXFoR65 ymAMdUHF7GJAqZZJrvGCs ZKHbRFN0PFEtwXPlD6xjQ FSlMT2kmruaWGdmJBhoBH LxpFK3IQMygSQxS7JyYPI kRKvcHAIkztz5XhLzFf2w dGVyeTcyMFxwYXJkXHBsY NpiRDCpTbImR7MrAKOBNK wky9DkIgYfOR3HJEIeXNm wJ6I2Yfvxl9MsGvFqXO4I OL5aVZKqTEKXUYwxK0UlI GiwZ9NmDPcwJ5OrXRDLQL IwLCBDRDQsIENENDUsIEN EMTQsIENEMTMsIENEMzMs IQXBDCQ9HQROFML0JLHzD 7UmaICaJHKLJQ7yWOPwFT LPRavwQMZFMFJ2HIShzo9 = IMMUNOPHENOTYPIC w2juqHDxGCBwxWT4VpXvZ FINDINGS (test code = YIlz4mzr5EavHPxgADtIB 3379) gafDShiaPjrp07rJB8gF9 5LF4tDJHxApQ3KGYbqoZ2 Pvi4RGSbHRUxgGCiN382z 6ypz3xeqeRiqJP4SCSeOH YrR2ClGN4jPKOvnBWtT34 ubDFlFOF2HYHyRBBkyGEa EWHeASU2QZNtwINqP9ecW GJhXM9mgutqGMroSGehAG DmvYQ1MEAucGIgO4HqYXA dFMycEQTmnyp6WbCfLw4w dGVyeTcyMFxwYXJkXHBsY QtqSTTpSsMqL7ZxAQWnQZ SqwYPzEOVsBHOraUc9nPv gODcuNCVcflx+PJ0ayda+ WG03hICbfcCiWjMPltBee UUpLVQixRmqETY4YEYpRG AwMFxwYXJcflxwYXIgVGh vLUYhhRdis5xaLaGoy9M2 sLM0tE4atwVhnbFnqXFcs hKwEpltSOuehOVvCN6rcV QuGLRgDUZ0idtznJpaOHI rtJFVCOJ8OlOKNWC3QyIz oAZbfOEyI09efUPrx4ReG XZyHVVdJespD8EqHLPot5 BelR81BCbgD2ZhqENuKOM nIHRpEWlqsbr8rHXxWpB8 aGVzZSBjZWxscyBleHByZ NGuUGXVNVBiBP8xANOTDp LdPK46MBgcNqtmq7MgXC7 myAUoPS2vjGCdZPw4hOQq m8X2aDMgXbIJelecmQNtV 4D5NEaszLxkbVqyC0z1XV HbN10cvCLzn2IdYC40ENI lJqQ2v4IpqKYtISouya7w IUWsGQflhpFovA92EVFpT 9D1GqNZVVUrCPDgtjKmQh YqL2IuGCLsQHgkJkBzZJT gEJBpd7KhDNsaROzflvBp v4wnrfHaLfS1zRNufGIpV ERxL8ZydXUjkeTjT7Hheu HKQTTpOM0rLUUYUB4pQZ5 QPHZemBwuXQAuKQVlw8o2 qNqufWKly9z4nGGhTOtgo HBhOmxhbWJkYSByYXRpby BvZiAxLjMuXHBhclx+XHB huiRJlVMop6bnL03knb6b rSQgXqNun2G6tIC8aF8em zogQXMgaWRlbnRpZmllZC McoHXNRVC7PSZuHHPiiUa sgLSqK0Y3zBZqHKYtCDAf L1WqzlsskNsqrqitG7Dmp wRra1N1fMIvIVTsuSHjdN PtOTQwPWUmWSikhew4uMK vZiBjZWxscyBhbmFseXpl XHqrGU4sTZHIPBYkFU3fl q0nhLLtlaOzr78dwwgcAI CvR7YaUXHdVDfqWyQxNZS iKuZ8k4FymANhOFkxyi0l jWZxBL8ovRTsVIVlWZNqD SBjZWxsczogXGNmMCAwLj WhQ2HcMSNxQ7JtVmpdnV8 vrWLllcJazKobo86oWCDw oLezRXDpVIMmd8GaGZK4n SEvDBXftZx4iQMeTyGvbM RelGoyt70iAiImkZbdlOS jlZCmrnJdoLSvXVVrjX0m LlxwYXJcflxwYXIgVGhlI HJlbWFpbmluZyBldmVudH WvOA2wgVi8QMYfsbCaseK pXV37NG3rpgIiFNOpTJZi FZqcetjypi0pWAcwoRE6z 9f4xSAkj1puNEBeqCvrWL BhbmQgZGVicmlzLlxwYXJ 9 DISCLAIMER (test code = o6ddoTMxSPJnpNL0McKzX 3363) UExx6uue2HfnOBqoVLeLF hsdOSoxpOmkn96hHD7vG5 7DA4qRFPnCaU9MTOhetR9 Gbs6DIOoSBJpvJTbU294c 4jmk5lduvRokOT1kIefVP SaenbaIxZ2WUwaMTVssrn sMTz4EFwbYYXfdOU1TNCz tRUaF8PeSZDxQH0ghvb3Z DM2UOktTTLgMeI1IWVavX ChQGKbbRwwKIosd098VFR 6YxTcYRVnspVquRivtK0k UxYwKtLOiOFaANY5JAH0x kF6ARLxXVRbolKrs2KtFQ BhbmQgdGhlaXIgcGVyZm9 zwXRuZ7NgZ9ckjsDcmOSt bAW0qLXyLSCxjGUbmHtcO PSlJudvNxI3jU0oGUL1Qm CInWxqQ3EyXDGkrEMcjCZ BJY01WCAwvPDbYZOiVPzq hOE5GJIyu9BhZtHrazWqk ZAqvdPjHJ0sMVQkiEDues WqQGB5WWHwXZLDTsHzKXF vc8EnAT4fOSCesNvyMPTp iZ8ko2MlCFMjw55eHBGqF SBGREEgaGFzIGRldGVybW luZWQgdGhhdCBzdWNoIGN wLZTyHL3kTUWmnfNnjVTv r3IchMErzaWke3AkrePtI COdPYY2MgPErFFvdD18qB Wfrr87XHQkYLMbD3RiNUI kIGFzIGludmVzdGlnYXRp g83ejWBjxyJrm5KtmeXgT YSzX3loZHLqsJQlyLZes3 IsvH6seZGfzmRxADR9dAX yFPIfjZ5fGKFbwHioZEEl lX3eC7WdJZhjGq0iINQce kkgMJ4kow06CJ7zbzPeGN 0wyfQtDW17hvBvNmEsOKs 6TEtrU4wNCBZjCFXaSGF1 SSgdUwceUDA2mtCiWYQrd 7RrHAfiA7ddM55lvNzpmD w7wFHcmIpkgTDzgUT4TKD 0lO0sSuzjCGO8 Technical component was [facility]. ke's performed at ([facility], = 2778) Department of Pathology, [address] [place] [address], Professional component [facility] was performed at ([facility], code = 2779) Department of Pathology, [address] [place] [address], [facility] Hecqenwre2240-07-88 13:47:57 Test Item Value Reference Range Interpretation Comments Case Report (test code = Flow Cytometry Report 104) Case: [id number] Authorizing Provider: Jack Saunders MD Collected: 12/14/2022 09:00 AM Ordering Location: [facility] Received: 12/14/2022 09:33 AM SERVICES Pathologist: Malena Casas MD Specimen: Other Flow Interpretation y8xacLCiBDAeiOC8RaDeL (test code = 3364) VMhj0uwo7YagMRvrMXhMN xiaLBairEdtk48aYK9iZ0 6CU3hBIBlIhA7ZUTjjrI7 Ncz1KGWqJOAbaUHbY717s 0kut5qqtoSnaNO3dEllER VbbavpBfU4JLurIEVycli zWVj2WKjmVRKsrQK9UTWf xALaQ3WaYIOsLD6hwmy6N IY4ZMezBQEdKhL9SMJnnM EoCLTqxUbrDSyta409PMZ 8UvJdQZBqyaJzlRnkfR5e UwQqNDSHD60BLN0XZlJMC fJJQ7QUJlKUOQhcWrmRQv RFGRKYPSYNSht5SSWkpqW zAP3CBF1NIp8TKCCLYgPK GEQOGFmpCE2FMJjRCIbQV iBJREVOVElGSUVEXHBhci LfHD8GOPDGXGOGSH9ZJSE tI1NKYWBSL1XYEBSPZH0I SJkACH1KOEGAXVUoqIXbO B0qJj5fUZ1AIeDJO7NuRO 8aGG0AIX8LENcWKe6BZOB PLqGDAEWIA0TYJZUXF3sx YXJ9 Flow Interpretation v4waqAUhJMOwiWH7JhFgF Comment (test code = YLiu3pbm6EwvUWgnGCmLM 3365) dybPJljdBlgk50bTT6bH6 4UG7iBNKoCbU4NAFncvP9 Ufg8JBHeOVStqPRaU378a 3azm7lnmkRbeAP4rIaeJY UwtvljQbX8CZhcZLRjrcq oJXz7HTzzWWPyzDP8THTk hGWeI9NdCVRqDY7frof2A TK9MKsqZEZcUaM6SZUpqZ XnKYOgqUvdNIzec459BIK 9ZbPxZPEugrGorKbgbH3o QlCtNUWKkYLbv3Cfa4WoX UBsFETsr0CwCGTdu33pwP 9dPBWjhwBflLVyie71QAE zy1JpfOLlKPKizpSxRA4o Wq88CWFft4JhZ63cgaJlR VZqj21px5n9dZIcd0DdtN 0xu0hnOuOaetGaj7UtLQN yRbvpZExhT8MvLXKkke1= CPT Code(s) (test code = d2xxiJHeGSPfkQD0OgKiE 3357) RSku5dad2OemQPcjQXrUM wigUBdskPhgf26eTG8pY5 5AD9jRICuPpO8PHLublA6 Msi6XDAwDTOllQLlF707p 7moz4ksgcCcaXD3aFdfGP XdwjuyBuV6EMezJXNllxf hFNr8GDnnATBuaNF1XWSu gXVhN2YqYWMyHZ8xhww5F TA6FUeuXGGdTjQ1IGWijL UxOZIjmBxiJExrj846FMC 6KlKmCZFdm9O7nrPqDdXs BJJfsCM1teA1CFRqZJ0ng tpfp1oyZSrdYLaaVREqpg I8crB6HIXzeWFeB7WslR6 pPYPhUJ8rwreui2peFHM1 MFxwYXJkXHBsYWluXGZzM jIgODgxODlccGFyfQ== CLINICAL HISTORY (test o4eeiHXdWEGuzCU6DyVxA code = 3356) FLtg4gom8IwyXIezMKgCX jkkPOcjvStfo32iPL6sX5 4VC2jLXQySfC9AGGmdoL0 Zaf2YIRmQWCcbFKyQ931t 0gfa6gviwIdbWX8sPwoUG RihmykHmY7ESwzOQJcfak sZJq1DFwbAQWcdTG4TWIp qWBoH5MoVAVaNJ9ayja5V ZX3JTygTPDiLsD9NCSaiI WcNUJqqOiiQIyln486LCN 4OrCxIEMayaSagIqihZ9a QrRuOAPHOLSkyOP0OA45U C9sK4RaQ1u1n3RnedJghk AreVHwP5a5x6PgqtfyAAE ynaMooy4aokluPy1aAU2S Wx0VBIthWNRypn3= SPECIMEN SOURCE (test o3uawRAkAYVfyGC7PcWsO code = 3377) JShe2nhq6MbaTPabCGaJT mooOYglhBhxk45qDR4hT2 9LO9qRTLlJzM2YICjpeK1 Tjq0KDZfDQIrcLUlG328b 2ebu8bkugBvuKD3qHsrHM XfozanDkQ4WVxgZWEsslv vTWs1ATrcCVPdbUG3IOQm xJFcQ0IfDNFcWC4ztbm6S VM6JVltXIWyHkA9HCUdrD JgXNGnjCpiKKljb511VBT 1KfHzAAThuuVmtSgihB8i OmRbQXSFq86kOK0pqqKjl yNew7DrglV5RIobVHH5 CELLULAR BIOMARKER g2qydXRuKKVsvAN2XpWkP ANALYSIS (test code = JFty8fbx0KxiGFvjWBqDB 3380) omuYDkxtGiwz15kWL7wO1 8TK0mLBKmIfI0VFGybbT5 Hqy3DEHcNFOarGPuW941c 3dmi3gnywVgeKL9PNIhFC VeV5HfUM0gMZQioYYsO04 ngXEeCXB5AIExWGNbiWVu QJYnKNW7VKTmpUGvU5ngA KSqZE1zruprFXveWTpiKE TeqXW4NPWlxCIzB7XxIHK tZOlmEEPcnrh5AjRbTm5b dGVyeTcyMFxwYXJkXHBsY SeoXAQtKhRmZ1XgPROZJZ zyg7JlQrUiQI5LEKYoXBf vS1G0Lvqba5KaGeJoZV3D RG2fVYVcGGEOQWqgM4NuG TivX4QiVDiuN1JuHRVMIJ IwLCBDRDQsIENENDUsIEN EMTQsIENEMTMsIENEMzMs CEKXMLL4VQRMFIL4LLAbU 2ZjwAYzTOUBIF9pUCMsXL BCMzsfNAGANXB4MYZiuu2 = IMMUNOPHENOTYPIC r9svbGGcVXOwkKA5RyYhH FINDINGS (test code = IFxe2bjg7FhqXQgtAQoVM 337) wzsMVjayBvnc24qUC1uJ1 7KU6mVIDbImP3ELTgqcM5 Ohx0GUIpMCPbiTWfK723e 3ewq0jyogMkrHU9UEViDT JmF8ZvBF2lGITwhQEvP32 tdWOzGKZ4QLHbUZIyeIHr FNHtSWR8IEGhoWMjA8iwQ AOkFA5vujdtZQioXYkxYN CtwNY8EAFcwNSmS8ThQNF rELplMFKptan7WiSgJc2g dGVyeTcyMFxwYXJkXHBsY YunPCXpHnOhK2XrKRYxKH ZuoLPlHRJmXJTkaNj6bBv gODcuNCVcflx+GR7fadl+ VI28xIHsmgMkXqZQqhVqd ZVuOTJddSxtCTK6HRVjQH AwMFxwYXJcflxwYXIgVGh rEFVavEkuz3bvRjHid4I4 nJN9gN7awxEdtuUqwHWoc hJjOhryOSjfqIUbIS0uwX RkHGBoAGE1adnnoHiaVXO ikGOSRJT8AdZJJDM1KeDp cKYcsBYiP38ysWDtz2PwJ JGkPIAuCiaqA2OkWRQfq6 HdaH23UWxbE5ZiwVKfCSR tBSCtHAwueli2wKLeUoV5 aGVzZSBjZWxscyBleHByZ KIjHOYUVRNhOW8wWVDGIj KmXZ91BIzuRfspn3YtVM1 reRHgIR5llYTuGDs5cVGz l5E3sNNyYrNVhkrtjAYyJ 1H6EKjepRgxeImyT1l2WY IjJ87vlTXje9ZcGM37WNM vIiV1q2CndIJoEZzmmb0p HPJfRAtylzWnyZ44EDFqZ 0T0BcSBTYMeDLVawbZiYf VlK9HoBAJaGRzpPbRwKUI rBEUss4CdCDxeGJasrcGc h5axyoBjWiO0xPBtvQQpZ GDcZ1IbvGWvfpFyN0Igdw NEQUErKZ0wFIKVKD2tLD6 TDUKkeXjsUGCbINEtc7b7 jIsnhDGsd1h0gIDrFOoqn HBhOmxhbWJkYSByYXRpby BvZiAxLjMuXHBhclx+XHB hrfGZdKWyg4urH23mxm7d gVHsQdGfo3J5nDV8jB8wv zogQXMgaWRlbnRpZmllZC CzlWYOPWM9ACWzUKFarIe yjIApA5W1xKSvODFwIKXp F1KkozbskBjcukrmC6Mur pSlf6T4oTQgOUZdsTZxvQ VtRVDhUWUiCIhzzub3mZX vZiBjZWxscyBhbmFseXpl CPgzHX1bMHLAGKOkTY2bj j9tbHMgsiApk45pzmpeGN EsQ6LxTFPaAWcsUsEzGWC hDpV8c5NugOGkYDcrdx7p uNNnLJ0nzTVxXADmNQJlX SBjZWxsczogXGNmMCAwLj EiY8YcWKIaE2PuSnsvbC1 rmNJknsEltMotx94tVJUe bWtaMVFqSKLfg4BcNWV8b KBkNBWncQh0wYQbScOpeB AnyYlae75eAlUunPrkvRZ yiAQhoqKwlRVdNJGgzC6s LlxwYXJcflxwYXIgVGhlI HJlbWFpbmluZyBldmVudH FlEU8gbWe2NTSodwYkcsW jXX71JN3oaiZhAPXuFACa FXvnomrgga2eIYnqpGK9b 7c3pJEky8hxBDXxsUjcZC BhbmQgZGVicmlzLlxwYXJ 9 DISCLAIMER (test code = t5wiyYJrJNSezDU0TkHhK 3363) OHrv0taw3VuzWGbxVLdUL jdaEZltmHhfh65dNI1dK2 6MG7hYHJlZuO7BMBcieE5 Bcp0MUIoGKLeiQUiF248w 5gtc0elsvSvpVG5gDsiUT PhugybAyW9NCfcXNFhmjm vPMv5OGjrAYPsmHR8XWUj xPLlG1SsJWWxUE7vqkn1K ES2KSsrVYAzNkP5LVMfwO MsCYYbdLdqAMvzo904IDD 7GhJxIGGvmvMtkKhpyP1q QxZjBgLCcNAdIQT8MGI4p zG9AQSlNCWhhrAfn4WjUL BhbmQgdGhlaXIgcGVyZm9 nzAJgU3HxY1caidEmpVYs tOX8rSXcZQOojPDynLqmO FJcCyktZzZ8qT2gFZV8He WPtFlbD9ClQGFuwRPstGN MYP24IRUqsFApLSIpOHfc rIF3IIZip7LsHjFvvwNlh FQjbyOpYA6rUPIgpAXfjc XtPZE0VXUyALQXUmWpNWL to6VaAH0xPQZzfWucJOBv wR1dj8DqUBUfz66qYGTyY SBGREEgaGFzIGRldGVybW luZWQgdGhhdCBzdWNoIGN pHADfTO5jBSGrwcQqdEUi y1HtjGYatySwy4JemcPfP VPeDMV2FrHAkYXjeT52oZ Yhoe71IGUpDFGwO6NvEOC kIGFzIGludmVzdGlnYXRp b09zmVIltpKlv4UziwJeP GKhE1opPRRigQLvgYTxo3 UvpR6qeYByaxDeEDH2nOJ aHNEdyC8uSRKeaRkjMVEw sK0fA4LhVGfrBo8xVCCtn cgeYV6gtq49XI9oldJtHW 5vbuQgLN10foQhRjMxHXe 9DMboH5uUFZWnIAXuHYN5 IApnUkkePAP7xeHtGWNqq 7FgQIsuE3oqY90vfRhprA q7bZHuaMtnaUXpbVB2NHZ 3iV9uUrwnLGI1 Technical component was [facility] performed at ([facility], = 2778) Department of Pathology, [address] [place], [place] [id number], Professional component [facility] was performed at ([facility], code = 2779) Department of Pathology, [address] [place], [place] [id number], [facility] CenterFLOW [id number] 13:47:57Flow Cytometry Report Case: [id number] Authorizing Provider: Jack Saunders MD Collected: 12/14/2022 09:00 AM Ordering Location: [facility] PERIOPERATIVE Received: 12/14/2022 09:33 AM SERVICES Pathologist: Malena Casas MD Specimen: Other BONE MARROW ASPIRATE, FLOW CYTOMETRY:- NO MONOTYPIC BCELL POPULATION IDENTIFIED- NO ABERRANT T CELL POPULATION IDENTIFIED- NO INCREASE IN IMMUNOPHENOTYPIC MYELOBLASTS Please seethe corresponding bone marrow biopsy report ([id number]) for correlation with morphologic and other findings.[id number] macrocytosis and pancytopenia concerning for MDS/AML.Bone marrow aspirateCD8, surface-[place], CD56, surface-Lambda, CD5, CD19, CD10, CD3, CD20, CD4, CD45, CD14, CD13, CD33, CD117, CD34, cKappa, cLambda, CD38, HA909Mlkqdlgr Viability: 87.4% Number of Events Acquired: [id number] The following populations are identified: Blasts: the dim CD45+ CD34+ blasts comprise 0.8% of total cells. The majority of these cells express CD13 and CD33 (myeloblasts). Lymphocytes: Bright CD45+ lymphocytes com prise 9.7% of total cells. T cells show a CD4:CD8 ratio of 2.0 and normal expression of the rivera T cell antigens CD3 and CD5. B cells are polytypic with a kappa:lambda ratio of 1.3. Myeloid/monocytic populations: As identified by CD45 and light scatter characteristics, granulocytes comprise the majority of cells analyzed, and CD14+ monocytes comprise 4.8% of total cells. Plasma cells: 0.6% CD138 positive plasma cells are noted with polytypic cytoplasmic light chain expression. The remaining events analyzed represent nonviable cells, non- hematolymphoid cells, and debris.These tests were developed andtheir performance characteristics determined by [facility] have not been cleared or approved by the U.S. Food and Drug Administration. The FDA has determined that such clearance or approval is not necessary. It should not be regarded as investigational or for research. This laboratory is certified under the Clinical Laboratory Improvement Amendments of 1988 ("CLIA") as qualified to perform high-complexity clinical testing.[facility], Department of Pathology, [address] [place] [address], [facility], Department of Pathology, [address] [place] [address], Iikcgd Bone [id number] 09:37:47 Test Item Value Reference Range Interpretation Comments Anatomic Case# (test code = 2470) [id number] Ordering Physician (test code = NICKY 2457) Performing Physician (test code = HERBER 2458) Clot Rec'd? (test code = 2459) Yes Biopsy Rec'd? (test code = 2460) Yes Rec'd for Culture? (test code = No 2464) Rec'd for Flow? (test code = 2461) Yes Rec'd for Cytogenetics? (test code Yes = 2462) Rec'd for Molecular Genetics? (test Yes code = 2463) [facility] [id number] 09:37:47 Test Item Value Reference Range Interpretation Comments Anatomic Case# (test code = 2470) [id number] Ordering Physician (test code = NICKY 2457) Performing Physician (test code = HERBER 2458) Clot Rec'd? (test code = 2459) Yes Biopsy Rec'd? (test code = 2460) Yes Rec'd for Culture? (test code = No 2464) Rec'd for Flow? (test code = 2461) Yes Rec'd for Cytogenetics? (test code Yes = 2462) Rec'd for Molecular Genetics? (test Yes code = 2463) [facility] Center[facility] PROC[facility].2022-12-14 09:37:47 Test Item Value Reference Range Interpretation Comments ANATOMIC CASE# (BEAKER) (test code [id number] = 2470) ORDERED BY DOCTOR# (BEAKER) (test NICKY code = 2457) PERFORMED BY DOCTOR# (BEBRITNEY) (test HERBER code = 2458) CLOT RECEIVED? (BEAKER) (test code Yes = 2459) BIOPSY RECEIVED? (BEAKER) (test Yes code = 2460) CULTURE RECEIVED? (BEAKER) (test No code = 2464) FLOW RECEIVED? (BEAKER) (test code Yes = 2461) CYTOGENICS? (BEAKER) (test code = Yes 2462) MOLECULAR GENETICS? (BEAKER) (test Yes code = 2463) CT, BIOPSY, BONE [id number] 09:30:00Image guided bone marrow biopsy with aspirate. Concern for MDS/AML, please obtain flow cytometry, NGSReason for Exam:->MDS (myelodysplastic syndrome) [facility] 1945 Sex: FFINAL REPORT CT guided bone marrow biopsy History: MDS (myelodysplastic syndrome) Modality: CT, CT fluoroscopy Anesthesia: 1% lidocaine local Approach: Right dorsal percutaneous Consent: Informed written consent was obtained from the patient. Sedation: Moderate sedation was administered, including a total of 1.0 mg of Versed and 75 mcg of fentanyl. Continuous monitoring was performed by the operating physician and radiology nursing throughout the procedure. Procedure time spent during conscious sedation: 15 minutes. Technique: The patient was placed in the prone position in theCT scanner. A safe window to the right iliac wing was localized using CT and CT fluoroscopy. This exam was performed according to our departmental dose optimization program which includes automated exposure control, adjustment of the mA and/or kV according to patient's size and/or use of iterative reconstructive technique. After the usual sterile preparation and application of local anesthesia, usinga dorsal percutaneous approach, a 10 cm 12 gauge Bon[place]ty bone biopsy needle was advanced into the right iliac wing using CT guidance. Approximately 9 cc of marrow aspirates were obtained. Subsequently,a 1 cm core biopsy sample was obtained. The samples were collected by cytopathology for further analysis. Disposition: The patient tolerated the procedure well, without immediate complications. The patient left CT in stable condition. Impression: 1. Technically successful CT guided bone marrow biopsy Signed: Belinda Luque Verified Date/Time: 12/14/2022 09:30:09 Reading Location: [address] Ortho Consult Reading Room POC-Glucose [id number] 07:34:06 Test Item Value Reference Range Interpretation Comments POC-Glucose Meter (test 93 mg/dL 70-110 : TE STED AT [facility] code = 1538) [address] [facility], [address]: Direct Care Provider/Techni jonas ID = [id number] for Madhu Aquino Lab Interpretation (test Normal code = 10489-6) [facility]-Glucose [id number] 07:34:06 Test Item Value Reference Range Interpretation Comments POC-Glucose Meter (test 93 mg/dL 70-110 : TE STED AT [facility] code = 1538) [address] [facility], 770 30: Direct Care Provider/Techni jonas ID = [id number] for Madhu Aquino Lab Interpretation (test Normal code = 87586-0) [facility] CenterPOCT-GLUCOSE [id number] 07:34:06 Test Item Value Reference Range Interpretation Comments POC-GLUCOSE METER 93 mg/dL 70-110 : TESTED A T [facility] 6720 (BEAKER) (test code = [facility], 1538) [address]: Direct Care Provider/Techni jonas ID = [id number] for Riley Moody PROTHROMBIN TIME/[id number] 07:30:10 Test Item Value Reference Range Interpretation Comments PROTIME (BEAKER) 13.0 seconds 11.9-14.2 (test code = 759) INR (BEAKER) (test 1.04 See_Comment [Automat ed message] code = 370) The system [employer] generated this result transmitted ref erence range: <=5.90. The reference range was not used to int erpret this result as normal/abnormal . RECOMMENDED COUMADIN/WARFARIN INR THERAPY RANGESSTANDARD DOSE: 2.0 - 3.0 Includes: PROPHYLAXIS for venous thrombosis, systemic embolization; TREATMENT for venous thrombosis and/or pulmonary embolus.HIGH RISK: Target INR is 2.5-3.5 for patients with mechanical heart valves.CBC W/PLT COUNT & AUTO [id number] 07:26:48 Test Item Value Reference Range Interpretation Comments WHITE BLOOD CELL COUNT (BEAKER) 3.3 K/ L 3.5-10.5 L (test code = 775) RED BLOOD CELL COUNT (BEAKER) 2.21 M/ L 3.93-5.22 L (test code = 761) HEMOGLOBIN (BEAKER) (test code = 7.9 GM/DL 11.2-15.7 L 410) HEMATOCRIT (BEAKER) (test code = 24.6 % 34.1-44.9 L 411) MEAN CORPUSCULAR VOLUME (BEAKER) 111 fL 79-95 H (test code = 753) MEAN CORPUSCULAR HEMOGLOBIN 35.7 pg 25.6-32.2 H (BEAKER) (test code = 751) MEAN CORPUSCULAR HEMOGLOBIN CONC 32.1 GM/DL 32.2-35.5 L (BEAKER) (test code = 752) RED CELL DISTRIBUTION WIDTH 16.0 % 11.7-14.4 H (BEAKER) (test code = 412) PLATELET COUNT (BEAKER) (test 138 K/CU MM 150-450 L code = 756) MEAN PLATELET VOLUME (BEAKER) 10.9 fL 9.4-12.3 (test code = 754) NUCLEATED RED BLOOD CELLS 2 /100 WBC 0-0 H (BEAKER) (test code = 413) NEUTROPHILS RELATIVE PERCENT 66 % (BEAKER) (test code = 429) LYMPHOCYTES RELATIVE PERCENT 21 % (BEAKER) (test code = 430) MONOCYTES RELATIVE PERCENT 12 % (BEAKER) (test code = 431) EOSINOPHILS RELATIVE PERCENT 0 % (BEAKER) (test code = 432) BASOPHILS RELATIVE PERCENT 0 % (BEAKER) (test code = 437) NEUTROPHILS ABSOLUTE COUNT 2.18 K/ L 1.56-6.13 (BEAKER) (test code = 670) LYMPHOCYTES ABSOLUTE COUNT 0.69 K/ L 1.18-3.74 L (BEAKER) (test code = 414) MONOCYTES ABSOLUTE COUNT (BEAKER) 0.39 K/ L 0.24-0.36 H (test code = 415) EOSINOPHILS ABSOLUTE COUNT 0.00 K/ L 0.04-0.36 L (BEAKER) (test code = 416) BASOPHILS ABSOLUTE COUNT (BEAKER) 0.00 K/ L 0.01-0.08 L (test code = 417) IMMATURE GRANULOCYTES-RELATIVE 0.90 % 0.00-1.00 PERCENT (BEAKER) (test code = 2801) BLOOD [id number] 01:00:19 Test Item Value Reference Range Interpretation Comments CULTURE (BEAKER) (test No growth in 5 days code = 1095) The specimen volume collected for this blood culture was below the optimum (10 mL per bottle or 20 mL total). Use of lower volumes may adversely affect recovery and/or detection times of some organisms.BLOOD [id number] 01:00:19 Test Item Value Reference Range Interpretation Comments CULTURE (BEAKER) (test No growth in 5 days code = 1095) The specimen volume collected for this blood culture was below the optimum (10 mL per bottle or 20 mL total). Use of lower volumes may adversely affect recovery and/or detection times of some organisms.(CELLAVISION MANUAL DIFF) 2022-10-05 08:26:00 Test Item Value Reference Range Interpretation Comments NEUTROPHILS - REL 13 % (CELLAVISION)(BEAKER) (test code = 2816) LYMPHOCYTES - REL 62 % (CELLAVISION)(BEAKER) (test code = 2817) MONOCYTES - REL 14 % (CELLAVISION)(BEAKER) (test code = 2818) EOSINOPHILS - REL 3 % (CELLAVISION)(BEAKER) (test code = 2819) METAMYELOCYTES - REL 3 % 0-0 H (CELLAVISION)(BEAKER) (test code = 2821) MYELOCYTES - REL 1 % 0-0 H (CELLAVISION)(BEAKER) (test code = 2822) BANDS - REL (CELLAVISION)(BEAKER) 1 % 0-10 (test code = 2826) ATYPICAL LYMPHOCYTES - REL 2 % 0-0 H (CELLAVISION)(BEAKER) (test code = 2829) NEUTROPHILS - ABS 0.25 K/ul 1.56-6.13 L (CELLAVISION)(BEAKER) (test code = 2830) LYMPHOCYTES - ABS 1.18 K/ul 1.18-3.74 (CELLAVISION)(BEAKER) (test code = 2831) MONOCYTES - ABS 0.27 K/uL 0.24-0.36 (CELLAVISION)(BEAKER) (test code = 2832) EOSINOPHILS - ABS 0.06 K/uL 0.04-0.36 (CELLAVISION)(BEAKER) (test code = 2834) METAMYELOCYTES - ABS 0.06 K/uL 0.00-0.00 H (CELLAVISION)(BEAKER) (test code = 2836) MYELOCYTES-ABS 0.02 K/uL 0.00-0.00 H (CELLAVISION)(BEAKER) (test code = 2837) BANDS - ABS (CELLAVISION)(BEAKER) 0.02 K/uL 0.00-0.80 (test code = 2840) ATYPICAL LYMPHOCYTES - ABS 0.04 K/uL 0.00-0.00 H (CELLAVISION)(BEAKER) (test code = 2858) TOTAL COUNTED (BEAKER) (test code 100 = 1351) MANUAL NRBC PER 100 CELLS (BEAKER) 1 /100 WBC 0-0 H (test code = 1353) PLT MORPHOLOGY (BEAKER) (test code Normal = 486) SMUDGE CELLS (BEAKER) (test code = Present 1371) ANISOCYTOSIS (BEAKER) (test code = 1+ few 961) MICROCYTES (BEAKER) (test code = 1+ few 965) POIKILOCYTES (BEAKER) (test code = 1+ few 966) OVALOCYTES (BEAKER) (test code = 1+ few 477) ARTIFACT (CELLAVISION)(BEAKER) Present (test code = 3432) PLATELET CONCENTRATION Decreased (CELLAVISION)(BEAKER) (test code = 3438) Direct Care Provider ID - Cuong Muellero-onUser comments: Slide comments:CBC W/PLT COUNT & AUTO [id number] 08:25:59 Test Item Value Reference Range Interpretation Comments WHITE BLOOD CELL COUNT (BEAKER) 1.9 K/ L 3.5-10.5 L (test code = 775) RED BLOOD CELL COUNT (BEAKER) 2.33 M/ L 3.93-5.22 L (test code = 761) HEMOGLOBIN (BEAKER) (test code = 7.7 GM/DL 11.2-15.7 L 410) HEMATOCRIT (BEAKER) (test code = 21.8 % 34.1-44.9 L 411) MEAN CORPUSCULAR VOLUME (BEAKER) 94 fL 79-95 (test code = 753) MEAN CORPUSCULAR HEMOGLOBIN 33.0 pg 25.6-32.2 H (BEAKER) (test code = 751) MEAN CORPUSCULAR HEMOGLOBIN CONC 35.3 GM/DL 32.2-35.5 (BEAKER) (test code = 752) RED CELL DISTRIBUTION WIDTH 12.1 % 11.7-14.4 (BEAKER) (test code = 412) PLATELET COUNT (BEAKER) (test code 63 K/CU MM 150-450 L = 756) MEAN PLATELET VOLUME (BEAKER) 10.7 fL 9.4-12.3 (test code = 754) NUCLEATED RED BLOOD CELLS (BEAKER) 0 /100 WBC 0-0 (test code = 413) BASIC METABOLIC [id number] 05:33:08 Test Item Value Reference Range Interpretation Comments SODIUM (BEAKER) 141 meq/L 136-145 (test code = 381) POTASSIUM 4.4 meq/L 3.5-5.1 (BEAKER) (test code = 379) CHLORIDE (BEAKER) 109 meq/L 98-107 H (test code = 382) CO2 (BEAKER) 25 meq/L 22-29 (test code = 355) BLOOD UREA 23 mg/dL 7-21 H NITROGEN (BEAKER) (test code = 354) CREATININE 1.08 mg/dL 0.57-1.25 (BEAKER) (test code = 358) GLUCOSE RANDOM 89 mg/dL 70-105 (BEAKER) (test code = 652) CALCIUM (BEAKER) 9.4 mg/dL 8.4-10.2 (test code = 697) EGFR (BEAKER) 53 Interpretatio n of eGFR (test code = mL/min/1.73 values Stage D escription 1092) sq m Result G1 Fouzia l or high >=90 G2 Mildly decreased 60-89 G3a Mildl y to moderately 45-5 9 G3b Moderately to s everely 30-44 G4 Severl y decreased 15-29 G5 Kidney failure <15Reported eGF R is based on the CKD-EPI 2020 equation that d oes not use a race coefficientEsti mated GFR is not as accur ate as Creatinine Masha cramer in predicting glom erular filtration rate . Estimated GFR is not appl icable for dialysis patien ts Direct Care Provider ID - KOLTON WCBC W/PLT COUNT & AUTO [id number] 08:54:52 Test Item Value Reference Range Interpretation Comments WHITE BLOOD CELL COUNT (BEAKER) 1.3 K/ L 3.5-10.5 L (test code = 775) RED BLOOD CELL COUNT (BEAKER) 2.35 M/ L 3.93-5.22 L (test code = 761) HEMOGLOBIN (BEAKER) (test code = 7.7 GM/DL 11.2-15.7 L 410) HEMATOCRIT (BEAKER) (test code = 21.6 % 34.1-44.9 L 411) MEAN CORPUSCULAR VOLUME (BEAKER) 92 fL 79-95 (test code = 753) MEAN CORPUSCULAR HEMOGLOBIN 32.8 pg 25.6-32.2 H (BEAKER) (test code = 751) MEAN CORPUSCULAR HEMOGLOBIN CONC 35.6 GM/DL 32.2-35.5 H (BEAKER) (test code = 752) RED CELL DISTRIBUTION WIDTH 12.1 % 11.7-14.4 (BEAKER) (test code = 412) PLATELET COUNT (BEAKER) (test code 45 K/CU MM 150-450 L = 756) MEAN PLATELET VOLUME (BEAKER) 11.2 fL 9.4-12.3 (test code = 754) NUCLEATED RED BLOOD CELLS (BEAKER) 0 /100 WBC 0-0 (test code = 413) (MANUAL DIFFERENTIAL)2022-10-04 08:54:52 Test Item Value Reference Range Interpretation Comments NEUTROPHILS - REL (DIFF) (BEAKER) 13 % (test code = 1359) LYMPHOCYTES - REL (DIFF) (BEAKER) 70 % (test code = 1360) MONOCYTES - REL (DIFF) (BEAKER) 13 % (test code = 1361) BANDS - REL (DIFF) (BEAKER) (test 4 % 0-10 code = 1348) NEUTROPHILS - ABS (DIFF) (BEAKER) 0.17 K/ L 1.80-8.00 L (test code = 1365) LYMPHOCYTES - ABS (DIFF) (BEAKER) 0.91 K/ L 1.48-4.50 L (test code = 1366) MONOCYTES - ABS (DIFF) (BEAKER) 0.17 K/ L 0.00-1.30 (test code = 1367) BANDS-ABS (DIFF) (BEAKER) (test 0.1 K/ L 0.0-0.8 code = 1349) TOTAL COUNTED (BEAKER) (test code = 100 1351) BANDS + SEGMENTED NEUTROPHILS 0.22 (BEAKER) (test code = 1352) PLT MORPHOLOGY (BEAKER) (test code Normal = 486) ATYPICAL LYMPHS(BEAKER) (test code Present = 1678) ANISOCYTOSIS (BEAKER) (test code = 1+ 961) OVALOCYTES (BEAKER) (test code = 1+ 477) POIKILOCYTES (BEAKER) (test code = 1+ few 966) POLYCHROMATOPHILLIC RBCS(BEAKER) 1+ few (test code = 478) BASIC METABOLIC [id number] 05:40:53 Test Item Value Reference Range Interpretation Comments SODIUM (BEAKER) 138 meq/L 136-145 (test code = 381) POTASSIUM 4.4 meq/L 3.5-5.1 (BEAKER) (test code = 379) CHLORIDE (BEAKER) 107 meq/L 98-107 (test code = 382) CO2 (BEAKER) 22 meq/L 22-29 (test code = 355) BLOOD UREA 29 mg/dL 7-21 H NITROGEN (BEAKER) (test code = 354) CREATININE 1.24 mg/dL 0.57-1.25 (BEAKER) (test code = 358) GLUCOSE RANDOM 90 mg/dL 70-105 (BEAKER) (test code = 652) CALCIUM (BEAKER) 9.2 mg/dL 8.4-10.2 (test code = 697) EGFR (BEAKER) 45 Interpretatio n of eGFR (test code = mL/min/1.73 values Stage De scription 1092) sq m Result G1 Fouzia l or high >=90 G2 Mildly decreased 60-89 G3a Mildl y to moderately 45-5 9 G3b Moderately to s everely 30-44 G4 Severl y decreased 15-29 G5 Kidney failure <15Reported eGF R is based on the CKD-EPI 2020 equation that d oes not use a race coefficientEsti mated GFR is not as accur ate as Creatinine Masha cramer in predicting glom erular filtration rate . Estimated GFR is not appl icable for dialysis patien ts Direct Care Provider ID - STEPHANIE MPrepare Leuko-Red PLT, 1 [id number] 23:54:00 Test Item Value Reference Range Interpretation Comments Unit ABO (test code = 8332431) O Neg UNIT NUMBER (test code = [id number] 934-0) Status (test code = 6618909) TX_TIMEINCHART Blood Bank Product (test code PLATELETS = 2263) PRODUCT CODE (test code = B3255D49 933-2) [facility] [id number] 23:54:00 Test Item Value Reference Range Interpretation Comments Unit ABO (test code = 9321133) O Neg UNIT NUMBER (test code = [id number] 934-0) Status (test code = 2984445) TX_TIMEINCHART Blood Bank Product (test code PLATELETS = 2263) PRODUCT CODE (test code = B9850Q69 933-2) [facility], 1 [id number] 23:54:00 Test Item Value Reference Range Interpretation Comments Unit ABO (test code = 3033888) O Neg UNIT NUMBER (test code = [id number] 934-0) Status (test code = 5238056) TX_TIMEINCHART Blood Bank Product (test code PLATELETS = 2263) PRODUCT CODE (test code = J6867R53 933-2) [facility], 1 [id number] 23:54:00 Test Item Value Reference Range Interpretation Comments Unit ABO (test code = 3391869) O Neg UNIT NUMBER (test code = [id number] 934-0) Status (test code = 1727696) TX_TIMEINCHART Blood Bank Product (test code PLATELETS = 2263) PRODUCT CODE (test code = V0709W40 933-2) [facility] 12:00:11 Test Item Value Reference Range Interpretation Comments HAPTOGLOBIN (BEAKER) (test code = 217 mg/dL 14-258 366) Direct Care Provider ID - GIOVANNY(CELLAVISION MANUAL DIFF)2022-10-03 08:29:01 Test Item Value Reference Range Interpretation Comments NEUTROPHILS - REL 10 % (CELLAVISION)(BEAKER) (test code = 2816) LYMPHOCYTES - REL 81 % (CELLAVISION)(BEAKER) (test code = 2817) MONOCYTES - REL 6 % (CELLAVISION)(BEAKER) (test code = 2818) EOSINOPHILS - REL 3 % (CELLAVISION)(BEAKER) (test code = 2819) NEUTROPHILS - ABS 0.09 K/ul 1.56-6.13 L (CELLAVISION)(BEAKER) (test code = 2830) LYMPHOCYTES - ABS 0.73 K/ul 1.18-3.74 L (CELLAVISION)(BEAKER) (test code = 2831) MONOCYTES - ABS 0.05 K/uL 0.24-0.36 L (CELLAVISION)(BEAKER) (test code = 2832) EOSINOPHILS - ABS 0.03 K/uL 0.04-0.36 L (CELLAVISION)(BEAKER) (test code = 2834) TOTAL COUNTED (BEAKER) (test code = 100 1351) WBC MORPHOLOGY (BEAKER) (test code Normal = 487) PLT MORPHOLOGY (BEAKER) (test code Normal = 486) ANISOCYTOSIS (BEAKER) (test code = 1+ few 961) MICROCYTES (BEAKER) (test code = 1+ few 965) POIKILOCYTES (BEAKER) (test code = 1+ few 966) OVALOCYTES (BEAKER) (test code = 1+ few 477) PLATELET CONCENTRATION Decreased (CELLAVISION)(BEAKER) (test code = 3438) Direct Care Provider ID - [id number] W/PLT COUNT & AUTO [id number] 08:29:00 Test Item Value Reference Range Interpretation Comments WHITE BLOOD CELL COUNT 0.9 K/ L 3.5-10.5 LL (BEAKER) (test code = 775) RED BLOOD CELL COUNT 2.31 M/ L 3.93-5.22 L (BEAKER) (test code = 761) HEMOGLOBIN (BEAKER) 7.6 GM/DL 11.2-15.7 L (test code = 410) HEMATOCRIT (BEAKER) 21.6 % 34.1-44.9 L (test code = 411) MEAN CORPUSCULAR 94 fL 79-95 VOLUME (BEAKER) (test code = 753) MEAN CORPUSCULAR 32.9 pg 25.6-32.2 H HEMOGLOBIN (BEAKER) (test code = 751) MEAN CORPUSCULAR 35.2 GM/DL 32.2-35.5 HEMOGLOBIN CONC (BEAKER) (test code = 752) RED CELL DISTRIBUTION 12.2 % 11.7-14.4 WIDTH (BEAKER) (test code = 412) PLATELET COUNT 42 K/CU MM 150-450 L Discordant re sult (BEAKER) (test code = compar ed to previous 756) result. Clinica l correlation req uired. Patient receive d blood product. MEAN PLATELET VOLUME 9.8 fL 9.4-12.3 (BEAKER) (test code = 754) NUCLEATED RED BLOOD 0 /100 WBC 0-0 CELLS (BEAKER) (test code = 413) HEPATIC FUNCTION [id number] 06:43:22 Test Item Value Reference Range Interpretation Comments TOTAL PROTEIN (BEAKER) (test code = 5.9 gm/dL 6.0-8.3 L 770) ALBUMIN (BEAKER) (test code = 1145) 3.2 g/dL 3.5-5.0 L BILIRUBIN TOTAL (BEAKER) (test code 0.6 mg/dL 0.2-1.2 = 377) BILIRUBIN DIRECT (BEAKER) (test 0.3 mg/dL 0.1-0.5 code = 706) ALKALINE PHOSPHATASE (BEAKER) (test 63 U/L 40-150 code = 346) AST (SGOT) (BEAKER) (test code = 14 U/L 5-34 353) ALT (SGPT) (BEAKER) (test code = 14 U/L 6-55 347) Direct Care Provider ID - STEPHANIE MLACTATE DEHYDROGENASE (LDH)2022-10-03 06:43:22 Test Item Value Reference Range Interpretation Comments LACTATE DEHYDROGENASE (BEAKER) (test 127 U/L 125-220 code = 635) Direct Care Provider ID - STEPHANIE MBASIC METABOLIC [id number] 06:43:21 Test Item Value Reference Range Interpretation Comments SODIUM (BEAKER) 139 meq/L 136-145 (test code = 381) POTASSIUM 4.2 meq/L 3.5-5.1 (BEAKER) (test code = 379) CHLORIDE (BEAKER) 107 meq/L 98-107 (test code = 382) CO2 (BEAKER) 22 meq/L 22-29 (test code = 355) BLOOD UREA 30 mg/dL 7-21 H NITROGEN (BEAKER) (test code = 354) CREATININE 1.45 mg/dL 0.57-1.25 H (BEAKER) (test code = 358) GLUCOSE RANDOM 93 mg/dL 70-105 (BEAKER) (test code = 652) CALCIUM (BEAKER) 9.4 mg/dL 8.4-10.2 (test code = 697) EGFR (BEAKER) 37 Interpretatio n of eGFR (test code = mL/min/1.73 values Stage De scription 1092) sq m Result G1 Fouzia l or high >=90 G2 Mildly decreased 60-89 G3a Mild ly to moderately 45-5 9 G3b Moderately to s everely 30-44 G4 Severl y decreased 15-29 G5 Kidney failure <15Reported eGF R is based on the CKD-EPI 2020 equation that d oes not use a race coefficientEsti mated GFR is not as accur ate as Creatinine Masha shoaib in predicting glom erular filtration rate . Estimated GFR is not appl icable for dialysis patien ts Direct Care Provider ID - STEPHANIE MPERIPHERAL BLOOD SMEAR - HOLD [id number] 06:29:15 Test Item Value Reference Range Interpretation Comments PERIPHERAL SMEAR SAVE (BEAKER) (test saved code = 1815) PROTHROMBIN [id number] 05:52:35 Test Item Value Reference Range Interpretation Comments PROTIME (BEAKER) 13.1 seconds 11.9-14.2 (test code = 759) INR (BEAKER) (test 1.05 See_Comment [Automat ed message] code = 370) The system [employer] generated this result transmitted ref erence range: <=5.90. The reference range was not used to int erpret this result as normal/abnormal . RECOMMENDED COUMADIN/WARFARIN INR THERAPY RANGESSTANDARD DOSE: 2.0 - 3.0 Includes: PROPHYLAXIS for venous thrombosis, systemic embolization; TREATMENT for venous thrombosis and/or pulmonary embolus.HIGH RISK: Target INR is 2.5-3.5 for patients with mechanical heart valves.RETICULOCYTE [id number] 05:43:32 Test Item Value Reference Range Interpretation Comments RETICULOCYTE COUNT PCT (BEAKER) (test 0.3 % 0.5-1.7 L code = 575) [facility] [id number] 23:54:00 Test Item Value Reference Range Interpretation Comments CROSSMATCH (test code = 2264) COMPATIBLE Unit ABO (test code = O Neg 2267560) UNIT NUMBER (test code = [id number] 934-0) Status (test code = 9763625) TX_TIMEINCHART Blood Bank Product (test code RED BLOOD CELLS = 2263) PRODUCT CODE (test code = E3213Y56 933-2) [facility] [id number] 23:54:00 Test Item Value Reference Range Interpretation Comments CROSSMATCH (test code = 2264) COMPATIBLE Unit ABO (test code = O Neg 8598173) UNIT NUMBER (test code = [id number] 934-0) Status (test code = 3603953) TX_TIMEINCHART Blood Bank Product (test code RED BLOOD CELLS = 2263) PRODUCT CODE (test code = V7347O23 933-2) [facility] [id number] 23:54:00 Test Item Value Reference Range Interpretation Comments CROSSMATCH (test code = 2264) COMPATIBLE Unit ABO (test code = O Neg 6299372) UNIT NUMBER (test code = [id number] 934-0) Status (test code = 5746780) TX_TIMEINCHART Blood Bank Product (test code RED BLOOD CELLS = 2263) PRODUCT CODE (test code = E5248S03 933-2) [facility] [id number] 23:54:00 Test Item Value Reference Range Interpretation Comments CROSSMATCH (test code = 2264) COMPATIBLE Unit ABO (test code = O Neg 7408193) UNIT NUMBER (test code = [id number] 934-0) Status (test code = 3461347) TX_TIMEINCHART Blood Bank Product (test code RED BLOOD CELLS = 2263) PRODUCT CODE (test code = S3600F01 933-2) [facility], [id number] 17:40:20 Test Item Value Reference Range Interpretation Comments VANCOMYCIN TROUGH (BEAKER) (test 10.4 ug/mL 10.0-20.0 code = 522) Direct Care Provider ID - ADMINTransthoracic 2D echo w/ doppler (cw/pw/color)2022-10-02 15:27:00Ejection [facility]SLE [facility]cw/pw/color)2022-10-02 15:27:00Ejection FractionSLE ECHO [facility] Transthoracic 2D echo w/ doppler (cw/pw/color)2022-10-02 15:27:00Ejection [facility]SLE [facility]CHO [facility] Transthoracic 2D echo w/ doppler (cw/pw/color)2022-10-02 15:27:00Ejection FractionSLE ECHO [facility](MANUAL DIFFERENTIAL)2022-10-02 09:05:40 Test Item Value Reference Range Interpretation Comments NEUTROPHILS - REL (DIFF) (BEAKER) 5 % (test code = 1359) LYMPHOCYTES - REL (DIFF) (BEAKER) 88 % (test code = 1360) MONOCYTES - REL (DIFF) (BEAKER) 1 % (test code = 1361) EOSINOPHILS - REL (DIFF) (BEAKER) 2 % (test code = 1362) BANDS - REL (DIFF) (BEAKER) (test 4 % 0-10 code = 1348) NEUTROPHILS - ABS (DIFF) (BEAKER) 0.03 K/ L 1.80-8.00 L (test code = 1365) LYMPHOCYTES - ABS (DIFF) (BEAKER) 0.53 K/ L 1.48-4.50 L (test code = 1366) MONOCYTES - ABS (DIFF) (BEAKER) 0.01 K/ L 0.00-1.30 (test code = 1367) EOSINOPHILS - ABS (DIFF) (BEAKER) 0.01 K/ L 0.00-0.50 (test code = 1368) BANDS-ABS (DIFF) (BEAKER) (test 0.0 K/ L 0.0-0.8 code = 1349) TOTAL COUNTED (BEAKER) (test code = 100 1351) BANDS + SEGMENTED NEUTROPHILS 0.05 (BEAKER) (test code = 1352) PLT MORPHOLOGY (BEAKER) (test code Normal = 486) ATYPICAL LYMPHS(BEAKER) (test code Present = 1678) ANISOCYTOSIS (BEAKER) (test code = 1+ 961) MICROCYTES (BEAKER) (test code = 1+ 965) OVALOCYTES (BEAKER) (test code = 1+ 477) POIKILOCYTES (BEAKER) (test code = 1+ few 966) CBC W/PLT COUNT & AUTO [id number] 09:05:39 Test Item Value Reference Range Interpretation Comments WHITE BLOOD CELL COUNT (BEAKER) 0.6 K/ L 3.5-10.5 LL (test code = 775) RED BLOOD CELL COUNT (BEAKER) 2.30 M/ L 3.93-5.22 L (test code = 761) HEMOGLOBIN (BEAKER) (test code = 7.6 GM/DL 11.2-15.7 L 410) HEMATOCRIT (BEAKER) (test code = 21.6 % 34.1-44.9 L 411) MEAN CORPUSCULAR VOLUME (BEAKER) 94 fL 79-95 (test code = 753) MEAN CORPUSCULAR HEMOGLOBIN 33.0 pg 25.6-32.2 H (BEAKER) (test code = 751) MEAN CORPUSCULAR HEMOGLOBIN CONC 35.2 GM/DL 32.2-35.5 (BEAKER) (test code = 752) RED CELL DISTRIBUTION WIDTH 12.8 % 11.7-14.4 (BEAKER) (test code = 412) PLATELET COUNT (BEAKER) (test code 11 K/CU MM 150-450 L = 756) MEAN PLATELET VOLUME (BEAKER) 12.0 fL 9.4-12.3 (test code = 754) NUCLEATED RED BLOOD CELLS (BEAKER) 0 /100 WBC 0-0 (test code = 413) PERIPHERAL BLOOD SMEAR - PATHOLOGIST [id number] 08:57:51 Test Item Value Reference Range Interpretation Comments PERIPHERAL SMR REVIEW Cell counts confirmed. (BEAKER) (test code = 7904) [id number] Bharti Correa M.D. (BEAKER) (test code = (electronic signature) 4829) COMPREHENSIVE METABOLIC [id number] 06:15:15 Test Item Value Reference Range Interpretation Comments TOTAL PROTEIN 5.5 gm/dL 6.0-8.3 L (BEAKER) (test code = 770) ALBUMIN (BEAKER) 3.0 g/dL 3.5-5.0 L (test code = 1145) ALKALINE 63 U/L 40-150 PHOSPHATASE (BEAKER) (test code = 346) BILIRUBIN TOTAL 0.9 mg/dL 0.2-1.2 (BEAKER) (test code = 377) SODIUM (BEAKER) 138 meq/L 136-145 (test code = 381) POTASSIUM (BEAKER) 3.8 meq/L 3.5-5.1 (test code = 379) CHLORIDE (BEAKER) 106 meq/L 98-107 (test code = 382) CO2 (BEAKER) (test 24 meq/L 22-29 code = 355) BLOOD UREA 29 mg/dL 7-21 H NITROGEN (BEAKER) (test code = 354) CREATININE 1.35 mg/dL 0.57-1.25 H (BEAKER) (test code = 358) GLUCOSE RANDOM 95 mg/dL 70-105 (BEAKER) (test code = 652) CALCIUM (BEAKER) 9.1 mg/dL 8.4-10.2 (test code = 697) AST (SGOT) 16 U/L 5-34 (BEAKER) (test code = 353) ALT (SGPT) 14 U/L 6-55 (BEAKER) (test code = 347) EGFR (BEAKER) 41 Interpretatio n of eGFR (test code = 1092) mL/min/1.[address] age Description sq m Result G1 Fouzia l or high >=90 G2 Mildly decreased 60-89 G3a Mildl y to moderately 45-5 9 G3b Moderately to s everely 30-44 G4 Severl y decreased 15-29 G5 Kidney failure <15Reported eGF R is based on the CKD-EPI 2020 equation that d oes not use a race coefficientEsti mated GFR is not as accur ate as Creatinine Masha shoaib in predicting glom erular filtration rate . Estimated GFR is not appl icable for dialysis patien ts Direct Care Provider ID - ELISE [id number] 06:15:15 Test Item Value Reference Range Interpretation Comments MAGNESIUM (BEAKER) (test code = 1.9 mg/dL 1.6-2.6 627) Direct Care Provider ID - ELISE LRAD, CHEST, 2 [id number] 21:42:00Reason for exam:- >dyspneaShould this be performed at the bedside?->Yes [facility] 1945 Sex: FFINAL REPORT TECHNIQUE: Frontal and lateral views of the chest. INDICATION: dyspnea COMPARISON: None FINDINGS: LINES/TUBES: None. LUNGS: Emphysematous change. Patchy right upper lobe opacities compatible with pneumonia. No pulmonary edema. PLEURA: No pleural effusion or pneumothorax. HEART AND MEDIASTINUM: The cardiomediastinal contour within normal limits. Atherosclerotic calcifications are present within the arch of the aorta. SOFT TISSUES AND BONES: Unremarkable. IMPRESSION:Patchy right upper lobe opacity compatible with pneumonia. Follow-up to resolution is advised. Background of emphysematous change. Signed: Jaziel Gellereport Verified Date/Time: 10/01/2022 21:42:18 Urinalysis w/[id number] 17:53:10 Test Item Value Reference Range Interpretation Comments Color, UA (test code Yellow = 5778-6) Clarity, UA (test Clear code = 5767-9) Specific [place], UA 1.013 1.001-1.035 (test code = 5811-5) pH, UA (test code = 6.0 5.0-8.0 5803-2) Protein, UA (test 30 mg/dL Negative A code = 39343-7) Glucose, UA (test Negative Negative code = 365) Ketones, UA (test Negative Negative code = 2514-8) Bilirubin, UA (test Negative Negative code = 29641-0) Blood, UA (test code Moderate Negative A = 83162-4) Nitrite, UA (test Negative Negative code = 5802-4) Leukocytes, UA (test Negative Negative code = 5799-2) Urobilinogen, UA 0.2 0.2-1.0 (test code = 10069-3) RBC, UA (test code = 12 See_Comment [Autom ated 62854-5) message] The system which generated this result transmit kranthi reference range : /HPF. The reference range was not used to interpret this result as normal/abnormal . WBC, UA (test code = 2 See_Comment [Autom ated 5821-4) message] The system which generated this result transmit kranthi reference range : /HPF. The reference range was not used to interpret this result as normal/abnormal . Squam Epithel, UA 1 See_Comment [Automate d (test code = 97520-3) messag e] The system which generated this result transmit kranthi reference range : /HPF. The reference range was not used to interpret this result as normal/abnormal . Casts (test code = 2 See_Comment [Automat ed 9842-6) message] The system which generated this result transmit kranthi reference range : /LPF. The reference range was not used to interpret this result as normal/abnormal . Crystals, Urine (test Rare None Seen A code = 54556-5) Specimen Source (test Urine, Clean code = 2795) Catch ALEC (test code = ALEC) Direct Care Provider ID - [auto]Direct Care Provider ID - tech Lab Interpretation Abnormal (test code = 23717-0) [id number] 17:53:10 Test Item Value Reference Range Interpretation Comments Color, UA (test code Yellow = 5778-6) Clarity, UA (test Clear code = 5767-9) Specific [place], UA 1.013 1.001-1.035 (test code = 5811-5) pH, UA (test code = 6.0 5.0-8.0 5803-2) Protein, UA (test 30 mg/dL Negative A code = 98267-4) Glucose, UA (test Negative Negative code = 365) Ketones, UA (test Negative Negative code = 2514-8) Bilirubin, UA (test Negative Negative code = 80625-6) Blood, UA (test code Moderate Negative A = 61371-3) Nitrite, UA (test Negative Negative code = 5802-4) Leukocytes, UA (test Negative Negative code = 5799-2) Urobilinogen, UA 0.2 0.2-1.0 (test code = 36962-2) RBC, UA (test code = 12 See_Comment [Autom ated 99262-0) message] The system which generated this result transmit kranthi reference range : /HPF. The reference range was not used to interpret this result as normal/abnormal . WBC, UA (test code = 2 See_Comment [Autom ated 5821-4) message] The system which generated this result transmit kranthi reference range : /HPF. The reference range was not used to interpret this result as normal/abnormal . Squam Epithel, UA 1 See_Comment [Automate d (test code = 24591-6) messag e] The system which generated this result transmit kranthi reference range : /HPF. The reference range was not used to interpret this result as normal/abnormal . Casts (test code = 2 See_Comment [Automat ed 9842-6) message] The system which generated this result transmit kranthi reference range : /LPF. The reference range was not used to interpret this result as normal/abnormal . Crystals, Urine (test Rare None Seen A code = 01051-7) Specimen Source (test Urine, Clean code = 2795) Catch ALEC (test code = ALEC) Direct Care Provider ID - [auto]Direct Care Provider ID - tech Lab Interpretation Abnormal (test code = 03898-9) [facility][id number] 17:53:10 Test Item Value Reference Range Interpretation Comments Color, UA (test code Yellow = 5778-6) Clarity, UA (test Clear code = 5767-9) Specific Newton, UA 1.013 1.001-1.035 (test code = 5811-5) pH, UA (test code = 6.0 5.0-8.0 5803-2) Protein, UA (test 30 mg/dL Negative A code = 50958-1) Glucose, UA (test Negative Negative code = 365) Ketones, UA (test Negative Negative code = 2514-8) Bilirubin, UA (test Negative Negative code = 58044-6) Blood, UA (test code Moderate Negative A = 65804-1) Nitrite, UA (test Negative Negative code = 5802-4) Leukocytes, UA (test Negative Negative code = 5799-2) Urobilinogen, UA 0.2 0.2-1.0 (test code = 26114-8) RBC, UA (test code = 12 See_Comment [Autom ated 60299-9) message] The system which generated this result transmit kranthi reference range : /HPF. The reference range was not used to interpret this result as normal/abnormal . WBC, UA (test code = 2 See_Comment [Autom ated 5821-4) message] The system which generated this result transmit kranthi reference range : /HPF. The reference range was not used to interpret this result as normal/abnormal . Squam Epithel, UA 1 See_Comment [Automate d (test code = 16477-8) messag e] The system which generated this result transmit kranthi reference range : /HPF. The reference range was not used to interpret this result as normal/abnormal . Casts (test code = 2 See_Comment [Automat ed 9842-6) message] The system which generated this result transmit kranthi reference range : /LPF. The reference range was not used to interpret this result as normal/abnormal . Crystals, Urine (test Rare None Seen A code = 94486-9) Specimen Source (test Urine, Clean code = 2795) Catch ALEC (test code = ALEC) Direct Care Provider ID - [auto]Direct Care Provider ID - tech Lab Interpretation Abnormal (test code = 64012-1) [facility]/Iblyqecetdv1098-43-61 17:53:10 Test Item Value Reference Range Interpretation Comments Color, UA (test code Yellow = 5778-6) Clarity, UA (test Clear code = 5767-9) Specific [place], UA 1.013 1.001-1.035 (test code = 5811-5) pH, UA (test code = 6.0 5.0-8.0 5803-2) Protein, UA (test 30 mg/dL Negative A code = 69801-7) Glucose, UA (test Negative Negative code = 365) Ketones, UA (test Negative Negative code = 2514-8) Bilirubin, UA (test Negative Negative code = 80813-6) Blood, UA (test code Moderate Negative A = 45494-4) Nitrite, UA (test Negative Negative code = 5802-4) Leukocytes, UA (test Negative Negative code = 5799-2) Urobilinogen, UA 0.2 0.2-1.0 (test code = 92625-4) RBC, UA (test code = 12 See_Comment [Autom ated 60462-8) message] The system which generated this result transmit kranthi reference range : /HPF. The reference range was not used to interpret this result as normal/abnormal . WBC, UA (test code = 2 See_Comment [Autom ated 5821-4) message] The system which generated this result transmit kranthi reference range : /HPF. The reference range was not used to interpret this result as normal/abnormal . Squam Epithel, UA 1 See_Comment [Automate d (test code = 32903-6) messag e] The system which generated this result transmit kranthi reference range : /HPF. The reference range was not used to interpret this result as normal/abnormal . Casts (test code = 2 See_Comment [Automat ed 9842-6) message] The system which generated this result transmit kranthi reference range : /LPF. The reference range was not used to interpret this result as normal/abnormal . Crystals, Urine (test Rare None Seen A code = 41101-4) Specimen Source (test Urine, Clean code = 2795) Catch ALEC (test code = ALEC) Direct Care Provider ID - [auto]Direct Care Provider ID - tech Lab Interpretation Abnormal (test code = 42393-9) [facility]/ [id number] 17:53:10 Test Item Value Reference Range Interpretation Comments COLOR (BEAKER) (test code Yellow = 470) CLARITY (BEAKER) (test Clear code = 469) SPECIFIC GRAVITY UA 1.013 1.001-1.035 (BEAKER) (test code = 468) PH UA (BEAKER) (test code 6.0 5.0-8.0 = 467) PROTEIN UA (BEAKER) (test 30 mg/dL Negative A code = 464) GLUCOSE UA (BEAKER) (test Negative Negative code = 365) KETONES UA (BEAKER) (test Negative Negative code = 371) BILIRUBIN UA (BEAKER) Negative Negative (test code = 462) BLOOD UA (BEAKER) (test Moderate Negative A code = 461) NITRITE UA (BEAKER) (test Negative Negative code = 465) LEUKOCYTE ESTERASE UA Negative Negative (BEAKER) (test code = 466) UROBILINOGEN UA (BEAKER) 0.2 0.2-1.0 (test code = 463) RBC UA (BEAKER) (test code 12 /HPF = 519) WBC UA (BEAKER) (test code 2 /HPF = 520) SQUAMOUS EPITHELIAL 1 /HPF (BEAKER) (test code = 516) CASTS (BEAKER) (test code 2 /LPF = 1579) CRYSTALS, URINE (BEAKER) Rare None Seen A (test code = 1521) SOURCE(BEAKER) (test code Urine, Clean Catch = 2795) Direct Care Provider ID - [auto]Direct Care Provider ID - techCreatinine, random [id number] 10:46:37 Test Item Value Reference Range Interpretation Comments Creatinine, Ur 83.9 mg/dL (test code = 2161-8) ALEC (test code = Reference Range: No ALEC) NormalsOperator ID - JOSE DE JESUS B [facility] CenterProtein, random [id number] 10:46:37 Test Item Value Reference Range Interpretation Comments Protein, Urine (test code 14 mg/dL 0-14 = 2888-6) ALEC (test code = ALEC) Direct Care Provider ID - JOSE DE JESUS B Lab Interpretation (test Normal code = 73808-9) [facility] CenterCreatinine, random [id number] 10:46:37 Test Item Value Reference Range Interpretation Comments Creatinine, Ur 83.9 mg/dL (test code = 2161-8) ALEC (test code = Reference Range: No ALEC) NormalsOperator ID - JOSE DE JESUS B [facility] CenterProtein, random [id number] 10:46:37 Test Item Value Reference Range Interpretation Comments Protein, Urine (test code 14 mg/dL 0-14 = 2888-6) ALEC (test code = ALEC) Direct Care Provider ID - JOSE DE JESUS B Lab Interpretation (test Normal code = 27312-7) [facility] CenterCreatinine, random [id number] 10:46:37 Test Item Value Reference Range Interpretation Comments Creatinine, Ur 83.9 mg/dL (test code = 2161-8) ALEC (test code = Reference Range: No ALEC) NormalsOperator ID - JOSE DE JESUS B [facility] CenterProtein, random [id number] 10:46:37 Test Item Value Reference Range Interpretation Comments Protein, Urine (test code 14 mg/dL 0-14 = 2888-6) ALEC (test code = ALEC) Direct Care Provider ID - JOSE DE JESUS B Lab Interpretation (test Normal code = 31476-8) [facility] CenterCreatinine, random [id number] 10:46:37 Test Item Value Reference Range Interpretation Comments Creatinine, Ur 83.9 mg/dL (test code = 2161-8) ALEC (test code = Reference Range: No ALEC) NormalsOperator ID - JOSE DE JESUS B [facility] CenterProtein, random [id number] 10:46:37 Test Item Value Reference Range Interpretation Comments Protein, Urine (test code 14 mg/dL 0-14 = 2888-6) ALEC (test code = ALEC) Direct Care Provider ID - JOSE DE JESUS B Lab Interpretation (test Normal code = 56764-4) [facility] CenterCREATININE, RANDOM [id number] 10:46:37 Test Item Value Reference Range Interpretation Comments CREATININE URINE (BEAKER) (test 83.9 mg/dL code = 375) Reference Range: No NormalsOperator ID - JOSE DE JESUS BPROTEIN, RANDOM [id number] 10:46:37 Test Item Value Reference Range Interpretation Comments PROTEIN, URINE (BEAKER) (test code = 14 mg/dL 0-14 1569) Direct Care Provider ID - JOSE DE JESUS B(CELLAVISION MANUAL DIFF)2022-10-01 09:54:39 Test Item Value Reference Range Interpretation Comments NEUTROPHILS - REL 2 % (CELLAVISION)(BEAKER) (test code = 2816) LYMPHOCYTES - REL 97 % (CELLAVISION)(BEAKER) (test code = 2817) BANDS - REL (CELLAVISION)(BEAKER) 1 % 0-10 (test code = 2826) NEUTROPHILS - ABS 0.01 K/ul 1.56-6.13 L (CELLAVISION)(BEAKER) (test code = 2830) LYMPHOCYTES - ABS 0.39 K/ul 1.18-3.74 L (CELLAVISION)(BEAKER) (test code = 2831) BANDS - ABS (CELLAVISION)(BEAKER) 0.00 K/uL 0.00-0.80 (test code = 2840) TOTAL COUNTED (BEAKER) (test code 100 = 1351) WBC MORPHOLOGY (BEAKER) (test Normal code = 487) PLT MORPHOLOGY (BEAKER) (test Normal code = 486) ANISOCYTOSIS (BEAKER) (test code 2+ moderate = 961) MICROCYTES (BEAKER) (test code = 2+ moderate 965) POIKILOCYTES (BEAKER) (test code 1+ few = 966) OVALOCYTES (BEAKER) (test code = 1+ few 477) OLLIE CELLS (BEAKER) (test code = 1+ few 474) PLATELET CONCENTRATION Decreased (CELLAVISION)(BEAKER) (test code = 3438) Direct Care Provider ID - [id number] W/PLT COUNT & AUTO [id number] 09:54:38 Test Item Value Reference Range Interpretation Comments WHITE BLOOD CELL COUNT (BEAKER) 0.4 K/ L 3.5-10.5 LL (test code = 775) RED BLOOD CELL COUNT (BEAKER) 2.09 M/ L 3.93-5.22 L (test code = 761) HEMOGLOBIN (BEAKER) (test code = 6.9 GM/DL 11.2-15.7 L 410) HEMATOCRIT (BEAKER) (test code = 19.6 % 34.1-44.9 L 411) MEAN CORPUSCULAR VOLUME (BEAKER) 94 fL 79-95 (test code = 753) MEAN CORPUSCULAR HEMOGLOBIN 33.0 pg 25.6-32.2 H (BEAKER) (test code = 751) MEAN CORPUSCULAR HEMOGLOBIN CONC 35.2 GM/DL 32.2-35.5 (BEAKER) (test code = 752) RED CELL DISTRIBUTION WIDTH 12.1 % 11.7-14.4 (BEAKER) (test code = 412) PLATELET COUNT (BEAKER) (test code 12 K/CU MM 150-450 L = 756) MEAN PLATELET VOLUME (BEAKER) 10.1 fL 9.4-12.3 (test code = 754) NUCLEATED RED BLOOD CELLS (BEAKER) 0 /100 WBC 0-0 (test code = 413) (CELLAVISION MANUAL DIFF)2022-10-01 09:45:58 Test Item Value Reference Range Interpretation Comments NEUTROPHILS - REL 5 % (CELLAVISION)(BEAKER) (test code = 2816) LYMPHOCYTES - REL 91 % (CELLAVISION)(BEAKER) (test code = 2817) EOSINOPHILS - REL 3 % (CELLAVISION)(BEAKER) (test code = 2819) BANDS - REL (CELLAVISION)(BEAKER) 1 % 0-10 (test code = 2826) NEUTROPHILS - ABS 0.02 K/ul 1.56-6.13 L (CELLAVISION)(BEAKER) (test code = 2830) LYMPHOCYTES - ABS 0.36 K/ul 1.18-3.74 L (CELLAVISION)(BEAKER) (test code = 2831) EOSINOPHILS - ABS 0.01 K/uL 0.04-0.36 L (CELLAVISION)(BEAKER) (test code = 2834) BANDS - ABS (CELLAVISION)(BEAKER) 0.00 K/uL 0.00-0.80 (test code = 2840) TOTAL COUNTED (BEAKER) (test code 100 = 1351) WBC MORPHOLOGY (BEAKER) (test Normal code = 487) PLT MORPHOLOGY (BEAKER) (test Normal code = 486) ANISOCYTOSIS (BEAKER) (test code 2+ moderate = 961) MICROCYTES (BEAKER) (test code = 2+ moderate 965) POIKILOCYTES (BEAKER) (test code 1+ few = 966) OVALOCYTES (BEAKER) (test code = 1+ few 477) PLATELET CONCENTRATION Decreased (CELLAVISION)(BEAKER) (test code = 3438) Direct Care Provider ID - [id number] W/PLT COUNT & AUTO [id number] 09:45:57 Test Item Value Reference Range Interpretation Comments WHITE BLOOD CELL COUNT (BEAKER) 0.4 K/ L 3.5-10.5 LL (test code = 775) RED BLOOD CELL COUNT (BEAKER) 2.17 M/ L 3.93-5.22 L (test code = 761) HEMOGLOBIN (BEAKER) (test code = 7.3 GM/DL 11.2-15.7 L 410) HEMATOCRIT (BEAKER) (test code = 20.4 % 34.1-44.9 L 411) MEAN CORPUSCULAR VOLUME (BEAKER) 94 fL 79-95 (test code = 753) MEAN CORPUSCULAR HEMOGLOBIN 33.6 pg 25.6-32.2 H (BEAKER) (test code = 751) MEAN CORPUSCULAR HEMOGLOBIN CONC 35.8 GM/DL 32.2-35.5 H (BEAKER) (test code = 752) RED CELL DISTRIBUTION WIDTH 11.9 % 11.7-14.4 (BEAKER) (test code = 412) PLATELET COUNT (BEAKER) (test code 15 K/CU MM 150-450 L = 756) MEAN PLATELET VOLUME (BEAKER) 11.3 fL 9.4-12.3 (test code = 754) NUCLEATED RED BLOOD CELLS (BEAKER) 0 /100 WBC 0-0 (test code = 413) HIGH SENSITIVITY TROPONIN [id number] 07:07:47 Test Item Value Reference Range Interpretation Comments HIGH SENSITIVITY 18 pg/ml See_Comment H [Automated message] TROPONIN I (test code = The system which [id number]) generated this result transmitted ref erence range: <=17. Th e reference range was not used to int erpret this result as normal/abnormal . Direct Care Provider ID - STEPHANIE MThe OIL INSPECTOR STAT High Sensitivity Troponin-I results should be used in conjunction with other diagnostic information such as ECG, clinical observations and information, and patient symptoms to aid in the diagnosis of MS.[id number] 05:58:01 Test Item Value Reference Range Interpretation Comments MAGNESIUM (BEAKER) (test code = 1.8 mg/dL 1.6-2.6 627) Direct Care Provider ID - PIAYA LCOMPREHENSIVE METABOLIC [id number] 05:58:00 Test Item Value Reference Range Interpretation Comments TOTAL PROTEIN 5.6 gm/dL 6.0-8.3 L (BEAKER) (test code = 770) ALBUMIN (BEAKER) 3.2 g/dL 3.5-5.0 L (test code = 1145) ALKALINE 64 U/L 40-150 PHOSPHATASE (BEAKER) (test code = 346) BILIRUBIN TOTAL 1.4 mg/dL 0.2-1.2 H (BEAKER) (test code = 377) SODIUM (BEAKER) 136 meq/L 136-145 (test code = 381) POTASSIUM (BEAKER) 3.9 meq/L 3.5-5.1 (test code = 379) CHLORIDE (BEAKER) 102 meq/L 98-107 (test code = 382) CO2 (BEAKER) (test 24 meq/L 22-29 code = 355) BLOOD UREA 38 mg/dL 7-21 H NITROGEN (BEAKER) (test code = 354) CREATININE 1.64 mg/dL 0.57-1.25 H (BEAKER) (test code = 358) GLUCOSE RANDOM 98 mg/dL 70-105 (BEAKER) (test code = 652) CALCIUM (BEAKER) 9.1 mg/dL 8.4-10.2 (test code = 697) AST (SGOT) 19 U/L 5-34 (BEAKER) (test code = 353) ALT (SGPT) 14 U/L 6-55 (BEAKER) (test code = 347) EGFR (BEAKER) 32 Interpretati on of eGFR (test code = 1092) mL/min/1.[address] age Description sq m Result G1 Fouzia l or high >=90 G2 Mildly decreased 60-89 G3a Mildl y to moderately 45- 59 G3b Moderately to s everely 30-44 G4 Severl y decreased 15-29 G5 Kidney failure <15Reported eGF R is based on the CKD-EPI 202 equation that d oes not use a race coefficientEsti mated GFR is not as accur ate as Creatinine Masha shoaib in predicting glom erular filtration rate . Estimated GFR is not appl icable for dialysis patien ts Direct Care Provider ID - PIFLORIDALMA LUrinalysis w/Microscopic + Reflex to [id number] 02:54:08 Test Item Value Reference Range Interpretation Comments Color, UA (test code Yellow = 5778-6) Clarity, UA (test Clear code = 5767-9) Specific [place], UA 1.015 1.001-1.035 (test code = 5811-5) pH, UA (test code = 5.5 5.0-8.0 5803-2) Protein, UA (test 30 mg/dL Negative A code = 54001-9) Glucose, UA (test Negative Negative code = 365) Ketones, UA (test Negative Negative code = 2514-8) Bilirubin, UA (test Negative Negative code = 32526-0) Blood, UA (test code Moderate Negative A = 61436-3) Nitrite, UA (test Negative Negative code = 5802-4) Leukocytes, UA (test Negative Negative code = 5799-2) Urobilinogen, UA 0.2 0.2-1.0 (test code = 23263-4) RBC, UA (test code = 8 See_Comment [Autom ated 53931-5) message] The system which generated this result transmit kranthi reference range : /HPF. The reference range was not used to interpret this result as normal/abnormal . WBC, UA (test code = 1 See_Comment [Autom ated 5821-4) message] The system which generated this result transmit kranthi reference range : /HPF. The reference range was not used to interpret this result as normal/abnormal . Squam Epithel, UA 2 See_Comment [Automate d (test code = 13442-9) messag e] The system which generated this result transmit kranthi reference range : /HPF. The reference range was not used to interpret this result as normal/abnormal . Specimen Source (test code = 2795) ALEC (test code = ALEC) Direct Care Provider ID - [auto]Direct Care Provider ID - tech Lab Interpretation Abnormal (test code = 16944-9) [facility] Reflex to Culture 2022-10-01 02:54:08 Test Item Value Reference Range Interpretation Comments Color, UA (test code Yellow = 5778-6) Clarity, UA (test Clear code = 5767-9) Specific [place], UA 1.015 1.001-1.035 (test code = 5811-5) pH, UA (test code = 5.5 5.0-8.0 5803-2) Protein, UA (test 30 mg/dL Negative A code = 17486-4) Glucose, UA (test Negative Negative code = 365) Ketones, UA (test Negative Negative code = 2514-8) Bilirubin, UA (test Negative Negative code = 70887-9) Blood, UA (test code Moderate Negative A = 10753-3) Nitrite, UA (test Negative Negative code = 5802-4) Leukocytes, UA (test Negative Negative code = 5799-2) Urobilinogen, UA 0.2 0.2-1.0 (test code = 85194-2) RBC, UA (test code = 8 See_Comment [Autom ated 92737-5) message] The system which generated this result transmit kranthi reference range : /HPF. The reference range was not used to interpret this result as normal/abnormal . WBC, UA (test code = 1 See_Comment [Autom ated 5821-4) message] The system which generated this result transmit kranthi reference range : /HPF. The reference range was not used to interpret this result as normal/abnormal . Squam Epithel, UA 2 See_Comment [Automate d (test code = 47882-2) messag e] The system which generated this result transmit kranthi reference range : /HPF. The reference range was not used to interpret this result as normal/abnormal . Specimen Source (test code = 2795) ALEC (test code = ALEC) Direct Care Provider ID - [auto]Direct Care Provider ID - tech Lab Interpretation Abnormal (test code = 28491-4) [facility] Reflex to Culture 2022-10-01 02:54:08 Test Item Value Reference Range Interpretation Comments Color, UA (test code Yellow = 5778-6) Clarity, UA (test Clear code = 5767-9) Specific [place], UA 1.015 1.001-1.035 (test code = 5811-5) pH, UA (test code = 5.5 5.0-8.0 5803-2) Protein, UA (test 30 mg/dL Negative A code = 32868-9) Glucose, UA (test Negative Negative code = 365) Ketones, UA (test Negative Negative code = 2514-8) Bilirubin, UA (test Negative Negative code = 79940-3) Blood, UA (test code Moderate Negative A = 07084-5) Nitrite, UA (test Negative Negative code = 5802-4) Leukocytes, UA (test Negative Negative code = 5799-2) Urobilinogen, UA 0.2 0.2-1.0 (test code = 35705-0) RBC, UA (test code = 8 See_Comment [Autom ated 88251-3) message] The system which generated this result transmit kranthi reference range : /HPF. The reference range was not used to interpret this result as normal/abnormal . WBC, UA (test code = 1 See_Comment [Autom ated 5821-4) message] The system which generated this result transmit kranthi reference range : /HPF. The reference range was not used to interpret this result as normal/abnormal . Squam Epithel, UA 2 See_Comment [Automate d (test code = 14636-1) messag e] The system which generated this result transmit kranthi reference range : /HPF. The reference range was not used to interpret this result as normal/abnormal . Specimen Source (test code = 2795) ALEC (test code = ALEC) Direct Care Provider ID - [auto]Direct Care Provider ID - tech Lab Interpretation Abnormal (test code = 57126-6) [facility] Reflex to Culture 2022-10-01 02:54:08 Test Item Value Reference Range Interpretation Comments Color, UA (test code Yellow = 5778-6) Clarity, UA (test Clear code = 5767-9) Specific [place], UA 1.015 1.001-1.035 (test code = 5811-5) pH, UA (test code = 5.5 5.0-8.0 5803-2) Protein, UA (test 30 mg/dL Negative A code = 06837-5) Glucose, UA (test Negative Negative code = 365) Ketones, UA (test Negative Negative code = 2514-8) Bilirubin, UA (test Negative Negative code = 35624-4) Blood, UA (test code Moderate Negative A = 53847-5) Nitrite, UA (test Negative Negative code = 5802-4) Leukocytes, UA (test Negative Negative code = 5799-2) Urobilinogen, UA 0.2 0.2-1.0 (test code = 22079-1) RBC, UA (test code = 8 See_Comment [Autom ated 28786-4) message] The system which generated this result transmit kranthi reference range : /HPF. The reference range was not used to interpret this result as normal/abnormal . WBC, UA (test code = 1 See_Comment [Autom ated 5821-4) message] The system which generated this result transmit kranthi reference range : /HPF. The reference range was not used to interpret this result as normal/abnormal . Squam Epithel, UA 2 See_Comment [Automate d (test code = 33127-5) messag e] The system which generated this result transmit kranthi reference range : /HPF. The reference range was not used to interpret this result as normal/abnormal . Specimen Source (test code = 2795) ALEC (test code = ALEC) Direct Care Provider ID - [auto]Direct Care Provider ID - tech Lab Interpretation Abnormal (test code = 61134-4) [facility]FLEX URINE [id number] 02:54:08 Test Item Value Reference Range Interpretation Comments COLOR (BEAKER) (test code = 470) Yellow CLARITY (BEAKER) (test code = 469) Clear SPECIFIC GRAVITY UA (BEAKER) (test 1.015 1.001-1.035 code = 468) PH UA (BEAKER) (test code = 467) 5.5 5.0-8.0 PROTEIN UA (BEAKER) (test code = 30 mg/dL Negative A 464) GLUCOSE UA (BEAKER) (test code = Negative Negative 365) KETONES UA (BEAKER) (test code = Negative Negative 371) BILIRUBIN UA (BEAKER) (test code = Negative Negative 462) BLOOD UA (BEAKER) (test code = 461) Moderate Negative A NITRITE UA (BEAKER) (test code = Negative Negative 465) LEUKOCYTE ESTERASE UA (BEAKER) (test Negative Negative code = 466) UROBILINOGEN UA (BEAKER) (test code 0.2 0.2-1.0 = 463) RBC UA (BEAKER) (test code = 519) 8 /HPF WBC UA (BEAKER) (test code = 520) 1 /HPF SQUAMOUS EPITHELIAL (BEAKER) (test 2 /HPF code = 516) SOURCE(BEAKER) (test code = 2795) Direct Care Provider ID - [auto]Direct Care Provider ID - [id number] 02:45:28 Test Item Value Reference Range Interpretation Comments PROCALCITONIN ([employer]BRITNEY) (test code 6.86 ng/mL <0.05 H = 3036) SEPSIS RISK (ng/mL)Low: 0.05-0.50Intermediate: 0.51-2.00High: >=2.01HIGH SENSITIVITY TROPONIN [id number] 02:34:29 Test Item Value Reference Range Interpretation Comments HIGH SENSITIVITY 18 pg/ml See_Comment H [Automated message] TROPONIN I (test code = The system which [id number]) generated this result transmitted ref erence range: <=17. Th e reference range was not used to int erpret this result as normal/abnormal . Direct Care Provider ID - ELISE [employer] OIL INSPECTOR STAT High Sensitivity Troponin-I results should be used in conjunction with other diagnostic information such as ECG, clinical observations and information, and patient symptoms to aid in the diagnosis of MS.[id number] 00:35:30 Test Item Value Reference Range Interpretation Comments THYROID STIMULATING HORMONE 0.426 uIU/mL 0.350-4.940 ([employer]) (test code = 772) Direct Care Provider ID Zina OLIVARES LT4, [id number] 00:35:29 Test Item Value Reference Range Interpretation Comments FREE T4 ([employer]) (test code = 655) 1.22 ng/dL 0.70-1.48 Direct Care Provider ID Zina OLIVARES LHIGH SENSITIVITY TROPONIN [id number] 23:45:26 Test Item Value Reference Range Interpretation Comments HIGH SENSITIVITY 15 pg/ml See_Comment [Automated message] TROPONIN I (test code = The system which [id number]) generated this result transmitted ref erence range: <=17. Th e reference range was not used to int erpret this result as normal/abnormal . Direct Care Provider ID Zina OLIVARES LTeduarda OIL INSPECTOR STAT High Sensitivity Troponin-I results should be used in conjunction with other diagnostic information such as ECG, clinical observations and information, and patient symptoms to aid in the diagnosis of MS.B-TYPE NATRIURETIC FACTOR (BNP)2022-09-30 23:45:26 Test Item Value Reference Range Interpretation Comments B-TYPE NATRIURETIC PEPTIDE ([employer]) 98 pg/mL 0-100 (test code = 700) Direct Care Provider ID Zina OLIVARES LCOMPREHENSIVE METABOLIC [id number] 23:42:05 Test Item Value Reference Range Interpretation Comments TOTAL PROTEIN 6.0 gm/dL 6.0-8.3 (BEAKER) (test code = 770) ALBUMIN (BEAKER) 3.5 g/dL 3.5-5.0 (test code = 1145) ALKALINE 68 U/L 40-150 PHOSPHATASE (BEAKER) (test code = 346) BILIRUBIN TOTAL 1.4 mg/dL 0.2-1.2 H (BEAKER) (test code = 377) SODIUM (BEAKER) 136 meq/L 136-145 (test code = 381) POTASSIUM (BEAKER) 4.1 meq/L 3.5-5.1 (test code = 379) CHLORIDE (BEAKER) 102 meq/L 98-107 (test code = 382) CO2 (BEAKER) (test 24 meq/L 22-29 code = 355) BLOOD UREA 38 mg/dL 7-21 H NITROGEN (BEAKER) (test code = 354) CREATININE 1.62 mg/dL 0.57-1.25 H (BEAKER) (test code = 358) GLUCOSE RANDOM 104 mg/dL 70-105 (BEAKER) (test code = 652) CALCIUM (BEAKER) 9.1 mg/dL 8.4-10.2 (test code = 697) AST (SGOT) 19 U/L 5-34 (BEAKER) (test code = 353) ALT (SGPT) 15 U/L 6-55 (BEAKER) (test code = 347) EGFR (BEAKER) 33 Interpretatio n of eGFR (test code = 1092) mL/min/1.[address] age Description sq m Result G1 Fouzia l or high >=90 G2 Mildly decreased 60-89 G3a Mildl y to moderately 45-5 9 G3b Moderately to s everely 30-44 G4 Severl y decreased 15-29 G5 Kidney failure <15Reported eGF R is based on the CKD-EPI 202 equation that d oes not use a race coefficientEsti mated GFR is not as accur ate as Creatinine Masha cramer in predicting glom erular filtration rate . Estimated GFR is not appl icable for dialysis patien ts Direct Care Provider ID - ELISE [id number] 23:42:05 Test Item Value Reference Range Interpretation Comments MAGNESIUM (BEAKER) (test code = 1.8 mg/dL 1.6-2.6 627) Direct Care Provider ID - ELISE LC-REACTIVE [id number] 23:42:05 Test Item Value Reference Range Interpretation Comments C-REACTIVE PROTEIN (BEAKER) (test 16.66 mg/dL 0.00-0.50 H code = 676) Direct Care Provider ID - ELISE LPROTHROMBIN [id number] 23:35:28 Test Item Value Reference Range Interpretation Comments PROTIME (BEAKER) 13.8 seconds 11.9-14.2 (test code = 759) INR (BEAKER) (test 1.13 See_Comment [Automat ed message] code = 370) The system [employer] generated this result transmitted ref erence range: <=5.90. The reference range was not used to int erpret this result as normal/abnormal . RECOMMENDED COUMADIN/WARFARIN INR THERAPY RANGESSTANDARD DOSE: 2.0 - 3.0 Includes: PROPHYLAXIS for venous thrombosis, systemic embolization; TREATMENT for venous thrombosis and/or pulmonary embolus.HIGH RISK: Target INR is 2.5-3.5 for patients with mechanical heart valves.
--- NOTE | 2023-01-26 17:33 | RAD REPORT ---
EXAM DESCRIPTION: RAD - Ankle Right 3 View - 01/26/2023 5:13 pm CLINICAL HISTORY: PAIN COMPARISON: <Comparisons> FINDINGS/IMPRESSION: No definite fracture identified. Linear ossific densities along the dorsal aspe ct of the navicular bone on the lateral view and small fragment along the medial talar process on the frontal view favored to represent spurring. Plantar aspect calcaneal spurring.
--- NOTE | 2023-01-26 17:38 | ER ---
Nurse's Notes [facility] Name: Elizabeth Wyman Age: 77 yrs Sex: Female : 1945 Arrival Date: 01/26/2023 Time: 16:25 Bed 17 Private MD: Diagnosis: Sprain of ankle Presentation: 01/26 16:28 Chief complaint: Patient states: Stood up from chair and foot was asleep, tried to walk hb on it and it gave out, now c/o right ankle pain 06/10. Coronavirus screen: At this time, the client does not indicate any symptoms associated with coronavirus-19. Ebola Screen: No symptoms or risks identified at this time. Initial Sepsis Screen: Does the patient meet any 2 criteria? No. Patient's initial sepsis screen is negative. Does the patient have a suspected source of infection? No. Patient's initial sepsis screen is negative. Risk Assessment: Do you want to hurt yourself or someone else? Patient reports no desire to harm self or others. Onset of symptoms was January 26, 2023. 16:28 Method Of Arrival: Wheelchair hb 16:28 Acuity: GUNJAN 4 hb Historical: - Allergies: 16:30 Demerol; hb 16:30 meperidine; hb 16:30 Morphine; hb 16:30 Coricidin HBP Flu; hb 16:30 Allopurinol; hb - PMHx: 16:30 Granulomatosis w/ polymicroangitis; Hypertension; Rheumatoid Arthritis; hb - Immunization history:: Adult Immunizations up to date. - Social history:: Smoking status: unknown. Screenin:39 [facility] ED Fall Risk Assessment (Adult) History of falling in the last 3 months, eh3 including since admission Yes- single mechanical fall (1 pt) Confusion or Disorientation No (0 pts) Intoxicated or Sedated No (0 pts) Impaired Gait Yes (1 pt) Mobility Assist Device Used Yes (1 pt) Altered Elimination No (0 pt) Score/Fall Risk Level 3 or more points = High Risk Oriented to surroundings, Maintained a safe environment, Educated pt \T\ family on fall prevention, incl call for assistance when getting out of bed, Assessed \T\ reinforced patient's understanding of fall precautions, Provided non-skid footwear, Hourly rounding (assess needs \T\ fall precautionary measures) done, Utilized family, sitter, or virtual hand meat salter as indicated. Abuse screen: Denies threats or abuse. Denies injuries from another. Nutritional screening: No deficits noted. Tuberculosis screening: No symptoms or risk factors identified. Assessment: 16:39 General: Appears in no apparent distress. uncomfortable, Behavior is calm, cooperative, eh3 appropriate for age. Pain: Complains of pain in left lateral ankle, left Achilles, left medial ankle and anterior aspect of left ankle Pain does not radiate. Neuro: Level of Consciousness is awake, alert, obeys commands, Oriented to person, place, time, situation. Cardiovascular: Capillary refill < 3 seconds Patient's skin is warm and dry. Respiratory: Airway is patent Respiratory effort is even, unlabored, Respiratory pattern is regular, symmetrical. GI: No signs and/or symptoms were reported involving the gastrointestinal system. Abdomen is round non-distended. : No signs and/or symptoms were reported regarding the genitourinary system. EENT: No signs and/or symptoms were reported regarding the EENT system. Derm: No signs and/or symptoms reported regarding the dermatologic system. Skin is pink, warm \T\ dry. Musculoskeletal: Circulation, motion, and sensation intact. Range of motion: limited in left ankle. Vital Signs: 16:28 BP 202 / 82; Pulse 68; Resp 16; Temp 97.4; Pulse Ox 100% on R/A; Weight 57.61 kg; hb Height 5 ft. 3 in. (160.02 cm); Pain 7/10; 16:28 Body Mass Index 22.50 (57.61 kg, 160.02 cm) ED Course: 16:25 Patient arrived in ED. ja2 16:28 [facility]-C [facility]. kb 16:28 Rodolfo Taylor MD is Attending Physician. kb 16:30 Triage completed. hb 16:30 Arm band placed on. hb 16:39 Larisa Parmar, PAULA is Primary Nurse. eh3 16:39 Patient has correct armband on for positive identification. Bed in low position. Call eh3 light in reach. Side rails up X2. Adult w/ patient. Pulse ox on. NIBP on. Door closed. Noise minimized. 17:15 Ankle Right 3 View XRAY In Process Unspecified. EDMS Administered Medications: No medications were administered Outcome: 17:38 Discharge ordered by . kb 17:50 Patient left the ED. eh3 Signatures: Dispatcher [employer] EDSarai Patterson, Mari Su, RN RN Marcie Shook Erin, RN RN eh3
--- NOTE | 2023-01-26 17:38 | EDPHYS ---
Physician Documentation [facility] Name: Elizabeth Wyman Age: 77 yrs Sex: Female : 1945 Arrival Date: 01/26/2023 Time: 16:25 Bed 17 Private MD: ED Physician Rodolfo Taylor HPI: 01/26 16:59 This 77 yrs old Female presents to ER via Wheelchair with complaints of Foot Injury. kb 16:59 The patient presents with pain, swelling, tenderness. The complaints affect the left kb ankle. Context: The problem was sustained at home, resulted from the patient tripping, twisting of the extremity, the patient can partially bear weight, the patient is not able to ambulate. Onset: The symptoms/episode began/occurred just prior to arrival. Modifying factors: The symptoms are alleviated by nothing. the symptoms are aggravated by movement, weight bearing. Associated signs and symptoms: Pertinent positives: swelling, Pertinent negatives calf tenderness, fever, nausea, numbness, rash, tingling, vomiting, warmth, weakness. Treatment prior to arrival includes: no previous treatment. Severity of symptoms: At their worst the symptoms were moderate, in the emergency department the symptoms are unchanged. The patient has not experienced similar symptoms in the past. The patient has not recently seen a physician. Historical: - Allergies: 16:30 Demerol; hb 16:30 meperidine; hb 16:30 Morphine; hb 16:30 Coricidin HBP Flu; hb 16:30 Allopurinol; hb - PMHx: 16:30 Granulomatosis w/ polymicroangitis; Hypertension; Rheumatoid Arthritis; hb - Immunization history:: Adult Immunizations up to date. - Social history:: Smoking status: unknown. ROS: 16:56 Constitutional: Negative for fever, chills, and weight loss. kb 16:56 MS/extremity: Positive for pain, swelling, tenderness, of the left ankle. 16:56 All other systems are negative. Exam: 16:58 Constitutional: This is a well developed, well nourished patient who is awake, alert, kb and in no acute distress. Head/Face: Normocephalic, atraumatic. ENT: Moist Mucous membranes Cardiovascular: Regular rate and rhythm with a normal S1 and S2. No gallops, murmurs, or rubs. No pulse deficits. Respiratory: Respirations even and unlabored. No increased work of breathing. Talking in full sentences Skin: Warm, dry with normal turgor. Normal color. Neuro: Awake and alert, GCS 15, oriented to person, place, time, and situation. Moves all extremities. Normal gait. Psych: Awake, alert, with orientation to person, place and time. Behavior, mood, and affect are within normal limits. 16:58 Musculoskeletal/extremity: Extremities: grossly normal except: noted in the left ankle: pain, swelling, ROM: intact in all extremities, Pulses: Sensation intact. Vital Signs: 16:28 BP 202 / 82; Pulse 68; Resp 16; Temp 97.4; Pulse Ox 100% on R/A; Weight 57.61 kg; hb Height 5 ft. 3 in. (160.02 cm); Pain 7/10; 16:28 Body Mass Index 22.50 (57.61 kg, 160.02 cm) hb MDM: 16:30 Patient medically screened. kb 16:52 Differential diagnosis: dislocation, closed fracture, contusion, sprain. Data reviewed: vital signs, nurses notes. 17:07 ED course: Patient is a 77-year-old female who twisted her right ankle just prior to kb arrival. Complains of pain and swelling to right ankle that radiates down right foot. On exam patient has swelling and tenderness to right ankle. X-ray ordered.. 17:15 Independent interpretation of the following test(s) in the Emergency Department X-Ray: kb My interpretation is X-ray of right ankle read by me, no fracture.. Counseling: I had a detailed discussion with the patient and/or guardian regarding: the historical points, exam findings, and any diagnostic results supporting the discharge/admit diagnosis, radiology results, the need for outpatient follow up, a orthopedic surgeon, to return to the emergency department if symptoms worsen or persist or if there are any questions or concerns that arise at home. 01/26 16:32 Order name: Ankle Right 3 View XRAY; Complete Time: 17:36 kb 01/26 17:36 Order name: Rosendo Wrap; Complete Time: 17:50 kb Administered Medications: No medications were administered Disposition Summary: 01/26/23 17:38 Discharge Ordered Location: Home Condition: Stable Diagnosis - Sprain of ankle kb Followup: kb - With: Emergency Department - When: As needed - Reason: Worsening of condition Followup: kb - With: Private Physician - When: 2 - 3 days - Reason: Recheck today's complaints, Continuance of care, Re-evaluation by your physician Discharge Instructions: - Discharge Summary Sheet kb - Ankle Sprain, [id number] kb Forms: - Medication Reconciliation Form kb - Thank You Letter kb - Antibiotic Education kb - Prescription Opioid Use kb Signatures: Dispatcher [employer] EDSarai Patterson, BERNADINE-Betito COLINDRES-Mari Bower, RN RN Larisa Parmar RN RN eh3
[2023-01-26 17:58] VITALS: BP 202/82; TEMP 97.4; O2SAT 100
== END 2023-01-26 17:50 | disposition home or self-care (01) ==
LOC: ER 16:22
DX: S93.402A Sprain of unspecified ligament of left ankle, initial encounter (principal)
CPT/HCPCS: 99283

== ENCOUNTER 2023-06-29 07:30 | Emergency (ER) | payer OTHER, BC ==
--- OUTSIDE RECORDS SUMMARY | 2023-06-29 07:40 | XMS REPORT | Continuity of Care Document ---
:1945 Author Organization [facility] t Address [address] [place] [address] [place] [id number] Care Team Providers Name Role Phone Asked, No Pcp Primary Care Physician Unavailable Babak Daly Attending Clinician Unavailable SYSTEM, PROVIDER NOT IN Attending Clinician Unavailable JACK SAUNDERS Attending Clinician Unavailable Penny Vaughan DO Attending Clinician PENNY VAUGHAN Attending Clinician Unavailable Jack Saunders MD Attending Clinician Virtual, Surgeon Attending Clinician Unavailable Matthew CURRY, Lucero Attending Clinician LUCERO LOZA Attending Clinician Unavailable Yanira Fermin MD Attending Clinician Kimmie Galo MD Attending Clinician Cailin Singer MD Attending Clinician [phone] Deepak Loo MD Attending Clinician CAILIN SINGER Attending Clinician Unavailable JACK SAUNDERS Admitting Clinician Unavailable DEEPAK LOO Admitting Clinician Unavailable Payers Payer Name Policy Type Policy Number Effective Date Expiration Date S ource MEDICARE A B [id number] 2011 00:00:00 [place] [id number] 2014 OS 00:00:00 Problems Condition Condition Condition [...] Center Anemia Anemia Disease [facility] Gastroesop Gastroesop [...] [facility]15 [facility] Right Right Disease Active Univers shoulder shoulder 05-23 ity of pain pain 00:00: [place] 00 Medical Branch Allergies, Adverse Reactions, Alerts Allergy Allergy Status Severity Reaction(s) Onset Inactive Treating Comm ents Source Name Type Date Date Clinician Meperidi Propensi Active Unknown - Uni vers ne ty to See comments 7-27 ity of adverse 00:00: [place] reaction 00 Medical s Branch Penicill Propensi Active Unknown - Uni vers ins ty to See comments 7-27 ity of adverse 00:00: [place] reaction 00 Medical s Branch PENICILL Drug Active Unknown-Cmnt 0 Un radha INS Class 7-27 ity of 00:00: [place] 00 Medical Branch MEPERIDI DRUG Active Unknown-Cmnt 2022-0 Un radha NE INGREDI 7-27 ity of 00:00: [place] 00 Medical Branch ALLOPURI Allergy Active High 2021- [facility] Center COLCHICI Allergy Active High 2021- [facility] 1 [facility] Center Allopuri Propensi Active Severe 2021- Pancytope [facility] to 12-04 [facility]kel [facility] adverse 00:00: Medical reaction 00 Center s Colchici Propensi Active Severe 2021- Pancytope [facility] ty to 12-04 [facility] adverse 00:00: Medical reaction 00 Center s MEPERIDI Allergy Active Low Itching [facility] 00[facility]: Medical 00 Center Meperidi Drug Active Itching, "burning [facility] Allergy Other (See 7-11 on the [facility] Comments) 00:00: insides" Medic al 00 Center MORPHINE Allergy Active Itching [facility] 00 Center Morphine Drug Active Itching, Other [facility] Allergy Other (See 05-02 reaction( Sho kes Comments) 00:00: s): Medical 00 severe Center itching Morphine Propensi Active Itching Unive rs ty to 05-02 ity of adverse 00:00: [place] reaction 00 Medical s Branch MORPHINE DRUG Active ITCHING Univers INGREDI 05-02 ity of 00:00: [place] 00 [facility] Social History Social Habit Start Date Stop Date Quantity Comments Source Gender [facility] Alcohol intake 2023-06-27 2023-06-27 0 /d University of 00:00:00 00:00:00 [facility] History of Social 2023-06-27 2023-06-27 Univers ity of function 00:00:00 00:00:00 [facility] Exposure to 2022-12-04 2022-12-[address] [facility] SARS-CoV-2 (event) 00:00:00 07:17:00 Medica l Center Tobacco use and 2016-05-23 2016-05-23 Smokeless Universit y of exposure 00:00:00 00:00:00 tobacco non-user [facility] [place] History of tobacco 2006-03-[address] [facility] use 00:[facility] Medical Center Sex Ass[birth year] At [birth year] [facility]00 [facility] Smoking Status Start Date Stop Date Source [facility] consumption unknown Former smoker 2022-09-30 00:00:00 2022-09-[address] [facility] 00:00:00 Center Never smoked tobacco [facility] Medications Ordered Filled Start Stop Current Ordering Indication Dosage Frequency Signature Comments Components Source Medication Medication Date Date Medication? Clinician (SIG) Name Name FENTanyl PF No 50ug 50 mcg, Un radha (SUBLIMAZE 06-27 Intramuscu it y of (PF)) 19:30: 18:55 lar, ONCE, [place] injection 00 :00 1 dose, On Medi jada 50 mcg [facility] 06/27/23 at 1430, Routine acetaminoph Yes 4647 1{tbl} Take 1 Un radha en-codeine 7-27 tablet by ity of (TYLENOL-CO 00:00: mouth [place] DEINE #3) 00 every 4 Medical 300-30 mg (four) Branch tablet hours as needed for Pain (scale 1-3). Indication s: acute pain predniSONE Yes 5mg QD Take [address] (DELTASONE) 1-13 by mouth Luke s 5 MG tablet 10:25: daily. [address] predniSONE Yes 5mg QD Take [address] (DELTASONE) 1-13 by mouth Luke s 5 MG tablet 10:25: daily. [address] predniSONE Yes 5mg QD Take [address] (DELTASONE) 1-13 by mouth Luke s 5 MG tablet 10:25: daily. [address] predniSONE 2021-12 Yes 5mg QD Take [address] (DELTASONE) 1-14 by mouth Luke s 5 MG tablet 13:29: daily. [address] predniSONE 2021-12 Yes 5mg QD Take [address] (DELTASONE) 1-14 by mouth Luke s 5 MG tablet 13:29: daily. [address] furosemide 2021-12- No 40mg QD Take [address] (LASIX) 20 12-05-04 by mouth Luke s MG tablet 13:06: 00:00 daily . [facility] 14 :00 [place] furosemide 2021-12- No 40mg QD Take [address] [address] (LASIX) 20 12-05- by mouth Luke s MG tablet 13:06: 00:00 daily . [facility] 14 :00 [place] furosemide 2021-12- No 40mg QD Take [address] (LASIX) 20 12-05- by mouth Luke s MG tablet 13:06: 00:00 daily . [facility] 14 :00 [place] furosemide 2021-12- No 40mg QD Take [address] (LASIX) 20 12-05- by mouth Luke s MG tablet 13:06: 00:00 daily . [facility] 14 :00 [place] furosemide 2021-12 No 40mg QD Take [address] (LASIX) 20 12-05 by mouth Luke s MG tablet 13:06: 00:00 daily . Medi jada 14 :00 Center acyclovir 2021-12 No 400mg Q.5D Take [address] [...] tablet mouth daily for 14 days. acyclovir 2021-12 No 400mg Q.5D Take [address] [...] tablet mouth daily for 14 days. acyclovir 2021-12 No 400mg Q.5D Take [address] [...] tablet mouth daily for 14 days. acyclovir 2021-12 No 400mg Q.5D Take [address] [...] tablet mouth daily for 14 days. acyclovir 2021-12 No 400mg Q.5D Take [address] [...] tablet mouth daily for 14 days. allopurinoL 2021-12- No 100mg QD Take [address] (ZYLOPRIM) 0-14 11-03 mg by [facility] 100 MG 00:00: 00:00 mouth Medical tablet 00 :00 daily. [place] allopurinoL 2021-12- No 100mg QD Take [address] (ZYLOPRIM) 0-14 11-03 mg by [facility] 100 MG 00:00: 00:00 mouth Medical tablet 00 :00 daily. [place] allopurinoL 2021-12- No 100mg QD Take [address] (ZYLOPRIM) 0-14 11-03 mg by [facility] 100 MG 00:00: 00:00 mouth Medical tablet 00 :00 daily. [place] allopurinoL 2021-12 No 100mg QD Take [address] (ZYLOPRIM) 0-14 11-03 mg by [facility] 100 MG 00:00: 00:00 mouth Medical tablet 00 :00 daily. [place] allopurinoL 2021-12 No 100mg QD Take [address] (ZYLOPRIM) 0-14 11-03 mg by [facility] 100 MG 00:00: 00:00 mouth Medical tablet 00 :00 daily. [place] metoprolol 2021-12 Yes 50mg QD Take 50 [...] [address] (CARDURA) 2 0-10 12-04 by mouth Champ es MG tablet 00:00: 00:00 daily . [facility] jada 00 :00 [place] doxazosin 2021-2- No 2mg QD Take [address] (CARDURA) 2 0-11 11-04 by mouth Champ es MG tablet 00:00: 00:00 daily . [facility] jada 00 :00 [place] doxazosin 2021- 2022- No 2mg QD Take [address] (CARDURA) 2 0-11 11-04 by mouth Champ es MG tablet 00:00: 00:00 daily . [facility] jada 00 :00 [place] doxazosin 2021-2- No 2mg QD Take [address] (CARDURA) 2 0-11 11-04 by mouth Champ es MG tablet 00:00: 00:00 daily . [facility] jada 00 :00 [place] doxazosin 2021-2- No 2mg QD Take [address] (CARDURA) 2 0-11 11-04 by mouth Champ es MG tablet 00:00: 00:00 daily . [facility] jada 00 :00 [place] colchicine 2-0 2022- No .6mg QD Take 0.[address] (COLCRYS) 9-23 11-03 mg by [facility]ukes 0.6 mg 00:00: 00:00 mouth Medical tablet 00 :00 daily. [place] colchicine 2-0 2022- No .6mg QD Take 0.[address] (COLCRYS) 9-23 11-03 mg by [facility] 0.6 mg 00:00: 00:00 mouth Medical tablet 00 :00 daily. [place] colchicine 2022-0 2022- No .6mg QD Take 0.[address] (COLCRYS) 9-23 11-03 mg by [facility] 0.6 mg 00:00: 00:00 mouth Medical tablet 00 :00 daily. [place] colchicine 2022-0 2022- No .6mg QD Take 0.[address] (COLCRYS) 9-23 11-03 mg by [facility] 0.6 mg 00:00: 00:00 mouth Medical tablet 00 :00 daily. [place] colchicine 2022-0 2022- No .6mg QD Take 0.[address] (COLCRYS) 9-23 11-03 mg by [facility] 0.6 mg 00:00: 00:00 mouth Medical tablet 00 :00 daily. Center methocarbam 2022-0 Yes 1000mg Take 1,000 [facility] [...] as needed. pantoprazol 2022-0 2023- No 20mg QD Take [...] ical 20 MG 00 :00 Center tablet sevelamer 2021-2022- No 800mg Q.5D Take 800 [facility] I [...] 00 :00 (two) Center times daily. sevelamer 2021-2022- No 800mg Q.5D Take [address] (RENVELA) 2-03 02-03 mg by [facility] 800 mg 00:00: 23:59 mouth 2 Medical tablet 00 :00 (two) Center times daily. sevelamer 2021-0 2022- No 800mg Q.5D Take [address] (RENVELA) 2-03 02-03 mg by [facility] 800 mg 00:00: 23:59 mouth 2 Medical tablet 00 :00 (two) Center times daily. predniSONE 2021- 2022- No 2.5mg Q.5D Take 2.[address] (DELTASONE) 2-03 11-14 mg by [facility] 5 MG tablet 00:00: 00:00 mouth 2 Me dical 00 :00 (two) Center times daily . predniSONE 2021-0 2022- No 2.5mg Q.5D Take 2.[address] (DELTASONE) 2-03 11-14 mg by [facility] 5 MG tablet 00:00: 00:00 mouth 2 Me dical 00 :00 (two) Center times daily . predniSONE 2021-0 2022- No 2.5mg Q.5D Take 2.[address] (DELTASONE) 2-03 11-14 mg by [facility] 5 MG tablet 00:00: 00:00 mouth 2 Me dical 00 :00 (two) Center times daily . predniSONE 2021-0 2022- No 2.5mg Q.5D Take 2.[address] (DELTASONE) 2-03 11-14 mg by [facility] 5 MG tablet 00:00: 00:00 mouth 2 Me dical 00 :00 (two) Center times daily . predniSONE 2021-0 2022- No 2.5mg Q.5D Take 2.[address] (DELTASONE) 2-03 11-14 mg by [facility] 5 MG tablet 00:00: 00:00 mouth 2 Me dical 00 :00 (two) Center times daily . amLODIPine Yes [facility] (NORVASC) 5 05-03 ity of mg tablet 00:00: [place] 00 Medical Branch GUAIFENESIN Yes Take by [facility] vers /PSEUDOEPHE 05-02 mouth. ity of DRNE HCL 13:16: [place] (MUCINEX D 39 Medical ORAL) Branch Potassium Yes Take by [facility] rs (POTASSIUM- 05-02 mouth. ity of 99) 99 mg 13:12: [place] Tab 50 Medical Branch Biotin Yes Take by [facility] (JEFFERY 6 mouth. ity of BIOTIN) 13:12: [place] 10,000 mcg 50 Medical Cap Branch Fish Yes Take by [facility] Oil-[place]-3 05-02 mouth. ity of Fatty Acids 13:12: [place] (SEA-OMEGA 50 Medical 30) Branch 360-1,200 mg Cap aspirin 81 Yes 81mg Take 81 mg U nivers mg EC 05-02 by mouth ity of tablet 13:12: daily. [place] 49 Medical Branch Red Yeast 0 Yes Take by [facility] rs Rice 6- mouth. ity of Extract 13:12: [place] (CHOLESTERO 49 Medical L Branch MANAGEMENT) 600 mg Cap niacin, Yes Take by [facility] inositol 6- mouth. ity of niacinate, 13:12: [place] 500 mg Tab 49 Medical Branch UBIDECARENO 0 Yes Take by Uni vers NE (ULTRA 6- mouth. ity of COQ10 ORAL) 13:12: [place] 49 Medical Branch vitamin 2016-0 Yes 1000ug Take 1,000 Un radha B-12 6-01 mcg by ity of (CYANOCOBAL 13:12: mouth [place] MUKHERJEE) 1,000 49 daily. Medica l mcg tablet Branch FOLIC ACID Yes Take by [facility] ers ORAL 05-02 mouth. ity of 13:12: [place] 49 Medical Branch CALCIUM Yes Take by [facility] CARBONATE/V 05-02 mouth. ity of ITAMIN D3 13:12: [place] (VITAMIN 49 Medical D-3 ORAL) Branch losartan Yes Univers (COZAAR) 25 5-02 ity of mg tablet 00:00: [place] 00 Medical Branch cyclobenzap Yes [facility] s rine 502 ity of (FLEXERIL) 00:00: [place] 10 mg 00 Medical tablet Branch meloxicam Yes Univers (MOBIC) 15 3-21 ity of mg tablet 00:00: [place] 00 Medical Branch Immunizations Ordered Filled Immunization Date Status Comments [facility] e Immunization Name Name SARS-COV-2 COVID-19 2021-08-29 Completed Unive rsity of MODERNA 12+ YRS 00:00:00 [place] Med ical VACCINE Branch Vital Signs Vital Name Observation Time Observation Value Comments Source Systolic blood 2023-06-27 20:00:00 199 mm[Hg] Univer sity of pressure [facility] Diastolic blood 2023-06-27 20:00:00 85 mm[Hg] Unive rsity of pressure [facility] Heart rate 2023-06-27 20:00:00 54 /min [facility] Respiratory rate 2023-06-27 20:00:00 16 /min [facility] Oxygen saturation in 2023-06-27 20:00:00 95 /min [facility] Arterial blood by [facility] Pulse oximetry Branch Body temperature 2023-06-27 18:22:00 37 Zaida [facility] Body height 2023-06-27 18:22:00 160 cm [facility] Body weight 2023-06-27 18:22:00 68.04 kg [facility] BMI 2023-06-27 18:22:00 26.57 kg/m2 [facility] HEIGHT 2023-05-03 09:19:00 160 cm WEIGHT 2023-05-03 09:19:00 56.246 kg HEIGHT 2023-05-03 09:19:00 160 cm WEIGHT 2023-05-03 09:19:00 56.246 kg HEIGHT 2022-12-14 07:14:18 160 cm WEIGHT 2022-12-14 07:14:18 57.2 kg HEIGHT 2022-12-14 07:14:18 160 cm WEIGHT 2022-12-14 07:14:18 57.2 kg HEIGHT 2022-10-15 13:56:00 160 cm WEIGHT [...] cm Systolic blood 2022-12-14 10:19:00 179 mm[Hg] [facility] Diastolic blood 2022-12-14 10:19:00 80 mm[Hg] [facility] Heart rate 2022-12-14 10:19:00 70 /min [facility] Body temperature 2022-12-14 10:19:00 36.11 Zaida [facility] Respiratory rate 2022-12-14 10:19:00 16 /min [facility] Oxygen saturation in 2022-12-14 10:19:00 96 /min [facility] Arterial blood by Medical Ce nter Pulse oximetry Body height 2022-12-14 07:14:18 160 cm [facility] Body weight 2022-12-14 07:14:18 57.2 kg [facility] BMI 2022-12-14 07:14:18 22.34 kg/m2 [facility] Systolic blood 2022-10-15 13:56:00 142 mm[Hg] [facility] Diastolic blood 2022-10-15 13:56:00 78 mm[Hg] [facility] Heart rate 2022-10-15 13:56:00 75 /min [facility] Body height 2022-10-15 13:56:00 160 cm [facility] Body weight 2022-10-15 13:56:00 59.875 kg [facility] BMI 2022-10-15 13:56:00 23.38 kg/m2 [facility] Body temperature 2022-10-05 11:35:00 37.17 Zaida [facility] Respiratory rate 2022-10-05 11:35:00 18 /min [facility] Oxygen saturation in 2022-10-05 11:35:00 97 /min [facility] Arterial blood by Medical Ce nter Pulse oximetry Procedures Procedure Date / Time Performing Clinician Source Performed XR PELVIS <3 VW 2023-06-27 19:26:09 Penny Vaughan [facility] CT TRAUMA HEAD WO 2023-06-27 19:26:00 Penny Vaughan [facility] CT TRAUMA CERVICAL SPINE 2023-06-27 19:26:00 Penny Vaughan [facility] CT TRAUMA LUMBAR SPINE 2023-06-27 19:26:00 Penny Vaughan [facility] CONSENT/REFUSAL FOR 2023-06-27 18:17:47 [facility] Name Medical Branch MISCELLANEOUS LAB ORDER 2022-12-14 10:33:00 Bharti Correa [facility] CHROMOSOMES CANCER STUDY 2022-12-14 09:34:00 Jack Saunders [facility] I [facility] CT 2022-12-14 09:25:00 Jack Saunders [facility] BIOPSY/ASPIRATION/INJECT Center ION FLOW CYTOMETRY 2022-12-14 09:00:00 Jack Saunders [facility] REQUISITION Center BONE MARROW PROCESS. 2022-12-14 09:00:00 Jack Saunders [facility] FLOW CYTOMETRY 2022-12-14 09:00:00 Nicky [facility] BONE MARROW EXAM 2022-12-14 09:00:00 Nicky [facility] POCT-GLUCOSE METER 2022-12-14 07:23:00 Nicky, [facility] CBC W/PLT COUNT & AUTO 2022-12-14 07:13:00 Cristian [facility] PROTHROMBIN TIME/INR 2022-12-14 07:13:00 [facility] CBC W/PLT COUNT & AUTO 2022-12-14 07:13:00 Foster [facility] CBC W/PLT COUNT & AUTO 2022-10-05 04:33:00 Alonso Rolon [facility] BASIC METABOLIC PANEL 2022-10-05 04:33:00 Alonso Rolon [facility] CBC W/PLT COUNT & AUTO 2022-10-05 04:33:00 Alonso Rolon [facility] (CELLAVISION MANUAL 2022-10-05 04:33:00 Alonso Rolon [facility] DIFF) [place] CBC W/PLT COUNT & AUTO 2022-10-04 03:54:00 Alonso Rolon [facility] BASIC METABOLIC PANEL 2022-10-04 03:54:00 Alonso Rolon [facility] CBC W/PLT COUNT & AUTO 2022-10-04 03:54:00 Alonso Rolon [facility] (MANUAL DIFFERENTIAL) 2022-10-04 03:54:00 Cailin Singer [facility] Abolfathian Center PREPARE LEUKO-REDUCED 2022-10-03 23:54:00 Kimmie Galo [facility] PLATELETS [place] DIRECT AHG (RICHMOND)/DIRECT 2022-10-03 13:31:00 Alonso Rolon [facility] DEB Center ABORH, MANUAL 2022-10-03 13:31:00 Alonso Rolon [place] [facility] PERIPHERAL BLOOD SMEAR - 2022-10-03 05:32:00 Alonso Rolon [facility] HOLD ONLY Center CBC W/PLT COUNT & AUTO 2022-10-03 05:32:00 Alonso Rolon [facility] BASIC METABOLIC PANEL 2022-10-03 05:32:00 Gonzales, [facility] HEPATIC FUNCTION PANEL 2022-10-03 05:32:00 Alonso Rolon [facility] LACTATE DEHYDROGENASE 2022-10-03 05:32:00 Gonzales [facility] ([facility]) [place] HAPTOGLOBIN 2022-10-03 05:32:00 Gonzales, [facility] RETICULOCYTE COUNT 2022-10-03 05:32:00 Gonzales [facility] PROTHROMBIN TIME/INR 2022-10-03 05:32:00 Alonso Rolon [facility] CBC W/PLT COUNT & AUTO 2022-10-03 05:32:[address] [facility] (CELLAVISION MANUAL 2022-10-03 05:32:00 Alonso Rolon [facility] DIFF) Center PREPARE RBC 2022-10-02 23:54:00 Deepak Loo [facility] VANCOMYCIN LEVEL, TROUGH 2022-10-02 16:50:00 Fiorella Rhodes [facility] TRANSFUSE LEUKO-REDUCED 2022-10-02 14:45:00 Kimmie Galo CH [facility] PLATELETS Center 2D ECHO W/ DOPPLER 2022-10-02 12:14:16 Oma Rodriguez [facility] (CW/PW/COLOR) [facility] COMPREHENSIVE METABOLIC 2022-10-02 03:52:00 Oma Rodriguez [facility] PANEL Jyothi Center MAGNESIUM 2022-10-02 03:52:00 Oma Rodriguez [facility] CBC W/PLT COUNT & AUTO 2022-10-02 03:52:00 Oma Rodriguez [facility] DIFFERENTIAL [facility] ANTI-NEUTROPHIL 2022-10-02 03:52:00 Kimmie Galo [facility] CYTOPLASMIC AB (ANCA) Center CBC W/PLT COUNT & AUTO 2022-10-02 03:52:00 Oma Rodriguez [facility] DIFFERENTIAL [facility] (MANUAL DIFFERENTIAL) 2022-10-02 03:52:00 Adio, Kimmie Pratt [facility] XR CHEST 2 VIEWS 2022-10-01 17:51:00 [facility]IN[facility] W/ 2022-10-01 17:42:00 Adio, Kimmie Pratt [facility] MICROSCOPIC Center TRANSFUSE LEUKO-REDUCED 2022-10-01 12:08:00 Clover, Kimmie Pratt [facility] RED BLOOD CELLS Center ECG 12-LEAD 2022-10-01 07:57:52 Deepak Loo [facility] PROTEIN, RANDOM URINE 2022-10-01 04:39:00 Adrianne Deepak [facility] CREATININE, RANDOM URINE 2022-10-01 04:39:00 Deepak Loo [facility] HIGH SENSITIVITY 2022-10-01 04:35:00 Deepak Loo [facility] TROPONIN I Center COMPREHENSIVE METABOLIC 2022-10-01 04:31:00 Oma Rodriguez [facility] PANEL Jyothi Center MAGNESIUM 2022-10-01 04:31:00 Oma Rodriguez [facility] CBC W/PLT COUNT & AUTO 2022-10-01 04:31:00 Oma Rodriguze [facility] DIFFERENTIAL [facility] PERIPHERAL BLOOD SMEAR - 2022-10-01 04:31:00 Kimmie Galo [facility] PATHOLOGIST REVIEW Center CBC W/PLT COUNT & AUTO 2022-10-01 04:31:00 Oma Rodriguez [facility] DIFFERENTIAL [facility] (CELLAVISION MANUAL 2022-10-01 04:31:00 Oma Rodriguez [facility] DIFF) [facility] ABORH, MANUAL 2022-10-01 01:52:00 Sharlene Sanabria [facility] HIGH SENSITIVITY 2022-10-01 01:35:00 Michael Oma Caceres [facility] TROPONIN I [facility] TYPE AND SCREEN, 2022-10-01 01:35:00 Oma Rodriguez Nicki [facility] AUTOMATED [facility] URINALYSIS W/ REFLEX 2022-09-30 23:11:00 Oma Rodriguez Nicki [facility] URINE CULTURE [facility] PROCALCITONIN 2022-09-30 23:00:00 Oma Rodriguez Nicki [facility] BLOOD CULTURE 2022-09-30 23:00:00 Oma Rodriguez Nicki [facility] HIGH SENSITIVITY 2022-09-30 22:51:00 Oma Rodriguez Nicki [facility] TROPONIN I [facility] B-TYPE NATRIURETIC 2022-09-30 22:51:00 Oma Rodriguez [facility] FACTOR (BNP) [facility] CBC W/PLT COUNT & AUTO 2022-09-30 22:51:00 Oma Rodriguez [facility] DIFFERENTIAL [facility] CBC W/PLT COUNT & AUTO 2022-09-30 22:51:00 Oma Rodriguez [facility] DIFFERENTIAL [facility] (CELLAVISION MANUAL 2022-09-30 22:51:00 Oma Rodriguez [facility] DIFF) [facility] MAGNESIUM 2022-09-30 22:50:00 Oma Rodriguez [facility] TSH 2022-09-30 22:50:00 Oma Rodriguez Nicki [facility] T4, FREE 2022-09-30 22:50:00 Oma Rodriguez Nicki [facility] C-REACTIVE PROTEIN 2022-09-30 22:50:00 Oma Rodriguez [facility] PROTHROMBIN TIME/INR 2022-09-30 22:50:00 Oma Rodriguez Nicki [facility] BLOOD CULTURE 2022-09-30 22:50:00 Oma Rodriguez [facility] COMPREHENSIVE METABOLIC 2022-09-30 22:50:00 Oma Rodriguez [facility] ECG 12-LEAD 2022-09-30 22:28:29 Oma Rodriguez [facility] ECG 12-LEAD 2022-09-30 22:28:29 Unknown, Hl7 Doctor [facility] ECG 12-LEAD 2022-09-30 22:26:58 Unknown, Hl7 Doctor [facility] EKG-SCANNED 2022-09-30 00:00:00 ProviderSkip [facility] Medical Scanning [place] Plan of Care Planned Activity Planned Date Details Comments Source Future Scheduled 2023-12-[address] [facility] 00:00:00 Counseling and Medical [...] Cessation Counseling and Screening (12+)] Future Scheduled 2023-05-29 COVID-19 VACCINE (#1) Me [facility] Hospital Test 10:56:01 [code = COVID-19 VACCINE (#1)] Future Scheduled 2023-05-29 65+ P[facility]UMOCOCCAL [facility] Test 10:56:01 VACCINE (1 - PCV) [code = 65+ PNEUMOCOCCAL VACCINE (1 - PCV)] Future Scheduled 2023-05-29 SHINGLES VACCINES (2 Met [facility] Test 10:56:01 of 3) [code = SHINGLES VACCINES (2 of 3)] Future Scheduled 2023-05-29 INFLUENZA VACCINE Method [facility] Hospital Test 10:56:01 [code = INFLUENZA VACCINE] Future Scheduled 2022-12-05 COLONOSCOPY SCREENING [facility] Hospital Test 13:17:11 [code = COLONOSCOPY SCREENING] Future Scheduled 2022-12-05 65[facility] 13:17:11 VACCINE (1 - PCV) [code = 65+ PNEUMOCOCCAL VACCINE (1 - PCV)] Future Scheduled 2022-12-05 SHINGLES VACCINES (2 Met [facility] Test 13:17:11 of 3) [code = SHINGLES VACCINES (2 of 3)] Future Scheduled 2022-12-05 INFLUENZA VACCINE Method [facility] Test 13:17:11 [code = INFLUENZA VACCINE] Future Scheduled 2022-12-05 COVID-19 VACCINE (#1) [facility] Test 13:17:11 [code = COVID-19 VACCINE (#1)] Future Scheduled 2022-12-[address] [...] RISK Medical C enter SCREENING] Future Scheduled 2022-09-30 HEPATITIS B VACCINES Met [facility] Test 00:33:20 (1 of 3 - 3-dose series) [code = HEPATITIS B VACCINES (1 of 3 - 3-dose series)] Future Scheduled 2022-09-30 COVID-19 VACCINE (#1) [facility] Test 00:33:20 [code = COVID-19 VACCINE (#1)] Future Scheduled 2022-09-30 Hepatitis C screening [facility] Test 00:33:20 (procedure) [code = 044736631] Future Scheduled 2022-09-30 COLONOSCOPY SCREENING [facility] Test 00:33:20 [code = COLONOSCOPY SCREENING] Future Scheduled 2022-09-30 SHINGLES VACCINES ([facility] 00:33:20 of 2) [code = SHINGLES VACCINES (1 of 2)] Future Scheduled 2022-09-30 65[facility] 00:33:20 VACCINE (1 - PCV) [code = 65+ PNEUMOCOCCAL VACCINE (1 - PCV)] Future Scheduled 2022-09-30 INFLUENZA VACCINE [facility] Test 00:33:20 [code = INFLUENZA VACCINE] Future Scheduled 2022-08-02 INFLUENZA VACCINE (#1) C [...] DXA [facility] Test 00:00:00 SCAN] [facility] Center Encounters Start End Encounter Admission Attending Care Care Encounter Source Date/Time Date/Time Type Type Clinicians Facility Department ID 2023-02-11 Outpatient ALEXIS Daly [facility] [id number] Common 08:25:02 Babak [id number] [facility] 2022-09-28 Outpatient SYSTEM, [facility] [id number] 13:46:31 PROVIDER Jered tucker 2023-08-09 2023-08-09 Outpatient AMY SHAH [facility] [id number] SLEH 00:00:00 00:00:00 JACK 2023-06-27 2023-06-27 [facility] [id number] Univers 13:18:00 16:15:00 Penny HYLTON [id number] [facility] [id number] [facility] [id number] [place] [id number] [address] 2023-06-27 2023-06-27 Emergency [facility] E[facility] [id number] Univers 13:18:00 16:15:00 PENNY osborn [facility] 2023-05-03 2023-05-03 Outpatient AMY SHAH [facility] [id number] SLE 09:10:10 14:27:54 JACK 2023-05-03 2023-05-03 Outpatient KIMMY REYES [facility] [id number] SLE 10:44:26 10:44:26 2022-12-14 2022-12-14 Outpatient AMY SHAH [facility] [id number] SLE 08:43:22 23:59:00 [facility] 2022-12-14 2022-12-14 [facility] [id number] 08:00:00 23:59:00 Encounter [facility] 2022-12-14 2022-12-14 [facility] [id number] 05:56:00 10:21:00 Encounter [facility] 2022-12-14 2022-12-14 Outpatient SUHAS SAUNDERS [facility] Surgery [id number] SLE 05:56:00 10:21:00 [facility] 2022-12-14 2022-12-14 [facility] [id number] 08:00:00 08:15:00 Surgeon [facility] 2022-12-14 2022-12-14 Travel [facility] [id number] [facility] 00:00:00 [facility] 2022-12-06 2022-12-06 Outside Nicky [facility] [id number] 00:00:00 00:00:00 Orders [facility] 2022-12-06 2022-12-06 Orders Nicky [facility] [id number] 00:00:00 00:00:00 Only [facility] 2022-10-15 2022-10-15 [facility] Matthew, [facility] [id number] 15:00:00 15:15:00 Telemedici [facility] 2022-10-15 2022-10-15 Outpatient [facility] [id number] [facility] 13:24:46 13:24:46 [facility] 2022-09-30 2022-10-05 [facility] Yanira Coleman [facility] [id number] 20:28:00 14:30:00 Encounter Kimmie Galo [facility] Deepak [facility] 2022-09-30 2022-10-05 Inpatient KIMMY SINGER, [facility] Hematology [id number] SLE 20:28:00 14:30:00 [facility] 2022-09-30 2022-09-30 Orders [facility] [id number] 00:00:00 00:00:00 Only [facility] Results Test Description Test Time Test Comments Results Result Comments Source MISCELLANEOUS LAB ORDER 2023-05-14 08:43:35 Test Item Value Reference Range Interpretation Comme nts SCAN RESULT (test code = 1304410) see scanned report See scanned report. MISCELLANEOUS LAB [id number] 15:06:58 Test Item Value Reference Range Interpretation Comments SCAN RESULT (test code = See scanned report. [id number]) MISCELLANEOUS LAB [id number] 14:53:18 Test Item Value Reference Range Interpretation Comments SCAN RESULT (test code = 5601309) IRON, TIBC, % SAT. (WITHOUT FERRITIN)2023-05-03 14:33:06 Test Item Value Reference Range Interpretation Comments IRON (BEAKER) (test code = 547) 81.0 ug/dL 40.0-160.0 TOTAL IRON BINDING CAPACITY 283 ug/dL 250-450 (BEAKER) (test code = 769) IRON % SATURATION (2) (BEAKER) 29 % 20-55 (test code = 2590) Manager Of Sales ID - DBVITAMIN [id number] 12:08:29 Test Item Value Reference Range Interpretation Comments VITAMIN B12 (BEAKER) (test code = > pg/mL 213-816 H 774) [id number] 11:28:38 Test Item Value Reference Range Interpretation Comments FERRITIN (BEAKER) (test code = 415.10 ng/mL 5.00-275.00 H 361) CBC W/PLT COUNT & AUTO [id number] 11:18:59 Test Item Value Reference Range Interpretation Comments WHITE BLOOD CELL COUNT (BEAKER) 6.8 K/ L 3.5-10.5 (test code = 775) RED BLOOD CELL COUNT (BEAKER) 4.06 M/ L 3.93-5.22 (test code = 761) HEMOGLOBIN (BEAKER) (test code = 13.5 GM/DL 11.2-15.7 410) HEMATOCRIT (BEAKER) (test code = 42.1 % 34.1-44.9 411) MEAN CORPUSCULAR VOLUME (BEAKER) 104 fL 79-95 H (test code = 753) MEAN CORPUSCULAR HEMOGLOBIN 33.3 pg 25.6-32.2 H (BEAKER) (test code = 751) MEAN CORPUSCULAR HEMOGLOBIN CONC 32.1 GM/DL 32.2-35.5 L (BEAKER) (test code = 752) RED CELL DISTRIBUTION WIDTH 12.9 % 11.7-14.4 (BEAKER) (test code = 412) PLATELET COUNT (BEAKER) (test 186 K/CU MM 150-450 code = 756) MEAN PLATELET VOLUME (BEAKER) 9.8 fL 9.4-12.3 (test code = 754) NEUTROPHILS RELATIVE PERCENT 85 % (BEAKER) (test code = 429) LYMPHOCYTES RELATIVE PERCENT 9 % (BEAKER) (test code = 430) MONOCYTES RELATIVE PERCENT 6 % (BEAKER) (test code = 431) EOSINOPHILS RELATIVE PERCENT 0 % (BEAKER) (test code = 432) BASOPHILS RELATIVE PERCENT 0 % (BEAKER) (test code = 437) NEUTROPHILS ABSOLUTE COUNT 5.73 K/ L 1.56-6.13 (BEAKER) (test code = 670) LYMPHOCYTES ABSOLUTE COUNT 0.59 K/ L 1.18-3.74 L (BEAKER) (test code = 414) MONOCYTES ABSOLUTE COUNT (BEAKER) 0.40 K/ L 0.24-0.36 H (test code = 415) EOSINOPHILS ABSOLUTE COUNT 0.01 K/ L 0.04-0.36 L (BEAKER) (test code = 416) BASOPHILS ABSOLUTE COUNT (BEAKER) 0.02 K/ L 0.01-0.08 (test code = 417) IMMATURE GRANULOCYTES-RELATIVE 0.10 % 0.00-1.00 PERCENT (BEAKER) (test code = 2801) Bone Marrow [id number] 13:36:52 Test Item Value Reference Range Interpretation Comments Case Report (test code Bone Marrow Pathology = 104) Report Case: [id number] Authorizing Provider: Jack Saunders MD Collected: 12/14/2022 09:00 AM Ordering Location: [facility] Received: 12/14/2022 09:36 AM SERVICES Pathologist: Bharti Correa MD Specimens: A) - Bone Marrow B) - Bone Marrow C) - Bone Marrow ADDENDUM (test code = [id number] 3381) kf5xhg2YmiABqvKIwZJulwR UobvBoky53tKM1iY66TU5iY HNiRzH3LJVpswZ9Giv0RANv UXQedUSlK524d1zxw0fkmuC sdXH9bZtwIDKbfwoxIlP0WB daBQCmdrcwFOe7ZQooRJQwu JG3HPJzuTZmJ1BgZUTjFZ6r kny8EOU2YImtIUEbOlK3TZR fjNLzLPVjxEknYNzsa778BQ T5NrFkAGAtzwWesEwjxS2pE qNgIHIQpPVaC4DsHADiMaYj dHVkaWVzLCBhcyByZXBvcnR tBEGxbNSBAG6PMO0qbYaaox ltg9dswmGzPJ8kpm6nqYVeA DX3f3Y1xTGgNVVpLCVtbBUh C8goXUHfTSMgsaFwFsCkLxG 3zABiRS6fyrF3zE5xJSIhzP FfxlDgioffLS7FRutzDWqtl wXhYRJxxvRoPACwjGPGSE6y DU4elYtiwmxvBL5onsHkb1L xxOItfiDeBwssFS32IZFvxS deU3EqjZMclCE3AOPuq06rB WdgBREqTZG3HDNbEDWlbePa u8A3EU1wLKTaHWNtLBDxi6P cjOTuKA6hnl55XQOclPKgrl W1tFSfgHZdedtfdCNkcRHyN X6pKVPpZUVciQVeup3pcZMo IFxwYXJ9 DIAGNOSIS (test code = v4xlnWYgODLlr4mmWPFbuHY 3220) uZzEwMzNcZnRuYmpcdWMxIH tccnRmMVxlcGljOTYwMlxhb cNdSZTorEWoW1KevcuvALxr CC6tAV3ziGmwyADvpXSdYAX tOoFzc4cvj937iRFzz7ngRF BDkhbdsXj3nSvuH46hz8I5G kymN98brDClSDR2FKKgKVCf fZRgJOJkODG9LNNreLWyF7j cFIXgIY1yuntnMJhfTNqlVD JddCR0PSNcxZMpV5RoNTXcP TsrBPDxxyz1NeUsJg2hvQHm eTcyMFxwYXJkXHBsYWluXGZ hEoQuMw4OLHKWESPDR9geEE VHNWNVJFOvNVCKH6TlJOKHQ TBOBUVUCILMSroXPUUJUX3W P0q8VCBlpjIvOz3ICH3UCHg PZSeVCgUWSVJQF9wiD2cDOE UXZtvGRV6UQCvQBFuCXHDLB 6SNOCFWSCUuYQ6TGKRRPEYS Vz5OYZVXYMUGNlBDPQSDSDP weUJeXM5QBPNODlXBRNRhPW PDUtJSGcAVZE9JZPVVQtKIE V0TNHWDLMVKK8CDKMHXSrPW REVOVElGSUVEXHBhciAtUEV SNXnRGfDRIQUDV9HGVBCOQo BTVFVESUVTXHBhclxwYXJcc GFyIFBFUklQSEVSQUwgQkxP V7O0UQJvixBnFTVIHk1URLN TCsVOTrRKQAMsC8eCLNMHRo OXKPTIASMjIW7TWKTFNb5NS SOXZWygXMSLD44SUS7ZOXjp DPiFWDTZPGCAXQGRF1oND4X QDyoFLHPpyxvuHCB7j5pvhT YxXHNzdGUxODAwMFxhbnNpX JSeXzwgxlxpDGByEBA8idHg RXSiVKdjGEMdATpgAp0evZG cpLpiXsZkVJEjt9gtxhFTsf zeoZb4q7vaFCPwRlW5pVEnU ScbL4douyYkmKEqCUGbCDp3 yA79YOHilM5gaVYgSVpvcmY vIvF8JLfpEOIdDkM8MSWblZ NwOAEeO9umYIZbPVeeOUTxJ VmhjQOuJZX9oAygf4D1yCBm kTYtoTcsUaGhEhJbVnEXd3R fTHm0gTktT1XlQPQyZjZ0bO YxBDMmOIebKDWyXUFqpcZ4f M41YIxxwtR5xOBnm2Amu21p a077iI0nqSLkTFH6ZNDzQPO rxFUpKNJiXKZ9UFGekFOqD1 fnFJXsBM2xirghATgbUWlgL XTzwKR5ETHteBQhN5XqCBEc VIeoOGLpvua2RbQxBc0pcZP fxLysLYfqr0dmg8gcpUErJf q0USOwLtPtPogxYNoah3Ldv 6ivLPCxrh6mVYE6rOCyxSia z2P4rSZeHSYxiRRxXQBfJC4 syCQcAPKbcG7ceksmLAXyPa HzptxbQRJqdPitxuVoHk5bb BpyZPY6WGntH8eyiF9vDtD8 UOeeI5vgdG9bRWz8OAtsNDH fgEN0dyP7NVZctGNxT6RqeC 9kNQTcOD9cueg2o3fpWSI1S NoiRMPsFqH1dhN7XAVmiORf JJHvrMjvYStkz301DFI4GnE jVZHzo1XeI3GziKcvC09wgK zcU19gQPMndEsweB6dmLclp P3uNjBgDdErNXzcvRycPO8y XZPjQ0kxlMLwRJCtQCPqX2f pSdPedD7oxXemLEqubiIeYC RbIgv4AJIpbOSaXZGrXtf9X EGfTPPaM08dskeiYOH3jM0o t7vzx1QjKBpmDNH9CSKqx44 wAAbggxL3OMtwGd01AQjjNB E4ILwfMAD3iU== COMMENT (test code = l6npmHTpFDLksCT2MrLtESE 3358) np0ovs2HzsGNogFQhIDsvvD BezjGxoj42iAJ9hZ08XE2vE LBjVmE0OFSwpoO9Imt4CNEo HTHmoCHeH212b4ars8wyfvE psPN7zPffVZAyjpodLmM7CE lyGUCpfgvyZSh0RQfxYKBri HC9HBPyoLVrS2ExUQDrSC9w xfr8ZBJ6SUufPCGjJyN9KWT qwOSyJDXskGazKNkog950GA G7AcPjYWBtqtEbyVjuzU4zF nMyMCBUaGVyZSBpcyBubyBp bmNyZWFzZSBpbiBibGFzdHM xg26rHWZuyPRbaLMhn57aYR GdYRAthvKsp43wpUFhVYDyX cywLnoysoWbqBXybQK9bktp IBWaLu28EUycBV3aTYgjoXD vs3B3QOjezN9lFhFyE1Hkbg FgtT3zuQmorI3xwJOxBPyme Nymk7lqYGozHW9qoCOuRCIp dHorpBDbGbVcQMM3hP2sOY1 kyXemPES8fNPoYHHwRJFaBT XixbHmdnrgRFBqCBEsnDU3o WPbenWjlFYgaNInMePSsw1d T9UevS0bbhintbZ6kUCuHG4 hyoV7eO5dTLSsgOZowiEriy zrJV6INifhh2femJWxhEFiZ LLhMVSnyAUps5MzFKAcq9Yc DmDhiAomnhIxulDbbAY5RIP af7GeBWKuzH4zZKglVJBqv7 gwI1ldCQBQlKWhYXBtBSE8t AEaUJgbcBgpVdNucrOid0A1 BJPtl4ZxGQRobHUaiIfyLA8 kIGFuIGFkZGVuZHVtIHdpbG wuGc6ovF44HaPlWDHsMJFeb PAhKLYvxnVbVPxcJPkpT98g u9xwCTnboFtlGLbfH4l0CJL qYFR2Tz9jDKVtI5V7gB8uAF EeKyRehSadAKH8a3rzoPSfF DYrz18xmWOsd30pNAEpMHPn wPsrlGYsRV3wF7H2cc8ofCP zBX6jS3egXmtmpXKrSZabQT Vlx5PfhXIaanJjhgDvJ8Sip 9QxAZHmgIWnbwuwG42agrMm KGPwn51jr9u0rIM9jCMjN3z gizwgMErhUW3kMX74vUQmJG TuAUX1awOtPYwlFQErW02xy WVuZGVkLiAgIFByZWxpbWlu RHC0TYJmh4TfHqcnANobV5I by1QhSNCik98ouD9bY7O2DT JtwT3bLZOiGCN4g7NrANTiJ I0aSh3jPHSzEmRntIMqhO== CPT Code(s) (test code r5hkyLZrQMOdzPB2NmWxVKR = 3357) sg4fno0FjlISgzRSrSMacsI SkmxGedq98tEK6mB70VF6sC PBoGwR2JWHzcjZ9Uhg0YTKp NSSoyKXsG740w9stw9tritA dfKV1zNepQONjzgczUgF3YD dyIBZmwkddRVl5FUpfHHSzx DW8IAZfhVWxO3IjFWVpWQ1q tcm0EVF9LCklNXHvYsR9RJZ ivHEwHQUtoWsoRAryw006KV L5MfLeCBQzooDdlGenwF4fF uPdDlH0KWI1VPwyFABwFSi3 ZXj4YyD2DDcaLaccZFfjMCZ 4VPy2YfIeZqP3COQ2OjmbDH gzNDEgeCAyXHBhcn0= CLINICAL HISTORY (test c3teqMWpCLXblSZ2CaViVOD code = 3356) bb8ctj4WzlLBcqBJzZZijxU IiqaYpnu06oIG6gO79XV6pA KHsBuN0TGDcgxF3Fvx2DPHj WDIoyWBiF997g4yau6czvwZ cqDL4iDmhBJKqlxuxFqP5SY vjYVOkcaseZNy7STqhZFNek II5EBMpsVTvH7PwLVPoBV5e wtf8FLA3TPcyUWQnGuS2VZR huVPqBUIyuPqhZHfcs980GK C6WvYgGRZmjwYulWelgU0rE cZlGGNYNYDlcRD9KQ58TLIm ztB3jY5hAB7rZIvqXAR9 SPECIMEN SOURCE (test d0ybaDSrBOMjmBW9WlZqMCE code = 3377) br4dmr5HfaQEdhXMsDNxqhJ YbyeSuec79nDJ4uS92ME2yJ ZRxFaV2NQEujsA8Oxl7JLLx UGQxiWYoF872v4glv4jhlhD uqJU8yDpiPRWkqjywMoQ7SI rxYXYeczhhCWd5XGaiAFXwe GP7MVSehMHhY2OzTXPhGV0m gov9VIA7OThvYNPuDvE4MXF utHUyMJErlVwlVXihy169WA M5QeXoTITgvkAfdGwrbE4iC mRwLRPTk74gZH6rmeNcjkOh cGFyfQ== GROSS DESCRIPTION s7tgoGLnPLAghCBXMRBbM8c (test code = ykeYzMTFugENzL7LrmasuFS [id number]) mcJA2aPC8pkYqysYAptYNnO H2QUKBdSsUyXWIfrBMzatMz VwRoPGWhhXDzxGE5KKReIL4 nevcwXZghQQqvZDOgfsN3BD OmiVFwV5DvCFXwEY3aanktF SR0AZbazV6iumGEFtosZb2o dHRibHtcZjFcZmNoYXJzZXQ fUJDsgPruXTSaYSx8tX5YQz zwJ51fx3A7Evb8RSQrBCByE 7KnFK8xEDZslXWuV89GMbfh AAL9VBFKDwwmHEZhQT1Aj5u rCEZbnUKxYZO4GSrueEKrJR LaQKGaYCv1ZEBbETlcbCJdO H5bqCayEcopoGxah6KvtPLk XGlkIDUxMDAyIFxcZGIgIE9 IAuAnZWS0KJM1DgZaFLr5IA z6IW1OJwKkFSDuEnSxQpwwI dTeNBz2UFyiTH0OJXB0HPE9 WLZfTIA3SIO0NHUjSXZgEyC cXGYgQXJpYWwgXFxmbCBcXG 3odWmivQMrgnKOYoDDp53zK P3eqyBhqi8gwCOjOR2VVRFi nVDATJM6XF9rQAQUHixyyTT jSWUufRdcZKhvgD4yHO1BHZ c5gtBjVJYgZhDfDxMbKYu6L TTsnIXuMGwvVCL2kKItUWVq JVRfRCFlNG53K7PaieFzNHv vSYWxWSQhkQ0aCE05sPFxxs BejxBuJhPllyDczTSagv36C nXvmlFxmPEssMamkYPvdJ4m dGFpbmVkIHNtZWFycywgdG8 myJ8iwISxNAVsHQPbcnNdfi 8lBJF8SPhaZn0WZIWiVUrfY CPmfLXCIBW7WN4cEPfmpENa erbhLPEwT6PsR3IpdvOpjTE wHHRptdDmz5fxEFO4JFVmnI LlcSFyAcTiJrqcQYB8CAx5U VzkBPCuE7OmQ4JiIEqlKJY1 MTAwMiBcXGRiICBPVlIgIiA 7CDM4CEHoYxO2HTt0MKJUTq UtOxKmXoEtSUu2JGAeQQl7S Dt4GJdQTjY3DyE6TKV4Pydr EQKyMVFvLKf2FWGaZSzwKQR vrJJeCFklIaayMTiuF07kXc TxLswpyJBoazGKTwNBx83pJ O5nzgLcbn9pfRTpGP1KTOUr dQAQBKF2HF0wTCBSJmikgVL qXOHigHjhMWhqfL5xYK4CXO f9mkXzEZYzYBgxsoUgHFYoE 8SbqkIoXIbzZONfnt5wdFwv IGxhYmVsZWQgdGhlIHBhdGl foaYuqeNqUY8vMPPeL5Vfo4 Xwp04zlpOgAwPbDGSwRCVmL t6tRZBxSRAmu6dvX2gwuLMk aXMgYSAxLjUgeCAwLjcgeCA wZwybX56vNdqtm1AeL7szhZ 4gVGhlIHNwZWNpbWVuIGlzI MHlZ7Ejb19yUYSwhyTsKQ64 jQAlkZtqu4OzuLw0dJMeBWk uIEIxLlxwYXIgDQpccGFyIA 0WVVOmCXpyfrUoSI1QZXFtM DqlAVThaGJYGFS1GU7lQJrz vGCkwqeuQCXzP0XoD4IjvyW kmZYeBKQljmEha2foHAS5HB NwxUAjzKVbJnOmPchuMLS1M Fr5INshTSPrN7CiX1MhLNii BAJ9CRHvAwJwBVOjCGIFEjN oNrH6OHU4CITfHaK4OSa3LK RVLpCgPyQsOpEpNTn0BFGuH Db2ENo9IOwQWnG0JhN9ZHD2 KRHxHNFsUIPnDOv5QKAvPTu mIEFyaWFsIFxcZmwgXFxuY3 1cZnMxNlxwbGFpbiBDLiBCb 01jLT1qzrMtdc1clIAfOT6Y CZIjsHVEQAI7ZW9iLCQUFxp hrZLxZOHlhIbpREmrwU8gHA 9AQPx3maHfEZAkPIxumrDfV PEkS2HmhdGaQTcsYUQmfk7r bErpUFjmJzTpXIHjy7h3pNC 9lCGnsCF0cMIteTkpUD0cwZ XsOREeM1Obr9hzgwPivC9xC HEpHX4rEPEvm47iZY2cfiGl aiDxu6LnJnQorgAwIBTclk6 iDCEnOd8sQVRwv1GtTQ0oAW L5ycqjSkQjZyTvD68zcR8xw LFkT9OeFMT5Vv4xeANxXSDo sbPyevZnbYPfruUGRMXeg8F fGFMuYXvlwSFrU8H6xS4xHl fbFIXmYHynjJCoFF1TWVWvV JtltuLlWGKrsOOpGLOdA2Jy kRyjpbzgVYViRFyMNVjXF3K OED2UXZWyXJsbYAVekZAMBQ C1OJ0hGAoaxLGhznewJXFhC 5EyH4PmrhBbiWFuPYQrqxLt c1gtSKJ7TEVlwBZvvOHaYnK oMifqKQF2DMhet8vvQLZ9RY NsbXVsdDAgDQpcZnMxNntcZ RAuG3GyX5BdupQ9HSe8 MICROSCOPIC l6rrjXYwYCAqlIU2RmVyMNT DESCRIPTION (test code ip9fcm9GjmDXbsRHuCYrecW = 3371) EgfuSdaz17tPA0bK05QZ0dA RFiEgD4HTHlpeN5Edj3AAVq YXLqdBFvV502z4fcu2qpjdS rkKU9vHsuWRUdqkgjPmR0AL goQQBtuyswOFm4AQpzJPBxl EL1DRDlqBQbA5ZfSAIdUJ1c sio1GEB2SPgmFTWuDcJ0DAX alCUtGJOotQocFCeep298RQ G4AnCrQRGmdoXehFnptG3nO dXwBrXQT50XAI8RIaFNBkVI U9KJSaGCQBmzhDMvZBKLUAc JYPz8WFGoacGFn0ZildP8PH 9vYZZtERY4CGCtADLhemUCp 7IeeTXsxMJeyS13YABVEVVx oGP5JGkkLNWdmAAsBG9LClF PVyBESUZGRVJFTlRJQUwgQ0 6FVpP1QS80nRXrvgLqScPqZ HgpvoVrm6VtzNKzEqDrBOQo T0FynXLdeZCbOm8vtKQfCZ9 uIGFzcGlyYXRlLlxwYXIgMC 43HPotgnXfHFTaTBAam1GuD 5QjQCOnZGY5e7dxISPnYZ41 POynkiTpNARuSWXiw8WnF4L gXMBol963BAmyH2y3DTVyvL NqKGP2IjXbCRCtWRplqR4fs KJkyf0LYTSkjSqciX6dgLFl w2reSBWiPHGiQGBvOVGgCsE iAGKlM6RdzAIzfJRuFTibVB 17uY0byELoh4plFPKzZECxE ICxv7UtR6QxRD9lzEWuBAtt grOlLDGaDOLWw0Ejom3tkUf rcdRoqePjrZNvU8Zgk69fh9 cdIAGiZR30MVTbFE0vxCQiU CflvgLcLJKbLAIee72xxEoc dhYfmwEwqNRzG0Xbt38vf2k wYXIgNTMlIFxlbnNwYWNlIC BfLUFqtAXoyz1nXWRlnvAox PUza0QiVPQdeyS2LLwobhDf CCNqEQEho0KdV7LeOWJiGHo 3rXJfz5K4xGBeBMWaqyC1QJ QvKZ2nkPEeTCuprnYeGURwP OVwFF3bez7igEWox5cdCLWv UWUtKJBzu7EpI8SgTYLnNMP PsQBazEKnB8GjlWUyhTHqXI AgvyKJmYRah6inVnHJuie8a EDiaKLoBnF2eW61QTReNkNz OyBEZWNyZWFzZWRccGFyXHB odsIZrFIwcCA5UT0giHTEru NyZWFzZWRccGFyXHBhciBFc ua1jEPcgD1aLMPfsgutP8ft L8r0vAsymSXgiYNlqJwaoGW gIKZpa05ceUH9IRQdTMA9sb J4iN5fFVNltaEjUEZbGUCxS CAgICAgICAgICAgICAgICAg ICAgICAgIFxwYXIgTXllbG9 pg6ptq2jjHzDHg0VqNWffHV 6sAULcfJOcPAHoUA1rqDKyX PDrh52uoKKrAFNaRQPcGZGd ICAgICAgICAgICAgICAgICA gICAgICAgICAgICAgICAgIC FsQZSjKBVmaGWxYI0fI8OcN JU5w0A1aNXjPhRhMBFxl5Ym iSCerpAgLHFqTAGuTR8pfx4 boFizAFEsdLLgHOM6XCakGX ZwEIOpcQ5iIXrsZRxde27ts MWmxOMxt2HflQNnAFLnn3Ee LQ9qLRSgFMmly69uy4DshU6 deGUsOk4aiEToRR8nHCNcXW Lxw9SqxdN2BPZwmHHklr7fS VQfSANeBLDxVACega2hJZSc majoj1lvRWEuLfkaw0UeNGc yMR25vCTrEYIwBJjbKBSzjH FyICAgICAgICAgICAgICAgI CAgICAgICAgICAgICAgICAg ICAgICAgICAgICAgICAgICA gICAgICAgICAgICAgICAgIC AgICAgICAgICAgICAgXHBhc dBHD24IDY6IRjBXPiOHLP2U N8l9QXThbkZUdW6nj2yuAJZ 1Wh8ghBcgRFxifQShRXJnn6 BeTYBnRAG9QZGzYHLcwuazD XRbNd9qrE8bRTpjdNbovdFo IDIwLTMwICUpLiBDZWxsdWx xskCqf25qz2ZlhCmhcgJzbQ 1pbGFyIHRvIGFzcGlyYXRlI CCoUYPcpsNajfWdqO30M6kp aZ5imbtojUAoBQLvZKW2oNn qq6SkpQVykZPuGQ5sGA19NG czjK3gIYPqczLvjcRcD21mf IyhjHAoURFUSSong8RedO8x rXFadzNgssAjFFBjOLH6ONN qGTKgPMKhihRyi4o2dI00qO UdqAatdRZlW8IepBZjj9Sre W7le3hsJrGlSu2jmh4zxJy7 aWVzLiBccGFyICAgICAgICA gICAgICAgICAgICBccGFyIE 41oGTvMaSwKC2otP5iwVqpx Z4yzJGwqJNqgTImwVXtzjGm rHPiGa4rbUFpNC3fHSLuWIE fTRKru3ntPrpsuGC2WZFtsy IrtTP7CUS1AHHqqrVtqCZbo kH9sQDlYVKjKITESYU1QuRv yUIqdIGpLVZdggCmP7V1vRK kPJNoA3IaIqAFQLUtyRylLO JeafSkgsXwuNJpNGhjV0PjJ ErmAeUhKPdwna0jnUVpRQKu ICAgICAgICAgICAgICAgICA gICAgICAgICAgICAgXHBhci JOw941OFZfSAUqU1YtBFR5X YRaQ49ieXY5aDPgFRV5mRKr MUMelKPtV3MnbVMaaMEbq0R 9iEYndQRpBO1qvLleN4syXY MhrKZyYXJ5CCnhAFHyVJBfi j6pKRnvOJCrRUMsybHhUTZb c1AdUZ9wFBYhGTojk39np1E alE4glBWlYt2yzINoYA5jMM LrSPSjkN37SKFcR1Pwr50fR CBccGFyXHBhclxwYXIgUEVS EJARQXFNOVOZIW0TZNezlTQ yXHBhclxwYXIgUkJDczpcdG FiXHRhYiBJbmNyZWFzZWQgc G8mgOJbga8cBBCnTYrgmOYu zr9cyFEzSkkxxV0pznEsw1X bPOIqtCWvN8d7g6Rmm1pmSE IgICAgICAgICAgICAgICAgI CAgICAgICAgICAgICAgICBc pZDhEGlCN0F7MQJqTmi5DJA oJV72LFZ3LN2fjaYki3srM2 rzFCK9u4YpMYAnOMXyt1Qeh WRlbnRpZmllZCBpbiBuZXV0 ha8qfPtoVCCzwzoahmIgUDH gICAgICAgICAgICAgICAgXH BhciAgICAgICAgICAgICAgI CAgICAgICAgICAgICAgICAg IFxwYXIgUGxhdGVsZXRzOiB cdGFiICBNaWxkbHkgZGVjcm Tqu9FvSnFeC4Voi8mwfcKyN DTlxZJyO4OsBYOqae3tRLqx YXJccGFyXHBhclxwYXJccGF yfQ== SPECIAL STUDIES (test b2akmWWuUDObmOV2KtRhGQP code = 3376) gh4qgz8AhhYSsnIMeTZsmeS XtvcPuqm72yBN1vU46EV4mC BTbIzK6RGLqepT3Geu7OGGi NGLiyWEoO324ZJXqBOGpuEk qxox3vQ97PNVkmM6opJPrSP twhlRbLIxxbaLznvBbXeg4D BS5iKxqKAWxlxzpZwJ5BHcx RPMbembySKd1KYdcLWGmuCI 6UUGvwUWsD0VhQHHyEU3akh k4MVK0PZniTTQkNaF9PZRsw VKmGASsvCbfYMkqs068XOK6 NxNyTWNcrrPepRbkdI4kDaN cZnMyMlxjZjEgVGhlIGludG ZdnSVleCM6pE0dTQ2nEDRhq LFdC4NwEXDwwlHuvVWwFIO8 xRXdkMWpLG3mWDakuTNfn9i ad4JbY9vumMpaoWI4JY8hOP UwMOVrYOmje2TepJ0oIxycF CGsfSGwMMJaCyQtyn7eJJWg tsUPQWumW3QlSDcmT1XnBIi gH6TbABXjnqmxOIVqA85hhL JvbCBTbGlkZXMgRXhhbWluZ FW2IDCCwi7qg0BiLPPglk11 hfFqv4WsdHb7IWKfc269ku6 zukL6VJPnCIY8JPs0LKTzFS TgtV7qAfF3eLUyWAYjLKI2C WO6KQPpl8N1BA6wHJCaOGPh TUCrgeTjs1mfr2atAFJzAHT 4reJpsZ7fT4XkBCEry0NhyG hlIHBhdGllbnRzIHNhbXBsZ ZCrhK04ESEskZPqgZGzMALo TEZ5KRvfwC7tHmZHcjPrmu8 rwYZxd5WcjVy0GCPqhlCuhz FiGTYzfuZgZ57iiLDiePNta 2hlbiBhdmFpbGFibGUgYXJl JBO0DSz9YLSaSBlzWWYbZFt gKFLaHN3tnU5xsAyjgY4ipM FmxVB3nmvbiUIdkI4wJ2LnO MYgm5Kmyyfip6UrWIGkvqKn qe3kJEQjlLHPAOrke2TgU3L qMZj4p9MwgWacYWxbUBu8Ai HlSUBufYEhaHSCUG59QWKoM FImdSpavH9hoHHQKTIhenX9 t3F8IAlfBKDsBGh6KPqcheY wTZKeuC6yPUCwMW0kUWp8ht GkCNGdk6QmRG4bUZVgiPVqT MY0JCPws3OjN9Qcv5JvVGIx AMFydb4vprDoPdVInULfZYT bxv34WXCgEN9dE2beVVJoRS IjfhUuvSJoi2VnKZTskVC6r FNoSI9EKdQPe51xOIExNBXR lzJrWIBnhBgvfFV7llU9lM9 uLiBUaGUgRkRBIGhhcyBkZX Rczp3qtpVkWRAxTGLji9Jwd VYdcAPyolRyC0Wej9KfEFOf uh88FOsdlQLbjr17BY2jZ3D ge5DciT1jXXrdOYSfg9EpfW SxvVHdLGQvz6ZxU6qdauubW JzhnYXfoY7qYYKgRLw0TYSc j1EwODQea7HcVwBbzuEuBKW xRKYeULOigK26XEH3vKujtH bmlbTgPL5lSOIkcnGtBGXjI XVomY2wUAdopiAyUQPcjbU1 m0Q2QWlkZMYvegUnCnpvNRL 2ywCiobZ3tHXkF7oaxvhyWV icAJXlf5QktQ3soDERmHKip 8IhkLLobGNKgXIhQD4cqyZp PT2uHKW8XUkxABGWXPGyCUf tRFCjARM8SIxsMjetATB7sg HzBYJbj8CaQJzsC8gbX44yo OzpbOu8pJWlbTwblBRulKPj GCLlqbM2o7G9FDYea4Cwxbz uXHBhcn0= Gross assessment was [facility] performed at ([facility], code = 2777) Department of Pathology, [address] [place] [address], Technical component [facility] was performed at ([facility], code = 2778) Department of Pathology, [address] [place] [id number], Professional component [facility] was performed at ([facility], code = 2779) Department of Pathology, [address] [place] [id number], [id number] 13:36:52 Test Item Value Reference Range Interpretation Comments Case Report (test code Bone Marrow Pathology = 104) Report Case: [id number] Authorizing Provider: Jack Saunders MD Collected: 12/14/2022 09:00 AM Ordering Location: [facility] Received: 12/14/2022 09:36 AM SERVICES Pathologist: Bharti Correa MD Specimens: A) - Bone Marrow B) - [facility] Marrow C) - [facility] [place] ADDENDUM (test code = [id number] 3381) ju8shh6CbvJIfkXHuMExhtC UufzKjxm55pHH6jL24YN0dK KQvFgM1QETyqpR2Ytc7ZCIm YELcxLRnD413v0xji5wmznL ywCT8eCedSQUsfdswJbK2JW jnSSIminijTRl8UBceXJJhs RF2RGBufPRtR2RiEYMcEM5n vie8UOR5YXnoJIRdLsH2EEW xeVBhUCZmaOvdPUbis186WT J7TfGnWADsuoQqkEwajU0zK nAkXLYQfAOuH7NmXIHeFgNk dHVkaWVzLCBhcyByZXBvcnR zNEIxcWVJJB0UID1esUeogo ttd9srpzJjJD3qxx2doKGmS TI4s1V9jSYmHBHzBEBhzHXj G2pvREBdMWEzyaIiXuMrSuZ 6eTEaRI6sbkD7zA4oHMGgkL MhyxBktehqAF5DRulfCQlqw oYlTMDunjAkCLKdnQSDML4q SZ6jhVyhwwfgNE1kruDtn3D lvPYtrhYnBemwHV82EGDqkB fqD7JioFTfrEX5VPBct71yE SorLPDpAEI1IPHiPUMpjnFt x9F6XV6eEBGbVLVrUANfm2D moFHzMP3plz50BDDgrWLyps A4qEGjiIJwtqufqQBwvXFqP L7rMXUtFMShwIRrqs8fyXIm IFxwYXJ9 DIAGNOSIS (test code = m0xjgABhXOJvj5tpLNIxgWM 3220) uZzEwMzNcZnRuYmpcdWMxIH tccnRmMVxlcGljOTYwMlxhb gFdDAAsvKXcE0GrgcvjMXwo YL0aGW9uzQqtbFJvlVRqZQL yQdYuj0qph629fYGap2jgSO IShoudeGg2zSlcO20il5Y7Q lysK67blHUpRQO3CAOaJRRd nHPxXQZeFDX1ZCUqiQMtV1y aLEKzIW0rdtzaGTmqFDsiJT GjjKE8SNCouDXaV4RcWYEoL CkcFYUdusl2GoCuPz1odBZl eTcyMFxwYXJkXHBsYWluXGZ oQcKvOu7IRWIRYSBQR8jcSE ROMUCVVZZvSBJKM4HdYAXAC BIVBMABBTAZWpwIXNZGCW1H F4a3GILrmcQnUu3AKE5FEEs QGFfEMxMJKAEGG2nrA9kQCY YJOljNEF7INUkJFQhJHBSWW 9WMYLKIOPPuHU5FPKUQHZSK Kb3GVEGKAOVJHyHRANTZUSA xdMYyML6NEUSIRyGFDNGiPL ZEWlDNSdQAAW0RFCRAUxYWJ H6GAGEFROHOS6ENKSAAGuXQ REVOVElGSUVEXHBhciAtUEV MCIsJAgKBOSYVL2NMLZNQQq BTVFVESUVTXHBhclxwYXJcc GFyIFBFUklQSEVSQUwgQkxP Q7Y1KMPvmoRnZXDCMy1LMZP AFaPIFlIQLOVnR4vUUTJXVe RDOYUYBXVgIH8CFBQKWs8JP OGUFVygZUVEV88LXU4LJMzt CTqFJFKCNMCCSXCJT3sML0L JRewEAATzhztjNQQ0v3bozI YxXHNzdGUxODAwMFxhbnNpX AOdPgsqarfiEBKrDXG4pfBc NDRrXPmjARAfJShwGg8nqRU vyPycQvQjTQMde7oilmGTrw aizKx7r1dtYFGaRrU5rIHzW EhyW2gnqgFtxRLuKERpEGe2 dM73ZXAeqF8ubKNmOCcdvcT pUfD6YRgoRNZvFhQ4CBQzwP TlIQStW2gmXZFoISpxJYOoR ZpwhTJgRDM9jLrcf2G0kXTc iWWucIkzFoTgBrQjXvVKy9V fCJv1gUjsJ5HxFZVyRwC9xJ IuLHXxAUgiPFShNMLktzC8i I73SHtegrR2qSOtc4Wig23s h964eK2ccFMoYVT8KUPiUSV nvKIcCGUfEAW6CXBquMFuX0 tyMNFoTA7zdbprNHwfCWgxG NZwbDU9XLNsiFDtT5UoOGGc OAqpKKJxsiw9HgNcOm0umUO cnYccLMpem0npo3nktNOgVq o7QEWdXqSpTicbYUqqm8Cbn 4clYUSiqc7vXLI3fPGmsEnw b3C6fYWzEHZyiBQlCFZoUK2 lfCEpWNGywT5tlrgvLSDdHa AmzehnQSKmtPnmhbEhQb5gt QstFJP8FVegE1fmvT9iDzO0 OEddQ9phxW9nWZy6SFuzUMC cfZU6wnV4NLEpaXClT7QstH 0pXQOeHX9mfpq1s2fnTHH4Q JwzDDJyItQ5qdI1RMYziWAp SUHamJgiJEzeq670HQC0XjG sAMDwr6GpR3OyiMrsI49yrR zuR66aHAVnlEvscK4wkQfko L0kEuTlQoRoSYjssOhtUR9l JJYeC2iusWHwILRzYFPcS4b pLeRypM3ymVsfLGupynQxOH IoGpe5PGYtzYCyAJMbRqu8P HStBEDyW81jtupkALK7aY6h e1fai2MrXXagWLC5ODMyz01 vUWpphgL5NBimCr68LXwbIJ J4BOwtDAX7uS== COMMENT (test code = h1bjeZWbAAZtrTL1NmLaRDD 9393) ev8rex2XgqEXriKBvLCgjaU JzybDudf28eZM8vN94AB2zT VDxJaI6TNZiyyX8Ola5GVBv ZXWwbXOhH584o8amv4vovvU ibBY1xQrpEKWfykyxCkD9KK hlHQMesghcNUp8XVrkBCQej VJ2UQGjrIVsT4YfHVTdFY5s hqu4QBZ7QTnqEZWdEuL2IEU ymDVbRMSxyOcmNUyzu276FL X5ZqJbLKQqmxDppEnlvT0qW nMyMCBUaGVyZSBpcyBubyBp bmNyZWFzZSBpbiBibGFzdHM tz36yVSYygLJoaWSlf12dIE NoATAmhzOsm30sjZDdQCVcE fpgHrjvblUucABhaKB0kmci QIFzQv44QHacGQ2aXDsovAY ck7M3OAejfR0sSsKuD3Qbyz UhuO2utIntwB5rmLLyIKbvn Frho7soBSqgPC7pcARvGOFt iKluiHUcFmViPBC9hD7nSK4 wdAnqCMP8kHHiQCHuNBGdQJ FcgtHpkmceIKSwKGQdhWJ0n XRqaoHlzDYiiUYxDbYVgn1q P5PsaI2vbulxaxJ5mCZbWB1 xxsQ0dT8lKKNozBKzlqJwra meLS1RMizpa8jslCMmgYWtX ZCzVVIzpFZhg0BmLDTxk8Hy VsPphYtbkzLuqjJwvJY4VRC kc4DeVKRqdT1uHYxxACGry9 ulB8ioHGBToKFuSGXkMWZ4t YFbTMmvwVdgXcGxvpQfd4U1 FDUzq5QbCPKazQSseMafLD9 kIGFuIGFkZGVuZHVtIHdpbG onBw3kzQ42NzKpFANxCBDqx KFhWKKaoaGcQDcaLVzeM15s g5dxFCpqkQpcWSheL9c8JTL oHTM9Xw5hRHShT9V5yG1vNC QyZgQbzVpfERY8m8gzxMGrK CSrs26dcDCqp63jVYJbWOBx qWmntHQxWZ5aR8I9ut5tzMG uLS4eJ7bdDfqikRZdRSngLD Zki9ZgdCOkrlDrzuHnU8Xzz 7TuIITsaGZnurunK11ennYh ZRRaq95rb6k4xDH5kPRmC6j oohslWFobWX5aAT82eZEeVY IrIRK5mdVwYCzjHWKwU89st WVuZGVkLiAgIFByZWxpbWlu VKN4OZKgq4YqFvcgOHtuN3P zt1ZdZAJcr78byH4mS4Y2XI GklU7mYDZgXDR4i9XdOLOcK K1zLf0hYKNtXaQjlAZezI== CPT Code(s) (test code e0sesFGoFURgbZD6EtLqEOI = 3357) sg6vlg3OxdSIcoLBlMCrjaX QymeRtsd44pQS1nL94NZ1zI ORyDaF8MGNscxR5Gvj2BXSd KWXzzGWsI514q3zjf0asgyW eiMZ6hBtmTZOxcgueRuT2SE ilQIPpoajtULv5YTqiDFJpq DM3NPErsNFmF4StIKCgLX4z epg1NRS7ZRadUSRnIvO8CJJ fmNSuTIFhxXlhRUtdy966VC G3DuZbXPCiewVpzSubyP4gO jQyXaJ7XHT0NWnfQNLaUWr5 YRg2YlF7FHblPkrfEIviTKW 3TRd9WsZkTiQ6ADA1FtciJB gzNDEgeCAyXHBhcn0= CLINICAL HISTORY (test f9mhcOBfMIUnzDF3QjRqNWF code = 3356) zz3swe4GvuDFfsOFgCMxazC CnvuXzci98wWQ3kA73IX7fB VFoLsZ4WVFourM2Psw6DCHh WUXazYAaG445d4psx6kkfpR tdYK6hDacGOCjcwbyOdZ1BU wuAVYoitotIOd3VEbmHEGqd II3FXYziZQoN2MzNWSzCB6o rql0ATI6XChmTICxMgC5VYS miFMpWSGaxMqdPDzgj155UO K6HjFmQAYpxyEzoRcqiJ3lP wJgHDZAVXWfcLW2OL96BRLd vdK4eR9rYA3vDXgqGDQ3 SPECIMEN SOURCE (test c8nnqAGbJRQjoOM5VfAnOPL code = 3377) fk9xrj8KpgNUgqOLmUKvhyS YvlnGdff67rPY9nS01DU1jK XUqTcR5NMEqvvU7Hck4JUVp DQGlnSXoA191m0vwv3yslxQ ixXD0qGdqSUHknybuKhT7XT hxHOZylqtjGVp0QUoiZTMlk LY8XSPyfGLpJ0JzKUVuQE8y qwy4XQX0YNwoOFEzUtR4VUG idAUrCDJkmUtyPShuw335WJ L5HyIbTKDjztRdvZrlqX0rA dWbTPNGo10jKE0qvgLfkkSz cGFyfQ== GROSS DESCRIPTION r1vmdXNqJVPaaVGFCMAxH6v (test code = rrnWnFIFmuYSiC9XamnlbBQ [id number]) haEM7xTD8xyPfsqCYqqHVpX I1NNGTfYyFyCKAbuUBercIn WuLtJYEgiFBvoSA8QYGfEE9 uhcxhTNmcSKsfJJPcknA6ZN YtfAIcR2NiGETvMP2iyucgB ZX5CLrqhL8ywmNROhihEq7x dHRibHtcZjFcZmNoYXJzZXQ jUUUttKcsCXLwFSv1zK8KFo fiQ98zz5H0Wzk4GHLwRQUmT 0IuTG2tUBUfmGPiV46FRslj WRT4PLNGZcyjTVZiCH9Kb9r qXTPpbVFuPPY5BKxpoRHaDC OaRWXkWSg8OLWhBFudhKTvI I0zmZipUtrxnUtxt3QdfKRi XGlkIDUxMDAyIFxcZGIgIE9 HRrGdUJZ7SKH4WiLiGKy1LD v1KQ4PYsKwTSDtBjHkMzlgR tKyMTh8PBjfKX6KKHR7QCE3 KQKmQRQ8BMI1DYScTUUlElE cXGYgQXJpYWwgXFxmbCBcXG 2szEasyJOavxBIPkDQw98fY Q4erhTxah3frLBhZQ3CRIQy nSZBQEM0FH8nMNBSBcefkRD bKZJwoAmdPUzlvO5vBU6WXK r7dtQrWKMbVwPuYbBfEQo6F FBnnDDjVAqwABA4pXAsRUNk MUBoMSTdGS63D3JfdiFkDUn pBQOtZEWtiN7mNW43rADtul TzkvHwToIhfjEieHYndb00L lIvboYfgFSznIoyzHXbuO4e dGFpbmVkIHNtZWFycywgdG8 gjO3yxOSbVNDxDWEycoXftj 6bUXQ7FIncZy1YWCGwYNrrJ RNqpXDAOMC6PR9mQFiesWFy edooWAAkM7IfO9TcenByvIN bBRObunJol6dlIWJ3RRUlcJ OcfKXuEsWaRhbmTWR4TTi5T OtxSZRxV2DnC9MiNBlhLTS2 MTAwMiBcXGRiICBPVlIgIiA 3LMO8IXBoJgS9GRv0SJNTLy IhWlOsPvIoYMw8FNOzJVu8J Lw2EChLLhX5EwV3WMV5Fdsa DMVnLSBoSVx4ODNxNOfpTBO fgWMaPKbmMyqjGAklC88bNx UwLumcxTFztjRPQvCWq25vR C6genQrds8riYTsQB6VYMRk jZUAXPE3KX5lKAXTSrjnzPB zHXXtbBudISybxD8kRJ5SKC e4ozFyVSZgQTpdxlYbVGHxH 5DrofDeLWobOSTeif7cwKcs IGxhYmVsZWQgdGhlIHBhdGl mutDwpsKuTW3nUCMiR7Zeo4 Lyp66rmaUiHbMiKXIaPTFtP k8nZRQkFIAjf5nnA1ynpKXr aXMgYSAxLjUgeCAwLjcgeCA uVitiJ90lFuaxl0LwS3xqmE 4gVGhlIHNwZWNpbWVuIGlzI MKpL1Sgo79dMZWocnLgLG41 aFBtxWacz6NqfIq8wUInZXr uIEIxLlxwYXIgDQpccGFyIA 6WJIRvLEjwnoFgVN0TCMBsW WllUSGteIOWWVM0AP0mJAra rEShhvroESVvP7JmZ9XjwmO gwRSwLKNvkkBhp7ecGKQ0AF MmfEGfnGBnNdGwMpiyTUI8E Vs4KBerWSAlH0MzT7QhYHhs EWZ9EKXnNeYwSTHhHQVZDsY pBcJ1KWM4TMGpVrZ1CAp6LU OXKqKwBfYuDiTqBKi3JDMfQ Kv1PFn0IRqXOpH8IcU9SVB2 BMJiOERxCVIzCKr5QYBuAGb mIEFyaWFsIFxcZmwgXFxuY3 1cZnMxNlxwbGFpbiBDLiBCb 10cSV2lqyIuun2fwYBbKM4L ZWHawRZTGAH0HV7hWNDZUin seLHyCLFsvZjfMYayhU6mCO 5ONEl2ixIqBTSuETzgahQkR GIdG2KlelJjFIkfHBDshd3h gJbuTJsyXpXhDTEja0j8qUB 6yNCpeGY4aJFkqYikZR6mxU VeLQQzP9Vag2dklrDzeA4zR UDgCQ4yRWLlp44tVK4goyHd yrNrg1VlVmPggxYjZFNkzq0 uQVEsDy0bWAVee4DgPF5fBZ V0zvaqJbUdYgJaM88jbH9ut HMtV7GyJUC8Bl6rvPGhLNWh pfRoioMfuITnekDWHZKhu7Y sGQSxGDuodACuB9B7eY3iKv zkXNKxEGpylIFgEK9GMJQlI FbtiuEdQNRalPIuBXPxL8Do jYksugadBHXaOMsPWZyRJ6T MQH0YQOTgIDpmUHEeyLEHVL N1ZI5iWRnjtJBulolnOVMbL 8IiZ2ZnoxRveZFyYUBgvuOa s9gfPVI3JVPtxMOoaHNlAgL bCbmtUSL7WXylt1gkFDS7KE NsbXVsdDAgDQpcZnMxNntcZ IGoE3OuI3WyzoS4LJv1 MICROSCOPIC e3wkkSSxCQSmoIH9UrKjLVP DESCRIPTION (test code ey4bcv0XuuWVzvCRcJLbcoT = 3371) AuvlSwsh85pCT1eG21KQ6uA QOkMxM0ZYJcxqR4Seb6OMQw KIIwxHCgC548c8gzt5ujuhS zmPO8nGxcYNAigwosFqR2NA yiGKSrqjsfJQm0QAnzDLGtk GM3RLXbgIZkB7BcDEWaZG6z esq8DTI7ALtpGCFmCtW8VPO pbDNgKOPenMoqNIdjh997DX M9PqFnZSDhsdZrtPssrI2mP fRvQpAHF93NEU7GZrIEEfQH E6XGGfNXCYhymZTsZGFGSLj CZSx2YPWkczZOk4EudrA1UI 0uMDPbKQZ9QOPgWUJvniSYt 3RtpLLxkANvxK17EEJLIFSh kUC6AVvkYRHdqPTxVQ0ELmV PVyBESUZGRVJFTlRJQUwgQ0 7AOlK5JW62kVAyajFcXgQiO LijrpWfo5IiuVWyRrXwOGWh D8AjqYBwwWZrZp4ixHHxAA6 uIGFzcGlyYXRlLlxwYXIgMC 46IJjsswWlAPPcORSoc0HsZ 3YdEQPvETU2d7pfFVEcZZ48 NVoweoUsVIWxVQBeq0CtY1D iBCQil146YJjfU0t4GRLkoB DaMXI9ZrBdASGpLWkygJ1fr VDovc2YAQTpxTfnfQ7bvZHj z5tiBIDjSENtMMVtISIaOeH kHUHfG0AhuLOmpAYsPBxaWH 39fZ0kiNTkk6esZMRgZHXjM REmg6KqJ7XqDL0brAWdSGxj laCnGXAzWVBKg2Omlp3uoFy qquLtomKawXKaO8Wdp42bl9 coRWGnVR23BCIfKD1nlICtY XvzgeKuTAChUKEad56umKiq sjNeqxDxhTTsL1Yzw53os4q wYXIgNTMlIFxlbnNwYWNlIC RjQIEjdTRrst6hHQQeqaVuz JPpn2PkMHEjhiB9JFztrcJp CVSkIRAgf0CuX0IkHLWtRUc 7nFHjb1W3yQXmIXAxjnX0PZ PiLH7jwKAuMFmijuDeFVDjR BZyDB6ehp5neRUgf3fvHAAf GAEjFZPjz4PqH4TrWEBqHNX AjWAgiGFbS9YnuQFrnFEyHK NtfxJAlNOzc3qoFqEJuee1p UMhmJQmGgM5pD60GQQpKiZi OyBEZWNyZWFzZWRccGFyXHB qlfPRiPDvzHG0IW5kpYJFrv NyZWFzZWRccGFyXHBhciBFc mv5sYGhzN3zCJPxozdnG4vc X5a6pLndqLWquTZxgBbxjXJ eHHTjf53cgAN2VXTmONV1rq L3iU6mSXSmfdGkFGEwOCEzA CAgICAgICAgICAgICAgICAg ICAgICAgIFxwYXIgTXllbG9 tp6ktr5rzBqDPn8ExZEbkXK 4rVSDgkLFeETShTR5vdGTyD OJft35syMAiRTHoHIQdZDFk ICAgICAgICAgICAgICAgICA gICAgICAgICAgICAgICAgIC IzRNFePOAriLQbQU7jX5SpM GM8q1W0aFRgIpXnHSKkd1Uy xCSwgpRzIBRcHSAeKL9jia7 zcZxwOYKnwGKaYOM5OCqrSE LnUFZydN6bZLdqULaaf61wg FXksJAtt8ZdvYCtUGXbg3Tg MK1vWZZbBFiuz89qh3HuiH0 vjWRuXr1jqCKaRJ7mVMQcVK Vil5SghpL7TDDjgTTlwx7yV MXrSGKmYZBpQPVdhs4lQYEm cjsgk2jnEPRcKaljk7PsLRy pRQ49cMArEBLxPSmhURVrbP FyICAgICAgICAgICAgICAgI CAgICAgICAgICAgICAgICAg ICAgICAgICAgICAgICAgICA gICAgICAgICAgICAgICAgIC AgICAgICAgICAgICAgXHBhc yWCY14YOG4QDpONPcSJOS7W X3m5IYWzmqORtG6tv1ufKWC 4At1kbVilEMyemPTyUDJwl7 SzOBEgNUU4SXFcMSUhwjoeH IOyRf3faQ9lBLgfsMojgvJt IDIwLTMwICUpLiBDZWxsdWx ambHcm38ag0EgxKrgxfAmlI 1pbGFyIHRvIGFzcGlyYXRlI KNeQFKxjnZztzThwC97G8uv aP0pijanbWGgBWXhQCS8bCe ji0VbfZUxkMWrDR3dGN91FN gcnQ9vUVPylxWqjfYuG72zs QnqjWZtETYHIIgkt0CshN1x wTHjvuJkwfDwTJJzXCW1FMR vWVTlGZYpnoPwe6t3gB13uY YywUogbJUvK4EdmLVgd9Ntp Y9vi2pnNlQwAf7tuj9lgFh4 aWVzLiBccGFyICAgICAgICA gICAgICAgICAgICBccGFyIE 68cKJjCwKiZA2vtX3kaAmau N9ygBGwlPTfeORfmRBcixHu zIQfCr0eaUHzWM3dSMNzOHG dDIXhb3dnTgotgLN7QSVdfe DtkYW6KYL0ILCddsXsqRZbc wA5zKMrKEArXBJFLQV9LwLv rSFsdVLwKUNkyxCkZ2R4aZW qAJBuN9DpOlQMCUWsqHweZE HatoYdriHdjMDvQFvsD9OlO GuxAeOeYSdvxc1pqANxOZVu ICAgICAgICAgICAgICAgICA gICAgICAgICAgICAgXHBhci TYp843PGGbXNVmA9UcQSI5H ZGgB97ytKZ6nMIuQTQ1eFPi QDZurUKqE6QrdVRydRQhm4T 1cZCvpUGpKW6uqSvcQ2rgZT DlcLRnXBQ1GBrpRYQmCOXpc h3oBRbaOKBeTHLmvuAmHWUg o1OrIK9uMYZsMTiqi00bs8E vuL6htLSeHa6wtGWyYT0zIK VaQDBtdN99ADBaY2Mio16pV CBccGFyXHBhclxwYXIgUEVS CEPDFWAQQSIICN9WNIamqHD yXHBhclxwYXIgUkJDczpcdG FiXHRhYiBJbmNyZWFzZWQgc D0tnCGdsm0lKMSqTPniqVWm kf5ueKAmHrcfrQ5fyfYtw6F uADAhyQAmS7o0m5Hbf1lhFJ IgICAgICAgICAgICAgICAgI CAgICAgICAgICAgICAgICBc dPJwQNkYU4I8JCUvJgc4LWN tBP08ELC4RL9rrsJsp7ejA6 wpHEK2g9JfSLQvUQOtp8Ugl WRlbnRpZmllZCBpbiBuZXV0 ah5oyKhmYVLlatmlarGyBKT gICAgICAgICAgICAgICAgXH BhciAgICAgICAgICAgICAgI CAgICAgICAgICAgICAgICAg IFxwYXIgUGxhdGVsZXRzOiB cdGFiICBNaWxkbHkgZGVjcm Dzu5CnMdWnO2Lvi5hcpnGcK GOvuBHiI1YuKRFwmv1oEXhn YXJccGFyXHBhclxwYXJccGF yfQ== SPECIAL STUDIES (test m7wqlXHvHUAulRE1ArUiJEK code = 3376) kx5eeu9SuiGAmdLEuVWaroW ZvnrKtji46gJW5mN58PP5rF TUiUjV3AQPubpG3Bdd3OVAz AWJihXUvD429PXQyKHOouSn uvit3oZ02ZVHksJ2cbKRwFV wlaiPkPOzlmeLpnfEvXgy7N WX9cBdlIACpooakIfH5SHxz IQWevsyuIIi9VZzkLCStzWS 4XRBgoKDjN0ZaZPLiEQ2lss w2RIY8HNyeBPOwWxQ7JGIkg IScQTLhgJyzEOaep253QHW8 BoTpOHXuenSneZbzqR6wQfY cZnMyMlxjZjEgVGhlIGludG PgqRUroNR1dI4qYS9oLPJll XSzL9FrLEJtndLunPXuGGF5 cCFdkKCnPM8iCNuvpREhx8h uu1PfY1qraDbrbZC9PB1fDV IsQTPrGKstq0AfbO6iWspzU RJxxYFhXMRvOdKhas1iRWPq ezUJDUdfA4FsJDfrA2FkKUa oR6FhXJMhmbycYCJrV55peV JvbCBTbGlkZXMgRXhhbWluZ SC5OCSBcs1in1HaRISjpu19 ptJnd4TneYt0FWQmk351jr9 mesU1PFTqTIU0ULq8HGWyYM ZfwO0bTaK5fKGdMVAbQEV2T MA7HCBql0R4RJ6bFXUkTIHl LZFzsjWty7ior1zdTELhCYB 3qqQnmF5sP5SjTTPhk8MtnH hlIHBhdGllbnRzIHNhbXBsZ GFdqQ37SOFxsNUuiAPvFKDz QPY3HRndaD0wIgHPojOpvw5 wkVJbs7VxgIe3DRKxkkGfrn PuHYTsyaIkU73hqUMmcVLaw 2hlbiBhdmFpbGFibGUgYXJl EIY5CQm6TVQyYMtdKLDkCEu zFADhRM5rtL6naIceiN0mrN JezRI5ubaqkJOaiX2gO3DjT TTfh6Tveregd7BrRFPlleMy ws8cMNJktGJTWYxxl9JjL4K oPXq8n4WspAinRQttUJz5Kl DvSQNxqPOfeLGAUJ94VHAcC ZVrgXvphD8kvZZUNQUkakB1 p6Y5AUzbYCXvGWc2RGpnhiK pMZYqtK4wUTQjBM2uXKd2ef PdOJDzq0OfRS9mVJHzmJHtZ PM7RLIxa4OdE6Wnm6MmIEQb HUPywg5ovfMkExJAaIWjJUX gae76DMOaCE1aT0qpBKNlOL UrfkUpfAFsf4McJJXcmAC7o OSnNL2CVlFNg93qLOAlVPUQ qyZuNPKshGafkJM9wsU7vU3 uLiBUaGUgRkRBIGhhcyBkZX Lswo0ecdNeANWoQTWaw7Lel TYrbDVsvxDeP8Ufm2GcGUDr wu98DTilsRBfvb58EZ0pD3C wa4RtiO1jJWenGXPqv2OehW SdtWVzEUCcz6AyJ8kludejB RissKNokB7oQVNqNDr4VWEy p5UoOVMzl7UdTgPqtuVbMFS lXKOsCJRowV46NBO9oQoksW iywhIjAN3zYLAzvyOkGMVvS BBtwM6gBLxojcXqPSSeiuG2 l7A2POscAWRbxfMrEkhhNDC 5zhXibhP9eVDhE3acxcmuFM rwLKQqy9MpjX7toEEAgFGxa 4QljBMryMJYbHCbBD5gmkKo TG7cWNP6XGhbGGFJQZXzWBf pULMwXOA5UMeaTuoaIJA7fw NhMNDyx4CiHDskR4lmJ67ji IskaWy4cSGowYdrdABiwDBv QECdbpD2s8P2DZBfx7Iysqs uXHBhcn0= Gross assessment was [facility] performed at ([facility], code = 2777) Department of Pathology, [address] [place] [address], Technical component [facility] was performed at ([facility], code = 2778) Department of Pathology, [address] [place] [id number], Professional component [facility] was performed at ([facility], code = 2779) Department of Pathology, [address] [place] [address], [id number] 13:36:52 Test Item Value Reference Range Interpretation Comments Case Report (test code [facility]row Pathology = 104) Report Case: [id number] Authorizing Provider: Jack Saunders MD Collected: 12/14/2022 09:00 AM Ordering Location: [facility] Received: 12/14/2022 09:36 AM SERVICES Pathologist: Bharti Correa MD Specimens: A) - [place]row B) - [place]row C) - [place] ADDENDUM (test code = n8mjoVEbGMEmuLS4ZnNlGFP 3381) aa0tpd4CpuHHvkWRkKTrgpM EfskHjhw63eTP1yM37VL4xM IUgKcQ7NIDyvbA6Tfw7NHGe JNUgoNGsH664v5ler4kpcrC qqBP7vRnsZPAimuaoTkU7GQ epSQTckvtrIKz3HBxpRRJir ZJ0UCTkhZGhU9GxJIWpPY0d clx7CBB9ALdnZSQiJxN9LUW rbJWcXRYmjPfsBLvju930FV W8VqFbLDGdjaRnxEhgqJ0kK rXaQFOZfCNsB0JvXUKiIgJd dHVkaWVzLCBhcyByZXBvcnR wBMKrtPRVZA0BZT5tlBycto nuq7abfzUpMR7vuz6thRHdX YG4n9H6jWNpPKZsHWVptKGn X8ohZKZdJXYldrLrOnRqNgS 5lGJuGF6befJ9jM0xNAFklW XyjuMoneiiPN4SBjcnRTqui dGtYYIrvaUhFYCxzAMJCG4c XA8rlMppjlqlVR0xegOdr3Q kuYKjmxKgChuePB10TUNagM muS3GnxHVsqML3RIIjs35wH VdrKKObLXI9MOXnUBUddxTb r8T1AS8bMCBkYMScOBBir0P nhYEoAE4tnc21QGNuzMIpok Y4kCSnjBCdrwbpuMMdkEUuC E5mUNHtNSVqhFSkhp8mgUYz IFxwYXJ9 DIAGNOSIS (test code = e6hxmIViOSCut4jsASYbhSV 3220) uZzEwMzNcZnRuYmpcdWMxIH tccnRmMVxlcGljOTYwMlxhb mUiZNRtgQUyM4QtduswFOfs JE8rXJ0naPtjpATnvHYfLMW kCnHnb3rld003jDMee5eiTH FWyecrqYj7wMjaH60ib0M2A sqkR46fiEPqJXZ8HLCjQLKj oTGbABWeQDX5WRLebDRaC9k nVKMcUY6tmqcuEIijODlvMK FysHJ8AOEszMUrJ9ZtNCDqR PeiGNGizad2GdMyYi0nwZRb eTcyMFxwYXJkXHBsYWluXGZ gMjEiTw9AKHUQOANQK5ypMI JVDHRIUZFnAKREO8RiWEPRB RPPQBGFXLNHQxgXOFSDQP6X F1m0NMJlrxFnTw1XHP1IIFe ERRhEJlDCJUBYR2yyD1oNFK RXOrtZJX9KIBrNRXcPTTELC 5KAQBCSZFRfUP7KOXCIUHMB Pd0TGIBHKSBYWcLRSDRKONB ksOGdKE7ZDGIEOhHUBPHnQF RDRwGKWgZQYX7SARKJCwSPB O0BMCHBHXKOT2ECEYUODiMX REVOVElGSUVEXHBhciAtUEV YQYzYVuSKJRKNV9GKWAOEPx BTVFVESUVTXHBhclxwYXJcc GFyIFBFUklQSEVSQUwgQkxP Z1K7ZVXhbrHoFSYDLx6DAXU SHgUFIeWBDGScY0iESEQJYm YNQLNPJZZnZE9DUOWOSc0PW OMLNHbiGTQTR33OPX1AJFxt UZaOSQKYQVKXVVVMH0oHJ1B WAvrUINXmuyffBCK0r4kunN YxXHNzdGUxODAwMFxhbnNpX WHwHwhuiaweAHYkUGT8gjRo QALeCKmxZAXiCCozMx7ghNJ oxExmUsIpBJJio4fljxDMoy fxjAu1o5smUTLuUfX6kKUhD ZkfP8vqcpXtaRDvVFXkSJi3 fA35IGBubP2dsGXoKWwmbwD fJkD1GQemJLHfSsM9LKNdkZ XxINRdG2ddMTHtZPjxCKTxT GsagUPfQYI6hHhib6M2iRAs xHCgzKnuJhCmNiCxRmMLo3J xKUb4kOjmZ4QvBNVgMzG9qS GsSEJbYZpeFIBjJMZobkQ1r H05GWwcgcD6cZRqa6Fdm74q q766cO7xhGQwSTD4VRGuWMP sjCLeZNQbFYR8MPOqoXGyU4 faYVIbDG9zwlwqHQcrUKpmH FHokIC5NERbzMQmE9WwZEWo FLisEGDjisb8UtXjSu3bjJZ asMxbJGbwm8pou5bqzINhCw d6HSOnQnCkQnvhRNfxr3Nyg 9wlVGBjnw6lJAB3bXByxTgf r2P4cEYbIMKtlWXkSSScSI4 soOOqKKLoiD3fdaraHSQjLj KkvhgqEFVvzRakuhQvDd5as BcyHRX6ZPocH4xnfU8xJzK1 ZDwkD0vshZ9fURs9TZyjANZ lvTI3grO4MKRbjJSlN7DcuF 3pALWtDV6ygot2x5upUIM6W IfxIQOpPgB2maG3KSZdpVAv WSGjlFmlKZgki448YMX1BfL vEYRwl9IuG9EzsLjmA23dhE nnW18dIDGegYpsmM6ktJatq T3pTzJaXjBkWClpuEcbEW9q BMWjK0euyYPpBUTqXCIxW6d jHjEkdV2cfBphTZyogkMgTD WdQnf2RMLurCRrHDXiVez5J OPzNOOeO81xzqunYZO0lX5r d3ewn3BiDGymONW6VYJaq11 xWBqlsbB7SEpuSy49KJhpBJ T5BZtqRQK9mG== COMMENT (test code = b0njfBRlNCQmiRL1WsErNDX 7452) ye5yvo0BenYIbwGFtKBhrdF DosyUcqt16sUS4iC61FA2pB UBbXtQ9BVLahrY6Wvg5RQHp QJLbdQKiY081x1ewm7hlnyS snFR0dKutWDAtzcsaGoT8GI ioFCFelqksQLo5ZZoiYKTot ZE6MCQvrMYjF1ExETMzZA2s pjo4XZN2NXchTOPuNxI5XFR chRDkPVQptKeaZHlzx264LM C4LpOnRHNvikOrjIsqqO3xD nMyMCBUaGVyZSBpcyBubyBp bmNyZWFzZSBpbiBibGFzdHM fc05rQXOusYEcgPSdy34mQL ClDFDmeuJhn20evLTrGSPgV kyuIeabchLalRTyqHB7sccj PRZmEw75ALrdRE7oXYkabYJ iw8M3BGfepU5sQpQvW6Pqoy NemI1bhJyfiG0faGNoVKwzp Qibh6hpDJxjQH1soTHdAXCd gDunxGHdOnLiHSK9xB7jFQ3 jrNaxPMZ6eSSwPNEtLDEzIO QqthWkhjujHEAiXNDglTJ8c UDcdqJulKDfnDZnLsSMqm0q W7XukD1gopwlwyX9fPCgGQ7 hqjW3mF9bTXWhgFToerQiky cvNN3IXvscp9ycgYXusLRdN OIzAWLtgJLiv9RdNLWhh0Ge VpQgxVlnilAmjmPtaVC6JZP zd2OuJXGlcW1jWKjkXFFdt1 tyX1aoOYUKeYBvXJTbXJL5x BQsSOonpBdiNxKneoSqw0Z7 VWPxt0UnXXQoaELybSfqCM0 kIGFuIGFkZGVuZHVtIHdpbG pyQg3lvJ90JlViJJFgGZGce VSqZDDrctBzQKlrXByoG41r c7dwOTbqeEqtHYvrZ7d3SJS bWWA4Cy9dVTXrT4Z8oV5yKI CzOsNsjFjuRDC7t7oyjIDwL RIxi31pkEXye99hSEWiMOGa uDgvbRHoFO0sM5G6wv2exMF pCO6uT7ikGxbakTJcQVveXX Zyh8ZehHFbyqIghwKsF4Hil 1XsBLSbyNZkaeulW73fbkVh VPFak34eo7f5aHW9jBGgX5m mizgdOHdsHX1gAK61uMMyKU PsXRQ9bnEnMWghIQPlP83vj WVuZGVkLiAgIFByZWxpbWlu MCZ0FPLjk6KpVknyPYveZ3D fj1YsBZCeo77zfT4lQ2K3GR NoxA3aHHXkUNL6q1TmUYYrM L7eXh2rGRKdGaIwcUFwmF== CPT Code(s) (test code s0ynkBKmMEPsgZK7YsNnXIQ = 3357) eb1jzw9IfhHGkzIZgWXmdmH CmuuPdmm47jLA9rA90QH5cR AKsFtY8KGHkxgJ1Bvz9KGQf YJNsmBKmD131i8xns1hxhnW baVE9lCxqCBZagadzZyO2RQ gwLDBvqzuvEGo1TIoiZNXth WK7QCQzpNMpU4EjQRZzKP3u ekd8CIQ9QGyxUBJwKrD7NBF qyMNdYBDwyEfgKCktk196NI C3DqGaSNMmtoMdpFnbfI6vQ bEmLvK0TAI6NGxaBVOhSFe1 UNe2HzC6HRmnFnwpDKncXJG 5HSb8DrSpUgL4OCC0OobjXE gzNDEgeCAyXHBhcn0= CLINICAL HISTORY (test r6mwyXEeOEAudGL7OhXdBBM code = 3356) py9tjj9QvjIYwrUZjTEgmhG QrvwBitf66tJS6bP44UU8dW FNiXcD4HMHmfxE0Ncu9TVSd UUPrvMIgD913g5ffr6pynrZ kwTS9lLluPFEtfujfAhV5KZ wwYHEwzhcoFCd2JUkuNAGsz GQ7MBEzxLLsC6WfLNKiCU0e hgy2PBP9RLxcDQGcOcF5WYK sbKRmXCZqpPreLOlae160GB B5MdGcLVLbxxYuqLhtuS3rA pQjTYVOCXVhiJF7HM36KBNo awE6iA1fNU5gEOxhDKN1 SPECIMEN SOURCE (test k8xtnDVoUFDpjMJ1RgDiXET code = 3377) mc5usk4QnqSFetEFmVVprfV SxceKgbf89lKG1aJ74SF5jX OHiStQ5YAGcxsE1Mom3YZOs QOKsxJKtF338n3ddj2iaezZ ceFO9dNjdSVXjorgkGoA4LO ouRAKydxhxMGq9MIzfDHLjr FR3XGRlxWBnB9HuTMPzVR5e mcz5CVE9YWibUUCvQhH3DYU scVQbGEGxnZjrNPvbp879VR Y2QfRkZKKgfoMwvYbifC9lB xGbNKENp13pFT6yohYiuiLc cGFyfQ== GROSS DESCRIPTION i2jxqUZmHLPwdSJDMLDwS5t (test code = cbrUzQDRfhELkG9ZtrpwuPL [id number]) iaGV9dKD7eoGkpfBYyvLPgC J0YMNXvNgMjYQAnhEVjnuJz YlMhUCFwuYTcvSP4EYRqXR6 jcdqvXYakLMnnVBTmfkK8AR OvtMHiF5AcIFVnQS9augqyD UZ6HMquiD0djtXRNdngPx5t dHRibHtcZjFcZmNoYXJzZXQ lRKOqeCwuBIBnFHr6rV8ZVi uoW77oh3I1Mke6WZAyMIPsO 5TdZR9mFTLwcGEvO80TJwkz ABU8RZUUAprmFQTkVA3Kk3i mKDFurSClBHP0CHjgeBXkGR TbRFRnZUc1GOOcONaqgHZgH U5otJjvPmjasIhhg9TxjFDr XGlkIDUxMDAyIFxcZGIgIE9 YYhBjECI2QEN5LcLkWTl1SO y4BX8DSzKcFEGiXtRkNwqzA wOsBPx8YNzbMV9DYJP5RWN3 RMGiMUL2NJH3GLYlIZDkQbB cXGYgQXJpYWwgXFxmbCBcXG 6yoBbujSTjqvYOEhMOs65zD D5fktZikz1gbDVmMD3SUEGt bPIKUJS8TK2vALAGAbtclOK fMIZirYwzNHikkE3bHB8PQS d8ngGnSYWrTeNnGlWzISg5W SKjiSJjDHlxCXJ9pNBnOJNg IZLwWNViOK39J6CihsNxMFb uMOBiYMPgqA5nDE37qUEygd FjauYvSnLacdMrlNZsef52V mKnbdYqqOPxyRbptPNbyB3r dGFpbmVkIHNtZWFycywgdG8 ogG1yuRGkCMSqADDaquRanz 8bKIG4IGymAr9XJBEpTYnpN SZnuIDFCGG0IZ2uFHactWIb ezugAMRiK8ClL7OgenFmzFC pOGVkdpXbn9ydVBI2LKXhwT DeeJXnOxBwChszLPL7DLx0B AyqHEOzP0AlN7EoRPvaMYT5 MTAwMiBcXGRiICBPVlIgIiA 4OHX1TLAcDpH9HYr9ESJYXc BfOcVgMvGzYBl5KKCiRRy1M Xa3JXxHFnC3TmT4AIW0Vfvx IZPxPFMwGOz3SPXdATcwKWL mnCMxXRcgRxdfJWagT59bEw WmZhwefOEymuKOUgBWj77dG R6fgxBhag7xxWKpVS5WEZMh yBWPDII0AP3dYKTKTrvmsKG qJUYpuNlqSQokxC9zYJ1BRB r2oeTmNIDeIHeauoXkRRJnE 6CkbtFaWYirZQOfje6koJju IGxhYmVsZWQgdGhlIHBhdGl iliVnpnAfEU6zVNAxX3Yta8 Pzh03zktUfFbEiJYSeSQQaI o7sNSNrYFLzn9qiH7fslLPr aXMgYSAxLjUgeCAwLjcgeCA dRzebW17mGldzh5CdF7incW 4gVGhlIHNwZWNpbWVuIGlzI ZFpM9Gzm30cMIUdfoPlYL52 uHSbtGsgk9JgtNv1aWJrVXb uIEIxLlxwYXIgDQpccGFyIA 8NTZXcGWloggAfSV6GHTXuC ZqgZXSjzFJDSUT7LW7nVCet pNYvhlhlNOOhD0OrS7UjfoO hzAFgZIHjueQjm0yqSXL4GM CjoGXimKNrOpBoPvvjOBN3R Cr6MFxiESQfN2OtC0UrDZja SDP8VXDyJyPdCXWlAIIZZuY xLtT4PNQ4AXZaHpG2LCu3DY VTVwJxFoDlTbPbTVr9MTBoB Pz4ETa9LTmGRxI6CbR5RHS2 OCFcUPJwOAOcDFn4NOWkBPs mIEFyaWFsIFxcZmwgXFxuY3 1cZnMxNlxwbGFpbiBDLiBCb 79iAO8kqpVgku6scNCmQM3M QNHtpFXXQQS1TT6rXTJPPqi zcFYqBNFpgHwtFXolwL0fHF 7VBXt3ggYmUPGyROwphpLkE RFwD1DqcdSdZJupYUDzmt2q rQsyKTggCxIcGPRsl1q9nKS 1fZVhjII4bHBveKdeUP0ujB RfJHLuR0Pwv9ytnxYarQ9mZ YFrSJ6oYTLfw15tJL9lgfTg pnQfd4HnAiItjlShLJLdgj8 nAZWvUi4zNKKyr9DlQU9jBB S2ifuqXpNkWwPvD53hoX4cy PUjW6DlYDZ2Vp6irMQgOJSz sqHlosUmoPKqoeYBTWTjg3L aBPPdTGjovDOtX4Y6zE2aXs mvSHLkDDryfMGpES0MJVNaO ZfyyjQuXDZbiAZaNXMpA8Ci sIpnweyyWDHxLPdHDRkCQ2C XFO1FIJSaGHisVUSykLPMCM T4JR3oFHvwyBBjjzxtNXKqN 8BfF6CdduUdxWWdPLChdeRv v1ynSDU0UQBooPRgsZJnSzS rDdhyUGY0EOwhg3cuFMI0GW NsbXVsdDAgDQpcZnMxNntcZ KVcI0OsY3YxcbZ1VPg4 MICROSCOPIC h8nywHGoUZPgqKQ9HtFwATG DESCRIPTION (test code uc3sfq3ZizSVdpZAsLPsosL = 3371) JygwLxvk07tBN4eE17TD9bP WUyLcJ6QJHcmzX8Rwg0MWKe OQIqjUQhU874b6hko8lgdoU jfLY6iLvuFPGfeaepCvF5GC prKVVrxntnSAd3ULjaTMVnl EU2LFZdgDEdO4VfNDZiGF7x pte1HMM9VZymSWRtMvK9JHE nhBZiSJCrxDqxBIiog994GA A5KwSmRFIswtMkrQqndS6sC wAsJiTRU92XMC2UJxDNSwIC I6IWCaBXPAbcqGEmWHZOMBd EQMx2XXSaipLMl7SlyfC8FM 0hSPOxJHZ1SOXxTFZjysULa 5DjtAQoeEZijR61FULXCOZc yQD4BVcrBDKzmNCaRJ3DToO PVyBESUZGRVJFTlRJQUwgQ0 7WCqR6PT04eWNklqGnEdRlJ UdqaxXqc1SxrEJfSnXvAALe A9YzrBCveIKaMr9gbTYdIL6 uIGFzcGlyYXRlLlxwYXIgMC 69XMevinOaTAIoTRNsq2EdS 7UgOMMdJEK3e6cuXVYwAH83 XBircgFpQREkESNuq0ScH9W tMMByp342PEzkP5f8YAEgeS OvMPB2LdFeWWStEJhkrA6il SZcaq4KSRMjlJrghT9xqLUl l4npTELqPRMsYVGlQYOvVuK kGHWvO9CkyWHojKNrQVggQG 61bN7goBBqf5kqGRNxQEHpB XVhz4TlS1FmSZ0wmFIeIVhj khZwOYPuNZJNh0Oxca5gxBc ncsRocoDoxFPmM9Sql83uk8 kxVNPdBU25NYVuIL6zpFTpW AwysuMvWMSuFXGpq32coBgj aiVztcRmjGRjP2Acn74za7f wYXIgNTMlIFxlbnNwYWNlIC AjWNPloQDbyp6jWPLztkDbf ASos8GgDIJdhgE4PWjxlzWw AKSnEHUux6FeV5SxUKJgBDw 9rFIqz1G7jJBdFZJzbwE9HK WjWW5trKXtDSivmsNxVCRdX GTkWR4khz0vxXMaw2lxLYVp RIBvYEPqi6ElW6JlTHCjBDX JbSNcdYYsK8EahZWzsIDtSF CmujGOfIKuo7zaNqWNyxg2d NLeiMYpSiH7tK85KUTsQfBh OyBEZWNyZWFzZWRccGFyXHB zmeVQgXFmbNR0SJ8vaDCLmr NyZWFzZWRccGFyXHBhciBFc kz2mGHbgW5gYDFzijvkS1ow L4q2xTfxrPOacCFdhYstmBU sMLQzu40oxNE1GMRsMKK4ct O3gN5zBDPwugLvNQMsPCEfW CAgICAgICAgICAgICAgICAg ICAgICAgIFxwYXIgTXllbG9 ux5iza0buJeBPh3DhXCayPN 0sZTIeqZKcJXJkGZ7qbCOxJ YYla53fiIQgNVSqWIQjLEMf ICAgICAgICAgICAgICAgICA gICAgICAgICAgICAgICAgIC LrLYLfDWWccVCqEB2pA8TeS EL8e7J8jTNbZrMwYXZlu1Tz qJTsqfEuNOFmFCLhUQ5yhf3 lvSipUKPemCVgWVP9HBjhJH BePDSjeG4eDXyoCGxja10dc WCppLDmi8ZrmXXfUGAkn2Jg EW4gCYMmSNxxr69xo4DblE1 xfNNmPk3htBPnWI2aNZBdJU Foa3UiawQ7YSVexWHztr4pW IDfOOHzSPBgJTXnel5cNIQg xwytb4twBDKfBrdnf4DdDXu jME84oFFwIZDtIEkdRWDpzR FyICAgICAgICAgICAgICAgI CAgICAgICAgICAgICAgICAg ICAgICAgICAgICAgICAgICA gICAgICAgICAgICAgICAgIC AgICAgICAgICAgICAgXHBhc tXQE57VCF3XRkLACjYWOS4R Z6w1ENJkqfEBsE9md9icBDQ 2Hg7twJbsFLiqmHKzNQHtg9 OfUZRcWTQ2XGDgYBNlknzdN OJbEr7csE7gIQcdaAwmsvTu IDIwLTMwICUpLiBDZWxsdWx jpyDah10am0FzvDdqrtRptM 1pbGFyIHRvIGFzcGlyYXRlI GDnDKFhhlOlxoIgbL20M3zj eC8eayldrEZbNDBoSJD4qTb zg6ZnhGPcgNDeTU0gYX56QR obxQ9yKRYyowTryxSfD25en OxswWRhCXNFZKjqu6PxcR6v jRJbfnDoasIdTUJgAAU1LIV zMPQbQFJbpdJgm0d0qF92sK MymCirrWFlH4XjcQQui5Epj T5nt8egCtZtFb0hrs5gyZt5 aWVzLiBccGFyICAgICAgICA gICAgICAgICAgICBccGFyIE 19cJLvAhDsRH8fmK8ckBizo T8moRTptZAhnCFxlNTyuuUy jDBmOp2qfFYlUP3eMDArWSA zNOUso6idVjmdkDF3FQVkdr MidCW2AXI6KLBurzXjcRNcu wA3uAAuCHRqESSWIAX2ElJc fNYeiUQbADYarkTpK8U6qKA iNNLuJ0FoReMGOYGmgWcjJN TvdbOzseIcsZJxBPlbK3GjI FyhSdNtFWoxav8nlSOrRLBm ICAgICAgICAgICAgICAgICA gICAgICAgICAgICAgXHBhci SWn815DLYoTUGkN4RrDMV3V QYtN98knUA5wOGuITN6nQPq GWZyoTBtM0QuqLQlzRVov5W 1tKLcxCAxDA4cbSuxL4uaZG KzxLCqMMM1UGzxHRUeRVIav y7vNKstTBRsIVYpyrVfXAHm w3GuPU7tKEQnMRcal19ps7D bxF3bsDWhCw9cbLOdHB6zZR KyWLFbnB85OGNzP5Usq53qD CBccGFyXHBhclxwYXIgUEVS PVIXEDSUKDNPOC2TBGnejNY yXHBhclxwYXIgUkJDczpcdG FiXHRhYiBJbmNyZWFzZWQgc D8ccSWpbc7qDQSwLIxbkYCt sp6nxDSvTtcvzY6mycQvk9U kBZKovZZjG8a5p2Pny8abGO IgICAgICAgICAgICAgICAgI CAgICAgICAgICAgICAgICBc hYBoTRrTU5Y0PYApKxm5DKX yYG56BIR4ZH2efvDvp3dnL8 onVSU4x4BjESPzMWGuy2Diq WRlbnRpZmllZCBpbiBuZXV0 wj7qhQznAKXpdbhwxmJlSSS gICAgICAgICAgICAgICAgXH BhciAgICAgICAgICAgICAgI CAgICAgICAgICAgICAgICAg IFxwYXIgUGxhdGVsZXRzOiB cdGFiICBNaWxkbHkgZGVjcm Svf9PuVgSsX2Lug6secaXbM THouUPjO8IxMYPfck1eNHft YXJccGFyXHBhclxwYXJccGF yfQ== SPECIAL STUDIES (test y5ipzVOqVZGjxBM7QkGhMLN code = 3376) ql6epr9DsqXKayWTsTJzsiQ ThmaKpkz01rZX2fA53QV1cJ GMsXkK2ONLqcqD8Lwm9BNYt JMPjlABsO819RLEhNNAonBn chpy0sQ20RJFrhZ2gnJItIJ utnpJdFObpypYxddLiPbo6G UU0fJktIEVmthleSfG3ZTfq PQTnchopAZd5DJenFARyfYW 5IBUvqRBiM0QuDRYvDA7csc d9DTT4TJukGXFwRxU1AGGyp YLoVIIynBheFCvfw853GLL4 HpXqKDPanqSoxMgkdY3qGrS cZnMyMlxjZjEgVGhlIGludG ZwnOGheTR3kR3tQJ1jJADuw EXlR9MzKIMqmeGztQHiRAM4 zIDrmTRhRB7lGVhwiXNgl6b nn5IaH2uscTfzyZT2QX2oVC VqSGCrZDugf0AovB8lNekwD EXouBSvLWNsLhRywr3oSGNl joNDAIxqW7WjTZvvQ6TeRLt dY9QoDFAtampwRFAwI98pfP JvbCBTbGlkZXMgRXhhbWluZ QY5XLKWju4ks2EeFYBjjl56 xuYpt3TjsKs5FIYew153jb8 efzM4LENpTNJ4BOz5HEBeRX PpeB8bMzI4sAGbZBXnOLD2W HJ8NDJwu2I0EH5aXOHqXAKg ALSeljFzb6hke0bkOAPmPCE 4ucOmoQ4iE6RbKGAtg6GlnH hlIHBhdGllbnRzIHNhbXBsZ JCfwZ84VNFudTQjjTBoTFPi GIH1RJrmgW1rMxQBkjHbvz2 apQWof4FufIh8USFdioVgxl AnKMEmobIdH96ywRCqhVFao 2hlbiBhdmFpbGFibGUgYXJl FIW9WNn7ARGjTCnqMTFzZDg kXKGpWC7tzF4roSyywL0voZ WvyVL0ggpacWZxyV7lC0TgE XDko2Yvcixpi2KdXKFhedAx sl9yQKMkuZTXZNzhz3EsW3F cDQm5s7ZzxEaoEIwxPGj7Jb IkKGFwrMQjxNHZYL67XQVsD TAblEnlmT2bxWBQSUSbomV5 u0Y5WPsmCSQqLTb0CIwridF gWOArbW5yVTNuJL4fJRz7ez KfLYHfi1NiNE4aGTKkzURkM VH4UEHil8XfX8Bgn8RfSPAf ZSUwbd1wbjFpVeRRwWBnMOF nhg98SQSwHG4uT9apRIZtJH OydgBxyCVkh0DdOUOfsKF4i EScDW2YSlLPm80kCLRbDXIC wqBrMHMijHagnML0qdH0aZ1 uLiBUaGUgRkRBIGhhcyBkZX Issx1kwyFbDSXpRAQvg4Phh TSetUGjkeKvT9Dnp0TxXAJq uc19KBppdSMcsb95VR6uD9B ks7PofF0oQGlmIKMec1DjrG InaFTxHMWby4IgA0todnqwG InypUMiiU7vUSEvLRn9HNCt v6MbHEQgq0PgJbLrwiDuORQ bIPDhQKWflY19LFS3zQovuY ddavQfQY9cZMQqwhSiTPBhZ LKwkF8bTGubffCrBSFiusQ4 s1Q8DJreEANyofRvWdgaISM 7ohPewpR4yZIrD2ddontwYH ewBCTkg3DamJ3ysYOGzCKsq 8TtyTAncZUMgBRlGO2kgpEw GY3xRNT9ERjfCYELYVBcTPw oYSZiDZH9RBlmAaplAGM7ky PkOJCze3QyVGxvD3mcK05sq SrchQp6hQPfyEquzYRnwEQl HGAxhlS9m6C6XHBzk6Xotgb uXHBhcn0= Gross assessment was [facility] performed at ([facility], code = 2777) Department of Pathology, [address] [place] [id number], Technical component [facility] [facility] was performed at ([facility], code = 2778) Department of Pathology, [address] [place] [address], Professional component [facility] was performed at ([facility], code = 2779) Department of Pathology, [address] [place] [address], [facility] [id number] 13:36:52Bone Marrow Pathology Report Case: [id number] Authorizing Provider: Jack Saunders MD Collected: 12/14/2022 09:00 AM Ordering Location: [facility] Received: 12/14/2022 09:36 AM SERVICES Pathologist: Bharti Correa MD Specimens: A) - Bone Marrow B) - Bone Marrow C) - Bone Marrow Cytogenetic studies, as reported by [employer], show a normal karyotype (see attached report). Next generation sequencing (NGS) also reported by [employer], does not identify any pathogenic mutations (see [...] MILD THROMBOCYTOPENIA Signing Pathologist Direct Phone Line: [phone] signed by Bharti Correa MD on 12/18/2022 [...] findings were communicated to Dr. Saunders 12/18/2022. 56215; 29252; 70553 x 2; 81679;10170; 95388; 99671 x 2Persistent pancytopeniaBone marrow A. Bone Marrow.Received [...] entirely in C1 for decalcification.JULIUS Barth, HT (ASCP)BONE MARROW ASPIRATE:QUALITY:Aspirate- AdequateTouch imprint- AdequateMARROW DIFFERENTIAL COUNT: Number of cells counted: 300 cells performed on aspirate.0.5% Blasts1.5%Sqcbvsalyuqmz69.5% Myelocytes/Qvtzckkqrdhhaz96% Bands/Segmented granulocytes0% Eosinophils and precursors0.5% Basophils and kquaxjqjyu65% Erythroid precursors5% Lymphocytes6% Monocytes1% Plasma cellsMye loid: [...] very few CD20+ B cells. Bony trabeculae: compatible with a largely subcortical samplingStainable iron is present based on an iron stain performed on the clot section. 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 These control slides run alongside of the patients sample show appropriate staining. Internal positive and negative controls when available are evaluated Immunohistochemistry technical testing was performed at [facility], Pathology Laboratory where it was developed and its performance characteristics [...] qualified to perform high complexity clinical laboratory testing.[facility], Department of Pathology, [address] [place] [address], [facility], Department of Pathology, [address] [place] [address], [facility], Department of Pathology, [address] [place] [address], YKFISWAMGQIZT LAB ORDER 2022-12-28 10:02:41 Test Item Value Reference Range Interpretation Comments SCAN RESULT (test code = See scanned report [id number]) [facility] [id number] 08:49:05 Test Item Value Reference Range Interpretation Comments Scan Result (test code = See scanned report [id number]) ALEC (test code = ALEC) See scanned report [facility] Cancer Ltgde1781-18-80 08:49:05 Test Item Value Reference Range Interpretation Comments Scan Result (test code = See scanned report [id number]) ALEC (test code = ALEC) See scanned report [facility] Cancer Gjgep5649-30-39 08:49:05 Test Item Value Reference Range Interpretation Comments Scan Result (test code = See scanned report [id number]) ALEC (test code = ALEC) See scanned report [facility] Mmibpsyxqth2835-45-25 10:31:04 Test Item Value Reference Range Interpretation Comments Flow Cytometry (test code See Separate Report = 2758) Case # (test code = 2759) [id number] [facility] Nwylhaqpjmb1453-06-01 10:31:04 Test Item Value Reference Range Interpretation Comments Flow Cytometry (test code See Separate Report = 2758) Case # (test code = 2759) [id number] [facility] [id number] 10:31:04 Test Item Value Reference Range Interpretation Comments Flow Cytometry (test code See Separate Report = 2758) Case # (test code = 2759) [id number] [facility] [id number] 10:31:04 Test Item Value Reference Range Interpretation Comments FLOW CYTOMETRY RESULT See Separate Report POINTER (BEAKER) (test code = 2758) FLOW CYTOMETRY AP CASE # [id number] (BEAKER) (test code = 2759) Flow Vxzismhzm9506-19-12 13:47:57 Test Item Value Reference Range Interpretation Comments Case Report (test code = Flow Cytometry Report 104) Case: [id number] Authorizing Provider: Jack Saunders MD Collected: 12/14/2022 09:00 AM Ordering Location: [facility] Received: 12/14/2022 09:33 AM SERVICES Pathologist: Malena Casas MD Specimen: Other Flow Interpretation q4bxuTJrZOMgjED1XgCgU (test code = 3364) PCjn3wrg4HdoLGyzEWrMX unnGWcquBkmc39rAG8nD2 6FX1sNUAsRmR0RTKhcyJ7 Obd1OJXhEQXbqQQnA502r 6fpa3bqdnOqoBA7tPyzTY KtlvdaFjJ0KEomNSHzxtt iDVg7RIirKBZgtMM7COVr ePOvO5ZnMSPcNM9nzvm7V MI4REdvLUHkAdQ3GHExjY CrBFSxaIocOCzbm066NQV 5KmHmCSUowvGymRookR5n KwEaRDCIB00WEX6TUpSYH kXGG8DWHaJFGKraUpeRUv YRAXXGDACVYde0VFUpnxL mEF5DIP4VYi4RIGWMFxEQ XIPJXWfdRS6SSGfAPAjBB iBJREVOVElGSUVEXHBhci KiDP3BEQOZNCYIVX3JNSR uN1TCZJIEG7KMBWVBFJ2M TUzKNX4JRIRAAVYneGEwC T2uFp7kMU1OIuDVZ9IxRM 0mRJ7EYL5MBJwCRh2YMDP OMoFWJFSMH1GCFFABF2ty YXJ9 Flow Interpretation e7fmaCYdIZHjgIJ2CnPlS Comment (test code = XWwb9daa6OmsPQxpFKqIX 3365) rupMGpivBioj25fRI6cD8 5LS2xGWUkEoK1OCRjejF8 Bzf7NEOwUQDiiUZaA943z 7nes8ltsiDeiXR1wJvnLT HfvrsaCfW1RDyzSACsife eMNs5DSurSQUgqWE8KEKs dJMdA7GpMFRxHF2svar0I PU5DWqyQJVsVoV5YQHdpU HmLVRjnCfnGUjme210BRK 3TzXoZIQegjWxgHjteC5v CbLqBDKUxGNqn0Syl2AuT OQjLLKft2SnVZEjx58idH 8xMITrjpRngPJcmc14EQF ch8CucWGtUGYrcfXgPH4y Pg99RKQrk1TwJ92bgaYpP WZjd31jk3k4bLRra6OvfJ 1ze3mqFyMkctUyd4FzRVW sUoxkSRnxL7BpAPFuzs0= CPT Code(s) (test code = k6yucUPfAWXaiUP1EuBsW 3357) WGpv7lku2RnyQEvfWTaWD ikgTTlpkRaxm24fID1eQ5 9TY3xRLEoQgQ7CBZjglD3 Isa1FWMyNCVbuKQcH084w 5wgx6jbwrYnmIH4hKgrAQ OitikyTnG8CNiwIQXwwwi bRYa3OJdgOVFtnGM3IZBj rHYrQ9CpQZWrBT8ildo6Y BP8TGvrSBUnWzP2QXTepY BkYUMimXbdDFdkv510HJO 5EkDuGCNoe8V2xaFoAfOf MTClmEJ2ynP9NOTzVU7qs tgwp4wyESkbAAlpJVDncu O8jrE5WNJltBVoO0CpfX3 xUJVrWH3dqjdvk3cdVIU3 MFxwYXJkXHBsYWluXGZzM jIgODgxODlccGFyfQ== CLINICAL HISTORY (test p3kkeFXkVLCibKG5OaOxB code = 3356) ICmr4sla4GmrNFkoIEiYJ tsfPRmmmJgxw99bZK0yF9 0SC8nYUAlXcV0ELQmnrC1 Zoe3FVRaDDAobIEsS414u 1oir7igdcCziFN4uSahQF WsvzabKxJ9ZPcpRRZlpom xBCt7XWijXFAwbIL8YFUw xGFjE0NwGRXeSJ2wvgq9W VA9ABzeHCVlGwR0CXMvdF SuRKAqiGpjGSbqn785KIR 5IiPsNWJcxvAamGpxqW9z OqSvWYXFEWZwnKB2PO89U W6rC5AaP3z8v1MwpxBazr SjbLSnC3b3o8YdqkbgMCT cnnCsmq3sqggwJl0tDG8J Ow1ZFKqaVZHwkn9= SPECIMEN SOURCE (test j0pkkGUaBRUlcIN7OvPjO code = 3377) VCau8ubz1RqwCBueVXuVO ealLPivqPvdp48kCD4pE8 9WT4oNYRiMgK1OPTpikN6 Ins1ESYsNXLcpWKaE697r 6idl7xtetDoaNC2jAjpZQ GboemsDoK0WZxcCFBtsei zKUx1WPwaMPWolBA8BZWb rCMnQ2LsNOUzRQ1itqb9O PT8PHduFLTzKbW1JYDwrB DlQZFeeEamMFvsr904EKL 1QhUfOQDrksHhyGnjxQ4s BsOcPYWPe09pEW9frcAgi cIen2InzlV6INztYRS1 CELLULAR BIOMARKER j8booWOsOWDopDH5AoRjK ANALYSIS (test code = EDtu4cwy1AqqSOlwZHqYK 3380) oiuNGxfqUqvh07nKC9rD8 3YJ1kOHNfQgV8FBTmmxI7 Oqq7CJNgUXTyxGRaC743d 4kpp1byyqRhvDK6XJGrQX FeY0RdYX9jPWXexGWcK95 ihSNrWER5FCVeUOMmcOZh EJZuMEV4PXGleXNfL9jgG CDgXD1lfrxsUVaeGWijFP IsxOS9FRMwtCKmI6HcTFK gRMbdWSRvmck1IpQyIw3u dGVyeTcyMFxwYXJkXHBsY IznIQNqYpUyO0XwRWIYNW kyc1TnRbLjVR1WLLInXWo pY2M3Sirtp7SjWtTiQX6M XI7qKSZlKWYCJFccO7FsM EzoG5SxZRqzM2MgILEWVQ IwLCBDRDQsIENENDUsIEN EMTQsIENEMTMsIENEMzMs TFRIZIW3WSBJPGL4IPJeZ 1CsfEJhRRHSTU4tCNVrZU UIWxxgFDMVXGZ4YQUkbq9 = IMMUNOPHENOTYPIC n1wsfGXtTVFojRR8CuAfY FINDINGS (test code = MCgh7woc2CrbRGrbDBiIB 3379) osdKBqabVdys30jGU6yM2 7OQ8lJXQcBjU7CRUaxlN1 Quy2NCLzEDRyhHJsB964v 6dan2anutVtfHT1GAPdMN QuX1BiZC7mQHKwxCDvP92 ljELvPFO0NUPyRZKabGLz HAAdOAC6ENFstFKxW0pcK ZFeNI7wmxihSDtwPIaiDB KxzWF3BXKxhFLkK2BiBOR dVXllJGUmpzq0XnOqMy1e dGVyeTcyMFxwYXJkXHBsY BvyJSOqJvJxT2MbHDPfCN FumJShSNVmSZGxrJe2cSg gODcuNCVcflx+MQ8bexk+ KH93lOLudrScJmJDlnRbh CYvWTXsrKkyGAZ5EUEiYZ AwMFxwYXJcflxwYXIgVGh oDELlaUctt9goGwYci9S8 tTB8zD6rghEbciWjtZUfr fByDdtsQKajeMSeOM7suE GeQUCtPMP6twvtsHobRYB pkWQIOAE1FbSYGQY6WfDc cMFspVOpA40hyKMff8DbD CAaHIXiCawxH0JdXBYgs8 QukF22OXgsO7YsqPRbKDZ dNBVnWVcmbzp6oUMbLxV6 aGVzZSBjZWxscyBleHByZ MWrOQMWRSIuQI3mTUNJOa KvSZ87TKdeSlikr3SoAI8 wmGVcTW9hpFZdXPv5oHMx o3K4bFYqBsVIdasxvAHfB 3Z4SVyrxQndnRxbI1q2IV XzR01hcYJke1NvQD95OOQ aSsO2s2FjtEMpADafho4c AJJiUBqppxOawD92AQJxJ 3F6TdMRREAjOKCvgzAjQn VyG8FuUEZyKStqJzPwITA nITNuq3UtLMbiQJopudFp c4zhcsEvZnS8xBPegTYxI WThP3SzyBJndiIcU8Fwfs SNTUTiRO3uVWWKGC7oHU2 DXCWwnSkdFLLpNKTuv1p8 qBkcaOZhy3f9nGTgDWcev HBhOmxhbWJkYSByYXRpby BvZiAxLjMuXHBhclx+XHB blrTVrMTxg5irB95iga1a mSIjQeVyf7O6dNM7xG1jn zogQXMgaWRlbnRpZmllZC HbkRBKEWY6ZJWpWQRecYc zhEQfJ6Q9hZYzZOHbNQWb Y0CfrzpxeTcsqrurI5Wzz nIdd0K2wYZoOJKuvRXgaZ FwUBHwNVBaJTwjtnz1dYD vZiBjZWxscyBhbmFseXpl QBqzNU3rBBJQNNXzJY7ey i4plTOfuaAsg20bjqdyYF XzQ9QuYZUjFGyiNcZoJEZ xCdM7y1KsvJKjNNkdjg2h rYYfZS6lcPSdHFWcOVPkU SBjZWxsczogXGNmMCAwLj ApR4UcZZShD2MgVplnaS6 txMVmzoNerHobk21vDXIb zUpeSMWzLBQkf4CeGLX7r PWyWCAgsDy4lPWqIdAydG IeyYtgk55nXjKsdUidqGR ueRZashGsjBXdNXOcgA1p LlxwYXJcflxwYXIgVGhlI HJlbWFpbmluZyBldmVudH EeTT1jpWo1KSAxpzTfnhL ySY82QY9dgzPuLJKgZDAj DEgnwjszdw4eKPlrtJX6l 2k9gKQau3kxVMIkaGnjHV BhbmQgZGVicmlzLlxwYXJ 9 DISCLAIMER (test code = h5gcmCBwFUUlmTH3VtDaL 3363) JPjc2nty0LsrGTyiPSeXQ vrwXJghoPssn78aJM7fQ6 7MA5eHHGaBtP8RUPithQ7 Gle2MUAbYDLxzSRoG777q 4rxq6kjwjTiuUE8rOjhOG JkrvdtThX4IYyyYDWjshp xSPa7AIcqSSMycEM8UWXy nSKeZ3NyTSCwFP7kdzm8P QL7KLslXTLlFdV2BGKkxA QzNQQdfJghVYuve379PLJ 1OpReAABflnDwtAhbrS1c SbMfToNHyTGySSI7EZF2d pQ8LNLcTZJxpcDoi7IxPM BhbmQgdGhlaXIgcGVyZm9 fdNScE7ZqI0pjhtKtpVWi iWJ4xLFbRIGnjDZdtAfsD SQhKpnrOfG6bO0uFFV8Lw SVkJyeV1CuLOEunAPrrWJ JWY65LSMpnMAgPKVcJFyc lCT2DHYaz5VqEuWfoiUrj GCkaoCoXX6wKQEbfRPjle DiITZ3PVNfBTAJBqAdTVE xc1ZdIK0yQMNdtHctPQTq oU7bw1UsRGVop17xBGTlY SBGREEgaGFzIGRldGVybW luZWQgdGhhdCBzdWNoIGN iWUUbQE8rCJQhvuWefXHn p5BrtIDsmlQmk3EsrdSdH YPeBLW1WfXUoAYjkF37pP Zhnp96ONMjWJFeB4WoTHI kIGFzIGludmVzdGlnYXRp l22wzZMpopLjr2RonqFgD JQvY9cuJWTyoPNcmHXol8 LtlS3qiKXouxIpUAD6bMT zEHYomR3eQZFtyZqsFSLt qF2gI4WfTWnbKm0wWZYtc ukiOH9cjo34AX6odlFvJK 9lysBqTX88clFmLtIeHOt 7QPkkQ1tIORJzFSXcZCY8 CCebNateUXH8fbZlGMGlz 1CrDYdtN0mgO47dvXwmvK a2bJHxrItxbYUlfOR5WPK 1lY7yGljkXTC7 Technical component was [facility]'s performed at ([facility], = 5087) Department of Pathology, [address] [place] [address], [place] [address], Professional component [facility] was performed at ([facility], code = 2779) Department of Pathology, [address] [place] [address], [place] [address], [facility] Oybnbqvbo1441-10-97 13:47:57 Test Item Value Reference Range Interpretation Comments Case Report (test code = Flow Cytometry Report 104) Case: [id number] Authorizing Provider: Jack Saunders MD Collected: 12/14/2022 09:00 AM Ordering Location: [facility] Received: 12/14/2022 09:33 AM SERVICES Pathologist: Malena Casas MD Specimen: Other Flow Interpretation j1xycFUqBBRgoHA1OzWnY (test code = 3364) BXwh0agd0XvlHKniZBwNA nqbPEkbdBbqf60rQS5bI5 8DR2vWHXgHtN2DXXvudA7 Xer9SCZvSESofFHdG556c 8jzr2zodnEqmOX9iJkbBZ EslcnrWxC0IIosIWSdqep fGSs1BBbmMWCxgWT2DZVn fOVwI3LoTJHqXH8wrhb2Z UH6HCtsZJRvEsI5XMUjmG EjTILivDclDCuwu851OPO 5IuVbFVQmkjAfbPoctM9i MvJcSWWQB13NWM2ZIsAZC dCQJ8FNEoMDPWfdEezIZi CPSMTMYFBPKsx7YBEnmgD xUZ5COG9FOa8KSXKZKrOL YFAZGFvlCN9TOBkJSKhJA iBJREVOVElGSUVEXHBhci OeXT2YOXYJVWEXXQ4JFQZ nW4XOHMJQD4TEYIMIPZ9I TCiEXC5VXRCSBAVzrACmA O8bUo2hSF5OTrXCT4IaLM 9xDD3QML5EXMbMOl5SJMF CWwHDYWXJS8ZQTNRLF2ik YXJ9 Flow Interpretation a6oniPReZEHrsXE0MoVzU Comment (test code = VQoh2len2AqoUAelEMlYW 3365) iheWQrouJsyh63lHV5pS0 9IA9cRIFxMpT5MZQpscK5 Vhm4LLHmZMQwoXKxL493i 7fti7kxklVggJC3uTmsFW OnacaxYtH7WAbkFCKyxxl nNMp5PYbhPUQloPT1FTIv uZFrS0LmVNVmLF3thyw5L YV8NBgnVZLfLbY1XXBjlF QmTQMofIfjWItdg395VTP 7HdWpKLAqgoLpcAhiiQ5u PsBwGAYSiMMrl2Bxh8UdJ GNkIYWop7HbHOBsv01yvF 7rQUGvaxFslPWqio94CXM nw9ChuWEwSNOmpxHpHH0l Re47CPOpv8ZoO27deqPmJ CHdi11yp3y4yCGie4TfwR 7ey1pqQtVjmkHws4PvGVU gMrpoTLltT2MqAOByiq7= CPT Code(s) (test code = j1cuzRVhVPZtnHO0XpZgV 3357) SMdi9sht7OozKKxkYXiHQ cgrTLinwQfvc82dRB6mH2 1YA4mFIKmVmK4EVFakmW1 Jnn2JLLqPZSkvTPbN796q 3vhr3afgqRjcUL2cUbzBO VagrasCoE0GEihCACrexe jMRn9DUofRIDssKO4FMZi lVPrI8BoOUYdJV7ving7P HY3VOtkCEHbGuB7THGnxG PuBRDxaYalHZzzz662JKA 5LyIkIGXsm1I8ibZnMhQp MLSefKB3ryJ6XSKaIN2xm esof4jeKDkbGTeuGFCrqa D5fjU7ZUDnfPVsN2CqzO2 bBJXiSN6sbvbrc0kyIEH7 MFxwYXJkXHBsYWluXGZzM jIgODgxODlccGFyfQ== CLINICAL HISTORY (test r9plvRKpVVGvrZQ2CvSdH code = 3356) BTkw6lzv9NpqQVhbUAkYZ oyhILjgiFcwr04yRT2jR4 2NQ8lXOAlNdM1ZJJnooD8 Zpk9GFWmQLLwsXZrF332v 9opj1omjcAmyKN4qOoyNO RvbjypBuC2KWduCZXvqae yUVw5OWrhCGKnjXZ3ZVPc wTCuW3HcOEEiJE1syas8L SM5ZUlfNLZaPmV3GTTrvF EmIJGrqXnfYEuuc224KZB 1JiTaFUCxgcStoKsaiM6d CqSxGKEEDVJbuGG8ZR30Z L5vQ3QjA3p8l2WwwmCvzo XmgNWmT7z7a2WsapjlCDU bnmBily1idwngMx3hJB4L Lg6VWNygCBVkui3= SPECIMEN SOURCE (test j8hmtIFoZWPphQL3DdPfY code = 3377) VVro2lvi0WxpDBgqHNoDA nseOVnroVywr06fTU8rO4 1OZ2qPMKbUkD5ZHTktgR9 Ebi8LDOwXIZqnRQjU016w 2bok5ovmfTqjAI6jSreZN PcozdqMoM7FYmvWLVtxxf gTAw6SPkoUIJqhBB7IAZm fOAqZ7NsJKSvNI5rzyh2K GY9WVuuQCOiUcG4UPWkmL MoGQSulZrfFBkhy750XMI 2ZpMbZHBnufKxiBdczS7q GfRrUVSWb90oRX1nasNxy eAyp2LndjS5YMwuVIS1 CELLULAR BIOMARKER t6iypFDcOUPrqMP8JvTcD ANALYSIS (test code = APbc8uco0DilYMjaKXqHC 3380) wuoQTspiIzok42cEY1nM4 7GJ2kFBBsVqU7ZZIkysR0 Jcj5XUSvQJXvuKEiB990c 4qds9tjipIqoZB9OHRgKT ZbI5YpYB2kVWZviDXkM37 xwFBeYQX4YFQpFRVfoKGe JTUsCCM3ZZUtrNUmL6siY DWcZR4pprknQHdwXDhwPQ OydLF8ABCpsTJnB9JkVLC tDWvfTBLqbya6BeAnMn1p dGVyeTcyMFxwYXJkXHBsY IpcQDYrSpHiQ8FjOUORRP leo3QdUfSlOP9HAVOpXIn oZ1G5Endmo5EtDlSlJD5T XM8oIBJeDORKZZeuT4PeD SiwL5BiYSthB1TrRYIIBZ IwLCBDRDQsIENENDUsIEN EMTQsIENEMTMsIENEMzMs MWJLZFB6KLWIHAG3RIGbS 7ZdzKZlCLWLUO1fMTLbHV DYQxynAFGQVDK4PMVhky2 = IMMUNOPHENOTYPIC a0zliWQrMIPiwIU7PvYoO FINDINGS (test code = XWsi1xrj0EoaOBzfMApZS 3379) zwlCZfbhGxiv14mXG6jD9 1QK9sDADuGuA7QUWletD6 Axc0LOAuZGExjZGyK502n 5uxy4msloTrvAS0XFRdSN XrP3VjOA3qKUHwsKRzH67 tfQYmFGT9SDItPZVwoWTi UADoUGN6JNIziQPnM6biC MLfQA5dpgviXDikFLpcSJ QxjTW2PGQkiNCjX9ZhLBX lKWseGKNyufp1JuPjCe1d dGVyeTcyMFxwYXJkXHBsY DjxXWPaZvHcC6XkEKWvUB XkyUPjGJNlYTLkoCw0vMd gODcuNCVcflx+OW9evqe+ FO74uNAowjPhTdACktSlo CTpJMJomTtpLHF5IGDbCJ AwMFxwYXJcflxwYXIgVGh uLUBxuKnnp8ktNgDkh5N5 iBY8yF0rpbLmoiUvlBAys gJxNnbiZXzhfFUjRO6ybQ SaTCYeACF5wmtabMcyIXZ tfUFFHZQ4BkYPNOO7NxBp fFFoxBLhR08jnKTdx6UhI ZAsLJKgYgvxL7ZyKEXmk9 EizT63JJuqL9BewZNaIOG nPYPjWWymcbi2eZGfJzF4 aGVzZSBjZWxscyBleHByZ RFbRWKUMTZbHG6kRSUCCe LwRA18UFvdQudqj2ObWB8 xhLItFZ8ozCCbNRb3bMMv m2G8xBXdCqLVtqwgdMVuD 2O8LPejfPanxGqbA6n6MV OoM85ziHRvw9WdCL85OIA oGzC6g3RzcPVsZSrrho8q HRSvOJyhndEvsP57EVQfC 3D9TjQHCUCwQWMgyeVjHa OpC6FlXXVgHFqyGyLkKUZ yUABfd3IiFHpsTNpcpgSn w8uyojOcHcX4wOApdREhJ ZNyG9JekQGihqEmH2Qsyw XFDUAcQT3gYVKVPO1vIB8 VVZLjcXrtSGEqZZLrl8g1 gEvifPJbh1i6nLEkPHydk HBhOmxhbWJkYSByYXRpby BvZiAxLjMuXHBhclx+XHB kxvYCdFNne2zzE59mfi1x aELoXtFxb9V9wXZ5aO4eu zogQXMgaWRlbnRpZmllZC SdlTNWWLW4UMGtJQWngYu dtJRtN1S0cTDtFTUkIHNm B5TrxikfsSfclnrvH1Rva zWez3Z7qDFbTYMcdEQfrT KgUZAnIZQjWTbxhiv2yAZ vZiBjZWxscyBhbmFseXpl QUiuUC0kXUFSNURvUB8tz u5kzBQhpaQyn22vjxwgRQ JcC4BrBCYuBHmqInTsMFI iBzM8j3OibLLeKCderm7n mMRfXS2twSSkLFOzCJNjG SBjZWxsczogXGNmMCAwLj KyN9OtNGRiT5OiGenxmZ7 ilEZvpkYmnSgzl59bBHIp oTxuFAAhYNBfj4HjJOD1t OLaCGFppIc0wYIcGoZmfT CxpBqyj98rMzIftPbubGC dtFDfysJiuOGgIWAiuM4o LlxwYXJcflxwYXIgVGhlI HJlbWFpbmluZyBldmVudH NpEV8tzPl4ZSShdwWtxlI mSE52JA1limFzZVNfZWGq JRryvvbnci5hOOeytWD1p 3x9uEWng3zcBAOopBygMQ BhbmQgZGVicmlzLlxwYXJ 9 DISCLAIMER (test code = o6rgoQAeOVIepUU9LhJfJ 3363) BDes3get4UauJDzfUFaYV dwrVOtppMgxf88eCZ1pW1 6OO3wQSLkEsF0WDCvxeC4 Dhm7KBLdJXXnmIUjS403o 0rde2oeatAboIX4jJjaNH MbpfxtKuU7YTtfWDUuodj zPJz5JLezUXGgnEG4IFWz lJCaZ3UzVHJwEY1gphe2V YN3APzhDQBwVaO4YTOvxO TrUZTsyTtzEHgwu035WSR 6AvLfYXGbheFhpUssnS0e HgRyCiVMrJCmUQD7XRG9g nX9MINkZWRfvmIaa3SgZH BhbmQgdGhlaXIgcGVyZm9 doJHxU1GrF2tqydLksSZn fMI0sQRiEFQbhPQadPgdV VTxSgmvRuL0kY2vCLU9Ut PWgTfgK5ZpNLUenUWqeII KVY56EPKkuYBcPRGuFTlq rSU7OWJnr1SaDlKvyrLon HBxelPlZX6fEXOoqHTujo XxGGU9WIEaOWFQAlSyYPZ cc8WkMS0pOQPwxDetLXNh xQ0rj0BcWFYeq35lNGVwZ SBGREEgaGFzIGRldGVybW luZWQgdGhhdCBzdWNoIGN aAECiCT2iTRWoxqKvyUSu x9QeyRMqxtPel4YxqmVzS ZCaNWM8IuJFpXYtyN94rK Dzqa37NTCqBPCeX9PfMIF kIGFzIGludmVzdGlnYXRp l75ssQXotxXmn3QrdkHiT ZXmW8viDCXksATgpKRgl6 UiuC3ycQYeiyCjBOZ8zNG aXLQcvP6jFSSkeLniZUQz bU2gM2OpRAmtBs3zMRAdc ewoUH7rxf33NM8pczDeXC 6zjePkZW27iuBnPpDuLLt 0YArgE9gTFGNzPLSeJUW2 ZGgnQrnoZWA7sqUhJZGup 5QqLOtbD4oeK82kmYcvpE u8nPZdkYbovJXjfGX2YZK 2sO0iFbdtJKI3 Technical component was [facility]'s performed at (test code [facility], = 2778) Department of Pathology, [address] [place] [id number], Professional component [facility] [place] was performed at ([facility], code = 2779) Department of Pathology, [address] [place] [id number], [facility] [id number] 13:47:57 Test Item Value Reference Range Interpretation Comments Case Report (test code = Flow Cytometry Report 104) Case: [id number] Authorizing Provider: Jack Saunders MD Collected: 12/14/2022 09:00 AM Ordering Location: [facility] Received: 12/14/2022 09:33 AM SERVICES Pathologist: Malena Casas MD Specimen: Other Flow Interpretation a1dqtRDpDHQxwUC4FlQyW (test code = 3364) VMll6dsd1LnzNZmmUBnCH rvsLKkepQgtu18aSI7kQ6 2QX4pZTVcJaK7ZFIqlsQ3 Usd2GRNiXSHtcUQjI189d 4mau0yfcsGkhFL2pOgxXP MkzqrlJrS2QGusFYXbshx gMVe2SNnbMZFuiOQ6EKJy kFCuB9XhYKIvBJ8ghae6E ZG3MTeiZZUrOdQ4WENmoR DkXSCxyYohLSzkb348BDE 3LpGiEQLlcgRoaSnstW4l QrFjQVXJV00FQL6CFtNBN sEDW8QZYwGUVWvsZxmKXx TWPSXWUDZVQzg4NHRsciA pRU5YRV4YXb8FILEUFyAM BBFJIOqfYL0VIQuGHBfIC iBJREVOVElGSUVEXHBhci YjZB2GCELSAHTGZR5BYRV wL7TMODDGU0JRUBWMDN7U OUdHFY8UIUMKRIAwxKOvP M7kYg3hKJ5YOnPLR6KaBR 6tFY0EEQ7SUSlKLc1OCHV TDiHLVVDFX5VAVEAMI3ut YXJ9 Flow Interpretation g7dbnUPbDZPtpEU9JsIwO Comment (test code = RRis0qcs8SriZSisMQkRK 0690) zdkBEszqUeqj93kOJ6uI7 2KG1aEPShXtO1HHHlaaT4 Kwg3CPPdGECtzDFpS667d 7jdl6kimvItfNP7bYsaPY IadizbKyT6PHvtZXCzdiz uOVa0JUjaTFJqcIO7VFJd wKTiQ3YjMCQkOH6qidy8E FA7GJcaBEHcLtA4OAArbY OxUTDlwBdcQYiuo669ZGR 2DnSsCWBmqlSkgIdwqT7u BxDuWAGZzNJjj4Ogi1KnQ AEvEJOfz0NpCTAri31zoW 0rMXVjhjYakPCkbw79NPY nc1WjzKDfONHxkhAlOK5g Zi77NOOzp6BbV80abdDgI FOod63zj9v6wZSea2YncU 4gu2beRySfdeHga7DzHJI kVzvkUQvmQ3DhXJEekr9= CPT Code(s) (test code = v6dbbCHoJPFnxQU5SqLsW 3357) AOmd8noq7BphEXzcQVpGP wzhPGjapLikw59gEN7jK3 8WF2iHBCgNhZ1SHIrttC3 Mdc4LNSmQMPgaPGpE006l 9ogv7crqvKpjKT4bUywVX FxfocoAeU6SJkdPMSutxh pBRf8VOtbYUVkiGH0XOIq wHYfT4RsEECaEX7byat6O AP6MMzfGGOwXuD7DMUmhX DsTFKrlMvmXZbcf890WPF 8RyMyCLAxk8Q6foUeXmRx XJAgoVH6tzK3EBZdWL7dn fdrj3vkOWsrEJdiTECjhy D9pnW5IVXvjENgT3ZbmO7 nZLMoCW0htzsxl3uyCFW3 MFxwYXJkXHBsYWluXGZzM jIgODgxODlccGFyfQ== CLINICAL HISTORY (test w4pvoSRtLHOsjYG1MlStT code = 3356) XQjv5vtp0UeiKZhpBHdCV xyyXTawhKpjh14aYB1zH8 0UH3kALDtTaS8AJXvpeH2 Pgo7MLTiCWYjuIIsH459a 5gsw1zatiPkeNO5yOkzUX AogslfEvN9AXjcIJOjqva xAZn8CHzrGCPuuUT7PVOr cTHtI1WsNNJoLP8amvs8E NE2IWinSIZnLmZ6GPYebX MaVTWcgJoqLVjwh583XGK 3WdBaRMHyrjRjyVffpR2t XlLjIUIJOMYsbQZ6NE96H X1eU3HwD6a6q6JdzcVslf KvrEOhT3w2y3XalswvVJR fcdHvij8sgnybCe5bEV2J Ti0NKTvdSTNiyv1= SPECIMEN SOURCE (test o4kqqACjDXEobVC1IiScA code = 3377) QYfw4kbo1LkiVPdaYMbZT kdbAMetnDdtg44sOV1yS3 7XF5sYYGsIaJ2MKNgsnT6 Qnu8JWPqJKMcxZCpZ162k 1vgt0azcmJyzXB6mBrxSV ZdgrljXiY2HSlvJOJwqnp aRWa6UJhaRCFrhPP2GZRt dHAhB1AzLUDvEJ7fvkr6J QP1BCanKPCzRlW2QEOrkV MlYHRnnIkoJYaux789UTT 7VcTtXTKwkhAfyIjekM9u GkRjADMPl82bLO7snaMcl dKvk2DzgoH8IAahTMZ4 CELLULAR BIOMARKER x1ybpKIoKBOruPX2QePhX ANALYSIS (test code = VNvv5qyg9QpzSBgeIVeCQ 3380) kupXPuzrLdti73vXT5vF9 6AM4sYLNhLaM0INIsooI2 Nbq4RQUwTYTceQHwD621e 2ulp2gsdxToyHT5ERZgVA AaZ0StKA9sLEXcjVAsS01 eeIThWOM4EZQdGURkdQJn AVSlZTO2LZWnuUPnT0obU HQjAC2gnpaoWDptKSnlSA NmfES1DYZpdIOpO2YoLSK fTGtiCNTaztr4DlBeCj4y dGVyeTcyMFxwYXJkXHBsY NmzPXFeAsTpM3QmQHLZQX uxy5HjHvQuGQ5YDWHeBSp vM7I4Dellk0ZzFwCyDI9J YB9gSJThMDSPDKnhZ5KbH HcuT4PeVOwcC5GdIXBWQD IwLCBDRDQsIENENDUsIEN EMTQsIENEMTMsIENEMzMs ETFIQIH6RXWWKXF4INXjK 3MqwGCyAWKFFE3rBYTrHK ZINezzIKLWFLA2BLEapd2 = IMMUNOPHENOTYPIC y1jkpBQvWARllVR7CsWxN FINDINGS (test code = WAuw5lqa6VzoJOtlARaPN 3379) fkqHBtcaCpfw83nCY0oA9 9GT7dJQZfIaD1JPJeaiG2 Cqg7KIWaGXNorFGzH324x 4kgk5sogkArjVJ7GTQxTQ EvJ7AjVH1mTEVffSSuP54 zuWOiRGJ2CFKyTOJmpJLd LDMkDXD7TCLwkNMxL5rcH QFkZP4lwqokOLdlADezTZ UufJE5RLAdhVYzJ6ZvZOZ hMMgpFCMjwor8ApLuOa2j dGVyeTcyMFxwYXJkXHBsY TtwCODlDnMgG1WtGXQfRG AesMJpRFPdMPMjrJt8dUc gODcuNCVcflx+SN3xwhs+ DA79rQRwibSdRjQYbiQzc XVdCCUtqPbwRVP2RHRoYR AwMFxwYXJcflxwYXIgVGh bOFPhfEqyn8ddWtChp2R2 gBW8dD3edoBsklXlhAWqf qLqIzmdCVorvIAtEO8gsM FiACBiKHY5kcqouLzoYJW daSLWQTA7ZsUGKZA2YtSe vTSemTTdU94hdZFmu3BgZ KVkTFVrLmmsW4HyQMOai6 VmoY25AUasR1PmgWMtMDX bFRByKBlesee6oLOpMfO2 aGVzZSBjZWxscyBleHByZ NOqCCVIYABuAP8oKQKHJz MdNJ45MNxhFosnh4IwQP2 ckJMcKB8duVNoGOu2mYXm m9Q9zMFkGyWKhelikRTvA 1C1VTgdbYqwcVygW1c0ZF XxR08hsJFxv6FyCQ60HYL vUfY6g4JbiHTpVCivol3m LUMdZSziriXgvS59CYGcR 1L3HeKOJDOhXGTyavLwOy DeN2WwRJZvCFtuAwExSAA aECNrw3ExIBsbNYchqhNf t8zonhPzZvF0gJGmgNAuQ UVtH5CbmEReliOuM9Jiff TWVTYpNV7sTGSICL3qCK9 OQLGadZklCRFgVADad5j1 dWictVVzy1z3qZLzGZdsq HBhOmxhbWJkYSByYXRpby BvZiAxLjMuXHBhclx+XHB axlDMjOMkc4nmM16edy6g zWArHqVsx6Z1tEZ7sI2jb zogQXMgaWRlbnRpZmllZC TnvAUFSEL0GPPzXUTihJl nvQVuE1R8sDFkEKZiCIKc U1WunpgkbBydzgrjW7Ejg vJzc8L1zHGfTDWxkINwjM LkCRClFFNpEGdfrwc6eTB vZiBjZWxscyBhbmFseXpl GDouQW1jOGLUNDBvZN1zk e5vbYHlwxUxx35xhjzuFA KoX5FpGYQqSRwpFuIoQYD dUtO4f5PxdZViGEpqad8y pBWwBS5kvKJdUXNqOJShQ SBjZWxsczogXGNmMCAwLj LwY9OzNYIhK9NqNekqqE6 jvUEvbaBahCkmw31iZTQr wRuqABHoBZCdp3NdHXI2t NGaBTSmiUr5tLUaBoXjwL AgfDnsd75hOxSvrXqpbFM ozVAwjcRwbBItKGGntZ9k LlxwYXJcflxwYXIgVGhlI HJlbWFpbmluZyBldmVudH MrEH0mlLi9YFSdcfLhqdE pTZ67AG4wojZqVKHfLAEf DLndtvpmdn7fNUzrfJH7y 5s2pLRjh8rfAPBucQytRR BhbmQgZGVicmlzLlxwYXJ 9 DISCLAIMER (test code = n7xvfHKgKDGacDW8BvDwS 3363) FHsa0vkh4OckOOaeJCfBT tyqFGxxxApcc44qFX4pE0 7DW6ySDPzIfV7NOJhlaX4 Ovm3YULfUEOimYAxR196s 1pxg0rxtuFcmXD1zEdiEC WgdtunWoL0UYtlVHSklik zRYy9QSitMIGqoXZ3MUIp pNXfD7DeECGrYO8mmwh4G BS7HKseQMYxXsQ9TWCffU AiMGKquFswCZawv411OOA 1AbYbIPGmmuXbuBrgmK6f MjIuQkWGiZCnEET9OPU3h bH7EWJwIWUtryTkf5TuEJ BhbmQgdGhlaXIgcGVyZm9 pnTHlU3FbZ3pltnJveZCs hSX6vPDbVEYykSYrgUksE BRdAzmtZzC2uQ8pAAV5Wl VAaPniC3XpGZLluRZltAG YWF31RGYgqFNcSJRzFVvw oZJ0AHRgq3KjXkHkpyNhi HNbmzZgZH7yNPQyjZVdrr AeJKE0NPSwLBYVEtEtVTF dl7JfZJ0tCHWsmFhkDENk zM7hr7UtOCEdf48fQINeE SBGREEgaGFzIGRldGVybW luZWQgdGhhdCBzdWNoIGN bZGFuEM3kPBVmrvRbwQTe t5OwwZEnahWhj4LmdqGpX PVtLYV7XqIMkMDfrF83iX Egfb18XETsOPLvB1VoIDG kIGFzIGludmVzdGlnYXRp c19lcMEfmsYga9TiuiSkG ZNaM2yaUZVfvJNcrLYzc4 LfuH1kaTEepaSaOZG0lKS rEUWrhO7rEZJubDjwGZIs rF3wC1HwKEpcMb4tNBYbm kbmNY1tag48YO5jioUdEL 4medPhQB37csIaRrOfRJa 7WDneI3kTDUYdRLApDPA9 USqfSnoqQAH1vgLeSBXuq 0ViKLawL0ppU60yzBpnhW f0mUIajHgiuLIxsOK3BXX 0dU6yIwgaPAT7 Technical component was [facility]'s performed at ([facility], = 2778) Department of Pathology, [address] [place] [address], Professional component [facility] [place] was performed at ([facility], code = 2779) Department of Pathology, [address] [place] [address], [facility] [id number] 13:47:57Flow Cytometry Report Case: [id number] Authorizing Provider: Jack Saunders MD Collected: 12/14/2022 09:00 AM Ordering Location: [facility] Received: 12/14/2022 09:33 AM SERVICES Pathologist:Malena Casas MD Specimen: Other BONE MARROW ASPIRATE, FLOW CYTOMETRY:- NO MONOTYPIC B CELL POPULATION IDENTIFIED- NO ABERRANT T CELL POPULATION IDENTIFIED- NO INCREASE IN IMMUNOPHENOTYPIC MYELOBLASTS Please see the corresponding bone marrow biopsy report ([id number]) for correlation with morphologic and other findings.[id number] macrocytosis and pancytopenia concerning for MDS/AML.Bone marrow aspirateCD8, surface-[place], CD56, surface-Lambda, CD5, CD19, CD10, CD3, CD20, CD4, CD45, CD14, CD13, CD33, CD117, CD34, cKappa, cLambda, CD38, WD820Qkaiskmv Viability: 87.4% Number of Events Acquired: [id number] The following populations are identified: Blasts: the dim CD45+ CD34+ blasts comprise 0.8% of total cells. The majority of these cells express CD13 and CD33 (myeloblasts). Lymphocytes: Bright CD45+ lymphocytes comprise 9.7% of total cells. T cells show [...] The remaining events analyzed represent nonviable cells, non-hematolymphoid cells, and debris.These tests were developed and their performance characteristics determined by [facility]They have not been cleared or approved by the U.S. Food and Drug Administration. The FDA has determined that such clearance or approval is not necessary. It should not be regarded as investigational or for research. This l aboratory is certified under the Clinical Laboratory Improvement Amendments of 1988 ("CLIA") as qualified to perform high-complexity clinical testing.[facility], Department of Pathology, [address] [place] [address], [place] [address], [facility], Department of [facility]ology, [address] [place] [address], [place] [address], Dwardv Bone Ubzalf7714-07-23 09:37:47 Test Item Value Reference Range Interpretation Comments Anatomic Case# (test code = 2470) [id number] Ordering Physician (test code = NICKY 2457) Performing Physician (test code = HERBER 2458) Clot Rec'd? (test code = 2459) Yes Biopsy Rec'd? (test code = 2460) Yes Rec'd for Culture? (test code = No 2464) Rec'd for Flow? (test code = 2461) Yes Rec'd for Cytogenetics? (test code Yes = 2462) Rec'd for Molecular Genetics? (test Yes code = 2463) [facility] [id number] 09:37:47 Test Item Value Reference Range Interpretation Comments Anatomic Case# (test code = 2470) [id number] Ordering Physician (test code = NICKY 2457) Performing Physician (test code = HERBER 2458) Clot Rec'd? (test code = 2459) Yes Biopsy Rec'd? (test code = 2460) Yes Rec'd for Culture? (test code = No 2464) Rec'd for Flow? (test code = 2461) Yes Rec'd for Cytogenetics? (test code Yes = 2462) Rec'd for Molecular Genetics? (test Yes code = 2463) [facility] HospitalBi[facility] Bone [id number] 09:37:47 Test Item Value Reference Range Interpretation Comments Anatomic Case# (test code = 2470) [id number] Ordering Physician (test code = NICKY 2457) Performing Physician (test code = HERBER 2458) Clot Rec'd? (test code = 2459) Yes Biopsy Rec'd? (test code = 2460) Yes Rec'd for Culture? (test code = No 2464) Rec'd for Flow? (test code = 2461) Yes Rec'd for Cytogenetics? (test code Yes = 2462) Rec'd for Molecular Genetics? (test Yes code = 2463) [facility] HospitalBONE MARROW PROCESS.2022-12-14 09:37:47 Test Item Value Reference Range Interpretation Comments ANATOMIC CASE# (BEAKER) (test code [id number] = 2470) ORDERED BY DOCTOR# (BEAKER) (test NCIKY code = 2457) PERFORMED BY DOCTOR# (BEAKER) (test HERBER code = 2458) CLOT RECEIVED? (BEAKER) (test code Yes = 2459) BIOPSY RECEIVED? (BEAKER) (test Yes code = 2460) CULTURE RECEIVED? (BEAKER) (test No code = 2464) FLOW RECEIVED? (BEAKER) (test code Yes = 2461) CYTOGENICS? (BEAKER) (test code = Yes 2462) MOLECULAR GENETICS? (BEAKER) (test Yes code = 2463) CT, BIOPSY, BONE [id number] 09:30:00Image guided bone marrow biopsy with aspirate. Concern for MDS/AML, please obtain flow cytometry, NGSReason for Exam:->MDS (myelodysplastic syndrome) [facility] : 1945 Sex: FFINAL REPORT [...] Luque Verified Date/Time: 12/14/2022 09:30:09 Reading Location: [address] Consult Reading Room POC-Glucose [id number] 07:34:06 Test Item Value Reference Range Interpretation Comments POC-Glucose Meter (test 93 mg/dL 70-110 : TE STED AT [facility] code = 1538) [facility], 770 30: Manager Of Sales/Techni jonas ID = [id number] for Madhu Aquino eel Lab Interpretation (test Normal code = 71634-9) [facility] Hospital[facility]-Glucose [id number] 07:34:06 Test Item Value Reference Range Interpretation Comments POC-Glucose Meter (test 93 mg/dL 70-110 : TE STED AT [facility] code = 1538) [address] [place] [address], 770 30: Manager Of Sales/Techni jonas ID = [id number] for Madhu Aquino eel Lab Interpretation (test Normal code = 99704-0) [facility]-Glucose dorop8311-09-12 07:34:06 Test Item Value Reference Range Interpretation Comments POC-Glucose Meter (test 93 mg/dL 70-110 : TE STED AT [facility] code = 1538) [address] [place] [address], 770 30: Manager Of Sales/Techni jonas ID = [id number] for Joon Aquinozr eel Lab Interpretation (test Normal code = 56619-0) [facility] HospitalPOCT-GLUCOSE [id number] 07:34:06 Test Item Value Reference Range Interpretation Comments POC-GLUCOSE METER 93 mg/dL 70-110 : TESTED A T [facility] 6720 (BEAKER) (test code = [facility], 1538) [address]: Manager Of Sales/Techni jonas ID = [id number] for Riley Moody PROTHROMBIN TIME/[id number] 07:30:10 Test Item Value Reference Range Interpretation Comments PROTIME (BEAKER) 13.0 seconds 11.9-14.2 (test code = 759) INR (BEAKER) (test 1.04 See_Comment [Automat ed message] code = 370) The system [employer] generated this result transmitted ref erence range: <=5.90. The reference range was not used to int erpret this result as normal/abnormal . RECOMMENDED COUMADIN/WARFARIN INR THERAPY RANGESSTANDARD DOSE: 2.0 - 3.0 Includes: PROPHYLAXIS for venous thrombosis, systemic embolization; TREATMENT for venous thrombosis and/or pulmonary embolus.HIGH RISK: Target INR is 2.5-3.5 for patients with mechanical heart valves.CBC W/PLT COUNT & AUTO [id number] 07:26:48 Test Item Value Reference Range Interpretation [...] PERCENT (BEAKER) (test code = 2801) BLOOD [id number] 01:00:19 Test Item Value Reference Range Interpretation Comments CULTURE (BEAKER) (test No growth in 5 days code = 1095) The specimen volume collected for this blood culture was below the optimum (10 mL per bottle or 20 mL total). Use of lower volumes may adversely affect recovery and/or detection times of some organisms.BLOOD [id number] 01:00:19 Test Item Value Reference Range Interpretation [...] K/uL 0.00-0.00 H (CELLAVISION)(BEAKER) (test code = 2688) TOTAL COUNTED (BEAKER) (test code 100 = [...] CONCENTRATION Decreased (CELLAVISION)(BEAKER) (test code = 3438) Manager Of Sales ID - Cuong Dato-onUser comments: Slide comments:CBC W/PLT COUNT & AUTO [id number] 08:25:59 Test Item Value Reference Range Interpretation [...] 0-0 (test code = 413) BASIC METABOLIC [id number] 05:33:08 Test Item Value Reference Range Interpretation [...] not appl icable for dialysis patien ts Manager Of Sales ID - KOLTON WCBC W/PLT COUNT & AUTO [id number] 08:54:52 Test Item Value Reference Range Interpretation [...] few (test code = 478) BASIC METABOLIC [id number] 05:40:53 Test Item Value Reference Range Interpretation [...] not appl icable for dialysis patien ts Manager Of Sales ID - STEPHANIE MPrepare Leuko-Red PLT, 1 [id number] 23:54:00 Test Item Value Reference Range Interpretation Comments Unit ABO (test code = 8789109) O Neg UNIT NUMBER (test code = [id number] 934-0) Status (test code = 1339330) [place]_TIMEINCHART Blood Bank Product (test code PLATELETS = 2263) PRODUCT CODE (test code = Z6583G48 933-2) [facility] HospitalPrepare Leuko-Red PLT, 1 [id number] 23:54:00 Test Item Value Reference Range Interpretation Comments Unit ABO (test code = 4434917) O Neg UNIT NUMBER (test code = [id number] 934-0) Status (test code = 3697528) [place]_TIMEINCHART Blood Bank Product (test code PLATELETS = 2263) PRODUCT CODE (test code = H1422R30 933-2) [facility] HospitalPrepare Leuko-Red PLT, 1 [id number] 23:54:00 Test Item Value Reference Range Interpretation Comments Unit ABO (test code = 0548187) O Neg UNIT NUMBER (test code = [id number] 934-0) Status (test code = 1480844) [place]_TIMEINCHART Blood Bank Product (test code PLATELETS = 2263) PRODUCT CODE (test code = X5722I17 933-2) [facility] Hospital[facility] Leuko-Red PLT, 1 [id number] 23:54:00 Test Item Value Reference Range Interpretation Comments Unit ABO (test code = 6168629) O Neg UNIT NUMBER (test code = [id number] 934-0) Status (test code = 8394898) [place]_TIMEINCHART Blood Bank Product (test code PLATELETS = 2263) PRODUCT CODE (test code = A5471E91 933-2) [facility] HospitalPrep[facility] Leuko-Red PLT, 1 [id number] 23:54:00 Test Item Value Reference Range Interpretation Comments Unit ABO (test code = 2827148) O Neg UNIT NUMBER (test code = [id number] 934-0) Status (test code = 3484304) [place]_TIMEINCHART Blood Bank Product (test code PLATELETS = 2263) PRODUCT CODE (test code = X6116M40 933-2) [facility] HospitalHAPTOGLOBIN2022-11-02 12:00:11 Test Item Value Reference Range Interpretation Comments HAPTOGLOBIN (BEAKER) (test code = 217 mg/dL 14-258 366) Manager Of Sales ID - GIOVANNY(CELLAVISION MANUAL DIFF)2022-10-03 08:29:01 Test [...] CONCENTRATION Decreased (CELLAVISION)(BEAKER) (test code = 3438) Manager Of Sales ID - [id number] W/PLT COUNT & AUTO [id number] 08:29:00 Test Item Value Reference Range Interpretation [...] (BEAKER) (test code = 413) HEPATIC FUNCTION [id number] 06:43:22 Test Item Value Reference Range Interpretation [...] (test code = 14 U/L 6-55 347) Manager Of Sales ID - STEPHANIE MLACTATE DEHYDROGENASE (LDH)2022-10-03 06:43:22 Test Item Value Reference Range Interpretation Comments LACTATE DEHYDROGENASE (BEAKER) (test 127 U/L 125-220 code = 635) Manager Of Sales ID - STEPHANIE MBASIC METABOLIC [id number] 06:43:21 Test Item Value Reference Range Interpretation [...] not appl icable for dialysis patien ts Manager Of Sales ID - STEPHANIE MPERIPHERAL BLOOD SMEAR - HOLD [id number] 06:29:15 Test Item Value Reference Range Interpretation Comments PERIPHERAL SMEAR SAVE (BEAKER) (test saved code = 1815) PROTHROMBIN TIME/[id number] 05:52:35 Test Item Value Reference Range Interpretation Comments PROTIME (BEAKER) 13.1 seconds 11.9-14.2 (test code = 759) INR (BEAKER) (test 1.05 See_Comment [Automat ed message] code = 370) The system [employer] generated this result transmitted ref erence range: <=5.90. The reference range was not used to int erpret this result as normal/abnormal . RECOMMENDED COUMADIN/WARFARIN INR THERAPY RANGESSTANDARD DOSE: 2.0 - 3.0 Includes: PROPHYLAXIS for venous thrombosis, systemic embolization; TREATMENT for venous thrombosis and/or pulmonary embolus.HIGH RISK: Target INR is 2.5-3.5 for patients with mechanical heart valves.RETICULOCYTE [id number] 05:43:32 Test Item Value Reference Range Interpretation Comments RETICULOCYTE COUNT PCT (BEAKER) (test 0.3 % 0.5-1.7 L code = 575) Manager Of Sales ID - 6000Prepare [id number] 23:54:00 Test Item Value Reference Range Interpretation Comments CROSSMATCH (test code = 2264) COMPATIBLE Unit ABO (test code = O Neg 8159149) UNIT NUMBER (test code = [id number] 934-0) Status (test code = 5197669) [place]_TIMEINCHART Blood Bank Product (test code RED BLOOD CELLS = 2263) PRODUCT CODE (test code = X4651U92 933-2) [facility] HospitalPrepare [id number] 23:54:00 Test Item Value Reference Range Interpretation Comments CROSSMATCH (test code = 2264) COMPATIBLE Unit ABO (test code = O Neg 0134857) UNIT NUMBER (test code = [id number] 934-0) Status (test code = 1768365) [place]_TIMEINCHART Blood Bank Product (test code RED BLOOD CELLS = 2263) PRODUCT CODE (test code = S7686K37 933-2) [facility] HospitalPrepare [id number] 23:54:00 Test Item Value Reference Range Interpretation Comments CROSSMATCH (test code = 2264) COMPATIBLE Unit ABO (test code = O Neg 7084120) UNIT NUMBER (test code = [id number] 934-0) Status (test code = 4072169) [place]_TIMEINCHART Blood Bank Product (test code RED BLOOD CELLS = 2263) PRODUCT CODE (test code = F9898C09 933-2) [facility] HospitalPrepare [id number] 23:54:00 Test Item Value Reference Range Interpretation Comments CROSSMATCH (test code = 2264) COMPATIBLE Unit ABO (test code = O Neg 8647628) UNIT NUMBER (test code = [id number] 934-0) Status (test code = 8913189) [place]_TIMEINCHART Blood Bank Product (test code RED BLOOD CELLS = 2263) PRODUCT CODE (test code = G7463X89 933-2) [facility] HospitalPref[facility] [id number] 23:54:00 Test Item Value Reference Range Interpretation Comments CROSSMATCH (test code = 2264) COMPATIBLE Unit ABO (test code = O Neg 2818091) UNIT NUMBER (test code = [id number] 934-0) Status (test code = 3728477) [place]_TIMEINCHART Blood Bank Product (test code RED BLOOD CELLS = 2263) PRODUCT CODE (test code = U5831W46 933-2) [facility] HospitalVANCOMYCIN LEVEL, [id number] 17:40:20 Test Item Value Reference Range Interpretation Comments VANCOMYCIN TROUGH (BEAKER) (test 10.4 ug/mL 10.0-20.0 code = 522) Manager Of Sales ID - ADMINTransthoracic 2D echo w/ doppler (cw/pw/color)2022-10-02 15:27:00Ejection FractionSLEH ECHO HEARTLAB MKCKESSON CPACSCHI [facility] CenterTransthoracic 2D echo w/ doppler (cw/pw/color)2022-10-02 15:27:00Ejection FractionSLE ECHO [facility] Transthoracic 2D echo w/ doppler (cw/pw/color)2022-10-02 15:27:00Ejection FractionSLE ECHO [facility] Transthoracic 2D echo w/ doppler (cw/pw/color)2022-10-02 15:27:00Ejection FractionSLE ECHO [facility] Transthoracic 2D echo w/ doppler (cw/pw/color)2022-10-02 15:27:00Ejection FractionSLE ECHO [facility](MANUAL DIFFERENTIAL)2022-10-02 09:05:40 Test Item Value Reference Range [...] few 966) CBC W/PLT COUNT & AUTO [id number] 09:05:39 Test Item Value Reference Range Interpretation [...] = 413) PERIPHERAL BLOOD SMEAR - PATHOLOGIST [id number] 08:57:51 Test Item Value Reference Range Interpretation Comments PERIPHERAL SMR REVIEW Cell counts confirmed. (BEAKER) (test code = 2640) [id number] Bharti Correa M.D. (BEAKER) (test code = (electronic signature) 8517) COMPREHENSIVE METABOLIC [id number] 06:15:15 Test Item Value Reference Range Interpretation [...] (test code = 347) EGFR (BEAKER) 41 Interpretati on of eGFR (test code = 1092) mL/min/1.[address] age Description sq m Result G1 Fouzia l or high >=90 G2 Mildly decreased 60-89 G3a Mildl y to moderately 45-5 9 G3b Moderately to s everely 30-44 G4 Severl y decreased 15-29 G5 Kidney failure <15Reported eGF R is based on the CKD-EPI 2021 equation that d oes not use a race coefficientEsti mated GFR is not as accur ate as Creatinine Masha cramer in predicting glom erular filtration rate . Estimated GFR is not appl icable for dialysis patien ts Manager Of Sales ID - ELISE [id number] 06:15:15 Test Item Value Reference Range Interpretation Comments MAGNESIUM (BEAKER) (test code = 1.9 mg/dL 1.6-2.6 627) Manager Of Sales CHEPE OLIVARES LRAD, CHEST, 2 [id number] 21:42:00Reason for exam:- >dyspneaShould this be performed at the bedside?->Yes [facility] : 1945 Sex: FFINAL REPORT [...] advised. Background of emphysematous change. Signed: Jaziel Geller MDRort Verified Date/Time: 10/01/2022 21:42:18 Urinalysis w/Lzgyqbryhgq0608-48-26 17:53:10 Test Item Value Reference Range Interpretation Comments Color, UA (test code Yellow = 5778-6) Clarity, UA (test Clear code = 5767-9) Specific [place], UA 1.013 1.001-1.035 (test code = 5811-5) pH, UA (test code = 6.0 5.0-8.0 5803-2) Protein, UA (test 30 mg/dL Negative A code = 61221-3) Glucose, UA (test Negative Negative code = 365) Ketones, UA (test Negative Negative code = 2514-8) Bilirubin, UA (test Negative Negative code = 00301-1) Blood, UA (test code Moderate Negative A = 86082-6) Nitrite, UA (test Negative Negative code = 5802-4) Leukocytes, UA (test Negative Negative code = 5799-2) Urobilinogen, UA 0.2 0.2-1.0 (test code = 69923-2) RBC, UA (test code = 12 See_Comment [Autom ated 69958-2) message] The system which generated this result [...] 1 See_Comment [Automate d (test code = 67614-6) messag e] The system which generated this [...] (test Rare None Seen A code = 28379-2) Specimen Source (test Urine, Clean code = 2795) Catch ALEC (test code = ALEC) Manager Of Sales ID - [auto]Manager Of Sales ID - tech Lab Interpretation Abnormal (test code = 85139-6) [facility] HospitalUrinalysis w/Tmqvpctwbqj4134-17-18 17:53:10 Test Item Value Reference Range Interpretation Comments Color, UA (test code Yellow = 5778-6) Clarity, UA (test Clear code = 5767-9) Specific [place], UA 1.013 1.001-1.035 (test code = 5811-5) pH, UA (test code = 6.0 5.0-8.0 5803-2) Protein, UA (test 30 mg/dL Negative A code = 40225-3) Glucose, UA (test Negative Negative code = 365) Ketones, UA (test Negative Negative code = 2514-8) Bilirubin, UA (test Negative Negative code = 20132-7) Blood, UA (test code Moderate Negative A = 15779-2) Nitrite, UA (test Negative Negative code = 5802-4) Leukocytes, UA (test Negative Negative code = 5799-2) Urobilinogen, UA 0.2 0.2-1.0 (test code = 31732-0) RBC, UA (test code = 12 See_Comment [Autom ated 95167-9) message] The system which generated this result [...] 1 See_Comment [Automate d (test code = 25379-7) messag e] The system which generated this [...] (test Rare None Seen A code = 16744-2) Specimen Source (test Urine, Clean code = 2795) Catch ALEC (test code = ALEC) Manager Of Sales ID - [auto]Manager Of Sales ID - tech Lab Interpretation Abnormal (test code = 28583-7) [facility] HospitalUrinalysis w/Uhkldphawhs6610-77-16 17:53:10 Test Item Value Reference Range Interpretation Comments Color, UA (test code Yellow = 5778-6) Clarity, UA (test Clear code = 5767-9) Specific [place], UA 1.013 1.001-1.035 (test code = 5811-5) pH, UA (test code = 6.0 5.0-8.0 5803-2) Protein, UA (test 30 mg/dL Negative A code = 09311-5) Glucose, UA (test Negative Negative code = 365) Ketones, UA (test Negative Negative code = 2514-8) Bilirubin, UA (test Negative Negative code = 02183-4) Blood, UA (test code Moderate Negative A = 00633-0) Nitrite, UA (test Negative Negative code = 5802-4) Leukocytes, UA (test Negative Negative code = 5799-2) Urobilinogen, UA 0.2 0.2-1.0 (test code = 51467-1) RBC, UA (test code = 12 See_Comment [Autom ated 36779-8) message] The system which generated this result [...] 1 See_Comment [Automate d (test code = 41505-6) messag e] The system which generated this [...] (test Rare None Seen A code = 88846-3) Specimen Source (test Urine, Clean code = 2795) Catch ALEC (test code = ALEC) Manager Of Sales ID - [auto]Manager Of Sales ID - tech Lab Interpretation Abnormal (test code = 08462-4) [facility] HospitalUrinalysis w/Qnmrenfbdoj9596-77-84 17:53:10 Test Item Value Reference Range Interpretation Comments Color, UA (test code Yellow = 5778-6) Clarity, UA (test Clear code = 5767-9) Specific [place], UA 1.013 1.001-1.035 (test code = 5811-5) pH, UA (test code = 6.0 5.0-8.0 5803-2) Protein, UA (test 30 mg/dL Negative A code = 78278-6) Glucose, UA (test Negative Negative code = 365) Ketones, UA (test Negative Negative code = 2514-8) Bilirubin, UA (test Negative Negative code = 72243-6) Blood, UA (test code Moderate Negative A = 16693-0) Nitrite, UA (test Negative Negative code = 5802-4) Leukocytes, UA (test Negative Negative code = 5799-2) Urobilinogen, UA 0.2 0.2-1.0 (test code = 03670-9) RBC, UA (test code = 12 See_Comment [Autom ated 35752-0) message] The system which generated this result [...] 1 See_Comment [Automate d (test code = 18989-5) messag e] The system which generated this [...] (test Rare None Seen A code = 80121-3) Specimen Source (test Urine, Clean code = 2795) Catch ALEC (test code = ALEC) Manager Of Sales ID - [auto]Manager Of Sales ID - tech Lab Interpretation Abnormal (test code = 44997-2) [facility] HospitalUrinalysis w/Cvnouybamgj4792-15-69 17:53:10 Test Item Value Reference Range Interpretation Comments Color, UA (test code Yellow = 5778-6) Clarity, UA (test Clear code = 5767-9) Specific [place], UA 1.013 1.001-1.035 (test code = 5811-5) pH, UA (test code = 6.0 5.0-8.0 5803-2) Protein, UA (test 30 mg/dL Negative A code = 03235-8) Glucose, UA (test Negative Negative code = 365) Ketones, UA (test Negative Negative code = 2514-8) Bilirubin, UA (test Negative Negative code = 92598-3) Blood, UA (test code Moderate Negative A = 10466-7) Nitrite, UA (test Negative Negative code = 5802-4) Leukocytes, UA (test Negative Negative code = 5799-2) Urobilinogen, UA 0.2 0.2-1.0 (test code = 57164-2) RBC, UA (test code = 12 See_Comment [Autom ated 72322-1) message] The system which generated this result [...] 1 See_Comment [Automate d (test code = 98947-3) messag e] The system which generated this [...] (test Rare None Seen A code = 08038-6) Specimen Source (test Urine, Clean code = 2795) Catch ALEC (test code = ALEC) Manager Of Sales ID - [auto]Manager Of Sales ID - tech Lab Interpretation Abnormal (test code = 39510-0) [facility] HospitalURINALYSIS W/ [id number] 17:53:10 Test Item Value Reference Range Interpretation [...] (test code Urine, Clean Catch = 2795) Manager Of Sales ID - [auto]Manager Of Sales ID - techCreatinine, random fhfbz9511-80-41 10:46:37 Test Item Value Reference Range Interpretation Comments Creatinine, Ur 83.9 mg/dL (test code = 2161-8) ALEC (test code = Reference Range: No ALEC) NormalsOperator ID - JOSE DE JESUS B [facility] HospitalProtein, random [id number] 10:46:37 Test Item Value Reference Range Interpretation Comments Protein, Urine (test code 14 mg/dL 0-14 = 2888-6) ALEC (test code = ALEC) Manager Of Sales ID - JOSE DE JESUS B Lab Interpretation (test Normal code = 98423-2) [facility] HospitalCreatinine, random [id number] 10:46:37 Test Item Value Reference Range Interpretation Comments Creatinine, Ur 83.9 mg/dL (test code = 2161-8) ALEC (test code = Reference Range: No ALEC) NormalsOperator ID - JOSE DE JESUS B [facility] HospitalProtein, random [id number] 10:46:37 Test Item Value Reference Range Interpretation Comments Protein, Urine (test code 14 mg/dL 0-14 = 2888-6) ALEC (test code = ALEC) Manager Of Sales ID - JOSE DE JESUS B Lab Interpretation (test Normal code = 44206-3) [facility] HospitalCreatinine, random gtqvp7188-00-68 10:46:37 Test Item Value Reference Range Interpretation Comments Creatinine, Ur 83.9 mg/dL (test code = 2161-8) ALEC (test code = Reference Range: No ALEC) NormalsOperator ID - JOSE DE JESUS B [facility] HospitalProtein, random [id number] 10:46:37 Test Item Value Reference Range Interpretation Comments Protein, Urine (test code 14 mg/dL 0-14 = 2888-6) ALEC (test code = ALEC) Manager Of Sales ID - JOSE DE JESUS B Lab Interpretation (test Normal code = 19391-6) [facility] HospitalCreatinine, random xyejp4813-10-74 10:46:37 Test Item Value Reference Range Interpretation Comments Creatinine, Ur 83.9 mg/dL (test code = 2161-8) ALEC (test code = Reference Range: No ALEC) NormalsOperator ID - JOSE DE JESUS B [facility] HospitalProtein, random [id number] 10:46:37 Test Item Value Reference Range Interpretation Comments Protein, Urine (test code 14 mg/dL 0-14 = 2888-6) ALEC (test code = ALEC) Manager Of Sales ID - JOSE DE JESUS B Lab Interpretation (test Normal code = 40291-3) [facility] HospitalCreatinine, random ugygy1094-71-31 10:46:37 Test Item Value Reference Range Interpretation Comments Creatinine, Ur 83.9 mg/dL (test code = 2161-8) ALEC (test code = Reference Range: No ALEC) NormalsOperator ID - JOSE DE JESUS B [facility] HospitalProtein, random [id number] 10:46:37 Test Item Value Reference Range Interpretation Comments Protein, Urine (test code 14 mg/dL 0-14 = 2888-6) ALEC (test code = ALEC) Manager Of Sales ID - JOSE DE JESUS B Lab Interpretation (test Normal code = 04963-9) [facility] [id number] 10:46:37 Test Item Value Reference Range Interpretation Comments CREATININE URINE (BEAKER) (test 83.9 mg/dL code = 375) Reference Range: No NormalsOperator ID - JOSE DE JESUS BPROTEIN, RANDOM [id number] 10:46:37 Test Item Value Reference Range Interpretation Comments PROTEIN, URINE (BEAKER) (test code = 14 mg/dL 0-14 1569) Manager Of Sales ID - JOSE DE JESUS B(CELLAVISION MANUAL [...] CONCENTRATION Decreased (CELLAVISION)(BEAKER) (test code = 3438) Manager Of Sales ID - [id number] W/PLT COUNT & AUTO [id number] 09:54:38 Test Item Value Reference Range Interpretation [...] CONCENTRATION Decreased (CELLAVISION)(BEAKER) (test code = 3438) Manager Of Sales ID - 6000CBC W/PLT COUNT & AUTO [id number] 09:45:57 Test Item Value Reference Range Interpretation [...] (test code = 413) HIGH SENSITIVITY TROPONIN [id number] 07:07:47 Test Item Value Reference Range Interpretation Comments HIGH SENSITIVITY 18 pg/ml See_Comment H [Automated message] TROPONIN I (test code = The system which 3339702) generated this result transmitted ref erence range: <=17. Th e reference range was not used to int erpret this result as normal/abnormal . Manager Of Sales ID - [facility] [employer] STAT High Sensitivity Troponin-I results should be used in conjunction with other diagnostic information such as ECG, clinical observations and information, and patient symptoms to aid in the diagnosis of ME.[id number] 05:58:01 Test Item Value Reference Range Interpretation Comments MAGNESIUM (BEAKER) (test code = 1.8 mg/dL 1.6-2.6 627) Manager Of Sales ID - ELISE LCOMPREHENSIVE METABOLIC [id number] 05:58:00 Test Item Value Reference Range Interpretation [...] (test code = 347) EGFR (BEAKER) 32 Interpretatio n of eGFR (test code = 1092) mL/min/1.73 values S tage Description sq m Result G1 Fouzia l [...] not appl icable for dialysis patien ts Manager Of Sales ID - ELISE LUrinalysis w/Microscopic + Reflex to [id number] 02:54:08 Test Item Value Reference Range Interpretation Comments Color, UA (test code Yellow = 5778-6) Clarity, UA (test Clear code = 5767-9) Specific [place], UA 1.015 1.001-1.035 (test code = 5811-5) pH, UA (test code = 5.5 5.0-8.0 5803-2) Protein, UA (test 30 mg/dL Negative A code = 83621-0) Glucose, UA (test Negative Negative code = 365) Ketones, UA (test Negative Negative code = 2514-8) Bilirubin, UA (test Negative Negative code = 54300-7) Blood, UA (test code Moderate Negative A = 70070-8) Nitrite, UA (test Negative Negative code = 5802-4) Leukocytes, UA (test Negative Negative code = 5799-2) Urobilinogen, UA 0.2 0.2-1.0 (test code = 38917-8) RBC, UA (test code = 8 See_Comment [Autom ated 21363-5) message] The system which generated this result [...] 2 See_Comment [Automate d (test code = 86728-9) messag e] The system which generated this result transmit kranthi reference range : /HPF. The reference range was not used to interpret this result as normal/abnormal . Specimen Source (test code = 2795) ALEC (test code = ALEC) Manager Of Sales ID - [auto]Manager Of Sales ID - tech Lab Interpretation Abnormal (test code = 26684-5) [facility] Reflex to Culture 2022-10-01 02:54:08 Test Item Value Reference Range Interpretation Comments Color, UA (test code Yellow = 5778-6) Clarity, UA (test Clear code = 5767-9) Specific [place]ss[place], UA 1.015 1.001-1.035 (test code = 5811-5) pH, UA (test code = 5.5 5.0-8.0 5803-2) Protein, UA (test 30 mg/dL Negative A code = 85905-5) Glucose, UA (test Negative Negative code = 365) Ketones, UA (test Negative Negative code = 2514-8) Bilirubin, UA (test Negative Negative code = 56118-6) Blood, UA (test code Moderate Negative A = 07668-7) Nitrite, UA (test Negative Negative code = 5802-4) Leukocytes, UA (test Negative Negative code = 5799-2) Urobilinogen, UA 0.2 0.2-1.0 (test code = 63985-5) RBC, UA (test code = 8 See_Comment [Autom ated 32107-5) message] The system which generated this result [...] 2 See_Comment [Automate d (test code = 63897-4) messag e] The system which generated this result transmit kranthi reference range : /HPF. The reference range was not used to interpret this result as normal/abnormal . Specimen Source (test code = 2795) ALEC (test code = ALEC) Manager Of Sales ID - [auto]Manager Of Sales ID - tech Lab Interpretation Abnormal (test code = 46913-9) [facility] Reflex to Culture 2022-10-01 02:54:08 Test Item Value Reference Range Interpretation Comments Color, UA (test code Yellow = 5778-6) Clarity, UA (test Clear code = 5767-9) Specific Oss[place], UA 1.015 1.001-1.035 (test code = 5811-5) pH, UA (test code = 5.5 5.0-8.0 5803-2) Protein, UA (test 30 mg/dL Negative A code = 30518-6) Glucose, UA (test Negative Negative code = 365) Ketones, UA (test Negative Negative code = 2514-8) Bilirubin, UA (test Negative Negative code = 42629-7) Blood, UA (test code Moderate Negative A = 65035-2) Nitrite, UA (test Negative Negative code = 5802-4) Leukocytes, UA (test Negative Negative code = 5799-2) Urobilinogen, UA 0.2 0.2-1.0 (test code = 39786-4) RBC, UA (test code = 8 See_Comment [Autom ated 58801-7) message] The system which generated this result [...] 2 See_Comment [Automate d (test code = 45826-9) messag e] The system which generated this result transmit kranthi reference range : /HPF. The reference range was not used to interpret this result as normal/abnormal . Specimen Source (test code = 2795) ALEC (test code = ALEC) Manager Of Sales ID - [auto]Manager Of Sales ID - tech Lab Interpretation Abnormal (test code = 68205-3) [facility] Reflex to Culture 2022-10-01 02:54:08 Test Item Value Reference Range Interpretation Comments Color, UA (test code Yellow = 5778-6) Clarity, UA (test Clear code = 5767-9) Specific [place]ss[place], UA 1.015 1.001-1.035 (test code = 5811-5) pH, UA (test code = 5.5 5.0-8.0 5803-2) Protein, UA (test 30 mg/dL Negative A code = 88275-2) Glucose, UA (test Negative Negative code = 365) Ketones, UA (test Negative Negative code = 2514-8) Bilirubin, UA (test Negative Negative code = 92745-4) Blood, UA (test code Moderate Negative A = 55987-0) Nitrite, UA (test Negative Negative code = 5802-4) Leukocytes, UA (test Negative Negative code = 5799-2) Urobilinogen, UA 0.2 0.2-1.0 (test code = 69824-2) RBC, UA (test code = 8 See_Comment [Autom ated 80260-7) message] The system which generated this result [...] 2 See_Comment [Automate d (test code = 55633-3) messag e] The system which generated this result transmit kranthi reference range : /HPF. The reference range was not used to interpret this result as normal/abnormal . Specimen Source (test code = 2795) ALEC (test code = ALEC) Manager Of Sales ID - [auto]Manager Of Sales ID - tech Lab Interpretation Abnormal (test code = 66563-3) [facility] Reflex to Culture 2022-10-01 02:54:08 Test Item Value Reference Range Interpretation Comments Color, UA (test code Yellow = 5778-6) Clarity, UA (test Clear code = 5767-9) Specific [place]ss[place], UA 1.015 1.001-1.035 (test code = 5811-5) pH, UA (test code = 5.5 5.0-8.0 5803-2) Protein, UA (test 30 mg/dL Negative A code = 14537-7) Glucose, UA (test Negative Negative code = 365) Ketones, UA (test Negative Negative code = 2514-8) Bilirubin, UA (test Negative Negative code = 84292-4) Blood, UA (test code Moderate Negative A = 17462-6) Nitrite, UA (test Negative Negative code = 5802-4) Leukocytes, UA (test Negative Negative code = 5799-2) Urobilinogen, UA 0.2 0.2-1.0 (test code = 32205-3) RBC, UA (test code = 8 See_Comment [Autom ated 56215-7) message] The system which generated this result [...] 2 See_Comment [Automate d (test code = 13291-9) messag e] The system which generated this result transmit kranthi reference range : /HPF. The reference range was not used to interpret this result as normal/abnormal . Specimen Source (test code = 2795) ALEC (test code = ALEC) Manager Of Sales ID - [auto]Manager Of Sales ID - tech Lab Interpretation Abnormal (test code = 06352-3) [facility] URINE [id number] 02:54:08 Test Item Value Reference Range Interpretation [...] = 516) SOURCE(BEAKER) (test code = 2795) Manager Of Sales ID - [auto]Manager Of Sales ID - [id number] 02:45:28 Test Item Value Reference Range Interpretation Comments PROCALCITONIN (BEAKER) (test code 6.86 ng/mL <0.05 H = 3036) SEPSIS RISK (ng/mL)Low: 0.05-0.50Intermediate: 0.51-2.00High: >=2.01HIGH SENSITIVITY TROPONIN [id number] 02:34:29 Test Item Value Reference Range Interpretation Comments HIGH SENSITIVITY 18 pg/ml See_Comment H [Automated message] TROPONIN I (test code = The system which 9673703) generated this result transmitted ref erence range: <=17. Th e reference range was not used to int erpret this result as normal/abnormal . Manager Of Sales ID Zina ELISE Brandon [employer] STAT High Sensitivity Troponin-I results should be used in conjunction with other diagnostic information such as ECG, clinical observations and information, and patient symptoms to aid in the diagnosis of ME.[id number] 00:35:30 Test Item Value Reference Range Interpretation Comments THYROID STIMULATING HORMONE 0.426 uIU/mL 0.350-4.940 (AKER) (test code = 772) Manager Of Sales ID - ELISE LT4, [id number] 00:35:29 Test Item Value Reference Range Interpretation Comments FREE T4 (AKER) (test code = 655) 1.22 ng/dL 0.70-1.48 Manager Of Sales ID - ELISE LHIGH SENSITIVITY TROPONIN [id number] 23:45:26 Test Item Value Reference Range Interpretation Comments HIGH SENSITIVITY 15 pg/ml See_Comment [Automated message] TROPONIN I (test code = The system which 4310579) generated this result transmitted ref erence range: <=17. Th e reference range was not used to int erpret this result as normal/abnormal . Manager Of Sales ID Zina DAVIDSONFLORIDALMA Brandon [employer] STAT High Sensitivity Troponin-I results should be used in conjunction with other diagnostic information such as ECG, clinical observations and information, and patient symptoms to aid in the diagnosis of ME.B-TYPE NATRIURETIC FACTOR (BNP)2022-09-30 23:45:26 Test Item Value Reference Range Interpretation Comments B-TYPE NATRIURETIC PEPTIDE (BEAKER) 98 pg/mL 0-100 (test code = 700) Manager Of Sales ID Zina DAVIDSONFLORIDALMA LCOMPREHENSIVE METABOLIC [id number] 23:42:05 Test Item Value Reference Range Interpretation [...] not appl icable for dialysis patien ts Manager Of Sales ID - PIFLORIDALMA [id number] 23:42:05 Test Item Value Reference Range Interpretation Comments MAGNESIUM (BEAKER) (test code = 1.8 mg/dL 1.6-2.6 627) Manager Of Sales ID - ELISE LC-REACTIVE [id number] 23:42:05 Test Item Value Reference Range Interpretation Comments C-REACTIVE PROTEIN (BEAKER) (test 16.66 mg/dL 0.00-0.50 H code = 676) Manager Of Sales ID - ELISE LPROTHROMBIN [id number] 23:35:28 Test Item Value Reference Range Interpretation Comments PROTIME (BEAKER) 13.8 seconds 11.9-14.2 (test code = 759) INR (TEXAKER) (test 1.13 See_Comment [Automat ed message] code = 370) The system [employer] generated this result transmitted ref erence range: <=5.90. The reference range was not used to int erpret this result as normal/abnormal . RECOMMENDED COUMADIN/WARFARIN INR THERAPY RANGESSTANDARD DOSE: 2.0 - 3.0 Includes: PROPHYLAXIS for venous thrombosis, systemic embolization; TREATMENT for venous thrombosis and/or pulmonary embolus.HIGH RISK: Target INR is 2.5-3.5 for patients with mechanical heart valves. Notes Date/Time Note Provider Source 2023-06-27 Formatting of this note might be differe nt from the original. Richard Gore RN [facility] 16:14:01-00:00 Discharged per wheelchair ac companied by daughter. Home instructions given and signed by daughter. 2023-06-27 Formatting of this note might be differe nt from the original. Julianna Dalal RN [facility] 15:09:56-00:00 Pt report given to PAULA Ramos. 2023-06-27 [facility] 13:20:55-00:00 Pt was telling bycharissa santizo s he was leaving in ambulance when she tripped on concrete. Fell onto right hip. Hague a pop. No obvious deformity. Electronically signed by Brooklyn Arthur RN at 1:21 PM CDT 2023-06-27 Formatting of this note is different from the or iginal. 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 Vaughan Travel and Exposure Screening: Symptoms Does patient have any of these symptoms?: (not r ecorded) Exposure Screening Has patient had contact with someone with a communicable disease in the last month?: (not recorded) Diseases exposed to:: (not recorded) Is Patient ?: (not recorded) Exposure Date: (not recorded) Chief Complaint: Chief Complaint Patient presents with Hip Pain right History of Present Illness: The patient presents from [facility] with EMS for evaluation status post mechanical fall while standing. She was watching her leaves with EMS when she fell backwards hitting her head. No loss of consc ious. She was unable to get up on her own. She does not take any blood thinners. She complains of low back pain and right hip pain. She has not ambulated since the fall. No medications given prior to ar rival. She was diagnosed wit h BARBY yesterday after symptoms started on Saturday. Today is . Here for evaluation. Past Medical History/Immunizations: Past Medical History: Diagnosis Date CAD (coronary artery disease) Hypertension Right shoulder pain 05/23/2016 Tetanus received in last 5 years: Unknown Childhood immunizations: Up-to-date Allergies: Allergies Allergen Reactions Demerol [Meperidine] Unknown - See comments Morphine Itching Pcn [Penicillins] Unknown - See comments Past Social History: Tobacco Use Never smoked or used smokeless tobacco. Alcohol Use No. Past Surgical History: Past Surgical History: Procedure Laterality Date HYSTERECTOMY OPEN CARPAL TUNNEL RELEASE Right REMOVAL GALLBLADDER Review of Systems: Review of Systems Constitutional: Negative for chills and fever. Respiratory: Negative for cough and shortness of breath. Cardiovascular: Negative for chest pain. Gastrointestinal: Negative for abdominal pain an d vomiting. Genitourinary: Negative for dysuria. Musculoskeletal: Positive f or arthralgias and back pain. Negative for neck pain and neck stiffness. Skin: Negative for wound. Neurological: Negative for dizziness. Psychiatric/Behavioral: Negative for agitation. Endocrine: Negative for goiter. Physical Exam: ED Triage Vitals [06/27/23 1322] Weight 68 kg (150 lb) Actual or estimated Estimated by patient/family report Height 1.6 m (5' 3") BP (!) 171/83 Pulse 58 Resp 14 Temp 37 ?C (98.6 ?F) Temp source Oral SpO2 96 % Measured on Room air Physical Exam Constitutional: Appearance: Normal appearance. She is normal we ight. HENT: Head: Normocephalic and atraumatic. Neck: Comments: No vertebral body tenderness to cervi jada spine. Cardiovascular: Rate and Rhythm: Normal rate and regular rhythm . Pulses: Normal pulses. Pulmonary: Effort: Pulmonary effort is normal. No respirat ory distress. Breath sounds: No wheezing. Abdominal: General: There is no distension. Palpations: Abdomen is soft. There is no mass. Tenderness: There is no abdominal tenderness. T here is no guarding. Hernia: No hernia is present. Musculoskeletal: Cervical back: Normal range of motion and neck supple. No tenderness. Comments: Pelvis is stable nontender. Full range of motion of bila teral shoulders, elbows, wrist, hips, knees and ankles. She has tenderness to the ve rtebral bodies of the lumbar spine but none of the thoracic spine Skin: General: Skin is warm and dry. Neurological: General: No focal deficit present. Mental Status: She is alert and oriented to per son, place, and time. Radiology: XR PELVIS <3 VW Final Result ORDERING PHYSICIAN: PENNY VAUGHAN HISTORY: 77 years old, Female, hip pain TECHNIQUE: XR PELVIS <3 VW COMPARISON: None. FINDINGS: No acute fracture, dislocation or evidence of os seous destruction. Soft tissues are within normal limits. IMPRESSION No acute osseous findings. 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 COMPARISON: None TECHNIQUE: Axial images of the head and cervical and lumbar spine were obtained without IV contrast. Coronal and sagitt al reformats were constructed. FINDINGS: HEAD: The ventricles and sulci are prominent and consi stent with mild global volume loss. No hydrocephalus, midline shift or pathological extra-axial fluid collection is present. The basal cisterns are unremarkable. There is no acute intracranial hemorrhage or sig nificant mass effect. Periventricular and patchy deep hypoattenuation is nonspecific and likely represents ischemic small vessel changes. The gr ay-white matter differentiation is preserved. The mastoid air cells and paranasal air sinuses are clear. The calvarium and central skull base are unremarkable. CERVICAL SPINE: Straightening of normal cervical lordosis is not ed. Slight anterolisthesis of C4 over C5 and C7 over T1 The vertebral katia s are normal in height and in otherwise alignment. No acute fracture or dis location is present. Normal alignment of the craniocervical junction and atlantoaxial joint. Mild and moderate multilevel degenerative change s are noted in the form of disc space narrowing, endplate sclerosis, margin al osteophytes and facet arthrosis most prominent at the C5-C6 level wher e there is severe disc space height loss. The prevertebral soft tissues are unremarkable. The visualized cervical soft tissues and visualized lung apices are unre markable. LUMBAR SPINE: No acute fracture or traumatic dislocation is vi sualized. Normal lumbar lordosis is preserved. The vertebral bodies are normal in height and in normal alignment. Moderate multilevel degenerative changes of the lumbar spine with endplate sclerosis and anterior osteophytes and disc spac e narrowing are seen, most prominent at the L4-L5 level. Minimal anterolist hesis of L4 on L5 is seen. IMPRESSION No acute intracranial hemorrhage or mass effect. No acute fractures of the cervical or lumbar spi ne. Preliminary Report Dictated by Resident: Price mahajan I, Rui Maynard MD., have reviewed this s tudy and agree with the above report. 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 COMPARISON: None TECHNIQUE: Axial images of the head and cervical and lumbar spine were obtained without IV contrast. Coronal and sagitt al reformats were constructed. FINDINGS: HEAD: The ventricles and sulci are prominent and consi stent with mild global volume loss. No hydrocephalus, midline shift or pathological extra-axial fluid collection is present. The basal cisterns are unremarkable. There is no acute intracranial hemorrhage or sig nificant mass effect. Periventricular and patchy deep hypoattenuation is nonspecific and likely represents ischemic small vessel changes. The gr ay-white matter differentiation is preserved. The mastoid air cells and paranasal air sinuses are clear. The calvarium and central skull base are unremarkable. CERVICAL SPINE: Straightening of normal cervical lordosis is not ed. Slight anterolisthesis of C4 over C5 and C7 over T1 The vertebral katia s are normal in height and in otherwise alignment. No acute fracture or dis location is present. Normal alignment of the craniocervical junction and atlantoaxial joint. Mild and moderate multilevel degenerative change s are noted in the form of disc space narrowing, endplate sclerosis, margin al osteophytes and facet arthrosis most prominent at the C5-C6 level wher e there is severe disc space height loss. The prevertebral soft tissues are unremarkable. The visualized cervical soft tissues and visualized lung apices are unre markable. LUMBAR SPINE: No acute fracture or traumatic dislocation is vi sualized. Normal lumbar lordosis is preserved. The vertebral bodies are normal in height and in normal alignment. Moderate multilevel degenerative changes of the lumbar spine with endplate sclerosis and anterior osteophytes and disc spac e narrowing are seen, most prominent at the L4-L5 level. Minimal anterolist hesis of L4 on L5 is seen. IMPRESSION No acute intracranial hemorrhage or mass effect. No acute fractures of the cervical or lumbar spi ne. Preliminary Report Dictated by Resident: Price mahajan I, Rui Maynard MD., have reviewed this s tudy and agree with the above report. CT TRAUMA CERVICAL SPINE WO CONTRAST Final Result CT TRAUMA HEAD WO CONTRAST, CT TRAUMA LUMBAR SPINE WO CONTRAST, CT TRAUMA CERVICAL SPINE WO CONTRAST HISTORY: 77 years-old Female; patient was rebeca g her goodbye as he was leaving in the ambulance and tripped on [facility]. COMPARISON: None TECHNIQUE: Axial images of the head and cervical and lumbar spine were obtained without IV contrast. Coronal and sagitt al reformats were constructed. FINDINGS: HEAD: The ventricles and sulci are prominent and consi stent with mild global volume loss. No hydrocephalus, midline shift or pathological extra-axial fluid collection is present. The basal cisterns are unremarkable. There is no acute intracranial hemorrhage or sig nificant mass effect. Periventricular and patchy deep hypoattenuation is nonspecific and likely represents ischemic small vessel changes. The gr ay-white matter differentiation is preserved. The mastoid air cells and paranasal air sinuses are clear. The calvarium and central skull base are unremarkable. CERVICAL SPINE: Straightening of normal cervical lordosis is not ed. Slight anterolisthesis of C4 over C5 and C7 over T1 The vertebral katia s are normal in height and in otherwise alignment. No acute fracture or dis location is present. Normal alignment of the craniocervical junction and atlantoaxial joint. Mild and moderate multilevel degenerative change s are noted in the form of disc space narrowing, endplate sclerosis, margin al osteophytes and facet arthrosis most prominent at the C5-C6 level wher e there is severe disc space height loss. The prevertebral soft tissues are unremarkable. The visualized cervical soft tissues and visualized lung apices are unre markable. LUMBAR SPINE: No acute fracture or traumatic dislocation is vi sualized. Normal lumbar lordosis is preserved. The vertebral bodies are normal in height and in normal alignment. Moderate multilevel degenerative changes of the lumbar spine with endplate sclerosis and anterior osteophytes and disc spac e narrowing are seen, most prominent at the L4-L5 level. Minimal anterolist hesis of L4 on L5 is seen. IMPRESSION No acute intracranial hemorrhage or mass effect. No acute fractures of the cervical or lumbar spi ne. Preliminary Report Dictated by Resident: Price mahajan I, Rui Maynard MD., have reviewed this s tudy and agree with the above report. Lab Results: Lab Results - No data to display EKG: If EKG completed, see Procedure Note. Orders and Treatments: Orders Placed This Encounter Procedures CT TRAUMA LUMBAR SPINE WO CONTRAST CT TRAUMA HEAD WO CONTRAST CT TRAUMA CERVICAL SPINE WO CONTRAST XR PELVIS <3 VW Orders Placed This Encounter Medications FENTanyl PF (SUBLIMAZE (PF)) injection 50 mcg First Provider Eval: ED Events Date/Time Event User Comments 06/27/23 1319 Medical Screening Begins PENNY VAUGHAN DO -- 06/27/23 1319 First Provider Evaluation PENNY FRANCO DO -- ED COURSE Diagnosis/Impression as of 06/27/23 1555 Fall, initial encounter Procedures: Procedures MDM: Medical Decision Making The patient presents from [facility] with EMS for evaluation status post mechanical fall that occurred just prior to arrival. She reports her was living with EMS when she fell backwards. She did hit h er head but denies any loss of conscious. She was unable to get up on her own. She does not take any blood thinners. She complains of back pain and right hip pain. No headache or neck pain. No medicatio ns taken prior to arrival. S he was diagnosed with COVID yesterday and reports her symptoms started on Saturday. Today is . Vital signs are stable here in the ER. She has no vertebral body tenderness to her cerv ical spine. Her pelvis is stable and not tender. She has full range of motion of bilateral shoulders, elbows, wrist, hips, knees and ankles. She has vertebral body tende rness to the lumbar spine but none to the thoracic. We will obtain a CT of her head, cervical spine and lumbar spine. We will obtain an x-ray of her pelvis. We will provide the patient with pain medication here in the ER. We will continue to monitor the patient here in the ER. Final disposition pending. 1554 -the patient is doing well in the ER. The CT of her head and cervical spine showed no acute traumatic injuries. The CT of the lumbar spine s hows no acute fractures and the x-ray of her pelvis shows no fractures as well. She remained stable here in the ER and is okay for discharge home with PCP follow-up. Problems Addressed: Fall, initial encounter: acute illness or injury Amount and/or Complexity of Data Reviewed Independent Historian: EMS Radiology: ordered and indep endent interpretation performed. Decision-making details documented in ED Course. Risk OTC drugs. Prescription drug management. Parenteral controlled substances. Flowsheet Documentation: Scoring Tools: No data recorded Disposition/Condition: ED Disposition ED Disposition Disch - Home Condition Stable Comment -- Discharge Medications: Patient's Medications START taking these medications No medications on file CONTINUE taking these medications which have NOT CHANGED AMLODIPINE (NORVASC) 5 MG TABLET ASPIRIN 81 MG EC TABLET Take 81 mg by mouth rosalva ly. BIOTIN (JEFFERY BIOTIN) 10,000 MCG CAP Take by moira . CALCIUM CARBONATE/VITAMIN D3 (VITAMIN D-3 ORAL) Take by mouth. CYCLOBENZAPRINE (FLEXERIL) 10 MG TABLET FISH OIL-OMEGA-3 FATTY ACIDS (SEA-OMEGA 30) 360 -1,200 MG CAP Take by mouth. FOLIC ACID ORAL Take by mouth. GUAIFENESIN/PSEUDOEPHEDRNE HCL (MUCINEX D ORAL) Take by mouth. LOSARTAN (COZAAR) 25 MG TABLET MELOXICAM (MOBIC) 15 MG TABLET NIACIN, INOSITOL NIACINATE, 500 MG TAB Take by mouth. POTASSIUM (POTASSIUM-99) 99 MG TAB Take by mout h. RED YEAST RICE EXTRACT (CHOLESTEROL MANAGEMENT) 600 MG CAP Take by mouth. UBIDECARENONE (ULTRA COQ10 ORAL) Take by mouth. VITAMIN B-12 (CYANOCOBALAMIN) 1,000 MCG TABLET Take 1,000 mcg by mouth daily. START taking Modified Medications as Prescribed No medications on file STOP taking these medications No medications on file Follow-up: Electronically signed by: Penny Vaughan DO 06/27/23 1555
[2023-06-29 08:00] LABS: Absolute Lymphocytes (CBC) 0.8 K/uL (0.7-4.9); Hematocrit 35.8 % (36.0-45.0); Lymphocytes % 22.7 % (15.3-44.8); MCV 101.6 fL (80-100); MPV 8.1 fL (7.6-11.3); RBC Red Blood Cell Count 3.53 M/uL (3.86-4.86)
[2023-06-29 08:07] LABS: Protime INR 0.85
[2023-06-29 08:18] LABS: Bilirubin Direct 0.2 mg/dL (0-0.2); Bilirubin Indirect, Calculated 0.3 mg/dL (0.2-0.8); Bilirubin Total 0.5 mg/dL (0.2-1.0); Potassium 3.6 mEq/L (3.5-5.1); Protein, Total 6.3 g/dL (6.4-8.2); Troponin High Sensitivity 17.1 pg/mL (<58.9)
--- NOTE | 2023-06-29 08:52 | RAD REPORT ---
EXAM DESCRIPTION: RAD - Chest Single View - 06/29/2023 7:57 am CLINICAL HISTORY: syncope Chest pain. COMPARISON: Chest Single View dated 09/30/2022; Chest Pa And Lat (2 Views) dated 07/17/2022; Chest Pa And Lat (2 Views) dated 11/10/2019; Chest Pa And Lat (2 Views) dated 12/05/2018 FINDINGS: Portable technique limits examination quality. The lungs are emphysematous but grossly clear. The heart is normal in size. No displaced fractures. IMPRESSION: COPD.
--- NOTE | 2023-06-29 10:16 | ER ---
Nurse's Notes [facility] Name: Elizabeth Wyman Age: 77 yrs Sex: Female : 1945 Arrival Date: 06/29/2023 Time: 07:30 Bed 6 Private MD: Diagnosis: Syncope;Essential (primary) hypertension Presentation: 06/29 07:38 Chief complaint: EMS states: Pt from home, is Covid +, was informed this morning that ph her passed last night, had syncopal episode witnessed by family who states that "she was not breathing for at least 2 minutes". Pt A\\T\\O x 4 for EMS, hypertensive w/ 190s systolic, 12 lead sinus johnson, pt c/o pain to L side of body r/t previous fall. Coronavirus screen: Vaccine status: Patient reports receiving the 2nd dose of the covid vaccine. Ebola Screen: No symptoms or risks identified at this time. Initial Sepsis Screen: Does the patient meet any 2 criteria? No. Patient's initial sepsis screen is negative. Does the patient have a suspected source of infection? No. Patient's initial sepsis screen is negative. Risk Assessment: Do you want to hurt yourself or someone else? Patient reports no desire to harm self or others. Onset of symptoms was June 29, 2023. 07:38 Method Of Arrival: EMS: [facility] ph 07:38 Acuity: GUNJAN 2 ph 07:57 Care prior to arrival: 18 g PIV to bilateral AC. Good blood return, flush easily. me1 Triage Assessment: 07:42 General: Appears in no apparent distress. comfortable, Behavior is cooperative, ph appropriate for age. Pain: Complains of pain in L side of body. Neuro: Level of Consciousness is awake, alert, obeys commands, Oriented to person, place, time, situation, Reports a syncopal episode weakness. Cardiovascular: Capillary refill < 3 seconds in bilateral fingers Patient's skin is warm and dry. Respiratory: Airway is patent Respiratory effort is even, unlabored. GI: Reports nausea. Musculoskeletal: Circulation, motion, and sensation intact. Range of motion: intact in all extremities. Historical: - Allergies: 07:42 Allopurinol; ph 07:42 Coricidin HBP Flu; ph 07:42 Demerol; ph 07:42 meperidine; ph 07:42 Morphine; ph - PMHx: 07:42 Granulomatosis w/ polymicroangitis; Hypertension; Rheumatoid Arthritis; ph - PSHx: 07:42 Cholecystectomy; hysterectomy; ph - Immunization history:: Adult Immunizations up to date. - Social history:: Smoking status: Patient denies any tobacco usage or history of. Screenin:44 [facility] ED Fall Risk Assessment (Adult) History of falling in the last 3 months, ph including since admission Yes- single mechanical fall (1 pt) Confusion or Disorientation No (0 pts) Intoxicated or Sedated No (0 pts) Impaired Gait No (0 pts) Mobility Assist Device Used No (0 pt) Altered Elimination No (0 pt) Score/Fall Risk Level 0 - 2 = Low Risk Oriented to surroundings, Maintained a safe environment, Hourly rounding (assess needs \\T\\ fall precautionary measures) done, Used ambulatory aids as needed (educated on \\T\\ assisted with). Abuse screen: Denies threats or abuse. Denies injuries from another. Nutritional screening: No deficits noted. Tuberculosis screening: No symptoms or risk factors identified. Assessment: 07:55 General: See triage assessment. . me1 09:22 Reassessment: Patient appears in no apparent distress at this time. Patient and/or ph family updated on plan of care and expected duration. Pain level reassessed. Patient is alert, oriented x 3, equal unlabored respirations, skin warm/dry/pink. family at bedside. 09:35 Cardiovascular: Rhythm is sinus bradycardia. me1 10:27 Reassessment: Ambulated patient around the room, approximately 15 feet and patient me1 became "lightheaded". Assisted back to bed, informed Dr Mckenna. Vital Signs: 07:38 BP 183 / 93; Pulse 55; Resp 18; Temp 97.9; Pulse Ox 97% on R/A; Weight 52.16 kg; Height ph 5 ft. 3 in. ; 08:40 BP 164 / 76; Pulse 70; Resp 17; Pulse Ox 97% on R/A; hb 09:22 BP 186 / 82; Pulse 55; Resp 18; Pulse Ox 96% on R/A; ph 10:27 BP 187 / 88; Pulse 53; Resp 16; Pulse Ox 92% on with ambulation.; me1 11:25 BP 161 / ???; Pulse 88; Resp 16; Pulse Ox 94% on R/A; me1 07:38 Body Mass Index 20.37 (52.16 kg, 160.02 cm) ph Vitals: 09:22 Cardiac Rhythm Assessment Sinus johnson. ph ED Course: 07:38 Patient arrived in ED. ss 07:38 Naheed Parmar, RN is Primary Nurse. ph 07:39 Yovani Mckenna DO is Attending Physician. ms3 07:41 Triage completed. ph 07:44 Arm band placed on Patient placed in an exam room, on a stretcher, on batch room technician, ph on pulse oximetry. 07:45 Patient has correct armband on for positive identification. Placed in gown. Bed in low ph position. Call light in reach. Side rails up X 1. Client placed on continuous cardiac and pulse oximetry monitoring. NIBP monitoring applied. 07:55 Provided Education on: POC, verbalized understanding. . me1 07:55 No provider procedures requiring assistance completed. Maintain EMS IV. Dressing me1 intact. Good blood return noted. Site clean \\T\\ dry. 07:59 Chest Single View XRAY In Process Unspecified. EDMS 11:44 IV discontinued, intact, bleeding controlled, No redness/swelling at site. Pressure me1 dressing applied. Administered Medications: No medications were administered Medication: 07:44 VIS not applicable for this client. ph Outcome: 10:15 Discharge ordered by . ms3 11:44 Discharged to home via wheelchair, with family. me1 11:44 Condition: stable 11:44 Discharge instructions given to patient, family, Instructed on discharge instructions, follow up and referral plans. Demonstrated understanding of follow-up care. 11:57 Patient left the ED. me1 Signatures: Dispatcher [employer] EDMS Ligia Sarkar RN RN Naheed Parmar RN RN Mari Hutchins RN RN Yovani Mckenna DO DO ms3 Luz Maria Bran RN RN me1
--- NOTE | 2023-06-29 10:16 | EDPHYS ---
Physician Documentation [facility] Name: Elizabeth Wyman Age: 77 yrs Sex: Female : 1945 Arrival Date: 06/29/2023 Time: 07:30 Bed 6 Private MD: ED Physician Yovani Mckenna HPI: 06/29 10:49 This 77 yrs old Female presents to ER via EMS with complaints of Syncope. ms3 10:49 77-year-old female with past medical history of granulomatosis, hypertension, ms3 rheumatoid arthritis presents via [facility] status post syncopal episode. EMS notes patient was informed this morning that her overnight. Shortly after that patient had a syncopal episode into her daughter's arms. Patient diagnosed on Saturday with COVID. Patient is without pain or symptoms on arrival.. Historical: - Allergies: 07:42 Allopurinol; ph 07:42 Coricidin HBP Flu; ph 07:42 Demerol; ph 07:42 meperidine; ph 07:42 Morphine; ph - PMHx: 07:42 Granulomatosis w/ polymicroangitis; Hypertension; Rheumatoid Arthritis; ph - PSHx: 07:42 Cholecystectomy; hysterectomy; ph - Immunization history:: Adult Immunizations up to date. - Social history:: Smoking status: Patient denies any tobacco usage or history of. ROS: 10:49 Constitutional: Negative for fever, and chills. Neck: Negative for injury, pain, and ms3 swelling, Cardiovascular: Negative for chest pain, and palpitations. Respiratory: Negative for shortness of breath, cough, wheezing, and pleuritic chest pain, Abdomen/GI: Negative for abdominal pain, nausea, vomiting, diarrhea, and constipation, MS/Extremity: Negative for injury and deformity, Skin: Negative for injury, rash, and discoloration. 10:49 Neuro: Positive for syncope. 10:49 All other systems are negative. Exam: 10:49 Constitutional: This is a well developed, well nourished patient who is awake, alert, ms3 and in no acute distress. Head/Face: Normocephalic, atraumatic. Neck: Trachea midline, no cervical lymphadenopathy. Supple, full range of motion without nuchal rigidity, or vertebral point tenderness. No Meningismus. Chest/axilla: Normal chest wall appearance and motion. Nontender with no deformity. Cardiovascular: Regular rate and rhythm with a normal S1 and S2. No gallops, murmurs, or rubs. Normal PMI, no JVD. No pulse deficits. Respiratory: Lungs have equal breath sounds bilaterally, clear to auscultation and percussion. No rales, rhonchi or wheezes noted. No increased work of breathing, no retractions or nasal flaring. 10:49 Abdomen/GI: Soft, non-tender, with normal bowel sounds. No distension or tympany. No guarding or rebound. No evidence of tenderness throughout. Skin: Warm, dry with normal turgor. Normal color with no rashes, no lesions, and no evidence of cellulitis. MS/ Extremity: Pulses equal, no cyanosis. Neurovascular intact. Full, normal range of motion. 17:59 ECG was reviewed by the Attending Physician. ms3 Vital Signs: 07:38 BP 183 / 93; Pulse 55; Resp 18; Temp 97.9; Pulse Ox 97% on R/A; Weight 52.16 kg; Height ph 5 ft. 3 in. ; 08:40 BP 164 / 76; Pulse 70; Resp 17; Pulse Ox 97% on R/A; hb 09:22 BP 186 / 82; Pulse 55; Resp 18; Pulse Ox 96% on R/A; ph 10:27 BP 187 / 88; Pulse 53; Resp 16; Pulse Ox 92% on with ambulation.; me1 11:25 BP 161 / ???; Pulse 88; Resp 16; Pulse Ox 94% on R/A; me1 07:38 Body Mass Index 20.37 (52.16 kg, 160.02 cm) ph MDM: 07:39 Patient medically screened. ms3 10:49 Differential Diagnosis: cardiac arrhythmia, idiopathic syncope, vasovagal episode. Data ms3 reviewed: vital signs, nurses notes, lab test result(s), EKG, radiologic studies, and as a result, I will discharge patient. Independent interpretation of the following test(s) in the Emergency Department EKG: See my EKG interpretation above patient monitor: rate is 59 beats/min, Rhythm is normal sinus rhythm, regular, with no ectopy, Interpretation: normal rate, normal rhythm. Historians other than the Patient: EMS: [facility]. Counseling: I had a detailed discussion with the patient and/or guardian regarding: the historical points, exam findings, and any diagnostic results supporting the discharge/admit diagnosis, lab results, radiology results, the need for outpatient follow up, to return to the emergency department if symptoms worsen or persist or if there are any questions or concerns that arise at home. Special discussion:. ED course: Discussed labs, imaging, EKG with patient and her daughter. Patient states her symptoms have improved and would like to be discharged. Discussed strict return precautions with the patient and her daughter to include chest pain, shortness of breath, lightheadedness, worsening symptoms, or any other concerns. They understand and agree with plan. All questions were answered. . 06/29 07:43 Order name: Basic Metabolic Panel; Complete Time: 08: hb 06/29 07:43 Order name: CBC with Diff; Complete Time: 08: hb 06/29 07:43 Order name: Hepatic Function; Complete Time: 08: hb 06/29 07:43 Order name: Magnesium; Complete Time: 08:06/29 07:43 Order name: Protime (+inr); Complete Time: 08: hb 06/29 07:43 Order name: Ptt, Activated; Complete Time: 08: hb 06/29 07:43 Order name: Troponin High Sensitivity; Complete Time: 08: hb 06/29 07:43 Order name: Chest Single View XRAY; Complete Time: 09:49 hb 06/29 07:43 Order name: EKG; Complete Time: 07:44 hb 06/29 07:43 Order name: Cardiac monitoring; Complete Time: 07:44 06/29 07:43 Order name: EKG - Nurse/Tech; Complete Time: 08:00 hb 06/29 07:43 Order name: IV Saline Lock; Complete Time: 07:44 06/29 07:43 Order name: Labs collected and sent; Complete Time: 07:53 hb 06/29 07:43 Order name: NPO; Complete Time: 08:32 hb 06/29 07:43 Order name: O2 Per Protocol; Complete Time: 07:53 hb 06/29 07:43 Order name: O2 Sat Monitoring; Complete Time: 07:53 hb EC:59 Rate is 50 beats/min. Rhythm is regular. QRS [place] is Normal. [place] interval is normal. QRS ms3 interval is normal. Clinical impression: Sinus bradycardia. Interpreted by me. Reviewed by me. Administered Medications: No medications were administered Disposition Summary: 06/29/23 10:15 Discharge Ordered Location: Home ms3 Condition: Stable ms3 Diagnosis - Syncope ms3 - Essential (primary) hypertension ms3 Followup: ms3 - With: Private Physician - When: 2 - 3 days - Reason: Recheck today's complaints Discharge Instructions: - Discharge Summary Sheet ms3 - Hypertension, Adult ms3 - Syncope ms3 - Syncope, [id number] ms3 Forms: - Medication Reconciliation Form ms3 - Thank You Letter ms3 - Antibiotic Education ms3 - Prescription Opioid Use ms3 - Patient Portal Instructions ms3 Signatures: Dispatcher [employer] Naheed Salvador RN RN Mari Decker RN RN Yovani Mckenna, DO ms3
[2023-06-29 12:16] VITALS: TEMP 97.9
[2023-06-29 12:20] VITALS: BP 187/88
[2023-06-29 12:21] VITALS: O2SAT 94
--- NOTE | 2023-06-30 13:12 | EKG ---
Test Date: 2023-06-29 Test Time: 07:51:33 Carpentry Professional: PH MEASUREMENT RESULTS: Intervals: Rate: 50 TN: 148 QRSD: 84 QT: 498 QTc: 454 [place]: P: 80 TN: 148 QRS: 83 T: 95 INTERPRETIVE STATEMENTS: Sinus bradycardia with premature atrial complexes Otherwise normal ECG Compared to ECG 09/30/2022 14:39:13 Atrial premature complex(es) now present Sinus rhythm no longer present Electronically Signed On 06-30-23 13:10:36 CDT by Erik Charles
== END 2023-06-29 11:57 | disposition home or self-care (01) ==
LOC: ER 07:30
DX: R55 Syncope and collapse (principal); I10 Essential (primary) hypertension
CPT/HCPCS: 36415; 71045; 80048; 80076; 83735; 84484; 85025; 85610; 85730; 93005; 99284